=== PATIENT | male | born 1990 | race Caucasian/White ===

== ENCOUNTER → 2020-08-22 15:24 | Outpatient (BNVA) | payer BC, MEDICAID, SELFPAY | PROVIDERS: PCP Internal Medicine; Referring Provider Internal Medicine; Visit Provider Hospitalist | DX: Z13.89 Encounter for screening for other disorder (principal) ==

== ENCOUNTER 2020-08-23 12:33 | Outpatient (REF) | payer BC, MEDICAID, SELFPAY | END 2020-08-23 12:34 | disposition home or self-care (01) | LOC: HO.MDS 12:33 | PROVIDERS: PCP Internal Medicine; Visit Provider Hospitalist | DX: G90.09 Other idiopathic peripheral autonomic neuropathy (principal) | CPT/HCPCS: 96361; 96365; 96366 ==

== ENCOUNTER 2020-09-04 18:32 | Emergency (ER) | payer BC, MEDICAID, SELFPAY ==
[2020-09-04 21:34] VITALS: BP 122/76; PULSE 99; RESP 16; TEMP 36.8; O2SAT 100; BMI 20.7
[2020-09-04 22:00] VITALS: BP 155/82; PULSE 98; RESP 16; TEMP 36.9; O2SAT 100
[2020-09-04 22:11] LABS: MANUAL DIFF FLAG NO
[2020-09-04 22:24] LABS: Basophils Percent Auto 0.7 % (0-2); Hematocrit 41.5 % (42-52); Hemoglobin 14.6 g/dl (14.0-18.0); Imm Gran Abs Auto 0.01 X10*3/uL (0.00-0.03); Imm Gran Pct Auto 0.2 % (0.0-0.4); Lymphocytes Absolute Auto 1.3 X10*3/uL (1.2-4.9); Lymphocytes Percent Auto 28.3 % (20-40); Mean Corpuscular HGB Conc 35.2 g/dl (31.0-36.0); Mean Corpuscular Hemoglobin 31.5 pg (27.0-33.0); Mean Corpuscular Volume 89.4 fL (80-98); Mean Platelet Volume 9.9 fL (9.4-12.4); Monocytes Absolute Auto 0.4 X10*3/uL (0.1-1.2); Monocytes Percent Auto 8.3 % (2-11); Neutrophils Absolute Auto 2.9 X10*3/uL (2.0-8.3); Neutrophils Percent Auto 62.5 % (45-73); Platelet Count 169 X10*3/uL (160-400); Red Blood Count 4.64 X10*6/uL (4.60-5.80); Red Cell Distribution Width 12.4 % (11.0-16.0); White Blood Count 4.6 X10*3/uL (4.8-10.8)
[2020-09-04 22:39] LABS: Anion Gap 12 (12-20); Blood Urea Nitrogen 16 mg/dL (9-16); Calcium 9.2 mg/dL (8.4-10.2); Carbon Dioxide 27 mmol/L (22-29); Chloride 105 mmol/L (96-108); Creatinine Clr Calc Pharmacy 101.9; Estimated Glomerular Filt Rate > 60; Glucose Random 90 mg/dL (60-115); Sodium 140 mmol/L (135-145)
--- NOTE | 2020-09-04 22:58 | ED.NEUROSD ---
HPI - Neuro Symptoms/Deficit General Chief Complaint: Neuro Symptoms/Deficit Stated Complaint: neurological problem Time Seen by Provider: 09/04/20 22:46 Source: patient Mode of arrival: ambulatory Limitations: no limitations History of Present Illness HPI Narrative: patient with PTSD, autonomic dysfunction and neuropathy been here frequently for increased stress and dehydration with metabolic acidosis. Patient had a phone call with his washer hand today stressed out felt overwhelmed dehydrated Related Data Home Medications Medication Instructions Recorded Confirmed albuterol sulfate 90 mcg/actuation 2 puff PO Q4H PRN 08/22/20 08/22/20 aerosol inhaler budesonide-formoterol HFA 160 2 puff PO BID 08/22/20 08/22/20 mcg-4.5 mcg/actuation aerosol inhaler diazepam 10 mg tablet 10 mg PO Q8H PRN 08/22/20 08/22/20 fludrocortisone 0.1 mg tablet 0.2 mg PO DAILY 08/22/20 08/22/20 gabapentin 300 mg capsule 300 mg PO TID 08/22/20 08/22/20 levalbuterol HCl 1.25 mg/3 mL mg INHALATION 08/22/20 08/22/20 solution for nebulization omeprazole 20 mg capsule,delayed 20 mg PO QAM 08/22/20 08/22/20 release pregabalin 50 mg capsule 50 mg PO TID 08/22/20 08/22/20 tiotropium bromide 2.5 2 puff PO DAILY 08/22/20 08/22/20 mcg/actuation mist for inhalation verapamil 180 mg tablet,extended 180 mg PO DAILY 08/22/20 08/22/20 release Allergies Allergy/AdvReac Type Severity Reaction Status Date / Time pyridostigmine AdvReac Intermediate AGITATION Verified 08/23/20 11:08 [From MESTINON] sertraline [From ZOLOFT] AdvReac Intermediate NAUSEA & Verified 08/23/20 11:08 VOMITING trazodone [TRAZODONE] AdvReac Unknown VOMITING Verified 08/22/20 15:49 methylprednisolone AdvReac Agitated Verified 09/04/20 21:42 [From Solu-Medrol] prednisone AdvReac Agitated Verified 09/04/20 21:42 Review of Systems Review of Systems: REVIEW OF SYSTEMS: Pertinent positives and negatives are stated above in the history. GEN: no fevers, chills, fatigue HEENT: no nasal congestion, sore throat, ear pain NEURO: no headache, dizziness, focal weakness PULM: no cough, shortness of breath CV: no chest pain, palpitations, LE edema ABD: no abdominal pain, nausea, vomiting, diarrhea : no dysuria, urgency, frequency SKIN: no rash ROS otherwise negative x 10 PMFSH Past Medical History Medical History Asthma Autonomic dysfunction Nocturnal hypoxemia Mccallum disease PTSD (post-traumatic stress disorder) Small fiber neuropathy Tachycardia Family History Family History Mother Asthma Celiac disease/sprue Social History Social History Smoking Status: Former smoker Tobacco Type: Cigarette Years Smoked: 1 year Substance Use Type: Marijuana Advance Directives: No Advance Directives Date on File: 09/16/18 Physical Exam Vital Signs: Vital Signs: Vital Signs Temp Pulse Resp BP Pulse Ox 09/04/20 23:13 88 16 130/85 100 09/04/20 22:00 98.4 F 98 16 155/82 H 100 09/04/20 21:34 98.3 F 99 16 122/76 100 Body Mass Index 20.7 Appearance: Alert. Oriented X3. anxious, No acute distress. Eyes: Pupils equal, round and reactive to light. ENT: Pharynx normal. Neck: Normal inspection. Neck supple. CVS: Normal heart rate and rhythm. Pulses normal. Respiratory: No respiratory distress. Breath sounds normal. Abdomen: Soft and nontender. Skin: Skin warm and dry. Normal skin color. Normal skin turgor. Extremities: No lower extremity edema. Good range of movement Neuro: Oriented X 3. No motor deficit. No sensory deficit. Course Course Course Narrative: patient with stable labs PTSD with anxiety will give him IV fluids and IV Ativan Reevaluation(s) Reevaluation #1: patient feeling much better now after IV fluids and Ativan will discharge him home MDM - Neuro Symptoms/Deficit Lab Data Result diagrams: 09/04/20 22:02 09/04/20 22:02 Labs: Lab Results 09/04/20 09/04/20 09/04/20 Range/Units 22:02 22:02 22:02 WBC 4.6 L (4.8-10.8) X10*3/uL RBC 4.64 (4.60-5.80) X10*6/uL Hgb 14.6 (14.0-18.0) g/dl Hct 41.5 L (42-52) % MCV 89.4 (80-98) fL MCH 31.5 (27.0-33.0) pg MCHC 35.2 (31.0-36.0) g/dl RDW 12.4 (11.0-16.0) % Plt Count 169 (160-400) X10*3/uL MPV 9.9 (9.4-12.4) fL Immature Gran % (Auto) 0.2 (0.0-0.4) % Neut % (Auto) 62.5 (45-73) % Lymph % (Auto) 28.3 (20-40) % [place] % (Auto) 8.3 (2-11) % Eos % (Auto) 0.0 (0-4) % Baso % (Auto) 0.7 (0-2) % Lymph # (Auto) 1.3 (1.2-4.9) X10*3/uL [place] # (Auto) 0.4 (0.1-1.2) X10*3/uL Eos # (Auto) 0.0 (0.0-0.4) X10*3/uL Baso # (Auto) 0.0 (0.0-0.2) X10*3/uL Abs Immat Gran (auto) 0.01 (0.00-0.03) X10*3/uL Absolute Neuts (auto) 2.9 (2.0-8.3) X10*3/uL Absolute Nucleated RBC 0.000 (0.0-0.012) X10*3/uL Nucleated RBC % (auto) 0.0 (0.0-0.2) /100WBC Hold Blue Top SEE NOTE Sodium 140 (135-145) mmol/L Potassium 4.0 (3.3-5.1) mmol/l Chloride 105 (96-108) mmol/L Carbon Dioxide 27 (22-29) mmol/L Anion Gap 12 (12-20) BUN 16 (9-16) mg/dL Creatinine 0.96 (0.5-1.4) mg/dL Estim Creat Clear Calc 101.9 Estimated GFR > 60 Random Glucose 90 (60-115) mg/dL Calcium 9.2 (8.4-10.2) mg/dL Discharge Plan Discharge Clinical Impression: Acute post-traumatic stress disorder Patient Disposition: Home, Self-Care Instructions: Post Traumatic Stress Disorder (ED) Additional Instructions: drink plenty of fluids and follow-up with your neurologist and PCP Prescriptions: No Action budesonide-formoterol 160-4.5 mcg/actuation HFA aerosol inhaler 2 puff PO BID RF: 0 albuterol sulfate 90 mcg/actuation HFA aerosol inhaler 2 puff PO Q4H PRN (Reason: wheezing) RF: 0 verapamil 180 mg tablet extended release 180 mg PO DAILY RF: 0 levalbuterol HCl 1.25 mg/3 mL solution for nebulization inhalation RF: 0 gabapentin 300 mg capsule 300 mg PO TID RF: 0 omeprazole 20 mg capsule,delayed release(DR/EC) 20 mg PO QAM RF: 0 Spiriva Respimat 2.5 mcg/actuation mist 2 puff PO DAILY RF: 0 diazepam 10 mg tablet 10 mg PO Q8H PRN (Reason: anxiety) RF: 0 pregabalin 50 mg capsule 50 mg PO TID RF: 0 fludrocortisone 0.1 mg tablet 0.2 mg PO DAILY RF: 0
[2020-09-04 23:13] VITALS: BP 130/85; PULSE 88; RESP 16; O2SAT 100
[2020-09-04] MEDS: LORazepam 2 MG/ML VIAL 1 MG IVPUSH (23:18)
[2020-09-04] MEDS: 0.9 % Sodium Chloride 1,000 ML 999 ML IVCONT (23:18)
--- NOTE | 2020-09-04 23:21 | PC.NURSE ---
PT RESTING IN STRETCHER WITH ANXIETY. PT STATES I GOT VIOLENT AND WAS THROWING THINGS AT HOME AFTER SPEAKING WITH A NETWORK DEVELOPER. PT ALERT, RESPIRATIONS EASY, N/L. IN ROOM FOR EVAL. PT REMAINS CALM AND COOPERATIVE AT THIS TIME. HL PLACED TO [facility], NS UP AND RUNNING W/O, SITE INTACT. PT MEDICATED WITH ATIVAN PER EMAR FOR ANXIETY. PT AWAITING FOR FURTHER ORDERS.
[2020-09-04] MEDS: Pregabalin 50 MG CAPSULE PO (23:49)
[2020-09-04] MEDS: Acetaminophen 325 MG TABLET 650 MG PO (23:49)
== END 2020-09-05 00:55 | disposition home or self-care (01) ==
PROVIDERS: Emergency Provider Internal Medicine
DX: F43.10 Post-traumatic stress disorder, unspecified (principal); F43.9 Reaction to severe stress, unspecified; E86.0 Dehydration; Z79.899 Other long term (current) drug therapy; Z87.891 Personal history of nicotine dependence
CPT/HCPCS: 36415; 80048; 85025; 96361; 96374; 99284; J2060

== ENCOUNTER 2020-09-06 | Outpatient (REF) | payer BC, MEDICAID, SELFPAY | END 2020-09-06 00:01 | disposition home or self-care (01) | LOC: HO.MDS | PROVIDERS: PCP Internal Medicine; Visit Provider Hospitalist | DX: G47.34 Idiopathic sleep related nonobstructive alveolar hypoventilation (principal) | CPT/HCPCS: 96361; 96365; 96366; J1572; Q0163 ==

== ENCOUNTER 2020-09-20 11:06 | Outpatient (REF) | payer BC, MEDICAID, SELFPAY | END 2020-09-20 11:07 | disposition home or self-care (01) | LOC: HO.MDS 11:06 | PROVIDERS: PCP Internal Medicine; Visit Provider Hospitalist | DX: G90.9 Disorder of the autonomic nervous system, unspecified (principal) | CPT/HCPCS: 96365; 96366; J1572; Q0163 ==

== ENCOUNTER 2020-09-22 15:38 | Outpatient (REF) | payer BC, MEDICAID, SELFPAY ==
[2020-09-22 18:15] LABS: Glucose Urine UA NEG (NEG); Leukocyte Esterase Urine NEG (NEG); Nitrite Urine NEG (NEG); PH 6.5 (5.0-8.0); Specific Gravity - Urine <= 1.005 (1.005-1.025); Urine Blood NEG (NEG); Urine Ketones NEG (NEG); Urine Protein NEG (NEG-TRACE)
[2020-09-22 18:22] LABS: Appearance Urine CLEAR; Color Urine STRAW
[2020-09-22 18:28] LABS: RBC Urine 0 /HPF (0); WBC Urine 0 /HPF (0-4)
[2020-09-22 18:32] LABS: Alanine Aminotransferase 21 U/L (0-40); Albumin Level 4.3 g/dL (3.5-5.0); Alkaline Phosphatase 51 U/L (39-117); Anion Gap 10 (12-20); Aspartate Amino Transferase 30 U/L (5-37); Bilirubin Total 0.6 mg/dL (0.0-1.0); Blood Urea Nitrogen 18 mg/dL (9-16); C Reactive Protein 0.05 mg/dL (< or = 0.50); Calcium 9.2 mg/dL (8.4-10.2); Carbon Dioxide 29 mmol/L (22-29); Chloride 101 mmol/L (96-108); Estimated Glomerular Filt Rate > 60; Glucose Random 94 mg/dL (60-115); Rheumatoid Factor < 15.0 IU/mL (<15.0); Sodium 136 mmol/L (135-145); Total Protein 9.4 g/dL (6.5-8.0)
[2020-09-22 19:15] LABS: Erythrocyte Sedimentation Rate 38 MM/HR (0-15)
[2020-09-25 19:09] LABS: Complement C3 101 mg/dL (82-185)
[2020-09-25 19:10] LABS: Cardiolipin IgG Ab <14 GPL; Cardiolipin IgM Ab <12 MPL
[2020-09-25 19:11] LABS: Beta-2 Microglobulin, Serum 1.72 mg/L (< OR = 2.51); Cyclic Citrullinated Peptide <16 UNITS; PTT (LAC) Screen 26 sec (< OR = 40)
[2020-09-26 13:11] LABS: Anti Nuclear Antibody Screen POSITIVE (NEGATIVE)
[2020-09-27 13:12] LABS: Anti DNA DS Antibody 5 IU/mL; Antibody to SS-A Antigen 1.6 POS AI (<1.0 NEG); Antibody to SS-B Antigen <1.0 NEG AI (<1.0 NEG)
[2020-09-27 21:02] LABS: Acetylcholine Receptor Binding <0.30 nmol/L
[2020-09-30 05:42] LABS: Aldolase 3.6 U/L (<=8.1)
== END 2020-09-22 15:39 | disposition home or self-care (01) ==
LOC: HO.LAB 15:38
PROVIDERS: PCP Internal Medicine; Referring Provider Nurse Practitioner Family; Visit Provider Student in an Organized Health Care Education/Training Program
DX: M25.50 Pain in unspecified joint (principal); G90.9 Disorder of the autonomic nervous system, unspecified
CPT/HCPCS: 36415; 80053; 81001; 82085; 82232; 82550; 83519; 85597; 85613; 85652; 85730; 86038; 86039; 86140; 86147; 86160; 86200; 86225; 86235; 86431

== ENCOUNTER 2020-10-03 11:07 | Outpatient (REF) | payer BC, MEDICAID, SELFPAY | END 2020-10-03 11:08 | disposition home or self-care (01) | LOC: HO.MDS 11:07 | PROVIDERS: PCP Internal Medicine; Visit Provider Hospitalist | DX: G90.9 Disorder of the autonomic nervous system, unspecified (principal) | CPT/HCPCS: 96365; 96366; J1572; J2920; Q0163 ==

== ENCOUNTER → 2020-10-10 15:46 | Outpatient (BNVA) | payer BC, MEDICAID, SELFPAY | PROVIDERS: PCP Nurse Practitioner Family; Referring Provider Nurse Practitioner Family; Visit Provider Student in an Organized Health Care Education/Training Program | DX: Z76.89 Persons encountering health services in other specified circumstances (principal) ==

== ENCOUNTER → 2020-10-19 13:50 | Outpatient (BNVA) | payer BC, MEDICAID, SELFPAY | PROVIDERS: PCP Internal Medicine; Referring Provider Internal Medicine; Visit Provider Internal Medicine Cardiovascular Disease | DX: Z76.89 Persons encountering health services in other specified circumstances (principal) ==

== ENCOUNTER 2020-10-26 10:53 | Outpatient (REF) | payer BC, MEDICAID, SELFPAY | END 2020-10-26 10:54 | disposition home or self-care (01) | LOC: HO.MDS 10:53 | PROVIDERS: PCP Internal Medicine; Visit Provider Hospitalist | DX: G47.34 Idiopathic sleep related nonobstructive alveolar hypoventilation (principal) | CPT/HCPCS: 96361; 96365; 96366; J1572; Q0163 ==

== ENCOUNTER → 2020-10-26 | Outpatient (REF) | payer BC, MEDICAID, SELFPAY ==
--- NOTE | 2020-10-26 15:44 | CA_ITS ---
Transthoracic Echocardiogram Patient (Last, First, Middle): Ace Casas, Gender: Male Date of : 1990 Age: 30 Procedure Date: 10/26/2020 Procedure Type: Transthoracic Echocardiogram Location: OP Height: 175.26 cm Weight: 63.5 kg BSA: 1.78 m2 Heart Rate: bpm BP: 120 / 60 mmHg Hand Meat Salter: CARLA Referring MD: Saúl Avilez MD Symptoms: R06.02 - Shortness of breath Study Quality: Good Conclusions: - Normal left ventricular size, thickness, systolic function, and wall motion. - Normal right ventricular cavity size and systolic function. - No significant valvular or pericardial pathology. Findings Left Ventricle Normal left ventricular size, thickness, systolic function, and wall motion. The visually estimated ejection fraction is between 55-60%. There is no evidence of regional wall motion abnormalities. Diastolic function is normal for age. Right Ventricle Normal right ventricular cavity size and systolic function. Atria Both atria are normal in size. There is no evidence of interatrial shunt by color Doppler. Aortic Valve Normal aortic valve structure and function. There is no aortic valve stenosis. There is no aortic valve regurgitation. Mitral Valve Normal mitral valve structure and function. There is trace mitral valve regurgitation. There is no mitral valve stenosis. Pulmonic Valve Normal pulmonic valve structure and function. Tricuspid Valve Normal tricuspid valve structure and function. There is no tricuspid valve regurgitation. Normal right atrial pressure. There is no evidence of pulmonary hypertension. Great Vessels All visible segments of the aorta are normal in size. The visualized portions of the pulmonary artery and branches are normal. Venous The inferior vena cava is normal in size and collapses greater than 50% with inspiration. Pericardium/Pleural There is no evidence of pericardial effusion. Prior Study Comparison No change compared to prior study dated: 05/21/2019. Measurements 2D Linear Measurements IVSd: 0.96 0.6-0.9/0.6-1.0 cm LVIDd: 4.36 3.9-5.3/4.2-5.9 cm LVIDd Index: 2.45 2.4-3.2/2.2-3.1 cm/m2 LVIDs: 2.61 2.0-3.6 cm LVPWd: 0.96 0.7-1.1 cm Ao Root: 3.60 2.1-3.5 cm LA Diam: 3.30 2.7-3.8/3.0-4.0 cm LAIDs Index: 1.85 1.5-2.3 cm/m2 LV Mass: 171.26 67-162/88-224 g LV Mass Index: 96.21 43-95/49-115 g/m2 LVOT Diam: 2.30 3.0+(-)1.3 cm 2D Systolic Function EF 4C: 61.20 >55% EF 2C: 59.20 >55% EF BiP: 60.60 >55% Mitral Valve MV Pk E: 0.81 MV PK A: 0.59 MV Decel Time: 218.00 E/A: 1.40 E'Lateral: 12.10 E'Medial: 8.92 E/E' Med: 9.00 E/E' Lat: 6.70 PHT: 64.00 MVA PHT: 3.44 Decel Mcdonald: 3.69 Aortic Valve AoV Pk Tay: 1.05 AoV Mn Tay: 0.77 AoV VTI: 0.22 AoV Pk Grad: 4.00 Aov Mn Grad: 3.00 MIREYA Cont.VTI: 3.15 LVOT LVOT Pk Tay: 0.81 LVOT Mn Tay: 0.55 LVOT VTI: 0.16 LVOT Pk Grad: 3.00 LVOT Mn Grad: 1.00 LVOT Diam: 2.30 LVOT Area: 4.15 Diastolic Function MV Pk E: 0.81 MV Pk A: 0.59 E/A: 1.40 E'Medial: 8.92 E/E' Med: 9.00 E' Laterial: 12.10 E/E' Lat: 6.70 Tricuspid Valve TR Pk Tay: 2.06 TR Pk Grad: 17.00 RA Press: 3.00 RVSP: 20.00 Great Vessels Aorta Ao Root-2D: 3.60 2.0-3.7 cm Ao Asc: 3.10 2.1-3.4 cm Ao Arch: 2.10 Updated in Other Vendor System with Status of Final Naresh Gonzalez MD electronically signed on 10/27/2020 12:15:02 PM with status of Final
== END ==
LOC: HO.CARD
PROVIDERS: Visit Provider Internal Medicine Cardiovascular Disease
DX: R06.02 Shortness of breath (principal)
CPT/HCPCS: 93306

== ENCOUNTER 2020-11-08 10:44 | Outpatient (REF) | payer BC, MEDICAID, SELFPAY | END 2020-11-08 10:45 | disposition home or self-care (01) | LOC: HO.MDS 10:44 | PROVIDERS: PCP Internal Medicine; Visit Provider Hospitalist | DX: G47.34 Idiopathic sleep related nonobstructive alveolar hypoventilation (principal) | CPT/HCPCS: 96360; 96365; 96366; J1572; Q0163 ==

== ENCOUNTER 2020-11-22 11:35 | Outpatient (REF) | payer BC, MEDICAID, SELFPAY | END 2020-11-22 11:36 | disposition home or self-care (01) | LOC: HO.MDS 11:35 | PROVIDERS: PCP Internal Medicine; Visit Provider Hospitalist | DX: G47.34 Idiopathic sleep related nonobstructive alveolar hypoventilation (principal) | CPT/HCPCS: 96360; 96365; 96366; J1572; Q0163 ==

== ENCOUNTER → 2020-12-07 14:17 | Outpatient (BNVA) | payer BC, MEDICAID, SELFPAY | PROVIDERS: PCP Internal Medicine; Visit Provider Hospitalist ==

== ENCOUNTER 2020-12-28 12:09 | Outpatient (REF) | payer BC, MEDICAID, SELFPAY | END 2020-12-28 12:10 | disposition home or self-care (01) | LOC: HO.MDS 12:09 | PROVIDERS: PCP Internal Medicine; Visit Provider Hospitalist | DX: G60.8 Other hereditary and idiopathic neuropathies (principal) | CPT/HCPCS: 96360; 96365; 96366; J1569; J1572; Q0163 ==

== ENCOUNTER 2021-01-05 19:25 | Outpatient (REF) | payer BC, MEDICAID, SELFPAY ==
--- NOTE | ~2021-01-05 | MR_ITS ---
EXAMINATION: MR BRAIN WITHOUT CONTRAST CLINICAL INFORMATION: Autonomic failure. Cognitive impairment. COMPARISON: Brain MRI from 09/09/2018. TECHNIQUE: MRI of the brain was obtained using routine sequences without contrast. FINDINGS: No focal restricted diffusion is demonstrated to suggest acute or subacute cerebral ischemia. No evidence of acute or chronic hemorrhagic products on heme-sensitive imaging. Normal parenchymal signal characteristics. The ventricles are normal in morphology and size. No abnormal mass effect. No midline shift. Normal appearance of the pituitary gland. The suprasellar cistern is patent. No abnormalities of the posterior fossa with normal appearance of the brainstem and cerebellum. The cerebellar tonsils are positioned at the level the foramen magnum. Normal arterial and venous vascular flow voids are present. Normal, homogeneous marrow signal. Mild mucosal thickening of the paranasal sinuses. Mucous retention cyst within the bilateral maxillary sinuses. No signal abnormalities within the mastoids. MR/MR head/brain wo con IMPRESSION: 1. No acute intracranial abnormalities. 2. No MRI abnormalities to explain the patient's symptoms.
== END 2021-01-05 19:26 | disposition home or self-care (01) ==
LOC: HO.MRI 19:25
PROVIDERS: Visit Provider Psychiatry & Neurology Neurology
DX: G31.84 Mild cognitive impairment of uncertain or unknown etiology (principal)
CPT/HCPCS: 70551

== ENCOUNTER 2021-01-08 10:00 | Emergency (ER) | payer BC, MEDICAID, SELFPAY ==
--- NOTE | ~2021-01-08 | CT_ITS ---
EXAMINATION: CT ANGIOGRAM OF THE CHEST WITH AND WITHOUT CONTRAST (CT PULMONARY ANGIOGRAM FOR PE) CLINICAL INFORMATION: Reason for Exam pleurtitic cp, tachycardia , ro pe COMPARISON: Previous chest x-ray most recent from earlier the same day and chest CTA July 2020 TECHNIQUE: Prior to contrast administration, noncontrast localization images were obtained. Subsequently, multidetector volumetric imaging was performed from the thoracic inlet to below the diaphragms following the administration of 70 mL Omnipaque 350 intravenous contrast. No contrast reaction reported Sagittal, coronal, and MIP oblique sagittal reformatted images were obtained on the CT workstation, uploaded to PACS, and reviewed. This CT examination was performed using dose optimization techniques as appropriate, variously including the following: *Automated exposure control *Adjustment of mA and/or kV according to patient size (this includes techniques or standardized protocols for targeted exams where dose is matched to indication/reason for exam; i.e. extremities or head) *Use of iterative reconstruction technique Total exam dose-length product 278 mGy-cm FINDINGS: QUALITY OF STUDY/CONTRAST BOLUS: Satisfactory. PULMONARY ARTERIES: No central or segmental pulmonary emboli. THORACIC AORTA: No aneurysm or dissection. LUNG: There is a new peripheral consolidation in the posterior segment of the right upper lobe adjacent to the major fissure probably representing pneumonia. The lungs are otherwise clear. PLEURA: There are small bilateral pleural effusions, right greater than left. MEDIASTINUM: Normal heart size. No pericardial effusion. No hilar or mediastinal lymphadenopathy. No evidence of septal bowing or right heart strain. CHEST WALL/AXILLA: No axillary or internal mammary lymphadenopathy. OSSEOUS STRUCTURES: No acute or suspicious osseous abnormality. UPPER ABDOMEN: Unremarkable. No reflux of contrast into the hepatic veins to suggest elevated right heart pressures. CT/CT angio chest PE protocol IMPRESSION: No evidence of pulmonary embolism. New peripheral consolidation in the right upper lobe probably representing pneumonia. New bilateral pleural effusions, right greater than left. VTE: negative
--- NOTE | ~2021-01-08 | XR_ITS ---
EXAMINATION: XR CHEST CLINICAL INFORMATION: Chest pain COMPARISON: Chest 07/15/2020 TECHNIQUE: Frontal view of the chest was obtained. FINDINGS: No significant abnormality is noted involving the heart, lungs, mediastinum, bony thorax or soft tissues. XR/XR chest 1V IMPRESSION: Unremarkable chest examination.
--- NOTE | 2021-01-08 10:35 | ECG_ITS ---
Test Reason : CHEST PAIN Blood Pressure : / mmHG Vent. Rate : 129 BPM Atrial Rate : 129 BPM P-R Int : 154 ms QRS Dur : 092 ms QT Int : 286 ms P-R-T Axes : 044 043 043 degrees QTc Int : 418 ms Sinus tachycardia Otherwise normal ECG When compared with ECG of 29-JUN-2020 14:01, No significant change was found Referred By: Unruly Barajas Electronically Signed By:TICO CANNON
[2021-01-08 10:38] VITALS: BP 137/91; PULSE 128; RESP 22; O2SAT 98; BMI 20.7
--- NOTE | 2021-01-08 10:48 | ED_ITS ---
HPI - Chest Pain General Chief Complaint: Chest Pain Stated Complaint: back pain Time Seen by Provider: 01/08/21 10:16 History of Present Illness HPI narrative: Patient complains of 3 days of gradual onset of upper back pain radiating to chest that is worse with deep breath and especially worse with movement, it is still present at rest but not severe, he denies any shortness of breath today he denies any exertional symptoms, he denies any palpitation, no cough no wheezing no fever no chills, denies any leg or calf pain no leg swelling Related Data Home Medications Medication Instructions Recorded Confirmed albuterol sulfate 90 mcg/actuation 2 puff PO Q4H PRN 08/22/20 10/19/20 aerosol inhaler levalbuterol HCl 1.25 mg/3 mL mg INHALATION 08/22/20 10/19/20 solution for nebulization pregabalin 50 mg capsule 50 mg PO TID 08/22/20 10/19/20 fludrocortisone 0.1 mg tablet 0.05 mg PO DAILY 09/22/20 10/19/20 immune glob,gamm(IgG) 10%-sorb-IgA IV 09/22/20 10/19/20 0 to 50 mcg/mL intravenous solution metoprolol succinate 25 mg 25 mg PO DAILY 12/07/20 tablet,extended release 24 hr budesonide 0.5 mg/2 mL suspension mg INHALATION BID 01/10/21 for nebulization diazepam 10 mg tablet 10 mg PO BID PRN tab 01/10/21 nebulizer and compressor #1 ea 01/10/21 Previous Rx's Medication Instructions Recorded inhalational spacing device #1 ea 11/22/20 tiotropium bromide 2.5 2 puff INHALATION DAILY 30 Days #4 11/22/20 mcg/actuation mist for inhalation g amoxicillin 875 mg-potassium 1 tab PO BID 10 Days #20 tab 01/08/21 clavulanate 125 mg tablet codeine-guaifenesin [Virtussin AC] 5 ml PO Q6H PRN #75 ml 01/08/21 ibuprofen 600 mg PO Q6H PRN #20 tab 01/08/21 ondansetron HCl 4 mg tablet 4 mg PO Q8H PRN 14 Days #20 tab 01/10/21 Allergies Allergy/AdvReac Type Severity Reaction Status Date / Time pyridostigmine AdvReac Intermediate AGITATION Verified 12/07/20 14:27 [From MESTINON] sertraline [From ZOLOFT] AdvReac Intermediate NAUSEA & Verified 12/07/20 14:27 VOMITING methylprednisolone AdvReac Mild Agitated Verified 01/10/21 14:33 [From Solu-Medrol] trazodone [TRAZODONE] AdvReac Unknown VOMITING Verified 12/07/20 14:27 Review of Systems Review of Systems: Positive for upper back pain, pleuritic pain Negatives are no fever no chills no dizziness no weakness no fainting no feeling faint no shortness of breath no palpitations no sweating, no exertional symptoms no abdominal pain no nausea no vomiting, no rash, no leg swelling or calf pain no numbness or weakness [facility] Past Medical History Attestation statement: The following information was validated with the patient. [facility] Narrative: Patient has history of autonomic dysfunction with tachycardia, in past months he was changed from a beta-claire to a calcium channel claire and has had some improvement in the tachycardia Source: nursing notes reviewed Medical History (Updated 01/10/21 @ 16:33 by Oli Holguin MD) Asthma Autonomic dysfunction Bilateral calf pain Dizziness Gastritis GERD (gastroesophageal reflux disease) Has daytime drowsiness Viry's disease Hypoglycemia Nocturnal hypoxemia MARYANN (obstructive sleep apnea) Pleural effusion Pleuritis Pneumonia Mccallum disease PTSD (post-traumatic stress disorder) Small fiber neuropathy Tachycardia Vitamin D deficiency Surgical History History of wisdom tooth extraction No pertinent past surgical history Family History Family History Mother Asthma Celiac disease/sprue Father Psoriasis Social History Social History Alcohol intake: never Smoking Status: Former smoker Tobacco Type: Cigarette Years Smoked: 1 year Substance Use Type: Marijuana Advance Directives Date on File: 09/16/18 Physical Exam Vital Signs: Vital Signs: Last Vital Signs Pulse 101 H 01/08/21 16:30 Resp 16 01/08/21 16:30 BP 134/87 01/08/21 16:30 Pulse Ox 98 01/08/21 16:30 Body Mass Index 20.7 General appearance is no distress, cooperative, in O x3 Head is normocephalic atraumatic Neck is supple without JVD Chest is clear to auscultation with full symmetric equal breath sounds The chest wall is tender to palpation and pain is reproduced with deep breath and movement The heart no murmur auscultated The abdomen is soft nontender The extremities there is no calf swelling or tenderness there is no pedal edema there is full range of motion x4 Skin no rash Neuro no motor or sensory deficit no facial asymmetry, verbal interaction is clear and understanding is normal, gait and balance are normal Course Course Course Narrative: CT revealed of the right upper lobe infiltrate Patient's tachycardia continued with rate between 105-130 I called patient's jde developer Dr. avilez who advised no adjustment to rate control medications while patient is actively being treated for pneumonia, he advised treat the pneumonia and he will follow the patient and see if tachycardia resolves as infection resolves I also texted patient's white washer Dr. Jean who agreed to treat the pneu monia, patient will be discharged and he can follow the patient as an outpatient Patient remained stable throughout visit, speaking full sentences interacting normally with no evidence of any respiratory distress and was discharged with doxycycline for pneumonia MDM - Chest Pain Lab Data Attestation: I reviewed the patient's lab results. Result diagrams: 01/08/21 11:01/08/21 11: Labs: Lab Results 01/08/21 01/08/21 01/08/21 Range/Units 11:01 11: 11:01 WBC 7.8 (4.8-10.8) X10*3/uL RBC 4.83 (4.60-5.80) X10*6/uL Hgb 14.7 (14.0-18.0) g/dl Hct 42.5 (42-52) % MCV 88.0 (80-98) fL MCH 30.4 (27.0-33.0) pg MCHC 34.6 (31.0-36.0) g/dl RDW 11.9 (11.0-16.0) % Plt Count 156 L (160-400) X10*3/uL MPV 9.6 (9.4-12.4) fL Immature Gran % (Auto) 0.3 (0.0-0.4) % Neut % (Auto) 77.0 H (45-73) % Lymph % (Auto) 9.9 L (20-40) % [place] % (Auto) 12.1 H (2-11) % Eos % (Auto) 0.3 (0-4) % Baso % (Auto) 0.4 (0-2) % Lymph # (Auto) 0.8 L (1.2-4.9) X10*3/uL [place] # (Auto) 0.9 (0.1-1.2) X10*3/uL Eos # (Auto) 0.0 (0.0-0.4) X10*3/uL Baso # (Auto) 0.0 (0.0-0.2) X10*3/uL Abs Immat Gran (auto) 0.02 (0.00-0.03) X10*3/uL Absolute Neuts (auto) 6.0 (2.0-8.3) X10*3/uL Absolute Nucleated RBC 0.000 (0.0-0.012) X10*3/uL Nucleated RBC % (auto) 0.0 (0.0-0.2) /100WBC Sodium 142 (135-145) mmol/L Potassium 4.0 (3.3-5.1) mmol/L Chloride 105 (96-108) mmol/L Carbon Dioxide 29 (22-29) mmol/L Anion Gap 12 (12-20) BUN 13 (9-16) mg/dL Creatinine 0.98 (0.5-1.4) mg/dL Estim Creat Clear Calc 103.4 Estimated GFR > 60 Random Glucose 94 (60-115) mg/dL Calcium 9.1 (8.4-10.2) mg/dL Troponin I High Sens 3.7 (<3.5-35.0) ng/L Coronavirus (PCR) (Negative) Influenza Type A (PCR) (Negative) Influenza Type B (PCR) (Negative) RSV RNA Qual (PCR) (Negative) 01/08/21 Range/Units 12:09 WBC (4.8-10.8) X10*3/uL RBC (4.60-5.80) X10*6/uL Hgb (14.0-18.0) g/dl Hct (42-52) % MCV (80-98) fL MCH (27.0-33.0) pg MCHC (31.0-36.0) g/dl RDW (11.0-16.0) % Plt Count (160-400) X10*3/uL MPV (9.4-12.4) fL Immature Gran % (Auto) (0.0-0.4) % Neut % (Auto) (45-73) % Lymph % (Auto) (20-40) % [place] % (Auto) (2-11) % Eos % (Auto) (0-4) % Baso % (Auto) (0-2) % Lymph # (Auto) (1.2-4.9) X10*3/uL [place] # (Auto) (0.1-1.2) X10*3/uL Eos # (Auto) (0.0-0.4) X10*3/uL Baso # (Auto) (0.0-0.2) X10*3/uL Abs Immat Gran (auto) (0.00-0.03) X10*3/uL Absolute Neuts (auto) (2.0-8.3) X10*3/uL Absolute Nucleated RBC (0.0-0.012) X10*3/uL Nucleated RBC % (auto) (0.0-0.2) /100WBC Sodium (135-145) mmol/L Potassium (3.3-5.1) mmol/L Chloride (96-108) mmol/L Carbon Dioxide (22-29) mmol/L Anion Gap (12-20) BUN (9-16) mg/dL Creatinine (0.5-1.4) mg/dL Estim Creat Clear Calc Estimated GFR Random Glucose (60-115) mg/dL Calcium (8.4-10.2) mg/dL Troponin I High Sens (<3.5-35.0) ng/L Coronavirus (PCR) NEGATIVE (Negative) Influenza Type A (PCR) NEGATIVE (Negative) Influenza Type B (PCR) NEGATIVE (Negative) RSV RNA Qual (PCR) NEGATIVE (Negative) Imaging Data CT scan - chest: Radiologist's impression: s performed using dose optimization techniques as appropriate, variously including the following: *Automated exposure control *Adjustment of mA and/or kV according to patient size (this includes techniques or standardized protocols for targeted exams where dose is matched to indication/reason for exam; i.e. extremities or head) *Use of iterative reconstruction technique Total exam dose-length product 278 mGy-cm FINDINGS: QUALITY OF STUDY/CONTRAST BOLUS: Satisfactory. PULMONARY ARTERIES: No central or segmental pulmonary emboli. THORACIC AORTA: No aneurysm or dissection. LUNG: There is a new peripheral consolidation in the posterior segment of the right upper lobe adjacent to the major fissure probably representing pneumonia. The lungs are otherwise clear. PLEURA: There are small bilateral pleural effusions, right greater than left. MEDIASTINUM: Normal heart size. No pericardial effusion. No hilar or mediastinal lymphadenopathy. No evidence of septal bowing or right heart strain. CHEST WALL/AXILLA: No axillary or internal mammary lymphadenopathy. OSSEOUS STRUCTURES: No acute or suspicious osseous abnormality. UPPER ABDOMEN: Unremarkable. No reflux of contrast into the hepatic veins to suggest elevated right heart pressures. CT/CT angio chest PE protocol IMPRESSION: No evidence of pulmonary embolism. New peripheral consolidation in the right upper lobe probably representing pneumonia. New bilateral pleural effusions, right greater than left. VTE: negative Discharge Plan Discharge Clinical Impression: Pneumonia Patient Disposition: Home, Self-Care Additional Instructions: CT scan did show a right upper lobe pneumonia which might account for the pain and cough as well as an increased heart rate I discussed by text with Dr. Avilez who advised treat the pneumonia but no adjustment [address] hooker and jde developer There was no pulmonary embolus seen on the CT scan, troponin testing was normal, EKG did not show any findings of heart attack Return to ER any time any worse condition or any concerns Prescriptions: New codeine-guaifenesin [Virtussin AC] 10-100 mg/5 mL liquid 5 ml PO Q6H PRN (Reason: cough) Qty: 75 RF: 0 ibuprofen 600 mg tablet 600 mg PO Q6H PRN (Reason: pain) Qty: 20 RF: 0 No Action Spiriva Respimat 2.5 mcg/actuation mist 2 puff inhalation DAILY 30 Days Qty: 4 RF: 11 (DME) Aerochamber MV Spacer See Rx Instructions .ROUTE .MEDSUPPLY Qty: 1 RF: 0 amoxicillin-pot clavulanate [Augmentin] 875-125 mg tablet 1 tab PO BID 10 Days Qty: 20 RF: 0 albuterol sulfate 90 mcg/actuation HFA aerosol inhaler 2 puff PO Q4H PRN (Reason: wheezing) RF: 0 levalbuterol HCl 1.25 mg/3 mL solution for nebulization inhalation RF: 0 pregabalin 50 mg capsule 50 mg PO TID RF: 0 metoprolol succinate 25 mg tablet extended release 24 hr 25 mg PO DAILY RF: 0 fludrocortisone 0.1 mg tablet 0.05 mg PO DAILY RF: 0 Flebogamma DIF 10 % solution IV RF: 0 diazepam [Valium] 10 mg tablet 10 mg PO BID PRNRF: 0 (DME) nebulizer and compressor Device See Rx Instructions ea .ROUTE DIRECTED Qty: 1 RF: 0 budesonide 0.5 mg/2 mL suspension for nebulization inhalation BID RF: 0 ondansetron HCl [Zofran] 4 mg tablet 4 mg PO Q8H PRN (Reason: nausea and vomiting) 14 Days Qty: 20 RF: 1 Interventions: ED Discharge Assessment Last Done: 01/08/21 16:57 Discharge Date/Time: 01/08/21 16:58
[2021-01-08 11:05] LABS: MANUAL DIFF FLAG NO
[2021-01-08 11:07] LABS: Basophils Percent Auto 0.4 % (0-2); Eosinophils Percent Auto 0.3 % (0-4); Hematocrit 42.5 % (42-52); Hemoglobin 14.7 g/dl (14.0-18.0); Imm Gran Abs Auto 0.02 X10*3/uL (0.00-0.03); Imm Gran Pct Auto 0.3 % (0.0-0.4); Lymphocytes Absolute Auto 0.8 X10*3/uL (1.2-4.9); Lymphocytes Percent Auto 9.9 % (20-40); Mean Corpuscular HGB Conc 34.6 g/dl (31.0-36.0); Mean Corpuscular Hemoglobin 30.4 pg (27.0-33.0); Mean Platelet Volume 9.6 fL (9.4-12.4); Monocytes Absolute Auto 0.9 X10*3/uL (0.1-1.2); Monocytes Percent Auto 12.1 % (2-11); Platelet Count 156 X10*3/uL (160-400); Red Blood Count 4.83 X10*6/uL (4.60-5.80); Red Cell Distribution Width 11.9 % (11.0-16.0); White Blood Count 7.8 X10*3/uL (4.8-10.8)
[2021-01-08] MEDS: LORazepam 2 MG/ML VIAL 1 MG IVPUSH (11:10)
[2021-01-08] MEDS: Acetaminophen 325 MG TABLET 650 MG PO (11:10)
[2021-01-08 11:51] LABS: Anion Gap 12 (12-20); Blood Urea Nitrogen 13 mg/dL (9-16); Calcium 9.1 mg/dL (8.4-10.2); Carbon Dioxide 29 mmol/L (22-29); Chloride 105 mmol/L (96-108); Creatinine Clr Calc Pharmacy 103.4; Estimated Glomerular Filt Rate > 60; Glucose Random 94 mg/dL (60-115); Sodium 142 mmol/L (135-145)
[2021-01-08 11:55] LABS: Troponin-I High Sensitivity 3.7 ng/L (<3.5-35.0)
[2021-01-08] MEDS: 0.9 % Sodium Chloride 1,000 ML 999 ML IVCONT (12:05)
[2021-01-08] MEDS: iohexoL 350 MG/ML 100 ML INFUS..BTL 70 ML IV (12:32)
[2021-01-08 12:54] LABS: Influenza A PCR NEGATIVE (Negative); Influenza B PCR NEGATIVE (Negative); Resp Syncy Virus RNA Qual PCR NEGATIVE (Negative); SARS COV2 PCR INHOUSE NEGATIVE (Negative)
[2021-01-08 13:24] VITALS: BP 114/73; PULSE 116; RESP 16; O2SAT 99
[2021-01-08 15:51] VITALS: BP 121/84; PULSE 117; RESP 18
[2021-01-08] MEDS: Ketorolac Tromethamine 30 MG/ML VIAL IVPUSH (15:51)
[2021-01-08 16:30] VITALS: BP 134/87; PULSE 101; RESP 16; O2SAT 98
== END 2021-01-08 16:58 | disposition home or self-care (01) ==
PROVIDERS: Physician Assistant Medical; Emergency Provider Emergency Medicine; PCP Internal Medicine
DX: J18.9 Pneumonia, unspecified organism (principal); J90 Pleural effusion, not elsewhere classified; Z20.822 Contact with and (suspected) exposure to COVID-19; R07.89 Other chest pain; J45.909 Unspecified asthma, uncomplicated; K21.9 Gastro-esophageal reflux disease without esophagitis
CPT/HCPCS: 0241U; 36415; 71045; 71275; 80048; 84484; 85025; 93005; 96361; 96374; 96375; 99284; J1885; J2060; Q9967

== ENCOUNTER 2021-01-10 14:17 | Outpatient (REF) | payer BC, MEDICAID, SELFPAY ==
[2021-01-10 16:00] LABS: MANUAL DIFF FLAG NO
[2021-01-10 16:08] LABS: Hematocrit 37.6 % (42-52); Hemoglobin 13.2 g/dl (14.0-18.0); Mean Corpuscular HGB Conc 35.1 g/dl (31.0-36.0); Mean Corpuscular Hemoglobin 30.8 pg (27.0-33.0); Mean Corpuscular Volume 87.6 fL (80-98); Red Blood Count 4.29 X10*6/uL (4.60-5.80); White Blood Count 4.8 X10*3/uL (4.8-10.8)
[2021-01-10 16:09] LABS: Basophils Percent Auto 0.6 % (0-2); Eosinophils Absolute Auto 0.1 X10*3/uL (0.0-0.4); Imm Gran Abs Auto 0.01 X10*3/uL (0.00-0.03); Imm Gran Pct Auto 0.2 % (0.0-0.4); Lymphocytes Absolute Auto 0.9 X10*3/uL (1.2-4.9); Lymphocytes Percent Auto 19.6 % (20-40); Mean Platelet Volume 9.9 fL (9.4-12.4); Monocytes Absolute Auto 0.5 X10*3/uL (0.1-1.2); Monocytes Percent Auto 10.9 % (2-11); Neutrophils Absolute Auto 3.2 X10*3/uL (2.0-8.3); Neutrophils Percent Auto 67.7 % (45-73); Platelet Count 192 X10*3/uL (160-400); Red Cell Distribution Width 11.8 % (11.0-16.0)
[2021-01-10 16:47] LABS: Erythrocyte Sedimentation Rate 83 MM/HR (0-15)
[2021-01-11 11:17] LABS: Immunoglobulin E 4 kU/L (<OR=114)
[2021-01-11 11:42] LABS: Complement C3 160 mg/dL (82-185)
[2021-01-11 13:16] LABS: Anti DNA DS Antibody 4 IU/mL; Antibody to SS-A Antigen <1.0 NEG AI (<1.0 NEG); Antibody to SS-B Antigen <1.0 NEG AI (<1.0 NEG); Myeloperoxidase Antibody <1.0 AI; Proteinase 3 PR3 Antibodies <1.0 AI
[2021-01-11 14:01] LABS: Anti Nuclear Antibody Screen NEGATIVE (NEGATIVE)
[2021-01-11 23:12] LABS: Immunoglobulin G Subclass 1 896 mg/dL (382-929); Immunoglobulin G Subclass 2 626 mg/dL (241-700); Immunoglobulin G Subclass 3 85 mg/dL (22-178); Immunoglobulin G Subclass 4 59.3 mg/dL (4-86); Immunoglobulin G Total 1686 mg/dL (600-1640)
[2021-01-12 01:11] LABS: Cyclic Citrullinated Peptide <16 UNITS
[2021-01-12 08:21] LABS: SARS COV2 IgG Negative (Negative)
[2021-01-16 23:06] LABS: IgA 112 mg/dL (47-310); IgG 1675 mg/dL (600-1640); IgM 123 mg/dL (50-300)
== END 2021-01-10 14:18 | disposition home or self-care (01) ==
LOC: HO.LAB 14:17
PROVIDERS: Absent Provider Hospitalist; PCP Internal Medicine; Visit Provider Internal Medicine
DX: J18.9 Pneumonia, unspecified organism (principal); R09.1 Pleurisy; K29.70 Gastritis, unspecified, without bleeding; J45.40 Moderate persistent asthma, uncomplicated; Z01.84 Encounter for antibody response examination
CPT/HCPCS: 36415; 82784; 82785; 85025; 85652; 86021; 86038; 86039; 86160; 86200; 86225; 86235; 86769; 87040

== ENCOUNTER 2021-01-11 13:49 | Outpatient (REF) | payer BC, MEDICAID, SELFPAY ==
--- NOTE | ~2021-01-11 | XR_ITS ---
EXAMINATION: XR CHEST CLINICAL INFORMATION: Pleural effusion COMPARISON: Baseline 01/08/2021 TECHNIQUE: 2 views of the chest were obtained. FINDINGS: Persistent pleural-based right upper lobe lateral masslike infiltrate. No associated pleural effusion. Heart and mediastinum are normal. No other change. XR/XR chest 2V IMPRESSION: Right upper lobe masslike infiltrate. Diagnostic considerations include pneumonia versus pulmonary infarct versus a mass. Continued follow-up recommended to ensure resolution. No associated pleural effusion.
--- NOTE | ~2021-01-11 | US_ITS ---
EXAMINATION: US VENOUS ULTRASOUND WITH DOPPLER LOWER EXTREMITY, BILATERAL CLINICAL INFORMATION: Bilateral calf pain. Assess for occult DVT COMPARISON: None TECHNIQUE: Ultrasound of the deep veins is performed from the hip to the calf with compression sonography and color and pulse Doppler assessment. Spectral analysis with color-flow imaging is performed. FINDINGS: RIGHT: There is normal venous compression and respiratory variation and augmented flow. The visualized common femoral vein, superficial femoral vein, profunda femoral vein, popliteal vein, and the trifurcation region shows no evidence of deep venous thrombosis. No popliteal fossa cyst. LEFT: There is normal venous compression and respiratory variation and augmented flow. The visualized common femoral vein, superficial femoral vein, profunda femoral vein, popliteal vein, and the trifurcation region shows no evidence of deep venous thrombosis. No popliteal fossa cyst. US/US venous duplex LE BI IMPRESSION: No DVT demonstrated in the bilateral lower extremity.
== END 2021-01-11 13:50 | disposition home or self-care (01) ==
LOC: HO.US 13:49
PROVIDERS: Visit Provider Hospitalist
DX: M79.661 Pain in right lower leg (principal); M79.662 Pain in left lower leg; J90 Pleural effusion, not elsewhere classified; J18.9 Pneumonia, unspecified organism
CPT/HCPCS: 71046; 93970

== ENCOUNTER → 2021-01-16 15:33 | Outpatient (BNVA) | payer BC, MEDICAID, SELFPAY | PROVIDERS: PCP Internal Medicine; Visit Provider Hospitalist ==

== ENCOUNTER 2021-01-23 13:07 | Outpatient (REF) | payer BC, MEDICAID, SELFPAY | END 2021-01-23 13:08 | disposition home or self-care (01) | LOC: HO.MDS 13:07 | PROVIDERS: PCP Internal Medicine; Visit Provider Hospitalist | DX: G90.09 Other idiopathic peripheral autonomic neuropathy (principal) | CPT/HCPCS: 96360; 96365; 96366; J1569; Q0163 ==

== ENCOUNTER 2021-01-30 13:24 | Outpatient (REF) | payer BC, MEDICAID, SELFPAY | END 2021-01-30 13:25 | disposition home or self-care (01) | LOC: HO.MDS 13:24 | PROVIDERS: PCP Internal Medicine; Visit Provider Hospitalist | DX: G90.09 Other idiopathic peripheral autonomic neuropathy (principal) | CPT/HCPCS: 96360; 96365; 96366; J1569; Q0163 ==

== ENCOUNTER 2021-01-30 17:46 | Outpatient (REF) | payer BC, MEDICAID, SELFPAY ==
[2021-01-30 19:05] LABS: Erythrocyte Sedimentation Rate 15 MM/HR (0-15)
== END 2021-01-30 17:47 | disposition home or self-care (01) ==
LOC: HO.LAB 17:46
PROVIDERS: Visit Provider Hospitalist
DX: J18.9 Pneumonia, unspecified organism (principal); R09.1 Pleurisy
CPT/HCPCS: 36415; 85652

== ENCOUNTER 2021-02-06 13:07 | Outpatient (REF) | payer BC, MEDICAID, SELFPAY | END 2021-02-06 13:08 | disposition home or self-care (01) | LOC: HO.MDS 13:07 | PROVIDERS: PCP Internal Medicine; Visit Provider Hospitalist | DX: G90.9 Disorder of the autonomic nervous system, unspecified (principal) | CPT/HCPCS: 96360; 96365; 96366; J1569; Q0163 ==

== ENCOUNTER 2021-02-13 13:11 | Outpatient (REF) | payer BC, MEDICAID, SELFPAY | END 2021-02-13 13:12 | disposition home or self-care (01) | LOC: HO.MDS 13:11 | PROVIDERS: PCP Internal Medicine; Visit Provider Hospitalist | DX: G90.9 Disorder of the autonomic nervous system, unspecified (principal) | CPT/HCPCS: 96360; 96365; 96366; J1569; Q0163 ==

== ENCOUNTER 2021-02-20 13:20 | Outpatient (REF) | payer BC, MEDICAID, SELFPAY | END 2021-02-20 13:21 | disposition home or self-care (01) | LOC: HO.MDS 13:20 | PROVIDERS: PCP Internal Medicine; Visit Provider Hospitalist | DX: G90.09 Other idiopathic peripheral autonomic neuropathy (principal) | CPT/HCPCS: 96360; 96365; 96366; J1569; Q0163 ==

== ENCOUNTER 2021-02-27 13:17 | Outpatient (REF) | payer BC, MEDICAID, SELFPAY | END 2021-02-27 13:18 | disposition home or self-care (01) | LOC: HO.MDS 13:17 | PROVIDERS: PCP Internal Medicine; Visit Provider Hospitalist | DX: G90.09 Other idiopathic peripheral autonomic neuropathy (principal) | CPT/HCPCS: 96360; 96365; 96366; J1569; Q0163 ==

== ENCOUNTER → 2021-03-05 13:45 | Outpatient (BNVA) | payer BC, MEDICAID, SELFPAY | PROVIDERS: PCP Internal Medicine; Visit Provider Dietitian, Registered | DX: E16.2 Hypoglycemia, unspecified (principal) | CPT/HCPCS: 97803 ==

== ENCOUNTER 2021-03-06 13:13 | Outpatient (REF) | payer BC, MEDICAID, SELFPAY | END 2021-03-06 13:14 | disposition home or self-care (01) | LOC: HO.MDS 13:13 | PROVIDERS: PCP Internal Medicine; Visit Provider Hospitalist | DX: G90.09 Other idiopathic peripheral autonomic neuropathy (principal) | CPT/HCPCS: 96360; 96365; 96366; J1569; Q0163 ==

== ENCOUNTER 2021-03-06 17:37 | Outpatient (REF) | payer BC, MEDICAID, SELFPAY ==
[2021-03-06 18:51] LABS: Free T4 (Free Thyroxine) 0.88 ng/dL (0.71-1.85); Thyroid Stimulating Hormone 0.67 uIU/mL (0.32-4.0)
== END 2021-03-06 17:38 | disposition home or self-care (01) ==
LOC: HO.LAB 17:37
PROVIDERS: PCP Internal Medicine; Visit Provider Internal Medicine Endocrinology, Diabetes & Metabolism
DX: E06.3 Autoimmune thyroiditis (principal)
CPT/HCPCS: 36415; 84439; 84443

== ENCOUNTER 2021-03-13 13:16 | Outpatient (REF) | payer BC, MEDICAID, SELFPAY | END 2021-03-13 13:17 | disposition home or self-care (01) | LOC: HO.MDS 13:16 | PROVIDERS: PCP Internal Medicine; Visit Provider Hospitalist | DX: G90.09 Other idiopathic peripheral autonomic neuropathy (principal) | CPT/HCPCS: 96360; 96365; 96366; J1569; Q0163 ==

== ENCOUNTER 2021-03-27 13:18 | Outpatient (REF) | payer BC, MEDICAID, SELFPAY | END 2021-03-27 13:19 | disposition home or self-care (01) | LOC: HO.MDS 13:18 | PROVIDERS: PCP Internal Medicine; Visit Provider Hospitalist | DX: A69.20 Lyme disease, unspecified (principal); G61.81 Chronic inflammatory demyelinating polyneuritis | CPT/HCPCS: 96360; 96365; 96366; J1569; Q0163 ==

== ENCOUNTER 2021-04-03 12:28 | Outpatient (REF) | payer BC, MEDICAID, SELFPAY | END 2021-04-03 12:29 | disposition home or self-care (01) | LOC: HO.LAB 12:28 | PROVIDERS: Visit Provider Internal Medicine | DX: Z20.822 Contact with and (suspected) exposure to COVID-19 (principal) | CPT/HCPCS: 96360; 96365; 96366; C9803; U0003; U0005 ==

== ENCOUNTER 2021-04-03 12:42 | Outpatient (REF) | payer BC, MEDICAID, SELFPAY | END 2021-04-03 12:43 | disposition home or self-care (01) | LOC: HO.MDS 12:42 | PROVIDERS: PCP Internal Medicine; Visit Provider Hospitalist | DX: A69.20 Lyme disease, unspecified (principal); G61.81 Chronic inflammatory demyelinating polyneuritis | CPT/HCPCS: 96360; 96365; 96366; C9803; J1569; Q0163; U0003; U0005 ==

== ENCOUNTER 2021-04-10 13:26 | Outpatient (REF) | payer BC, MEDICAID, SELFPAY | END 2021-04-10 13:27 | disposition home or self-care (01) | LOC: HO.MDS 13:26 | PROVIDERS: PCP Internal Medicine; Visit Provider Hospitalist | DX: G90.09 Other idiopathic peripheral autonomic neuropathy (principal) | CPT/HCPCS: 96360; 96365; 96366; J1569; Q0163 ==

== ENCOUNTER 2021-04-17 13:18 | Outpatient (REF) | payer BC, MEDICAID, SELFPAY | END 2021-04-17 13:19 | disposition home or self-care (01) | LOC: HO.MDS 13:18 | PROVIDERS: PCP Internal Medicine; Visit Provider Hospitalist | DX: G90.09 Other idiopathic peripheral autonomic neuropathy (principal) | CPT/HCPCS: 96360; 96365; 96366; J1569; Q0163 ==

== ENCOUNTER 2021-04-24 14:26 | Outpatient (REF) | payer BC, MEDICAID, SELFPAY | END 2021-04-24 14:27 | disposition home or self-care (01) | LOC: HO.MDS 14:26 | PROVIDERS: PCP Internal Medicine; Visit Provider Hospitalist | DX: G90.09 Other idiopathic peripheral autonomic neuropathy (principal) | CPT/HCPCS: 96360; 96365; 96366; J1569; Q0163 ==

== ENCOUNTER 2021-05-01 13:32 | Outpatient (REF) | payer BC, MEDICAID, SELFPAY | END 2021-05-01 13:33 | disposition home or self-care (01) | LOC: HO.MDS 13:32 | PROVIDERS: PCP Internal Medicine; Visit Provider Hospitalist | DX: G90.09 Other idiopathic peripheral autonomic neuropathy (principal) | CPT/HCPCS: 96360; 96365; 96366; J1569; J2920; Q0163 ==

== ENCOUNTER 2021-05-15 13:15 | Outpatient (REF) | payer BC, MEDICAID, SELFPAY ==
[2021-05-15 18:02] LABS: Glucose Urine UA NEG (NEG); Leukocyte Esterase Urine NEG (NEG); Nitrite Urine NEG (NEG); Urine Blood NEG (NEG); Urine Ketones NEG (NEG); Urine Protein NEG (NEG-TRACE)
[2021-05-15 18:08] LABS: Hemoglobin 12.5 g/dl (14.0-18.0); MANUAL DIFF FLAG SCAN; PLT CLUMP 1; SCAN SMEAR FLAG 1
[2021-05-15 18:10] LABS: Basophils Percent Auto 1.3 % (0-2); Eosinophils Percent Auto 0.4 % (0-4); Hematocrit 35.8 % (42-52); Lymphocytes Absolute Auto 1.1 X10*3/uL (1.2-4.9); Lymphocytes Percent Auto 47.5 % (20-40); Mean Corpuscular HGB Conc 34.9 g/dl (31.0-36.0); Mean Corpuscular Volume 88.8 fL (80-98); Mean Platelet Volume 10.5 fL (9.4-12.4); Monocytes Absolute Auto 0.2 X10*3/uL (0.1-1.2); Neutrophils Percent Auto 40.8 % (45-73); Platelet Count 144 X10*3/uL (160-400); Red Blood Count 4.03 X10*6/uL (4.60-5.80); Red Cell Distribution Width 12.9 % (11.0-16.0)
[2021-05-15 18:17] LABS: Appearance Urine CLEAR; Color Urine STRAW
[2021-05-15 18:19] LABS: Alanine Aminotransferase 13 U/L (0-40); Albumin Level 3.7 g/dL (3.5-5.0); Alkaline Phosphatase 42 U/L (39-117); Anion Gap 9 (12-20); Aspartate Amino Transferase 21 U/L (5-37); Bilirubin Total 0.5 mg/dL (0.0-1.0); Blood Urea Nitrogen 16 mg/dL (9-16); C Reactive Protein 0.02 mg/dL (< or = 0.50); Calcium 9.2 mg/dL (8.4-10.2); Carbon Dioxide 27 mmol/L (22-29); Chloride 107 mmol/L (96-108); Estimated Glomerular Filt Rate > 60; Glucose Random 71 mg/dL (60-115); Potassium 4.3 mmol/L (3.3-5.1); Rheumatoid Factor < 15.0 IU/mL (<15.0); Sodium 139 mmol/L (135-145); Total Protein 8.2 g/dL (6.5-8.0)
[2021-05-15 18:49] LABS: White Blood Count 2.4 X10*3/uL (4.8-10.8)
[2021-05-15 18:59] LABS: SLIDE REVIEW VERIFIED
[2021-05-15 19:35] LABS: RBC Urine 0-2 /HPF (0); WBC Urine 0-2 /HPF (0-4)
[2021-05-15 20:00] LABS: Erythrocyte Sedimentation Rate 18 MM/HR (0-15)
[2021-05-17 10:17] LABS: Complement C3 84 mg/dL (82-185)
[2021-05-17 13:17] LABS: Anti DNA DS Antibody 5 IU/mL; Antibody to SS-A Antigen 1.6 POS AI (<1.0 NEG); Antibody to SS-B Antigen 1.0 POS AI (<1.0 NEG); SM/Ribonucleoprotein Ab <1.0 NEG AI (<1.0 NEG); Scleroderma 70 Antibody <1.0 NEG AI (<1.0 NEG); Smith Protein <1.0 NEG AI (<1.0 NEG)
[2021-05-17 22:37] LABS: Thyroglobulin Antibodies 55 IU/mL (< or = 1); Thyroid Peroxidase Antibodies 62 IU/mL (<9)
[2021-05-17 23:52] LABS: Anti Nuclear Antibody Screen POSITIVE (NEGATIVE)
[2021-05-23 14:11] LABS: Cyclic Citrullinated Peptide <16 UNITS
[2021-05-24 13:41] LABS: Vitamin D 25-OH, D2 <4 ng/mL; Vitamin D 25-OH, D3 30 ng/mL; Vitamin D 25-OH, Total 30 ng/mL (30-100)
== END 2021-05-15 13:16 | disposition home or self-care (01) ==
LOC: HO.MDS 13:15
PROVIDERS: PCP Internal Medicine; Referring Provider Student in an Organized Health Care Education/Training Program; Visit Provider Hospitalist
DX: G90.09 Other idiopathic peripheral autonomic neuropathy (principal)
CPT/HCPCS: 36415; 80053; 81001; 82306; 85025; 85652; 86038; 86039; 86140; 86160; 86200; 86225; 86235; 86376; 86431; 86800; 96360; 96365; 96366; J1569; Q0163

== ENCOUNTER 2021-05-22 13:12 | Outpatient (REF) | payer BC, MEDICAID, SELFPAY | END 2021-05-22 13:13 | disposition home or self-care (01) | LOC: HO.MDS 13:12 | PROVIDERS: PCP Internal Medicine; Visit Provider Hospitalist | DX: G90.09 Other idiopathic peripheral autonomic neuropathy (principal) | CPT/HCPCS: 96360; 96365; 96366; J1569; J2920 ==

== ENCOUNTER 2021-05-28 17:48 | Outpatient (REF) | payer BC, MEDICAID, SELFPAY ==
--- NOTE | ~2021-05-28 | XR_ITS ---
EXAMINATION: XR CHEST CLINICAL INFORMATION: Pneumonia COMPARISON: 01/11/2021 TECHNIQUE: 2 views of the chest were obtained. FINDINGS: No significant abnormality is noted involving the heart, lungs, mediastinum, bony thorax or soft tissues. The previously seen right upper lobe infiltrate has cleared in its entirety. XR/XR chest 2V IMPRESSION: Normal exam status post clearing of right upper lobe infiltrate
[2021-05-28 18:35] LABS: C Reactive Protein 0.02 mg/dL (< or = 0.50)
[2021-05-28 18:38] LABS: Appearance Urine CLEAR; Color Urine YELLOW; Glucose Urine UA NEG (NEG); Leukocyte Esterase Urine NEG (NEG); Nitrite Urine NEG (NEG); Urine Blood NEG (NEG); Urine Ketones NEG (NEG); Urine Protein NEG (NEG-TRACE)
[2021-05-28 18:44] LABS: RBC Urine 0 /HPF (0); WBC Urine 0 /HPF (0-4)
[2021-05-28 18:59] LABS: Erythrocyte Sedimentation Rate 14 MM/HR (0-15)
[2021-05-30 11:31] LABS: Complement C3 102 mg/dL (82-185)
[2021-05-30 12:42] LABS: Thyroid Peroxidase Antibodies 43 IU/mL (<9)
[2021-05-30 14:01] LABS: Anti DNA DS Antibody 4 IU/mL; Antibody to SS-A Antigen <1.0 NEG AI (<1.0 NEG); Antibody to SS-B Antigen <1.0 NEG AI (<1.0 NEG); SM/Ribonucleoprotein Ab <1.0 NEG AI (<1.0 NEG); Smith Protein <1.0 NEG AI (<1.0 NEG)
[2021-05-30 18:42] LABS: Thyroglobulin Antibodies 33 IU/mL (< or = 1)
[2021-05-31 22:42] LABS: Anti Nuclear Antibody Screen POSITIVE (NEGATIVE)
[2021-05-31 22:53] LABS: Anti Nuclear Antibody Titer 1:40 titer
== END 2021-05-28 17:49 | disposition home or self-care (01) ==
LOC: HO.LAB 17:48
PROVIDERS: PCP Internal Medicine; Referring Provider Hospitalist; Visit Provider Student in an Organized Health Care Education/Training Program
DX: G90.9 Disorder of the autonomic nervous system, unspecified (principal); J18.9 Pneumonia, unspecified organism
CPT/HCPCS: 36415; 71046; 81001; 85652; 86038; 86039; 86140; 86160; 86225; 86235; 86376; 86800

== ENCOUNTER 2021-05-29 13:23 | Outpatient (REF) | payer BC, MEDICAID, SELFPAY | END 2021-05-29 13:24 | disposition home or self-care (01) | LOC: HO.MDS 13:23 | PROVIDERS: PCP Internal Medicine; Visit Provider Hospitalist | DX: G90.09 Other idiopathic peripheral autonomic neuropathy (principal) | CPT/HCPCS: 96360; 96365; 96366; J1569 ==

== ENCOUNTER 2021-06-05 13:05 | Outpatient (REF) | payer BC, MEDICAID, SELFPAY | END 2021-06-05 13:06 | disposition home or self-care (01) | LOC: HO.MDS 13:05 | PROVIDERS: PCP Internal Medicine; Visit Provider Hospitalist | DX: G90.09 Other idiopathic peripheral autonomic neuropathy (principal) ==

== ENCOUNTER 2021-06-05 13:10 | Outpatient (REF) | payer BC, MEDICAID, SELFPAY | END 2021-06-05 13:11 | disposition home or self-care (01) | LOC: HO.MDS 13:10 | PROVIDERS: PCP Internal Medicine; Visit Provider Hospitalist | DX: G90.09 Other idiopathic peripheral autonomic neuropathy (principal) | CPT/HCPCS: 96360; 96365; 96366; 96375; J1569; J2060 ==

== ENCOUNTER → 2021-06-08 16:05 | Outpatient (BNVA) | payer BC, MEDICAID, SELFPAY | PROVIDERS: PCP Internal Medicine; Visit Provider Student in an Organized Health Care Education/Training Program ==

== ENCOUNTER 2021-06-13 13:27 | Outpatient (REF) | payer BC, MEDICAID, SELFPAY | END 2021-06-13 13:28 | disposition home or self-care (01) | LOC: HO.MDS 13:27 | PROVIDERS: Visit Provider Hospitalist | DX: G90.09 Other idiopathic peripheral autonomic neuropathy (principal) | CPT/HCPCS: 96360; 96365; 96366; J1569; Q0163 ==

== ENCOUNTER 2021-06-19 13:25 | Outpatient (REF) | payer BC, MEDICAID, SELFPAY | END 2021-06-19 13:26 | disposition home or self-care (01) | LOC: HO.MDS 13:25 | PROVIDERS: PCP Internal Medicine; Visit Provider Hospitalist | DX: G90.09 Other idiopathic peripheral autonomic neuropathy (principal) | CPT/HCPCS: 96360; 96365; 96366; J1569; Q0163 ==

== ENCOUNTER 2021-07-02 17:48 | Outpatient (REF) | payer BC, MEDICAID, SELFPAY ==
[2021-07-02 18:10] LABS: MANUAL DIFF FLAG NO
[2021-07-02 18:12] LABS: Basophils Percent Auto 0.9 % (0-2); Eosinophils Percent Auto 0.9 % (0-4); Hemoglobin 13.7 g/dl (14.0-18.0); Imm Gran Abs Auto 0.01 X10*3/uL (0.00-0.03); Imm Gran Pct Auto 0.3 % (0.0-0.4); Lymphocytes Absolute Auto 1.3 X10*3/uL (1.2-4.9); Lymphocytes Percent Auto 38.3 % (20-40); Mean Corpuscular HGB Conc 35.1 g/dl (31.0-36.0); Mean Corpuscular Hemoglobin 31.2 pg (27.0-33.0); Mean Corpuscular Volume 88.8 fL (80-98); Mean Platelet Volume 9.9 fL (9.4-12.4); Monocytes Absolute Auto 0.4 X10*3/uL (0.1-1.2); Monocytes Percent Auto 11.3 % (2-11); Neutrophils Absolute Auto 1.6 X10*3/uL (2.0-8.3); Neutrophils Percent Auto 48.3 % (45-73); Platelet Count 165 X10*3/uL (160-400); Red Blood Count 4.39 X10*6/uL (4.60-5.80); Red Cell Distribution Width 12.2 % (11.0-16.0); White Blood Count 3.3 X10*3/uL (4.8-10.8)
[2021-07-02 18:32] LABS: C Reactive Protein 0.03 mg/dL (< or = 0.50)
[2021-07-02 18:57] LABS: Erythrocyte Sedimentation Rate 10 MM/HR (0-15)
[2021-07-03 12:21] LABS: Complement C3 70 mg/dL (82-185)
[2021-07-03 13:06] LABS: Anti DNA DS Antibody 4 IU/mL; Antibody to SS-A Antigen <1.0 NEG AI (<1.0 NEG); Antibody to SS-B Antigen <1.0 NEG AI (<1.0 NEG)
[2021-07-04 01:27] LABS: Thyroid Peroxidase Antibodies 35 IU/mL (<9)
[2021-07-04 10:10] LABS: Thyroglobulin Antibodies 27 IU/mL (< or = 1)
[2021-07-04 22:31] LABS: Anti Nuclear Antibody Screen POSITIVE (NEGATIVE); Anti Nuclear Antibody Titer 1:40 titer
== END 2021-07-02 17:49 | disposition home or self-care (01) ==
LOC: HO.LAB 17:48
PROVIDERS: PCP Internal Medicine; Visit Provider Internal Medicine
DX: D89.89 Other specified disorders involving the immune mechanism, not elsewhere classified (principal)
CPT/HCPCS: 36415; 85025; 85652; 86038; 86039; 86140; 86160; 86225; 86235; 86376; 86800

== ENCOUNTER 2021-07-03 13:48 | Outpatient (REF) | payer BC, MEDICAID, SELFPAY | END 2021-07-03 13:49 | disposition home or self-care (01) | LOC: HO.MDS 13:48 | PROVIDERS: PCP Internal Medicine; Visit Provider Hospitalist | DX: G90.09 Other idiopathic peripheral autonomic neuropathy (principal) | CPT/HCPCS: 96360; 96365; 96366; J1569; J2920; Q0163 ==

== ENCOUNTER 2021-07-10 13:43 | Outpatient (REF) | payer BC, MEDICAID, SELFPAY | END 2021-07-10 13:44 | disposition home or self-care (01) | LOC: HO.MDS 13:43 | PROVIDERS: PCP Internal Medicine; Visit Provider Hospitalist | DX: G90.09 Other idiopathic peripheral autonomic neuropathy (principal) | CPT/HCPCS: 96360; 96365; 96366; J1569; Q0163 ==

== ENCOUNTER 2021-07-17 13:42 | Outpatient (REF) | payer BC, MEDICAID, SELFPAY | END 2021-07-17 13:43 | disposition home or self-care (01) | LOC: HO.MDS 13:42 | PROVIDERS: PCP Internal Medicine; Visit Provider Hospitalist | DX: G90.09 Other idiopathic peripheral autonomic neuropathy (principal) | CPT/HCPCS: 96360; 96365; 96366; J1569; Q0163 ==

== ENCOUNTER → 2021-07-30 10:29 | Outpatient (REF) | payer BC, MEDICAID, SELFPAY ==
--- NOTE | 2021-07-30 10:34 | CA_ITS ---
Acquisition Time: 2021-07-30 10:31:44 Total Exercise Time: 00:07:09 Test Indications: Chest Pain Medications: IVIG Protocol: ZAKIA Max HR: 181 BPM 94% of Pred: 191 BPM Max BP: 182/090 mmHG Max Work Load: 8.9 METS Exercise stress test with exercise 7 min 9 sec of Zakia protocol achieving 84% MPHR, with moderate shortness of breath, no chest discomfort, without arrythmia, with normotensive and normal chronotropic response to exercise, without EKG changes meeting criteria for ischemia at achieved workload. Late in recovery the EKGs showed downlsoping ST with T wave inversion inferiorly which was similar to baseline EKG showing T wave inversion inferiorly. O2 saturation monitored throughout test, 99% at baseline, 95% at peak exercise. In recovery his breathing normalized. At 5 min recovery his fingers and nail beds had coolness and mild cyanotic discoloration. O2 sat was reading 86%, which was felt to be false as his lip / facial color was normal and breathing was comfortable. Probe changed over to thumb which then gave reading of 99%. Standing BP in recovery was not orthostatic. Test reviewed with Dr Avilez. Referred By: Saúl Avilez Overread By: AARON SUTTON
== END ==
LOC: HO.CARD 10:29
PROVIDERS: Visit Provider Internal Medicine Cardiovascular Disease
DX: R07.9 Chest pain, unspecified (principal)
CPT/HCPCS: 93017

== ENCOUNTER 2021-08-07 13:38 | Outpatient (REF) | payer BC, MEDICAID, SELFPAY | END 2021-08-07 13:39 | disposition home or self-care (01) | LOC: HO.MDS 13:38 | PROVIDERS: PCP Internal Medicine; Visit Provider Hospitalist | DX: G90.09 Other idiopathic peripheral autonomic neuropathy (principal) | CPT/HCPCS: 96360; 96365; 96366; J1569; Q0163 ==

== ENCOUNTER 2021-08-14 13:44 | Outpatient (REF) | payer BC, MEDICAID, SELFPAY | END 2021-08-14 13:45 | disposition home or self-care (01) | LOC: HO.MDS 13:44 | PROVIDERS: PCP Internal Medicine; Visit Provider Hospitalist | DX: G90.09 Other idiopathic peripheral autonomic neuropathy (principal) | CPT/HCPCS: 96360; 96365; 96366; J1569; Q0163 ==

== ENCOUNTER 2021-08-21 13:34 | Outpatient (REF) | payer BC, MEDICAID, SELFPAY | END 2021-08-21 13:35 | disposition home or self-care (01) | LOC: HO.MDS 13:34 | PROVIDERS: Visit Provider Hospitalist | DX: G90.09 Other idiopathic peripheral autonomic neuropathy (principal) | CPT/HCPCS: 96365; 96366; J1569; Q0163 ==

== ENCOUNTER 2021-08-28 13:50 | Outpatient (REF) | payer BC, MEDICAID, SELFPAY | END 2021-08-28 13:51 | disposition home or self-care (01) | LOC: HO.MDS 13:50 | PROVIDERS: PCP Internal Medicine; Visit Provider Hospitalist | DX: G90.09 Other idiopathic peripheral autonomic neuropathy (principal) | CPT/HCPCS: 96360; 96365; 96366; J1569; Q0163 ==

== ENCOUNTER 2021-09-11 13:53 | Outpatient (REF) | payer BC, MEDICAID, SELFPAY ==
[2021-09-12 13:01] LABS: Glucose, Whole Blood 91 mg/dL (60-115)
== END 2021-09-11 13:54 | disposition home or self-care (01) ==
LOC: HO.MDS 13:53
PROVIDERS: PCP Internal Medicine; Visit Provider Hospitalist
DX: G90.09 Other idiopathic peripheral autonomic neuropathy (principal)
CPT/HCPCS: 82947; 96360; 96365; 96366; 96375; J1569; J2060; Q0163

== ENCOUNTER 2021-09-18 13:38 | Outpatient (REF) | payer BC, MEDICAID, SELFPAY | END 2021-09-18 13:39 | disposition home or self-care (01) | LOC: HO.MDS 13:38 | PROVIDERS: PCP Internal Medicine; Visit Provider Hospitalist | DX: G90.09 Other idiopathic peripheral autonomic neuropathy (principal) | CPT/HCPCS: 96360; 96413; 96415; J1569; J2060; Q0163 ==

== ENCOUNTER 2021-10-02 13:58 | Outpatient (REF) | payer BC, MEDICAID, SELFPAY | END 2021-10-02 13:59 | disposition home or self-care (01) | LOC: HO.MDS 13:58 | PROVIDERS: PCP Internal Medicine; Visit Provider Hospitalist | DX: G90.09 Other idiopathic peripheral autonomic neuropathy (principal) | CPT/HCPCS: 96360; 96365; 96366; J1569; Q0163 ==

== ENCOUNTER 2021-10-16 13:45 | Outpatient (REF) | payer BC, MEDICAID, SELFPAY | END 2021-10-16 13:46 | disposition home or self-care (01) | LOC: HO.MDS 13:45 | PROVIDERS: PCP Internal Medicine; Visit Provider Hospitalist | DX: G90.09 Other idiopathic peripheral autonomic neuropathy (principal) | CPT/HCPCS: 96360; 96365; 96366; J1569; Q0163 ==

== ENCOUNTER 2021-11-01 11:29 | Outpatient (REF) | payer BC, MEDICAID, SELFPAY | END 2021-11-01 11:30 | disposition home or self-care (01) | LOC: HO.MDS 11:29 | PROVIDERS: Visit Provider Hospitalist | DX: G90.09 Other idiopathic peripheral autonomic neuropathy (principal) | CPT/HCPCS: 96360; 96365; 96366; J1569; Q0163 ==

== ENCOUNTER 2021-11-08 11:39 | Outpatient (REF) | payer BC, MEDICAID, SELFPAY | END 2021-11-08 11:40 | disposition home or self-care (01) | LOC: HO.MDS 11:39 | PROVIDERS: PCP Internal Medicine; Visit Provider Hospitalist | DX: G90.09 Other idiopathic peripheral autonomic neuropathy (principal) | CPT/HCPCS: 96360; 96365; 96366; J1569; Q0163 ==

== ENCOUNTER 2021-11-15 11:36 | Outpatient (REF) | payer BC, MEDICAID, SELFPAY | END 2021-11-15 11:37 | disposition home or self-care (01) | LOC: HO.MDS 11:36 | PROVIDERS: PCP Internal Medicine; Visit Provider Hospitalist | DX: G90.09 Other idiopathic peripheral autonomic neuropathy (principal) | CPT/HCPCS: 96360; 96365; 96366; J1569; Q0163 ==

== ENCOUNTER 2021-11-22 11:50 | Outpatient (REF) | payer BC, MEDICAID, SELFPAY | END 2021-11-22 11:51 | disposition home or self-care (01) | LOC: HO.MDS 11:50 | PROVIDERS: PCP Internal Medicine; Visit Provider Hospitalist | DX: G90.09 Other idiopathic peripheral autonomic neuropathy (principal) | CPT/HCPCS: 96365; 96366; J1569; Q0163 ==

== ENCOUNTER 2021-11-29 11:28 | Outpatient (REF) | payer BC, MEDICAID, SELFPAY | END 2021-11-29 11:29 | disposition home or self-care (01) | LOC: HO.MDS 11:28 | PROVIDERS: PCP Internal Medicine; Visit Provider Hospitalist | DX: G90.09 Other idiopathic peripheral autonomic neuropathy (principal) | CPT/HCPCS: 96360; 96365; 96366; J1569; Q0163 ==

== ENCOUNTER 2021-12-06 12:53 | Outpatient (REF) | payer BC, MEDICAID, SELFPAY | END 2021-12-06 12:54 | disposition home or self-care (01) | LOC: HO.MDS 12:53 | PROVIDERS: PCP Internal Medicine; Visit Provider Hospitalist | DX: G90.09 Other idiopathic peripheral autonomic neuropathy (principal) | CPT/HCPCS: 96360; 96365; 96366; J1569; Q0163 ==

== ENCOUNTER → 2021-12-11 15:27 | Outpatient (BNVA) | payer BC, MEDICAID, SELFPAY | PROVIDERS: PCP Internal Medicine; Visit Provider Hospitalist ==

== ENCOUNTER 2022-01-17 11:40 | Outpatient (REF) | payer BC, MEDICAID, SELFPAY | END 2022-01-17 11:41 | disposition home or self-care (01) | LOC: HO.MDS 11:40 | PROVIDERS: Visit Provider Hospitalist | DX: G90.09 Other idiopathic peripheral autonomic neuropathy (principal) | CPT/HCPCS: 96360; 96365; 96366; J1569; Q0163 ==

== ENCOUNTER 2022-01-31 11:40 | Outpatient (REF) | payer BC, MEDICAID, SELFPAY | END 2022-01-31 11:41 | disposition home or self-care (01) | LOC: HO.MDS 11:40 | PROVIDERS: PCP Internal Medicine; Visit Provider Hospitalist | DX: G90.09 Other idiopathic peripheral autonomic neuropathy (principal) | CPT/HCPCS: 96360; 96365; 96366; J1569; Q0163 ==

== ENCOUNTER 2022-02-07 11:44 | Outpatient (REF) | payer BC, MEDICAID, SELFPAY | END 2022-02-07 11:45 | disposition home or self-care (01) | LOC: HO.MDS 11:44 | PROVIDERS: Visit Provider Hospitalist | DX: G90.09 Other idiopathic peripheral autonomic neuropathy (principal) | CPT/HCPCS: 96360; 96365; 96366; J1569; Q0163 ==

== ENCOUNTER 2022-02-14 11:51 | Outpatient (REF) | payer BC, MEDICAID, SELFPAY | END 2022-02-14 11:52 | disposition home or self-care (01) | LOC: HO.MDS 11:51 | PROVIDERS: PCP Internal Medicine; Visit Provider Hospitalist | DX: G90.09 Other idiopathic peripheral autonomic neuropathy (principal) | CPT/HCPCS: 96361; 96365; 96366; J1569; Q0163 ==

== ENCOUNTER 2022-02-21 11:42 | Outpatient (REF) | payer BC, MEDICAID, SELFPAY ==
[2022-02-22 11:46] LABS: Glucose, Whole Blood 81 mg/dL (60-115)
== END 2022-02-21 11:43 | disposition home or self-care (01) ==
LOC: HO.MDS 11:42
PROVIDERS: PCP Internal Medicine; Visit Provider Hospitalist
DX: G90.09 Other idiopathic peripheral autonomic neuropathy (principal)
CPT/HCPCS: 82947; 96360; 96365; 96366; J1569; Q0163

== ENCOUNTER 2022-03-07 12:59 | Outpatient (REF) | payer BC, MEDICAID, SELFPAY | END 2022-03-07 13:00 | disposition home or self-care (01) | LOC: HO.MDS 12:59 | PROVIDERS: PCP Internal Medicine; Visit Provider Hospitalist | DX: G90.09 Other idiopathic peripheral autonomic neuropathy (principal) | CPT/HCPCS: 96361; 96365; 96366; J1569; Q0163 ==

== ENCOUNTER 2022-03-14 12:39 | Outpatient (REF) | payer BC, MEDICAID, SELFPAY | END 2022-03-14 12:40 | disposition home or self-care (01) | LOC: HO.MDS 12:39 | PROVIDERS: PCP Internal Medicine; Visit Provider Hospitalist | DX: G90.09 Other idiopathic peripheral autonomic neuropathy (principal) | CPT/HCPCS: 96360; 96365; 96366; J1569; Q0163 ==

== ENCOUNTER 2022-03-28 11:50 | Outpatient (REF) | payer BC, MEDICAID, SELFPAY | END 2022-03-28 11:51 | disposition home or self-care (01) | LOC: HO.MDS 11:50 | PROVIDERS: PCP Internal Medicine; Visit Provider Hospitalist | DX: G90.09 Other idiopathic peripheral autonomic neuropathy (principal) | CPT/HCPCS: 96360; 96365; 96366; J1569; Q0163 ==

== ENCOUNTER 2022-04-04 11:48 | Outpatient (REF) | payer BC, MEDICAID, SELFPAY | END 2022-04-04 11:49 | disposition home or self-care (01) | LOC: HO.MDS 11:48 | PROVIDERS: PCP Internal Medicine; Visit Provider Hospitalist | DX: G90.09 Other idiopathic peripheral autonomic neuropathy (principal) | CPT/HCPCS: 96360; 96365; 96366; J1569; Q0163 ==

== ENCOUNTER 2022-04-11 11:51 | Outpatient (REF) | payer BC, MEDICAID, SELFPAY | END 2022-04-11 11:52 | disposition home or self-care (01) | LOC: HO.MDS 11:51 | PROVIDERS: PCP Internal Medicine; Visit Provider Hospitalist | DX: G90.09 Other idiopathic peripheral autonomic neuropathy (principal) | CPT/HCPCS: 96360; 96365; 96366; 96375; J1569; J2060; Q0163 ==

== ENCOUNTER 2022-04-25 11:41 | Outpatient (REF) | payer BC, MEDICAID, SELFPAY | END 2022-04-25 11:42 | disposition home or self-care (01) | LOC: HO.MDS 11:41 | PROVIDERS: PCP Internal Medicine; Visit Provider Hospitalist | DX: G90.09 Other idiopathic peripheral autonomic neuropathy (principal) | CPT/HCPCS: 96360; 96365; 96366; J1569; Q0163 ==

== ENCOUNTER 2022-05-02 11:43 | Outpatient (REF) | payer BC, MEDICAID, SELFPAY | END 2022-05-02 11:44 | disposition home or self-care (01) | LOC: HO.MDS 11:43 | PROVIDERS: PCP Internal Medicine; Visit Provider Hospitalist | DX: G90.09 Other idiopathic peripheral autonomic neuropathy (principal) | CPT/HCPCS: 96361; 96365; 96366; J1569; Q0163 ==

== ENCOUNTER 2022-05-09 11:44 | Outpatient (REF) | payer BC, MEDICAID, SELFPAY | END 2022-05-09 11:45 | disposition home or self-care (01) | LOC: HO.MDS 11:44 | PROVIDERS: PCP Internal Medicine; Visit Provider Hospitalist | DX: G90.09 Other idiopathic peripheral autonomic neuropathy (principal) | CPT/HCPCS: 96360; 96365; 96366; J1569; Q0163 ==

== ENCOUNTER 2022-05-16 11:46 | Outpatient (REF) | payer BC, MEDICAID, SELFPAY | END 2022-05-16 11:47 | disposition home or self-care (01) | LOC: HO.MDS 11:46 | PROVIDERS: Visit Provider Hospitalist | DX: G90.09 Other idiopathic peripheral autonomic neuropathy (principal) | CPT/HCPCS: 96360; 96365; 96366; J1569; Q0163 ==

== ENCOUNTER 2022-05-30 11:43 | Outpatient (REF) | payer BC, MEDICAID, SELFPAY | END 2022-05-30 11:44 | disposition home or self-care (01) | LOC: HO.MDS 11:43 | PROVIDERS: Visit Provider Hospitalist | DX: G90.09 Other idiopathic peripheral autonomic neuropathy (principal) | CPT/HCPCS: 96361; 96365; 96366; J1569; Q0163 ==

== ENCOUNTER 2022-06-06 12:42 | Outpatient (REF) | payer BC, MEDICAID, SELFPAY | END 2022-06-06 12:43 | disposition home or self-care (01) | LOC: HO.MDS 12:42 | PROVIDERS: Visit Provider Hospitalist | DX: G90.09 Other idiopathic peripheral autonomic neuropathy (principal) | CPT/HCPCS: 96360; 96365; 96366; J1569; Q0163 ==

== ENCOUNTER 2022-06-13 11:44 | Outpatient (REF) | payer BC, MEDICAID, SELFPAY | END 2022-06-13 11:45 | disposition home or self-care (01) | LOC: HO.MDS 11:44 | PROVIDERS: Visit Provider Hospitalist | DX: G90.09 Other idiopathic peripheral autonomic neuropathy (principal) | CPT/HCPCS: 96360; 96365; 96366; J1569; Q0163 ==

== ENCOUNTER 2022-06-27 11:43 | Outpatient (REF) | payer BC, MEDICAID, SELFPAY | END 2022-06-27 11:44 | disposition home or self-care (01) | LOC: HO.MDS 11:43 | PROVIDERS: Visit Provider Hospitalist | DX: G90.09 Other idiopathic peripheral autonomic neuropathy (principal) | CPT/HCPCS: 96360; 96365; 96366; J1569; Q0163 ==

== ENCOUNTER 2022-07-04 12:00 | Outpatient (REF) | payer BC, MEDICAID, SELFPAY | END 2022-07-04 12:01 | disposition home or self-care (01) | LOC: HO.MDS 12:00 | PROVIDERS: Visit Provider Hospitalist | DX: G90.09 Other idiopathic peripheral autonomic neuropathy (principal) | CPT/HCPCS: 96365; 96366; J1569; Q0163 ==

== ENCOUNTER 2022-07-11 11:52 | Outpatient (REF) | payer BC, MEDICAID, SELFPAY | END 2022-07-11 11:53 | disposition home or self-care (01) | LOC: HO.MDS 11:52 | PROVIDERS: Visit Provider Hospitalist | DX: G90.09 Other idiopathic peripheral autonomic neuropathy (principal) | CPT/HCPCS: 96365; 96366; J1569; Q0163 ==

== ENCOUNTER 2022-07-18 11:56 | Outpatient (REF) | payer BC, MEDICAID, SELFPAY | END 2022-07-18 11:57 | disposition home or self-care (01) | LOC: HO.MDS 11:56 | PROVIDERS: PCP Internal Medicine; Visit Provider Hospitalist | DX: G90.09 Other idiopathic peripheral autonomic neuropathy (principal) | CPT/HCPCS: 96365; 96366; J1569; Q0163 ==

== ENCOUNTER 2022-07-25 11:42 | Outpatient (REF) | payer BC, MEDICAID, SELFPAY | END 2022-07-25 11:43 | disposition home or self-care (01) | LOC: HO.MDS 11:42 | PROVIDERS: Visit Provider Hospitalist | DX: G90.09 Other idiopathic peripheral autonomic neuropathy (principal) | CPT/HCPCS: 96365; 96366; J1569; Q0163 ==

== ENCOUNTER 2022-08-01 11:40 | Outpatient (REF) | payer BC, MEDICAID, SELFPAY | END 2022-08-01 11:41 | disposition home or self-care (01) | LOC: HO.MDS 11:40 | PROVIDERS: Visit Provider Hospitalist | DX: G90.09 Other idiopathic peripheral autonomic neuropathy (principal) | CPT/HCPCS: 96365; 96366; J1569; Q0163 ==

== ENCOUNTER 2022-08-08 11:41 | Outpatient (REF) | payer BC, MEDICAID, SELFPAY | END 2022-08-08 11:42 | disposition home or self-care (01) | LOC: HO.MDS 11:41 | PROVIDERS: Visit Provider Hospitalist | DX: G90.09 Other idiopathic peripheral autonomic neuropathy (principal) | CPT/HCPCS: 96365; 96366; J1569; Q0163 ==

== ENCOUNTER 2022-08-15 11:39 | Outpatient (REF) | payer BC, MEDICAID, SELFPAY | END 2022-08-15 11:40 | disposition home or self-care (01) | LOC: HO.MDS 11:39 | PROVIDERS: Visit Provider Hospitalist | DX: G90.09 Other idiopathic peripheral autonomic neuropathy (principal) | CPT/HCPCS: 96365; 96366; J1569; Q0163 ==

== ENCOUNTER 2022-08-22 11:44 | Outpatient (REF) | payer BC, MEDICAID, SELFPAY | END 2022-08-22 11:45 | disposition home or self-care (01) | LOC: HO.MDS 11:44 | PROVIDERS: Visit Provider Hospitalist | DX: G90.09 Other idiopathic peripheral autonomic neuropathy (principal) | CPT/HCPCS: 96365; 96366; J1569; Q0163 ==

== ENCOUNTER 2022-08-29 11:51 | Outpatient (REF) | payer BC, MEDICAID, SELFPAY | END 2022-08-29 11:52 | disposition home or self-care (01) | LOC: HO.MDS 11:51 | PROVIDERS: Visit Provider Hospitalist | DX: G90.09 Other idiopathic peripheral autonomic neuropathy (principal) | CPT/HCPCS: 96365; 96366; J1569; Q0163 ==

== ENCOUNTER 2022-09-05 12:00 | Outpatient (REF) | payer BC, MEDICAID, SELFPAY | END 2022-09-05 12:01 | disposition home or self-care (01) | LOC: HO.MDS 12:00 | PROVIDERS: Visit Provider Hospitalist | DX: G90.9 Disorder of the autonomic nervous system, unspecified (principal) | CPT/HCPCS: 96361; 96365; 96366; J1569; Q0163 ==

== ENCOUNTER 2022-09-19 15:40 | Outpatient (REF) | payer BC, MEDICAID, SELFPAY | END 2022-09-19 15:41 | disposition home or self-care (01) | LOC: HO.MDS 15:40 | PROVIDERS: PCP Internal Medicine; Visit Provider Hospitalist | DX: G90.09 Other idiopathic peripheral autonomic neuropathy (principal) | CPT/HCPCS: 96360; 96365; 96366; J1569; Q0163 ==

== ENCOUNTER 2022-09-26 11:39 | Outpatient (REF) | payer BC, MEDICAID, SELFPAY | END 2022-09-26 11:40 | disposition home or self-care (01) | LOC: HO.MDS 11:39 | PROVIDERS: Visit Provider Hospitalist | DX: G90.9 Disorder of the autonomic nervous system, unspecified (principal) | CPT/HCPCS: 96361; 96365; 96366; J1569 ==

== ENCOUNTER 2022-10-10 11:37 | Outpatient (REF) | payer BC, MEDICAID, SELFPAY | END 2022-10-10 11:38 | disposition home or self-care (01) | LOC: HO.MDS 11:37 | PROVIDERS: Visit Provider Hospitalist | DX: G90.09 Other idiopathic peripheral autonomic neuropathy (principal) | CPT/HCPCS: 96360; 96365; 96366; J1569 ==

== ENCOUNTER 2022-10-17 12:07 | Outpatient (REF) | payer BC, MEDICAID, SELFPAY | END 2022-10-17 12:08 | disposition home or self-care (01) | LOC: HO.MDS 12:07 | PROVIDERS: Visit Provider Hospitalist | DX: G90.9 Disorder of the autonomic nervous system, unspecified (principal) | CPT/HCPCS: 96360; 96365; 96366; J1569 ==

== ENCOUNTER 2022-10-24 11:47 | Outpatient (REF) | payer BC, MEDICAID, SELFPAY | END 2022-10-24 11:48 | disposition home or self-care (01) | LOC: HO.MDS 11:47 | PROVIDERS: Visit Provider Hospitalist | DX: G90.9 Disorder of the autonomic nervous system, unspecified (principal) | CPT/HCPCS: 96361; 96365; 96366; J1569 ==

== ENCOUNTER 2022-10-31 11:49 | Outpatient (REF) | payer BC, MEDICAID, SELFPAY | END 2022-10-31 11:50 | disposition home or self-care (01) | LOC: HO.MDS 11:49 | PROVIDERS: Visit Provider Hospitalist | DX: G90.9 Disorder of the autonomic nervous system, unspecified (principal) | CPT/HCPCS: 96361; 96365; 96366 ==

== ENCOUNTER 2022-11-07 11:46 | Outpatient (REF) | payer BC, MEDICAID, SELFPAY | END 2022-11-07 11:47 | disposition home or self-care (01) | LOC: HO.MDS 11:46 | PROVIDERS: Visit Provider Hospitalist | DX: G90.9 Disorder of the autonomic nervous system, unspecified (principal) | CPT/HCPCS: 96365; 96366; J1569 ==

== ENCOUNTER 2022-11-14 11:59 | Outpatient (REF) | payer MEDICARE, BC, MEDICAID, SELFPAY | END 2022-11-14 12:00 | disposition home or self-care (01) | LOC: HO.MDS 11:59 | PROVIDERS: Visit Provider Hospitalist | DX: G90.9 Disorder of the autonomic nervous system, unspecified (principal); G61.89 Other inflammatory polyneuropathies | CPT/HCPCS: 96365; 96366; J1569 ==

== ENCOUNTER 2022-11-21 11:51 | Outpatient (REF) | payer MEDICARE, BC, MEDICAID, SELFPAY | END 2022-11-21 11:52 | disposition home or self-care (01) | LOC: HO.MDS 11:51 | PROVIDERS: Visit Provider Hospitalist | DX: G90.9 Disorder of the autonomic nervous system, unspecified (principal); G61.89 Other inflammatory polyneuropathies | CPT/HCPCS: 96365; 96366; J1569 ==

== ENCOUNTER 2022-11-28 11:50 | Outpatient (REF) | payer MEDICARE, BC, MEDICAID, SELFPAY | END 2022-11-28 11:51 | disposition home or self-care (01) | LOC: HO.MDS 11:50 | PROVIDERS: Visit Provider Hospitalist | DX: G90.9 Disorder of the autonomic nervous system, unspecified (principal); G61.89 Other inflammatory polyneuropathies | CPT/HCPCS: 96365; 96366; J1569 ==

== ENCOUNTER 2022-12-05 11:50 | Outpatient (REF) | payer MEDICARE, BC, MEDICAID, SELFPAY | END 2022-12-05 11:51 | disposition home or self-care (01) | LOC: HO.MDS 11:50 | PROVIDERS: Visit Provider Hospitalist | DX: G90.9 Disorder of the autonomic nervous system, unspecified (principal); G61.89 Other inflammatory polyneuropathies | CPT/HCPCS: 96365; 96366; J1569 ==

== ENCOUNTER 2022-12-12 11:48 | Outpatient (REF) | payer MEDICARE, BC, MEDICAID, SELFPAY | END 2022-12-12 11:49 | disposition home or self-care (01) | LOC: HO.MDS 11:48 | PROVIDERS: Visit Provider Hospitalist | DX: G90.9 Disorder of the autonomic nervous system, unspecified (principal); G61.89 Other inflammatory polyneuropathies | CPT/HCPCS: 96365; 96366; J1569 ==

== ENCOUNTER 2022-12-19 11:45 | Outpatient (REF) | payer MEDICARE, BC, MEDICAID, SELFPAY | END 2022-12-19 11:46 | disposition home or self-care (01) | LOC: HO.MDS 11:45 | PROVIDERS: Visit Provider Hospitalist | DX: G90.9 Disorder of the autonomic nervous system, unspecified (principal); G61.89 Other inflammatory polyneuropathies | CPT/HCPCS: 96365; 96366; J1569 ==

== ENCOUNTER 2022-12-26 12:11 | Outpatient (REF) | payer MEDICARE, BC, MEDICAID, SELFPAY | END 2022-12-26 12:12 | disposition home or self-care (01) | LOC: HO.MDS 12:11 | PROVIDERS: Visit Provider Hospitalist | DX: G90.9 Disorder of the autonomic nervous system, unspecified (principal); G61.89 Other inflammatory polyneuropathies | CPT/HCPCS: 96365; 96366; J1569 ==

== ENCOUNTER 2023-01-02 12:19 | Outpatient (REF) | payer MEDICARE, BC, MEDICAID, SELFPAY | END 2023-01-02 12:20 | disposition home or self-care (01) | LOC: HO.MDS 12:19 | PROVIDERS: Visit Provider Hospitalist | DX: G90.9 Disorder of the autonomic nervous system, unspecified (principal); G61.89 Other inflammatory polyneuropathies | CPT/HCPCS: 96365; 96366; J1569 ==

== ENCOUNTER 2023-01-09 11:45 | Outpatient (REF) | payer MEDICARE, BC, MEDICAID, SELFPAY | END 2023-01-09 11:46 | disposition home or self-care (01) | LOC: HO.MDS 11:45 | PROVIDERS: Visit Provider Hospitalist | DX: G90.9 Disorder of the autonomic nervous system, unspecified (principal); G61.89 Other inflammatory polyneuropathies | CPT/HCPCS: 96365; 96366; J1569 ==

== ENCOUNTER 2023-01-16 11:49 | Outpatient (REF) | payer MEDICARE, BC, MEDICAID, SELFPAY | END 2023-01-16 11:50 | disposition home or self-care (01) | LOC: HO.MDS 11:49 | PROVIDERS: Visit Provider Hospitalist | DX: G90.9 Disorder of the autonomic nervous system, unspecified (principal); G61.89 Other inflammatory polyneuropathies | CPT/HCPCS: 96365; 96366; J1569 ==

== ENCOUNTER 2023-01-23 13:05 | Outpatient (REF) | payer MEDICARE, BC, MEDICAID, SELFPAY | END 2023-01-23 13:06 | disposition home or self-care (01) | LOC: HO.MDS 13:05 | PROVIDERS: Visit Provider Hospitalist | DX: G90.9 Disorder of the autonomic nervous system, unspecified (principal); G61.89 Other inflammatory polyneuropathies | CPT/HCPCS: 96365; 96366; J1569 ==

== ENCOUNTER 2023-02-06 11:50 | Outpatient (REF) | payer MEDICARE, BC, MEDICAID, SELFPAY | END 2023-02-06 11:51 | disposition home or self-care (01) | LOC: HO.MDS 11:50 | PROVIDERS: Visit Provider Hospitalist | DX: G90.9 Disorder of the autonomic nervous system, unspecified (principal); G61.89 Other inflammatory polyneuropathies | CPT/HCPCS: 96360; 96361; 96365; 96366; J1569 ==

== ENCOUNTER 2023-02-13 11:48 | Outpatient (REF) | payer MEDICARE, BC, MEDICAID, SELFPAY | END 2023-02-13 11:49 | disposition home or self-care (01) | LOC: HO.MDS 11:48 | PROVIDERS: Visit Provider Hospitalist | DX: G90.9 Disorder of the autonomic nervous system, unspecified (principal); G61.89 Other inflammatory polyneuropathies | CPT/HCPCS: 96365; 96366; J1569 ==

== ENCOUNTER 2023-02-20 12:01 | Outpatient (REF) | payer MEDICARE, BC, MEDICAID, SELFPAY | END 2023-02-20 12:02 | disposition home or self-care (01) | LOC: HO.MDS 12:01 | PROVIDERS: Visit Provider Hospitalist | DX: G90.9 Disorder of the autonomic nervous system, unspecified (principal); G61.89 Other inflammatory polyneuropathies | CPT/HCPCS: 96360; 96361; 96365; 96366; J1569 ==

== ENCOUNTER 2023-02-27 12:01 | Outpatient (REF) | payer MEDICARE, BC, MEDICAID, SELFPAY | END 2023-02-27 12:02 | disposition home or self-care (01) | LOC: HO.MDS 12:01 | PROVIDERS: Visit Provider Hospitalist | DX: G90.9 Disorder of the autonomic nervous system, unspecified (principal); G61.89 Other inflammatory polyneuropathies | CPT/HCPCS: 96361; 96365; 96366; J1569 ==

== ENCOUNTER 2023-03-06 12:07 | Outpatient (REF) | payer MEDICARE, BC, MEDICAID, SELFPAY | END 2023-03-06 12:08 | disposition home or self-care (01) | LOC: HO.MDS 12:07 | PROVIDERS: Visit Provider Hospitalist | DX: G90.9 Disorder of the autonomic nervous system, unspecified (principal); G61.89 Other inflammatory polyneuropathies | CPT/HCPCS: 96361; 96365; 96366; J1569 ==

== ENCOUNTER 2023-03-20 12:03 | Outpatient (REF) | payer MEDICARE, BC, MEDICAID, SELFPAY | END 2023-03-20 12:04 | disposition home or self-care (01) | LOC: HO.MDS 12:03 | PROVIDERS: Visit Provider Hospitalist | DX: G90.9 Disorder of the autonomic nervous system, unspecified (principal); G61.89 Other inflammatory polyneuropathies | CPT/HCPCS: 96365; 96366; J1569 ==

== ENCOUNTER 2023-03-27 12:09 | Outpatient (REF) | payer MEDICARE, BC, MEDICAID, SELFPAY | END 2023-03-27 12:10 | disposition home or self-care (01) | LOC: HO.MDS 12:09 | PROVIDERS: Visit Provider Hospitalist | DX: G90.9 Disorder of the autonomic nervous system, unspecified (principal); G61.89 Other inflammatory polyneuropathies | CPT/HCPCS: 96361; 96365; 96366; J1569 ==

== ENCOUNTER 2023-04-03 12:05 | Outpatient (REF) | payer MEDICARE, BC, MEDICAID, SELFPAY | END 2023-04-03 12:06 | disposition home or self-care (01) | LOC: HO.MDS 12:05 | PROVIDERS: Visit Provider Hospitalist | DX: G90.9 Disorder of the autonomic nervous system, unspecified (principal); G61.89 Other inflammatory polyneuropathies | CPT/HCPCS: 96361; 96365; 96366; J1569 ==

== ENCOUNTER 2023-04-10 12:06 | Outpatient (REF) | payer MEDICARE, BC, MEDICAID, SELFPAY | END 2023-04-10 12:07 | disposition home or self-care (01) | LOC: HO.MDS 12:06 | PROVIDERS: Visit Provider Hospitalist | DX: G90.9 Disorder of the autonomic nervous system, unspecified (principal); G61.89 Other inflammatory polyneuropathies | CPT/HCPCS: 96361; 96365; 96366; J1569 ==

== ENCOUNTER 2023-04-24 12:13 | Outpatient (REF) | payer MEDICARE, BC, MEDICAID, SELFPAY | END 2023-04-24 12:14 | disposition home or self-care (01) | LOC: HO.MDS 12:13 | PROVIDERS: Visit Provider Hospitalist | DX: G90.9 Disorder of the autonomic nervous system, unspecified (principal); G61.89 Other inflammatory polyneuropathies | CPT/HCPCS: 96361; 96365; 96366; J1569 ==

== ENCOUNTER 2023-05-15 12:10 | Outpatient (REF) | payer MEDICARE, BC, MEDICAID, SELFPAY | END 2023-05-15 12:11 | disposition home or self-care (01) | LOC: HO.MDS 12:10 | PROVIDERS: Visit Provider Hospitalist | DX: G90.9 Disorder of the autonomic nervous system, unspecified (principal); G61.89 Other inflammatory polyneuropathies | CPT/HCPCS: 96361; 96365; 96366; J1569 ==

== ENCOUNTER 2023-05-22 12:06 | Outpatient (REF) | payer MEDICARE, BC, MEDICAID, SELFPAY | END 2023-05-22 12:07 | disposition home or self-care (01) | LOC: HO.MDS 12:06 | PROVIDERS: Visit Provider Hospitalist | DX: G90.9 Disorder of the autonomic nervous system, unspecified (principal); G61.89 Other inflammatory polyneuropathies | CPT/HCPCS: 96361; 96365; 96366; J1569 ==

== ENCOUNTER 2023-05-29 12:10 | Outpatient (REF) | payer MEDICARE, BC, MEDICAID, SELFPAY | END 2023-05-29 12:11 | disposition home or self-care (01) | LOC: HO.MDS 12:10 | PROVIDERS: Visit Provider Hospitalist | DX: G90.9 Disorder of the autonomic nervous system, unspecified (principal); G61.89 Other inflammatory polyneuropathies | CPT/HCPCS: 96361; 96365; 96366; J1569 ==

== ENCOUNTER 2023-06-05 12:20 | Outpatient (REF) | payer MEDICARE, BC, MEDICAID, SELFPAY | END 2023-06-05 12:21 | disposition home or self-care (01) | LOC: HO.MDS 12:20 | PROVIDERS: Visit Provider Hospitalist | DX: G90.9 Disorder of the autonomic nervous system, unspecified (principal); G61.89 Other inflammatory polyneuropathies | CPT/HCPCS: 96361; 96365; 96366; J1569 ==

== ENCOUNTER 2023-06-12 12:13 | Outpatient (REF) | payer MEDICARE, BC, MEDICAID, SELFPAY | END 2023-06-12 12:14 | disposition home or self-care (01) | LOC: HO.MDS 12:13 | PROVIDERS: Visit Provider Hospitalist | DX: G90.9 Disorder of the autonomic nervous system, unspecified (principal); G61.89 Other inflammatory polyneuropathies | CPT/HCPCS: 96361; 96365; 96366; J1569 ==

== ENCOUNTER 2023-06-19 12:09 | Outpatient (REF) | payer MEDICARE, BC, MEDICAID, SELFPAY | END 2023-06-19 12:10 | disposition home or self-care (01) | LOC: HO.MDS 12:09 | PROVIDERS: Visit Provider Hospitalist | DX: G90.9 Disorder of the autonomic nervous system, unspecified (principal); G61.89 Other inflammatory polyneuropathies | CPT/HCPCS: 96361; 96365; 96366; J1569 ==

== ENCOUNTER 2023-06-26 12:08 | Outpatient (REF) | payer MEDICARE, BC, MEDICAID, SELFPAY | END 2023-06-26 12:09 | disposition home or self-care (01) | LOC: HO.MDS 12:08 | PROVIDERS: Visit Provider Hospitalist | DX: G90.9 Disorder of the autonomic nervous system, unspecified (principal); G61.89 Other inflammatory polyneuropathies | CPT/HCPCS: 96361; 96365; 96366; J1569 ==

== ENCOUNTER 2023-07-03 12:08 | Outpatient (REF) | payer MEDICARE, BC, MEDICAID, SELFPAY | END 2023-07-03 12:09 | disposition home or self-care (01) | LOC: HO.MDS 12:08 | PROVIDERS: Visit Provider Hospitalist | DX: G90.9 Disorder of the autonomic nervous system, unspecified (principal); G61.89 Other inflammatory polyneuropathies | CPT/HCPCS: 96365; 96366; J1569 ==

== ENCOUNTER 2023-07-11 08:30 | Outpatient (AMB) | payer MEDICARE, MEDICAID, SELFPAY ==
--- NOTE | 2023-07-11 08:32 | MHC.OFFVIS ---
Intake Vital Signs 07/11/23 08:33 Height 5 ft 9 in Weight 146 lb 9.718 oz BMI 21.6 BP 122/78 Blood Pressure Location Rt brachial Position Sitting Pulse 72 Pulse Source Doppler Pulse Oximetry (%) 100 Oxygen Delivery Method Room Air Intake Visit Reasons: Autoimmune Allergies buspirone [From BuSpar] Allergy (Severe, Verified 07/11/23 08:36) Dizziness and Leg Weakness pyridostigmine [From MESTINON] Adverse Reaction (Intermediate, Verified 07/11/23 08:36) AGITATION sertraline [From ZOLOFT] Adverse Reaction (Intermediate, Verified 07/11/23 08:36) NAUSEA & VOMITING methylprednisolone [From Solu-Medrol] Adverse Reaction (Mild, Verified 07/11/23 08:36) Agitated trazodone [TRAZODONE] Adverse Reaction (Unknown, Verified 07/11/23 08:36) VOMITING HPI HPI Comments History of Present Illness Details The patient is a 32-year-old gentleman known history of asthma in addition to a 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 The patient was having significant symptoms with significant shortness of breath and dyspnea and failure to thrive for many months prior to the diagnosis. He had an abnormal cardiopulmonary stress test and was referred to [facility]. From there he then went to [facility] has been followed closely there. 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 He was started on high doses of IVIG abdominal was hospital he was pretreated with fluids in addition to steroids in addition to Benadryl to minimize side effects. But he was not tolerating it due to adverse side effects from the medication. Therefore he was switched over to subcutaneous infusions with Hizentra. He has been doing this himself with the help [facility] initially since September 2019. He has been tolerating it well but more recently he started developing worsening reactions after the infusions. Do is last reaction he started developing significant diaphoresis and dizziness and shortness of breath. He did have EMS called his blood sugar was 45. He did go to the ER and was able to then be transferred home safely. In the meantime he did follow-up with Endocrinology. . He was also worsening shortness of breath. evaluated in the ED for this. He did go to the ER because of his worsening constitutional symptoms and shortness of breath. In the ER he did have a brief walking oximetry in his desaturated down to 87% but then had a repeat 1 that demonstrated normal pulse ox. In the office here we did attempt a 6 minutes walk test and again he desaturated to 87% but quickly improved. He is reluctant to use any oxygen at this time. Will retest his overnight oximetry to see if he does need oxygen at nighttime. We also talked about his asthma symptoms. 01/16/2021 the patient is here for pulmonary follow-up visit. Overall he is feeling better. The pleuritic pain is improved. He still has a cough is still feels tired. Denies any fevers or chills. He is completing a course of Augmentin. His chest x-ray repeat demonstrated no worsening of the pleural effusion. He still had the nodular base opacity in the right hemithorax. Again, we looked at the CT scan of the chest that he had back in January 08 demonstrating a airspace disease within the pro based on the superior segment of the right lower lobe appears to have a area of necrosis. Also associated with a small pleural effusion. Appears to be parapneumonic. He did have blood work ruling out vasculitis and will ruling out connective tissue diseases. However, sedimentation rate was significantly had 83. Since the patient is feeling better will finished a course of Augmentin and then repeat a sedimentation rate. I am hopeful that the sedimentation rate will drop. If the sedimentation continues high additional testing and imaging studies will be warranted. The patient and the family is aware that it could take up to 6-8 weeks to clear the infectious process. As far as etiologies aspiration pneumonia is in differential since is affecting the superior segment of the right lower lobe in addition to hematogenous spread. In addition, he was evaluated by Neurology at [facility] confirming the autonomic dysatomia and inflammatory polyneuropathy and recommended changing the Gammagard to 30mg qweek. I will go ahead and make the change. I am concerned for the need for his IV access.. But will go ahead and try it rotating the sites. 12/11/2021 the patient Has a telehealth visit. Overall the patient has been doing better. He continues to try to increase his exercise capacity. He has been able to walk about 2 miles a day. His asthma appears to be stable. He continues to use the Spiriva daily. He has not required any Xopenex which is reassuring. In the meantime he still follows closely with [facility] and also [facility] regarding his acquired autonomic dysatonia. he was switched over to the IVIG 30 g every week which appears to have been helping him. Although, having to get peripheral IV lines on a weekly basis has become a challenge. He does mention that at the infusion center did been having difficulties getting iv access lately on his left arm. Therefore, I will talk to them regarding that issue. At this time will try continue with weekly infusions. However, if he has any worsening IV access issues we will discuss the possibility of changing it back to every 2 weeks. his cardiac status has been is stable. He does continue to tolerate the metoprolol which is reassuring otherwise the patient is without any other complaints will continue monitoring his iv access issues. 07/11/2023 the patient is here for a pulmonary follow-up visit. The patient continues to do well on his current therapy. He has been following closely at the [facility] neurology clinic for his known diagnosis of autonomic dysfunction and autoimmune inflammatory small fiber polyneuropathy. The patient has had a long journey, but, appears to be on at good regimen at this time demonstrating improvements of his overall health. Since he has been on the weekly IVIG infusions he has not been hospitalized and his oberall health has improved. The therapy has been effective and beneficial.. He has been very compliant with the therapy. Although recently we had to hold the therapy based on the fact that the patient had to get insurance approval. He had recently changed insurances and this required additional documentation and follow-up. Although, there is no question that the therapy has been very effective for him. His family became very upset that his therapy was going to be delayed. He was recently evaluated by his doctors in [place] and had a repeat level 1 cardiopulmonary exercise study and actually demonstrated a significant improvement when compared to his previous which is very reassuring. Weight perkins he has also gained weight. As far as the autonomic dysfunction seems to be stable where he has not required any hospitalizations.. Although, he is describing some degree of urinary retention and frequency. His neurologist felt that it may be related to the autonomics dysfunction. Will be unreasonable for him to follow-up with Urology for this. He is also going to follow-up with primary care doctor. She also continues on Mestinon for the neuropathy,in addition to Milrinone own and Florinef for the autonomic dysfunction. He continues to work with physical therapy and has been able to walk 2 miles a day. His asthma has been in good control with current therapy with Spiriva daily. He has not required his short-acting beta agonist. [facility] Medical History (Updated 07/11/23 @ 08:55 by Calvin Jean MD) Asthma Autonomic dysfunction Bilateral calf pain Dizziness Gastritis GERD (gastroesophageal reflux disease) Has daytime drowsiness Viry's disease Hypoglycemia Nocturnal hypoxemia MARYANN (obstructive sleep apnea) Other inflammatory polyneuropathies Pleural effusion Pleuritis Pneumonia Mccallum disease PTSD (post-traumatic stress disorder) Small fiber neuropathy Tachycardia Urinary retention Vitamin D deficiency Surgical History (Updated 07/11/23 @ 13:55 by Razia Landa PA-C) History of wisdom tooth extraction Family History Mother Asthma Celiac disease/sprue Father Psoriasis Social History Alcohol intake: never Years Smoked: 1 year Substance Use Type: Marijuana Advance Directives Date on File: 09/16/18 Review of Systems Const Reports daytime sleepiness, Reports headache(s), Reports lethargy, Denies night sweats and Reports weight gain ENT Denies change in voice, Reports headache(s), Denies lip swelling, Denies mouth pain, Denies nasal congestion, Denies nasal discharge and Denies tongue swelling Card Denies chest pain, Denies dyspnea and Denies dyspnea on exertion Resp Reports cough, Denies dyspnea and Denies dyspnea on exertion GI Denies abdominal pain Reports difficulty urinating and Reports dysuria Musc Reports myalgias Skin/Breast Denies rash Neuro Denies Neuro-related abnormal movements and Reports headache(s) Psych Reports anxiety [place]/Lymph Denies easy bleeding and Denies lymphadenopathy Aller/Immun Denies lip swelling and Denies tongue swelling Physical Exam Vital Signs: Last Vital Signs Pulse 72 07/11/23 08:33 BP 122/78 07/11/23 08:33 Pulse Ox 100 07/11/23 08:33 Oxygen Delivery Method Room Air 07/11/23 08:33 BMI result Body Mass Index 21.6 Const General: cooperative, comfortable, alert and awake Nutritional Appearance: thin Orientation/consciousness: patient oriented x3 Limitations: no limitations Eyes General: appearance normal, both eyes and all related structures Neck Neck: Yes trachea midline, Yes supple and Yes no JVD Chest Chest palpation & inspection: normal inspection of the chest Resp Effort & Inspection: normal respiratory effort Auscultation: clear to auscultation bilaterally Cardio Jugular venous distension: no JVD Palpation: normal PMI Rate: regular rate Rhythm: regular rhythm Heart sounds: S1 normal heart sound present and S2 normal heart sound present GI Auscultation: normal bowel sounds Skin General skin exam: no rashes or lesions noted Neuro General: patient oriented x3 and no focal motor deficits Extrem General: Yes no clubbing, cyanosis or edema Psych Appearance: grossly normal Assessment & Plan Assessment & Plan (1) Autonomic dysfunction: Code(s): G90.9 - Disorder of the autonomic nervous system, unspecified (2) Other inflammatory polyneuropathies: Code(s): G61.89 - Other inflammatory polyneuropathies (3) Asthma: Code(s): J45.909 - Unspecified asthma, uncomplicated Qualifiers: Asthma complication type: with acute exacerbation Asthma persistence: persistent Asthma severity: moderate Qualified Code(s): J45.41 - Moderate persistent asthma with (acute) exacerbation (4) Urinary retention: Code(s): R33.9 - Retention of urine, unspecified Plan continue Gammagard to 30mg every week as per the recommendations of his [facility] neurology team and specialist. His condition is advance, yet has been responding to his current therapy. continue Spiriva respimet Xopenex as needed Bloodwork urology referral F/U 6 months Orders: Orders Basic Metabolic Panel 07/11/23 G6.89 - Other inflammatory polyneuropathies, R33.9 - Retention of urine, unspecified Liver Panel 07/11/23 G6.89 - Other inflammatory polyneuropathies, R33.9 - Retention of urine, unspecified Complete Blood Count Auto Diff 07/11/23 G6.89 - Other inflammatory polyneuropathies, R33.9 - Retention of urine, unspecified Erythrocyte Sedimentation Rate 07/11/23 G6.89 - Other inflammatory polyneuropathies, R33.9 - Retention of urine, unspecified LEEANNA Reflex Titer and Pattern 07/11/23 G6.89 - Other inflammatory polyneuropathies, R33.9 - Retention of urine, unspecified Referrals Urology Referral R33.9 - Retention of urine, unspecified Coding Level of Care Code New Pt Level 5 (67261) Diagnoses Autonomic dysfunction G90.9 Other inflammatory polyneuropathies G61.89 Asthma J45.41 Asthma complication type: with acute exacerbation Asthma persistence: persistent Asthma severity: moderate Urinary retention R33.9 Time Spent (min) 45
[2023-07-11 08:33] VITALS: BP 122/78; PULSE 72; O2SAT 100; BMI 21.6
== END 2023-07-11 09:06 | disposition home or self-care (01) ==
PROVIDERS: PCP Internal Medicine; Visit Provider Hospitalist
DX: G90.9 Disorder of the autonomic nervous system, unspecified (principal); G61.89 Other inflammatory polyneuropathies; J45.41 Moderate persistent asthma with (acute) exacerbation; R33.9 Retention of urine, unspecified
CPT/HCPCS: 99214

== ENCOUNTER 2023-07-11 08:30 | Outpatient (REF) | payer MEDICARE, BC, MEDICAID, SELFPAY ==
[2023-07-11 09:38] LABS: MANUAL DIFF FLAG NO
[2023-07-11 10:27] LABS: Basophils Percent Auto 1.1 % (0-2); Eosinophils Absolute Auto 0.1 X10*3/uL (0.0-0.4); Eosinophils Percent Auto 1.9 % (0-4); Hematocrit 38.1 % (42.0-52.0); Hemoglobin 13.2 g/dl (14.0-18.0); Imm Gran Abs Auto 0.01 X10*3/uL (0.00-0.03); Imm Gran Pct Auto 0.3 % (0.0-0.4); Lymphocytes Absolute Auto 1.9 X10*3/uL (1.2-4.9); Lymphocytes Percent Auto 50.1 % (20-40); Mean Corpuscular HGB Conc 34.6 g/dl (31.0-36.0); Mean Corpuscular Hemoglobin 31.3 pg (27.0-33.0); Mean Corpuscular Volume 90.3 fL (80.0-98.0); Mean Platelet Volume 10.5 fL (9.4-12.4); Monocytes Absolute Auto 0.4 X10*3/uL (0.1-1.2); Monocytes Percent Auto 10.9 % (2-11); Neutrophils Absolute Auto 1.4 x10*3/uL (2.0-8.3); Neutrophils Percent Auto 35.7 % (45-73); Platelet Count 177 X10*3/uL (160-400); Red Blood Count 4.22 X10*6/uL (4.60-5.80); Red Cell Distribution Width 12.8 % (11.0-16.0); White Blood Count 3.8 X10*3/uL (4.8-10.8)
[2023-07-11 11:06] LABS: Erythrocyte Sedimentation Rate 7 MM/HR (0-15)
[2023-07-11 11:35] LABS: Alanine Aminotransferase 18 U/L (0-40); Alkaline Phosphatase 41 U/L (39-117); Anion Gap 12 (12-20); Aspartate Amino Transferase 29 U/L (5-37); Bilirubin Direct 0.3 mg/dL (0.0-0.5); Bilirubin Total 0.8 mg/dL (0.0-1.0); Blood Urea Nitrogen 17 mg/dL (9-16); Calcium 9.3 mg/dL (8.4-10.2); Carbon Dioxide 24 mmol/L (22-29); Chloride 106 mmol/L (96-108); Estimated Glomerular Filt Rate > 60; Glucose Random 82 mg/dL (60-115); Potassium 3.9 mmol/L (3.3-5.1); Sodium 138 mmol/L (135-145); Total Protein 7.8 g/dL (6.5-8.0)
[2023-07-16 14:48] LABS: Anti Nuclear Antibody Screen NEGATIVE (NEGATIVE)
== END 2023-07-11 08:31 | disposition home or self-care (01) ==
LOC: HO.LAB 08:30
PROVIDERS: PCP Internal Medicine; Visit Provider Hospitalist
DX: G61.89 Other inflammatory polyneuropathies (principal); R33.9 Retention of urine, unspecified; G90.9 Disorder of the autonomic nervous system, unspecified; J45.41 Moderate persistent asthma with (acute) exacerbation
CPT/HCPCS: 36415; 80048; 80076; 85025; 85652; 86038; 99212

== ENCOUNTER 2023-07-17 12:00 | Outpatient (REF) | payer MEDICARE, BC, MEDICAID, SELFPAY | END 2023-07-17 12:01 | disposition home or self-care (01) | LOC: HO.MDS 12:00 | PROVIDERS: Visit Provider Hospitalist | DX: G90.9 Disorder of the autonomic nervous system, unspecified (principal); G61.89 Other inflammatory polyneuropathies | CPT/HCPCS: 96361; 96365; 96366; J1569 ==

== ENCOUNTER 2023-07-24 11:38 | Outpatient (REF) | payer MEDICARE, BC, MEDICAID, SELFPAY | END 2023-07-24 11:39 | disposition home or self-care (01) | LOC: HO.MDS 11:38 | PROVIDERS: Visit Provider Hospitalist | DX: G90.9 Disorder of the autonomic nervous system, unspecified (principal); G61.89 Other inflammatory polyneuropathies | CPT/HCPCS: 96361; 96365; 96366; J1569 ==

== ENCOUNTER 2023-07-31 12:16 | Outpatient (REF) | payer MEDICARE, BC, MEDICAID, SELFPAY | END 2023-07-31 12:17 | disposition home or self-care (01) | LOC: HO.MDS 12:16 | PROVIDERS: Visit Provider Hospitalist | DX: G90.9 Disorder of the autonomic nervous system, unspecified (principal); G61.89 Other inflammatory polyneuropathies | CPT/HCPCS: 96361; 96365; 96366; J1569 ==

== ENCOUNTER 2023-08-07 12:14 | Outpatient (REF) | payer MEDICARE, BC, MEDICAID, SELFPAY | END 2023-08-07 12:15 | disposition home or self-care (01) | LOC: HO.MDS 12:14 | PROVIDERS: Visit Provider Hospitalist | DX: G90.9 Disorder of the autonomic nervous system, unspecified (principal); G61.89 Other inflammatory polyneuropathies | CPT/HCPCS: 96361; 96365; 96366; J1569 ==

== ENCOUNTER 2023-08-14 12:16 | Outpatient (REF) | payer MEDICARE, BC, MEDICAID, SELFPAY | END 2023-08-14 12:17 | disposition home or self-care (01) | LOC: HO.MDS 12:16 | PROVIDERS: Visit Provider Hospitalist | DX: G90.9 Disorder of the autonomic nervous system, unspecified (principal); G61.89 Other inflammatory polyneuropathies | CPT/HCPCS: 96361; 96365; 96366; J1569 ==

== ENCOUNTER 2023-08-16 04:43 | Emergency (ER) | payer MEDICARE, BC, MEDICAID, SELFPAY ==
[2023-08-16 04:46] VITALS: BP 136/86; PULSE 79; RESP 18; TEMP 36.6; O2SAT 100; BMI 21.4
--- NOTE | 2023-08-16 05:26 | PC.NURSE ---
Patient is in his room talking to staff member, calm and quiet, thought content and process appears coherent, behavior non concerning, med rec completed/pending provider's approval, compliant with changeover process, care consult ordered/pending evaluation, VSS, will continue to monitor.
--- NOTE | 2023-08-16 05:54 | ED.PSYCH ---
HPI - Psych General Chief Complaint: Psychiatric Symptoms Stated Complaint: Crisis Time Seen by Provider: 08/16/23 05:35 Source: patient Mode of arrival: EMS Limitations: no limitations History of Present Illness HPI Narrative: Patient comes to the emergency room via ambulance from home. Patient states that today he had a bad day, feeling depressed. Patient known to have anxiety and depression. On top of having a bad day, patient had a text message argument with his uncle, which triggered him to become anxious, made statements about hurting himself. However, patient states that he has no intention of hurting himself or others and he wants to live. Patient is requesting to talk to the care team. Related Data Home Medications Medication Instructions Recorded Confirmed diazepam 5 mg tablet 5 mg PO BID 08/16/23 08/16/23 fludrocortisone 0.1 mg tablet 0.05 mg PO DAILY 08/16/23 08/16/23 metoprolol succinate 25 mg 25 mg PO DAILY 08/16/23 08/16/23 tablet,extended release 24 hr midodrine 5 mg tablet 5 mg PO TID 08/16/23 08/16/23 pregabalin 50 mg capsule 50 mg PO TID 08/16/23 08/16/23 pyridostigmine bromide 60 mg tablet 60 mg PO TID 08/16/23 08/16/23 Allergies Allergy/AdvReac Type Severity Reaction Status Date / Time buspirone [From BuSpar] Allergy Severe Dizziness Verified 07/11/23 08:36 and Leg Weakness pyridostigmine AdvReac Intermediate AGITATION Verified 07/11/23 08:36 [From MESTINON] sertraline [From ZOLOFT] AdvReac Intermediate NAUSEA & Verified 07/11/23 08:36 VOMITING methylprednisolone AdvReac Mild Agitated Verified 07/11/23 08:36 [From Solu-Medrol] trazodone [TRAZODONE] AdvReac Unknown VOMITING Verified 07/11/23 08:36 Review of Systems Review of Systems: Constitutional : No Weight loss, No Fever, No Chills, No Night Sweats, No Fatigue, No Malaise ENT/Mouth : No Hearing loss, No Ear Pain, No Nasal Congestion, No Sinus Pain, No Hoarseness, No sore throat, No Rhinorrhea, No Swallowing Difficulty Eyes: No Eye Pain, No Swelling, No Redness, No Foreign Body, No Discharge, No Vision Changes Cardiovascular : No Chest Pain, No SOB, No Dyspnea on Exertion, No Orthopnea, No Edema, No Palpitations Respiratory : No Cough, No Sputum, No Wheezing, No Smoke Exposure, No Dyspnea Gastrointestinal : No Nausea, No Vomiting, No Diarrhea, No Constipation, No abdominal Pain, No Hematochezia, No Melena Genitourinary : no irregular bleeding, No Dysuria, No Urinary Frequency, No Hematuria, No Urinary Incontinence, No Urgency, No Flank Pain, No Urinary Flow Changes, No Hesitancy Musculoskeletal : No joint pain, No Myalgias, No Joint Swelling Skin : No Skin Lesions, No rash Neuro : No Weakness, No Numbness, No Paresthesias, No Loss of Consciousness, No Dizziness, No Headache Psych : Complaining of anxiety and depression. Admits that he made comments about hurting himself out of anger, but did not mean hurting himself. Heme/Lymph: No Bruising, No Bleeding,No Lymphadenopathy Endocrine : No Polyuria, No Polydipsia, No Temperature Intolerance [facility] Past Medical History Medical History Urinary retention Other inflammatory polyneuropathies Gastritis Pleuritis Pneumonia Bilateral calf pain Pleural effusion MARYANN (obstructive sleep apnea) Has daytime drowsiness Vitamin D deficiency Viry's disease Hypoglycemia Dizziness GERD (gastroesophageal reflux disease) Small fiber neuropathy Mccallum disease PTSD (post-traumatic stress disorder) Nocturnal hypoxemia Tachycardia Autonomic dysfunction Asthma Surgical History (Updated 07/11/23 @ 13:55 by Razia Landa PA-C) History of wisdom tooth extraction Family History Family History Mother Asthma Celiac disease/sprue Father Psoriasis Social History Social History Alcohol intake: never Years Smoked: 1 year Substance Use Type: Marijuana Advance Directives: Yes Advance Directives Information Provided: Yes Advance Directives on File: No Advance Directives Date on File: 09/16/18 Physical Exam Vital Signs: Vital Signs: Last Vital Signs Temp 97.9 F 08/16/23 04:46 Pulse 79 08/16/23 04:46 Resp 18 08/16/23 04:46 BP 136/86 08/16/23 04:46 Pulse Ox 100 08/16/23 04:46 O2 Del Method Room Air 08/16/23 04:46 BMI result Body Mass Index 21.4 Const: Other: Appearance: Alert. Oriented X3. No acute distress. Eyes: Pupils equal, round and reactive to light. ENT: Pharynx normal. Neck: Normal inspection. Neck supple. No lymph nodes noted. No crepitus CVS: Normal heart rate and rhythm. Pulses normal. Normal S1 and S2 Respiratory: No respiratory distress. Breath sounds normal. No Wheezing. No rales Abdomen: Soft and nontender. No rigidity. No distention. Skin: Skin warm and dry. Normal skin color. Normal skin turgor. Extremities: No lower extremity edema. No Lacerations. No Rash Neuro: Oriented X 3. No motor deficit. No sensory deficit. Moving all extremities. No slurred speech. CN 2 through 12 grossly intact Psych: calm, cooperative, normal affect Course Course Course Narrative: -patient is calm, cooperative, coherent -all of patient's labs pending. -per patient's request, he would like to talk to Behavioral Health/care team -with patient's permission, I talked to his father to give him an update. -physician observation started at 06:00 06:00: Physician observation continued I assumed care of this patient from my colleague, Dr. Adela Mars Patient presented with suicidal ideation, patient is currently on a Section 12 and is waiting to be seen by care team. Patient's medications were reconciled and I did order these medications. The patient will be kept in the emergency department Behavioral Health Unit until disposition can be determined or until his symptoms improve over time. Medical Decision Making Lab Data 08/16/23 06:12 08/16/23 06:12 Labs: Lab Results 08/16/23 08/16/23 Range/Units 05:20 06:12 WBC 3.9 L (4.8-10.8) X10*3/uL RBC 4.18 L (4.60-5.80) X10*6/uL Hgb 13.2 L (14.0-18.0) g/dl Hct 36.9 L (42.0-52.0) % MCV 88.3 (80.0-98.0) fL MCH 31.6 (27.0-33.0) pg MCHC 35.8 (31.0-36.0) g/dl RDW 12.0 (11.0-16.0) % Plt Count 161 (160-400) X10*3/uL MPV 10.0 (9.4-12.4) fL Immature Gran % (Auto) 0.3 (0.0-0.4) % Neut % (Auto) 62.2 (45-73) % Lymph % (Auto) 25.8 (20-40) % [place] % (Auto) 10.6 (2-11) % Eos % (Auto) 0.3 (0-4) % Baso % (Auto) 0.8 (0-2) % Lymph # (Auto) 1.0 L (1.2-4.9) X10*3/uL [place] # (Auto) 0.4 (0.1-1.2) X10*3/uL Eos # (Auto) 0.0 (0.0-0.4) X10*3/uL Baso # (Auto) 0.0 (0.0-0.2) X10*3/uL Abs Immat Gran (auto) 0.01 (0.00-0.03) X10*3/uL Absolute Neuts (auto) 2.4 (2.0-8.3) x10*3/uL Absolute Nucleated RBC 0.000 (0.0-0.012) X10*3/uL Nucleated RBC % (auto) 0.0 (0.0-0.2) /100WBC Sodium 140 (135-145) mmol/L Potassium 3.7 (3.3-5.1) mmol/L Chloride 107 (96-108) mmol/L Carbon Dioxide 26 (22-29) mmol/L Anion Gap 11 L (12-20) BUN 19 H (9-16) mg/dL Creatinine 1.05 (0.5-1.4) mg/dL Estim Creat Clear Calc 94.8 Estimated GFR > 60 Random Glucose 101 (60-115) mg/dL Calcium 9.2 (8.4-10.2) mg/dL Magnesium 2.2 (1.6-2.6) mg/dL Total Bilirubin 0.9 (0.0-1.0) mg/dL AST 31 (5-37) U/L ALT 19 (0-40) U/L Alkaline Phosphatase 39 (39-117) U/L B-Natriuretic Peptide 16 (<100) pg/mL Total Protein 8.5 H (6.5-8.0) g/dL Albumin 4.0 (3.5-5.0) g/dL Urine Color Yellow Urine Appearance Clear Urine pH 7.5 (5.0-9.0) Ur Specific [place] 1.015 (1.005-1.025) Urine Protein Negative (Neg-Trace) mg/dL Urine Glucose (UA) Negative (Negative) mg/dL Urine Ketones Negative (Negative) mg/dL Urine Blood Negative (Negative) Urine Nitrite Negative (Negative) Ur Leukocyte Esterase Small (1+) H (Negative) Urine RBC 0-2 (0-2) /HPF Urine WBC 0-5 (0-5) /HPF Ur Squamous Epith Cells 0-2 (0-2) /HPF Other Crystals Present Urine Bacteria None Seen (None Seen) Hyaline Casts 0-2 (0-2) /LPF Salicylates < 5.0 L (15-30) mg/dL Urine Opiates Screen Not Detected (Not Detect) Urine Fentanyl Screen Not Detected (Not Detect) Acetaminophen < 17 (<30) mcg/mL Ur Barbiturates Screen Not Detected (Not Detect) Ur Phencyclidine Scrn Not Detected (Not Detect) Ur Amphetamines Screen Not Detected (Not Detect) U Benzodiazepines Scrn POSITIVE H (Not Detect) Urine Cocaine Screen Not Detected (Not Detect) U Marijuana (THC) Screen Not Detected (Not Detect) Ethyl Alcohol < 10 mg/dL Discharge Plan Discharge Clinical Impression: Anxiety and depression Patient Disposition: Still a Patient Prescriptions: No Action midodrine 5 mg tablet 5 mg PO TID pyridostigmine bromide 60 mg tablet 60 mg PO TID metoprolol succinate 25 mg tablet extended release 24 hr 25 mg PO DAILY fludrocortisone 0.1 mg tablet 0.05 mg PO DAILY diazepam 5 mg tablet 5 mg PO BID pregabalin 50 mg capsule 50 mg PO TID Interventions: [place]-Suicide Risk Severity Scale Last Done: 08/16/23 05:14
[2023-08-16 06:31] LABS: Alanine Aminotransferase 19 U/L (0-40); Alkaline Phosphatase 39 U/L (39-117); Anion Gap 11 (12-20); Aspartate Amino Transferase 31 U/L (5-37); Bilirubin Total 0.9 mg/dL (0.0-1.0); Blood Urea Nitrogen 19 mg/dL (9-16); Calcium 9.2 mg/dL (8.4-10.2); Carbon Dioxide 26 mmol/L (22-29); Chloride 107 mmol/L (96-108); Creatinine Clr Calc Pharmacy 94.8; Estimated Glomerular Filt Rate > 60; Ethanol < 10 mg/dL; Glucose Random 101 mg/dL (60-115); Magnesium 2.2 mg/dL (1.6-2.6); Potassium 3.7 mmol/L (3.3-5.1); Sodium 140 mmol/L (135-145); Total Protein 8.5 g/dL (6.5-8.0)
--- NOTE | 2023-08-16 06:59 | PC.NURSE ---
patient seated on bed in room declined breakfast tray appears to be in no distress
== END 2023-08-16 10:04 | disposition home or self-care (01) ==
PROVIDERS: Emergency Medicine; Emergency Provider Emergency Medicine Emergency Medical Services; PCP Internal Medicine
DX: F32.A Depression, unspecified (principal); F41.9 Anxiety disorder, unspecified; Z79.899 Other long term (current) drug therapy; F43.10 Post-traumatic stress disorder, unspecified; F12.90 Cannabis use, unspecified, uncomplicated
CPT/HCPCS: 36415; 80053; 80143; 80179; 80307; 81001; 83735; 83880; 85025; 99284; 99285; S9485

== ENCOUNTER 2023-08-21 12:21 | Outpatient (REF) | payer MEDICARE, BC, MEDICAID, SELFPAY | END 2023-08-21 12:22 | disposition home or self-care (01) | LOC: HO.MDS 12:21 | PROVIDERS: Visit Provider Hospitalist | DX: G90.9 Disorder of the autonomic nervous system, unspecified (principal); G61.89 Other inflammatory polyneuropathies | CPT/HCPCS: 96361; 96365; 96366; J1569 ==

== ENCOUNTER 2023-08-28 11:59 | Outpatient (REF) | payer MEDICARE, BC, MEDICAID, SELFPAY | END 2023-08-28 12:00 | disposition home or self-care (01) | LOC: HO.MDS 11:59 | PROVIDERS: Visit Provider Hospitalist | DX: G90.9 Disorder of the autonomic nervous system, unspecified (principal); G61.89 Other inflammatory polyneuropathies | CPT/HCPCS: 96365; 96366; J1569 ==

== ENCOUNTER 2023-09-04 12:11 | Outpatient (REF) | payer MEDICARE, BC, MEDICAID, SELFPAY | END 2023-09-04 12:12 | disposition home or self-care (01) | LOC: HO.MDS 12:11 | PROVIDERS: Visit Provider Hospitalist | DX: G90.9 Disorder of the autonomic nervous system, unspecified (principal); G61.89 Other inflammatory polyneuropathies | CPT/HCPCS: 96365; 96366; J1569 ==

== ENCOUNTER 2023-09-11 12:15 | Outpatient (REF) | payer MEDICARE, BC, MEDICAID, SELFPAY | END 2023-09-11 12:16 | disposition home or self-care (01) | LOC: HO.MDS 12:15 | PROVIDERS: Visit Provider Hospitalist | DX: G90.9 Disorder of the autonomic nervous system, unspecified (principal); G61.89 Other inflammatory polyneuropathies | CPT/HCPCS: 96365; 96366; J1569 ==

== ENCOUNTER 2023-09-18 12:09 | Outpatient (REF) | payer MEDICARE, BC, MEDICAID, SELFPAY | END 2023-09-18 12:10 | disposition home or self-care (01) | LOC: HO.MDS 12:09 | PROVIDERS: Visit Provider Hospitalist | DX: G90.9 Disorder of the autonomic nervous system, unspecified (principal); G61.89 Other inflammatory polyneuropathies | CPT/HCPCS: 96361; 96365; 96366; J1569 ==

== ENCOUNTER 2023-09-25 12:25 | Outpatient (REF) | payer MEDICARE, BC, MEDICAID, SELFPAY | END 2023-09-25 12:26 | disposition home or self-care (01) | LOC: HO.MDS 12:25 | PROVIDERS: Visit Provider Hospitalist | DX: G90.9 Disorder of the autonomic nervous system, unspecified (principal); G61.89 Other inflammatory polyneuropathies | CPT/HCPCS: 96361; 96365; 96366; J1569 ==

== ENCOUNTER 2023-10-01 02:36 | Emergency (ER) | payer MEDICARE, BC, MEDICAID, SELFPAY ==
[2023-10-01 02:51] VITALS: BP 169/82; PULSE 90; O2SAT 100; BMI 22.6
[2023-10-01 02:56] VITALS: BP 137/52; PULSE 67; RESP 17; TEMP 36.2; O2SAT 97
--- NOTE | 2023-10-01 03:06 | PC.NURSE ---
Pt arrives via EMS aox4 reporting increased depression and OCD x 2 weeks. Denies SI/HI. Changed into hospital attire and belongings secured. Pending physician eval .
[2023-10-01 03:10] LABS: Appearance Urine Clear; Color Urine Yellow; Glucose Urine UA Negative (Negative); Leukocyte Esterase Urine Trace (Negative); Nitrite Urine Negative (Negative); Specific Gravity - Urine <= 1.005 (1.005-1.025); UMIC TRIGGER UACC YES; Urine Blood Negative (Negative); Urine Ketones Negative (Negative); Urine Protein Negative (Neg-Trace)
[2023-10-01 03:12] LABS: Bacteria Urine None Seen (None Seen); Hyaline Casts Urine 0-2 /LPF (0-2); RBC Urine 0-2 /HPF (0-2); Squamous Epithelial Cell Urine 0-2 /HPF (0-2); WBC Urine 0-5 /HPF (0-5)
[2023-10-01 03:17] LABS: Amphetamine Screen Urine Not Detected (Not Detect); Barbiturates, Urine Not Detected (Not Detect); Benzodiazepines Screen Urine POSITIVE (Not Detect); Cannabinoid Screen Urine Not Detected (Not Detect); Cocaine Screen Urine Not Detected (Not Detect); Fentanyl, urine Not Detected (Not Detect); Opiate Screen Urine Not Detected (Not Detect); Phencyclidine Screen Urine Not Detected (Not Detect)
[2023-10-01 03:23] LABS: MANUAL DIFF FLAG NO
[2023-10-01 03:26] LABS: Basophils Percent Auto 0.9 % (0-2); Eosinophils Percent Auto 0.5 % (0-4); Hematocrit 39.8 % (42.0-52.0); Hemoglobin 14.3 g/dl (14.0-18.0); Imm Gran Abs Auto 0.01 X10*3/uL (0.00-0.03); Imm Gran Pct Auto 0.2 % (0.0-0.4); Lymphocytes Absolute Auto 1.6 X10*3/uL (1.2-4.9); Lymphocytes Percent Auto 36.9 % (20-40); Mean Corpuscular HGB Conc 35.9 g/dl (31.0-36.0); Mean Corpuscular Hemoglobin 31.2 pg (27.0-33.0); Mean Corpuscular Volume 86.9 fL (80.0-98.0); Mean Platelet Volume 9.6 fL (9.4-12.4); Monocytes Absolute Auto 0.4 X10*3/uL (0.1-1.2); Monocytes Percent Auto 8.9 % (2-11); Neutrophils Absolute Auto 2.2 x10*3/uL (2.0-8.3); Neutrophils Percent Auto 52.6 % (45-73); Platelet Count 175 X10*3/uL (160-400); Red Blood Count 4.58 X10*6/uL (4.60-5.80); Red Cell Distribution Width 12.3 % (11.0-16.0); White Blood Count 4.3 X10*3/uL (4.8-10.8)
[2023-10-01 03:42] LABS: Alanine Aminotransferase 25 U/L (0-40); Albumin Level 4.4 g/dL (3.5-5.0); Alkaline Phosphatase 45 U/L (39-117); Anion Gap 11 (12-20); Aspartate Amino Transferase 39 U/L (5-37); Bilirubin Total 1.1 mg/dL (0.0-1.0); Blood Urea Nitrogen 14 mg/dL (9-16); Calcium 9.8 mg/dL (8.4-10.2); Carbon Dioxide 27 mmol/L (22-29); Chloride 105 mmol/L (96-108); Creatinine Clr Calc Pharmacy 103.5; Estimated Glomerular Filt Rate > 60; Ethanol < 10 mg/dL; Glucose Random 92 mg/dL (60-115); Potassium 3.2 mmol/L (3.3-5.1); Sodium 140 mmol/L (135-145)
--- NOTE | 2023-10-01 04:09 | MHC.EDTECH ---
Patient is changed over into Behavioral Health attire. All items are in locker 4
--- NOTE | 2023-10-01 06:14 | ED_ITS ---
HPI - Psych General Chief Complaint: Psychiatric Symptoms Stated Complaint: DPRESSION AND SEVERE OCD Time Seen by Provider: 10/01/23 03:14 History of Present Illness HPI Narrative: Patient is a 34-year-old male presents today with having anxiety. Feeling OCD. Denies any suicidal homicidal ideation. Feeling depressed times. Patient declined to give any specifics. It feel like he is obsessing about different things. Going back and doing the same thing over and over again. Came to the ED for further evaluation. He denies recreational drug use. Related Data Home Medications Medication Instructions Recorded Confirmed diazepam 5 mg tablet 5 mg PO BID 08/16/23 08/16/23 fludrocortisone 0.1 mg tablet 0.2 mg PO DAILY 08/16/23 08/16/23 metoprolol succinate 25 mg 25 mg PO DAILY 08/16/23 08/16/23 tablet,extended release 24 hr midodrine 5 mg tablet 5 mg PO TID 08/16/23 08/16/23 pregabalin 50 mg capsule 50 mg PO TID 08/16/23 08/16/23 pyridostigmine bromide 60 mg tablet 60 mg PO TID 08/16/23 08/16/23 Allergies Allergy/AdvReac Type Severity Reaction Status Date / Time buspirone [From BuSpar] Allergy Severe Dizziness Verified 07/11/23 08:36 and Leg Weakness pyridostigmine AdvReac Intermediate AGITATION Verified 07/11/23 08:36 [From MESTINON] sertraline [From ZOLOFT] AdvReac Intermediate NAUSEA & Verified 07/11/23 08:36 VOMITING methylprednisolone AdvReac Mild Agitated Verified 07/11/23 08:36 [From Solu-Medrol] trazodone [TRAZODONE] AdvReac Unknown VOMITING Verified 07/11/23 08:36 Review of Systems 2 Review of Systems: Positive feeling depressed positive OCD Yes all other systems are reviewed and are negative [facility] Past Medical History Attestation statement: The following information was validated with the patient. Medical History Urinary retention Other inflammatory polyneuropathies Gastritis Pleuritis Pneumonia Bilateral calf pain Pleural effusion MARYANN (obstructive sleep apnea) Has daytime drowsiness Vitamin D deficiency Viry's disease Hypoglycemia Dizziness GERD (gastroesophageal reflux disease) Small fiber neuropathy Mccallum disease PTSD (post-traumatic stress disorder) Nocturnal hypoxemia Tachycardia Autonomic dysfunction Asthma Surgical History History of wisdom tooth extraction Family History Family History Mother Asthma Celiac disease/sprue Father Psoriasis Social History Alcohol intake: never Years Smoked: 1 year Smoked in Last 30 Days: No Use of substances other than those prescribed or required for medical reasons: No Substance Use Type: Marijuana Advance Directives: Yes Advance Directives on File: Yes Advance Directives Date on File: 09/16/18 Physical Exam 2 Vital Signs: Vital Signs: Last Vital Signs Temp 97.2 F 10/01/23 02:56 Pulse 67 10/01/23 02:56 Resp 17 10/01/23 02:56 BP 137/52 L 10/01/23 02:56 Pulse Ox 97 10/01/23 02:56 O2 Del Method Room Air 10/01/23 02:56 BMI result Body Mass Index 22.6 Medical Decision Making Medical Decision Making MDM Narrative: Patient has a history depression history of OCD presents today with lots of anxiety. Depression. There is no suicidal homicidal ideation. Patient has been seen by multiple apartments in the past. Including Neurology and Pulmonary. For [facility] given to evaluate patient. Currently in stable condition Differential Diagnosis Differential Diagnoses: The differential diagnosis associated with the presentation includes Anxiety depression OCD Lab Data [facility] Lab Attestation statement: I reviewed the patient's lab results. 10/01/23 03:12 10/01/23 03:12 Labs: Lab Results 10/01/23 10/01/23 Range/Units 02:59 03:12 WBC 4.3 L (4.8-10.8) X10*3/uL RBC 4.58 L (4.60-5.80) X10*6/uL Hgb 14.3 (14.0-18.0) g/dl Hct 39.8 L (42.0-52.0) % MCV 86.9 (80.0-98.0) fL MCH 31.2 (27.0-33.0) pg MCHC 35.9 (31.0-36.0) g/dl RDW 12.3 (11.0-16.0) % Plt Count 175 (160-400) X10*3/uL MPV 9.6 (9.4-12.4) fL Immature Gran % (Auto) 0.2 (0.0-0.4) % Neut % (Auto) 52.6 (45-73) % Lymph % (Auto) 36.9 (20-40) % [place] % (Auto) 8.9 (2-11) % Eos % (Auto) 0.5 (0-4) % Baso % (Auto) 0.9 (0-2) % Lymph # (Auto) 1.6 (1.2-4.9) X10*3/uL [place] # (Auto) 0.4 (0.1-1.2) X10*3/uL Eos # (Auto) 0.0 (0.0-0.4) X10*3/uL Baso # (Auto) 0.0 (0.0-0.2) X10*3/uL Abs Immat Gran (auto) 0.01 (0.00-0.03) X10*3/uL Absolute Neuts (auto) 2.2 (2.0-8.3) x10*3/uL Absolute Nucleated RBC 0.000 (0.0-0.012) X10*3/uL Nucleated RBC % (auto) 0.0 (0.0-0.2) /100WBC Sodium 140 (135-145) mmol/L Potassium 3.2 L (3.3-5.1) mmol/L Chloride 105 (96-108) mmol/L Carbon Dioxide 27 (22-29) mmol/L Anion Gap 11 L (12-20) BUN 14 (9-16) mg/dL Creatinine 0.92 (0.5-1.4) mg/dL Estim Creat Clear Calc 103.5 Estimated GFR > 60 Random Glucose 92 (60-115) mg/dL Calcium 9.8 D (8.4-10.2) mg/dL Total Bilirubin 1.1 H (0.0-1.0) mg/dL AST 39 H (5-37) U/L ALT 25 (0-40) U/L Alkaline Phosphatase 45 (39-117) U/L Total Protein 9.0 H (6.5-8.0) g/dL Albumin 4.4 (3.5-5.0) g/dL Urine Color Yellow Urine Appearance Clear Urine pH 8.0 (5.0-9.0) Ur Specific [place] <= 1.005 (1.005-1.025) Urine Protein Negative (Neg-Trace) mg/dL Urine Glucose (UA) Negative (Negative) mg/dL Urine Ketones Negative (Negative) mg/dL Urine Blood Negative (Negative) Urine Nitrite Negative (Negative) Ur Leukocyte Esterase Trace H (Negative) Urine RBC 0-2 (0-2) /HPF Urine WBC 0-5 (0-5) /HPF Ur Squamous Epith Cells 0-2 (0-2) /HPF Urine Bacteria None Seen (None Seen) Hyaline Casts 0-2 (0-2) /LPF Urine Opiates Screen Not Detected (Not Detect) Urine Fentanyl Screen Not Detected (Not Detect) Ur Barbiturates Screen Not Detected (Not Detect) Ur Phencyclidine Scrn Not Detected (Not Detect) Ur Amphetamines Screen Not Detected (Not Detect) U Benzodiazepines Scrn POSITIVE H (Not Detect) Urine Cocaine Screen Not Detected (Not Detect) U Marijuana (THC) Screen Not Detected (Not Detect) Ethyl Alcohol < 10 mg/dL Discharge Plan Discharge Clinical Impression: Depression Patient Disposition: Still a Patient Prescriptions: No Action midodrine 5 mg tablet 5 mg PO TID pyridostigmine bromide 60 mg tablet 60 mg PO TID metoprolol succinate 25 mg tablet extended release 24 hr 25 mg PO DAILY fludrocortisone 0.1 mg tablet 0.2 mg PO DAILY diazepam 5 mg tablet 5 mg PO BID pregabalin 50 mg capsule 50 mg PO TID Interventions: [place]-Suicide Risk Severity Scale Last Done: 10/01/23 02:54
--- NOTE | 2023-10-01 06:18 | PC.NURSE ---
Pts dad, Dr. Jerome Casas, called for an update. Dr. Casas updated with pts verbal consent.
--- NOTE | 2023-10-01 08:11 | PC.NURSE ---
patient presently checking in w care team, family checking on progress. appears in no distress but seems to want to dc.
[2023-10-01 12:15] VITALS: BP 111/54; PULSE 65; RESP 16; TEMP 37.2; O2SAT 96
== END 2023-10-01 13:03 | disposition home or self-care (01) ==
PROVIDERS: Emergency Provider Emergency Medicine Emergency Medical Services
DX: F32.A Depression, unspecified (principal); F41.9 Anxiety disorder, unspecified; F42.9 Obsessive-compulsive disorder, unspecified; E06.3 Autoimmune thyroiditis; A18.01 Tuberculosis of spine; Z79.899 Other long term (current) drug therapy
CPT/HCPCS: 36415; 80053; 80307; 81001; 85025; 99284; S9485

== ENCOUNTER 2023-10-16 12:16 | Outpatient (REF) | payer MEDICARE, BC, MEDICAID, SELFPAY | END 2023-10-16 12:17 | disposition home or self-care (01) | LOC: HO.MDS 12:16 | PROVIDERS: Visit Provider Hospitalist | DX: G90.9 Disorder of the autonomic nervous system, unspecified (principal); G61.89 Other inflammatory polyneuropathies | CPT/HCPCS: 96361; 96365; J1569 ==

== ENCOUNTER 2023-10-23 12:51 | Outpatient (REF) | payer MEDICARE, BC, MEDICAID, SELFPAY | END 2023-10-23 12:52 | disposition home or self-care (01) | LOC: HO.MDS 12:51 | PROVIDERS: Visit Provider Hospitalist | DX: G90.9 Disorder of the autonomic nervous system, unspecified (principal); G61.89 Other inflammatory polyneuropathies | CPT/HCPCS: 96365; 96366; J1569 ==

== ENCOUNTER 2023-10-24 22:55 | Emergency (ER) | payer MEDICARE, BC, MEDICAID, SELFPAY ==
--- NOTE | 2023-10-24 | ECG_ITS ---
Test Reason : palpitations Blood Pressure : / mmHG Vent. Rate : 066 BPM Atrial Rate : 066 BPM P-R Int : 162 ms QRS Dur : 096 ms QT Int : 376 ms P-R-T Axes : 054 044 036 degrees QTc Int : 394 ms Normal sinus rhythm Normal ECG When compared with ECG of 08-JAN-2021 11:08, Vent. rate has decreased BY 63 BPM Referred By: Generic ED Physician Electronically Signed By:Naresh Gonzalez
[2023-10-24 22:56] VITALS: BP 141/87; PULSE 74; RESP 18; TEMP 36.8; O2SAT 99; BMI 21.7
[2023-10-24 23:27] LABS: MANUAL DIFF FLAG NO
[2023-10-24 23:29] LABS: Basophils Percent Auto 1.2 % (0-2); Eosinophils Percent Auto 0.6 % (0-4); Hematocrit 39.1 % (42.0-52.0); Hemoglobin 13.8 g/dl (14.0-18.0); Lymphocytes Absolute Auto 1.3 X10*3/uL (1.2-4.9); Lymphocytes Percent Auto 37.4 % (20-40); Mean Corpuscular HGB Conc 35.3 g/dl (31.0-36.0); Mean Corpuscular Hemoglobin 30.8 pg (27.0-33.0); Mean Corpuscular Volume 87.3 fL (80.0-98.0); Mean Platelet Volume 9.9 fL (9.4-12.4); Monocytes Absolute Auto 0.3 X10*3/uL (0.1-1.2); Neutrophils Absolute Auto 1.8 x10*3/uL (2.0-8.3); Neutrophils Percent Auto 51.8 % (45-73); Platelet Count 154 X10*3/uL (160-400); Red Blood Count 4.48 X10*6/uL (4.60-5.80); Red Cell Distribution Width 12.1 % (11.0-16.0); White Blood Count 3.5 X10*3/uL (4.8-10.8)
[2023-10-24 23:30] VITALS: BP 142/48; PULSE 68; RESP 14; TEMP 36.3; O2SAT 100
[2023-10-24 23:50] LABS: Alanine Aminotransferase 23 U/L (0-40); Alkaline Phosphatase 47 U/L (39-117); Anion Gap 14 (12-20); Aspartate Amino Transferase 31 U/L (5-37); Bilirubin Total 0.5 mg/dL (0.0-1.0); Blood Urea Nitrogen 15 mg/dL (9-16); Calcium 9.6 mg/dL (8.4-10.2); Carbon Dioxide 25 mmol/L (22-29); Chloride 108 mmol/L (96-108); Creatinine Clr Calc Pharmacy 116.5; Estimated Glomerular Filt Rate > 60; Glucose Random 84 mg/dL (60-115); Potassium 3.8 mmol/L (3.3-5.1); Sodium 143 mmol/L (135-145); Total Protein 8.3 g/dL (6.5-8.0)
--- NOTE | 2023-10-25 00:47 | ED.GENADULT ---
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 The patient was having significant symptoms with significant shortness of breath and dyspnea and failure to thrive for many months prior to the diagnosis. He had an abnormal cardiopulmonary stress test and was referred to [facility]. From there he then went [facility] has been followed closely there. 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 He was started on high doses of IVIG abdominal was hospital he was pretreated with fluids in addition to steroids in addition to Benadryl to minimize side effects. Presented today with having exercise subsequently felt his heart was palpitating. There was no additional shortness of breath other than from exercise there is no diaphoresis. There is no chest pain. Symptoms spontaneously resolved history of similar symptoms in the past patient had had IVIG therapy in the past. Had normal echo. Nonspecific stress test in the past. Patient now has no symptoms. No fever no chills. No chest pain. No diaphoresis. Patient is from home. No leg swelling. No history of blood clots in the past. Related Data Home Medications Medication Instructions Recorded Confirmed diazepam 5 mg tablet 5 mg PO BID 08/16/23 08/16/23 fludrocortisone 0.1 mg tablet 0.2 mg PO DAILY 08/16/23 08/16/23 midodrine 5 mg tablet 5 mg PO TID 08/16/23 08/16/23 pregabalin 50 mg capsule 50 mg PO TID 08/16/23 08/16/23 pyridostigmine bromide 60 mg tablet 60 mg PO TID 08/16/23 08/16/23 Previous Rx's Medication Instructions Recorded metoprolol succinate 25 mg 25 mg PO DAILY #90 tabs 10/15/23 tablet,extended release 24 hr Allergies Allergy/AdvReac Type Severity Reaction Status Date / Time buspirone [From BuSpar] Allergy Severe Dizziness Verified 10/24/23 23:16 and Leg Weakness pyridostigmine AdvReac Intermediate AGITATION Verified 10/24/23 23:16 [From MESTINON] sertraline [From ZOLOFT] AdvReac Intermediate NAUSEA & Verified 10/24/23 23:16 VOMITING methylprednisolone AdvReac Mild Agitated Verified 10/24/23 23:16 [From Solu-Medrol] trazodone [TRAZODONE] AdvReac Unknown VOMITING Verified 10/24/23 23:16 Review of Systems Review of Systems: No fever no chills no chest pain or shortness of breath no diaphoresis Yes all other systems are reviewed and are negative [facility] Past Medical History Attestation statement: The following information was validated with the patient. Medical History Urinary retention Other inflammatory polyneuropathies Gastritis Pleuritis Pneumonia Bilateral calf pain Pleural effusion MARYANN (obstructive sleep apnea) Has daytime drowsiness Vitamin D deficiency Viry's disease Hypoglycemia Dizziness GERD (gastroesophageal reflux disease) Small fiber neuropathy Mccallum disease PTSD (post-traumatic stress disorder) Nocturnal hypoxemia Tachycardia Autonomic dysfunction Asthma Surgical History History of wisdom tooth extraction Family History Family History Mother Asthma Celiac disease/sprue Father Psoriasis Social History Social History Alcohol intake: never Years Smoked: 1 year Substance Use Type: Marijuana Advance Directives: No Advance Directives Information Provided: No Advance Directives Date on File: 09/16/18 Physical Exam ED Vital Signs: Vital Signs - 24 hr 10/24/23 22:56 10/24/23 23:30 Temperature 98.2 F 97.4 F Pulse Rate 74 68 Respiratory Rate 18 14 Blood Pressure 141/87 H 142/48 H Pulse Oximetry 99 100 Oxygen Delivery Method Room Air Room Air BMI result Body Mass Index 21.7 Appearance: Alert. Oriented X3. No acute distress. Eyes: Pupils equal, round and reactive to light. ENT: Pharynx normal. Neck: Normal inspection. Neck supple. No lymph nodes noted. No crepitus CVS: Normal heart rate and rhythm. Pulses normal. Normal S1 and S2 Respiratory: No respiratory distress. Breath sounds normal. No Wheezing. No rales Abdomen: Soft and nontender. No rigidity. No distention. good BS x4 Skin: Skin warm and dry. Normal skin color. Normal skin turgor. Extremities: No lower extremity edema. Neurovascular intact to all extremities. No Lacerations. No Rash Neuro: Oriented X 3. No motor deficit. No sensory deficit. Moving all extermities. No slurred speech Medical Decision Making Medical Decision Making [facility] Narrative: Patient well appearing no acute distress. Hemoglobin is baseline at 13.8. There is no evidence for anemia. Patient's electrolytes are normal. No evidence for low potassium. His LFTs are normal. He is in no distress. Differential Diagnosis Differential Diagnoses: The differential diagnosis associated with the presentation includes Electrolyte disturbance, arrhythmia, autonomic dysfunction Admission/Observation Consideration of admission/observation: Escalation of care including admission/observation considered Patient's symptom has completely resolved Lab Data [facility] Lab Attestation statement: I reviewed the patient's lab results. 10/24/23 23:22 10/24/23 23:22 Labs: Lab Results 10/24/23 Range/Units 23:22 WBC 3.5 L (4.8-10.8) X10*3/uL RBC 4.48 L (4.60-5.80) X10*6/uL Hgb 13.8 L (14.0-18.0) g/dl Hct 39.1 L (42.0-52.0) % MCV 87.3 (80.0-98.0) fL MCH 30.8 (27.0-33.0) pg MCHC 35.3 (31.0-36.0) g/dl RDW 12.1 (11.0-16.0) % Plt Count 154 L (160-400) X10*3/uL MPV 9.9 (9.4-12.4) fL Immature Gran % (Auto) 0.0 (0.0-0.4) % Neut % (Auto) 51.8 (45-73) % Lymph % (Auto) 37.4 (20-40) % [place] % (Auto) 9.0 (2-11) % Eos % (Auto) 0.6 (0-4) % Baso % (Auto) 1.2 (0-2) % Lymph # (Auto) 1.3 (1.2-4.9) X10*3/uL [place] # (Auto) 0.3 (0.1-1.2) X10*3/uL Eos # (Auto) 0.0 (0.0-0.4) X10*3/uL Baso # (Auto) 0.0 (0.0-0.2) X10*3/uL Abs Immat Gran (auto) 0.00 (0.00-0.03) X10*3/uL Absolute Neuts (auto) 1.8 L (2.0-8.3) x10*3/uL Absolute Nucleated RBC 0.000 (0.0-0.012) X10*3/uL Nucleated RBC % (auto) 0.0 (0.0-0.2) /100WBC Sodium 143 (135-145) mmol/L Potassium 3.8 (3.3-5.1) mmol/L Chloride 108 (96-108) mmol/L Carbon Dioxide 25 (22-29) mmol/L Anion Gap 14 (12-20) BUN 15 (9-16) mg/dL Creatinine 0.86 (0.5-1.4) mg/dL Estim Creat Clear Calc 116.5 Estimated GFR > 60 Random Glucose 84 (60-115) mg/dL Calcium 9.6 (8.4-10.2) mg/dL Total Bilirubin 0.5 (0.0-1.0) mg/dL AST 31 (5-37) U/L ALT 23 (0-40) U/L Alkaline Phosphatase 47 (39-117) U/L Total Protein 8.3 H (6.5-8.0) g/dL Albumin 4.0 (3.5-5.0) g/dL Independent Interpretation I performed an independent interpretation of an: EKG (Sinus heart rate is 60 VT QRS QTC within normal limits is no acute ST segment elevation.) External Record Review External record reviewed: Inpatient record and Office record Discharge Plan Discharge Clinical Impression: Palpitations Patient Disposition: Home, Self-Care Instructions: Heart Palpitations (ED) Prescriptions: No Action metoprolol succinate 25 mg tablet extended release 24 hr 25 mg PO DAILY Qty: 90 3RF midodrine 5 mg tablet 5 mg PO TID pyridostigmine bromide 60 mg tablet 60 mg PO TID fludrocortisone 0.1 mg tablet 0.2 mg PO DAILY diazepam 5 mg tablet 5 mg PO BID pregabalin 50 mg capsule 50 mg PO TID Referrals: Saúl Avilez MD [Physician] - 10/27/23
== END 2023-10-25 01:26 | disposition home or self-care (01) ==
PROVIDERS: Emergency Provider Emergency Medicine Emergency Medical Services; PCP Internal Medicine
DX: R00.2 Palpitations (principal); Z79.899 Other long term (current) drug therapy
CPT/HCPCS: 36415; 80053; 85025; 93005; 99283; 99284

== ENCOUNTER → 2023-10-24 23:07 | Outpatient (BNV) | payer MEDICARE, BC, MEDICAID, SELFPAY | PROVIDERS: Emergency Provider Emergency Medicine Emergency Medical Services; PCP Internal Medicine; Visit Provider Internal Medicine Cardiovascular Disease | DX: R00.2 Palpitations (principal) | CPT/HCPCS: 93010 ==

== ENCOUNTER 2023-10-30 12:26 | Outpatient (REF) | payer MEDICARE, MEDICAID, SELFPAY | END 2023-10-30 12:27 | disposition home or self-care (01) | LOC: HO.MDS 12:26 | PROVIDERS: Visit Provider Hospitalist | DX: G90.9 Disorder of the autonomic nervous system, unspecified (principal); G61.89 Other inflammatory polyneuropathies | CPT/HCPCS: 96361; 96365; 96366; J1569 ==

== ENCOUNTER 2023-11-06 12:42 | Outpatient (REF) | payer MEDICARE, MEDICAID, SELFPAY | END 2023-11-06 12:43 | disposition home or self-care (01) | LOC: HO.MDS 12:42 | PROVIDERS: Visit Provider Hospitalist | DX: G90.9 Disorder of the autonomic nervous system, unspecified (principal); G61.89 Other inflammatory polyneuropathies | CPT/HCPCS: 96365; 96366; J1569 ==

== ENCOUNTER 2023-11-20 12:35 | Outpatient (REF) | payer MEDICARE, MEDICAID, SELFPAY | END 2023-11-20 12:36 | disposition home or self-care (01) | LOC: HO.MDS 12:35 | PROVIDERS: Visit Provider Hospitalist | DX: G90.9 Disorder of the autonomic nervous system, unspecified (principal); G61.89 Other inflammatory polyneuropathies | CPT/HCPCS: 96361; 96365; 96366; J1569 ==

== ENCOUNTER 2023-11-27 12:47 | Outpatient (REF) | payer MEDICARE, MEDICAID, SELFPAY | END 2023-11-27 12:48 | disposition home or self-care (01) | LOC: HO.MDS 12:47 | PROVIDERS: Visit Provider Hospitalist | DX: G61.89 Other inflammatory polyneuropathies (principal); G90.9 Disorder of the autonomic nervous system, unspecified | CPT/HCPCS: 96361; 96365; 96366; J1569 ==

== ENCOUNTER 2023-12-04 12:36 | Outpatient (REF) | payer MEDICARE, MEDICAID, SELFPAY | END 2023-12-04 12:37 | disposition home or self-care (01) | LOC: HO.MDS 12:36 | PROVIDERS: Visit Provider Hospitalist | DX: G61.89 Other inflammatory polyneuropathies (principal); G90.9 Disorder of the autonomic nervous system, unspecified | CPT/HCPCS: 96365; 96366; J1569 ==

== ENCOUNTER 2023-12-09 02:05 | Emergency (ER) | payer MEDICARE, MEDICAID, SELFPAY ==
[2023-12-09 02:12] VITALS: BP 161/97; PULSE 89; RESP 18; TEMP 37.2; O2SAT 100; BMI 21.4
[2023-12-09] MEDS: Throat Lozenge, Medicated LOZENGE 1 LOZENGE MUCOUS MEM (03:36)
--- NOTE | 2023-12-09 03:36 | PC.NURSE ---
Strep swab obtained. Pt medicated per JAN.
--- NOTE | 2023-12-09 03:50 | ED.GENADULT ---
HPI - General Adult General Chief complaint: General Medical Stated complaint: seeking treatment for COVID Time Seen by Provider: 12/09/23 03:01 Source: patient Mode of arrival: ambulatory History of Present Illness HPI narrative: 33-year-old male who presents with having been diagnosed with COVID-19 on Friday, states that his sore throat is significant and the pain has led to multiple episodes of vomiting today. Patient states he has been started on doxycycline by his ux lead in took 1 dose this evening. Patient reports he is already on Paxlovid. Related Data Home Medications Medication Instructions Recorded Confirmed diazepam 5 mg tablet 5 mg PO BID 08/16/23 08/16/23 fludrocortisone 0.1 mg tablet 0.2 mg PO DAILY 08/16/23 08/16/23 midodrine 5 mg tablet 5 mg PO TID 08/16/23 08/16/23 pregabalin 50 mg capsule 50 mg PO TID 08/16/23 08/16/23 pyridostigmine bromide 60 mg tablet 60 mg PO TID 08/16/23 08/16/23 Previous Rx's Medication Instructions Recorded metoprolol succinate 25 mg 25 mg PO DAILY #90 tabs 10/15/23 tablet,extended release 24 hr doxycycline hyclate 100 mg capsule 100 mg PO BID 10 days #20 caps 12/06/23 nirmatrelvir 300 mg (150 mg See Rx Instructions PO .COMPLEX 5 12/06/23 x2)-ritonavir 100 mg tablet,dose days #30 ea pack (Paxlovid) prednisone 20 mg tablet See Rx Instructions PO DAILY 10 12/06/23 days #15 tabs ondansetron 4 mg disintegrating 8 mg (2 x 4 mg) PO Q8H PRN nausea 12/09/23 tablet and vomiting 5 days #10 tabs Allergies Allergy/AdvReac Type Severity Reaction Status Date / Time buspirone [From BuSpar] Allergy Severe Dizziness Verified 12/09/23 02:16 and Leg Weakness pyridostigmine AdvReac Intermediate AGITATION Verified 12/09/23 02:16 [From MESTINON] sertraline [From ZOLOFT] AdvReac Intermediate NAUSEA & Verified 12/09/23 02:16 VOMITING methylprednisolone AdvReac Mild Agitated Verified 12/09/23 02:16 [From Solu-Medrol] trazodone [TRAZODONE] AdvReac Unknown VOMITING Verified 12/09/23 02:16 Review of Systems Review of Systems: Pertinent positives and negatives as stated in [facility] Past Medical History Source: nursing notes reviewed Medical History Urinary retention Other inflammatory polyneuropathies Gastritis Pleuritis Pneumonia Bilateral calf pain Pleural effusion MARYANN (obstructive sleep apnea) Has daytime drowsiness Vitamin D deficiency Viry's disease Hypoglycemia Dizziness GERD (gastroesophageal reflux disease) Small fiber neuropathy Mccallum disease PTSD (post-traumatic stress disorder) Nocturnal hypoxemia Tachycardia Autonomic dysfunction Asthma Surgical History History of wisdom tooth extraction Family History Family History Mother Asthma Celiac disease/sprue Father Psoriasis Social History Social History Alcohol intake: never Years Smoked: 1 year Substance Use Type: Marijuana Advance Directives: No Advance Directives Information Provided: No Advance Directives Date on File: 09/16/18 Physical Exam ED Vital Signs: Vital Signs - 24 hr 12/09/23 02:12 Temperature 99 F Pulse Rate 89 Respiratory Rate 18 Blood Pressure 161/97 H Pulse Oximetry 100 Oxygen Delivery Method Room Air BMI result Body Mass Index 21.4 VITAL SIGNS: Reviewed. GENERAL: Well developed, well nourished, in no acute distress. HEAD: Normocephalic/atraumatic EYES: PERRLA, EOMI EARS: Ext canals without abnormality, TMs non-bulging and non-erythematous NOSE: Nares patent bilateral OROPHARYNX: no oral lesions noted, posterior pharynx clear and non-erythematous without noted tonsillar enlargement/erythema/exudates NECK: Supple, no adenopathy LUNGS: Normal breath sounds. No adventitious sounds or accessory muscle use. SpO2<100> CARDIOVASCULAR: Regular rate and rhythm without noted murmurs ABDOMEN: Soft, non-tender, non-distended with bowel sounds. MUSCULOSKELETAL: No tenderness, deformities, or effusions noted on gross inspection. EXTREMITIES: No cyanosis, clubbing or edema. SKIN: Inspection of the skin reveals no rashes NEUROLOGIC: Alert and oriented x 4. Strength and sensation to light touch were grossly intact x 4. Medications Administered Discontinued Medications Generic Name Dose Route Start Last Admin Trade Name Freq PRN Reason Stop Dose Admin Benzocaine 1 lozenge 12/09/23 03:28 12/09/23 03:36 Throat Lozenge, Medicated Lozenge MUCOUS MEM 12/09/23 03:29 1 lozenge ONCE ONE Administration Medical Decision Making Medical Decision Making [facility] Narrative: 33-year-old male with history and clinical presentation, DDX: Viral syndrome, viral pharyngitis I reviewed all investigations an rapid strep is negative, patient received Cepacol for symptomatic relief. He is otherwise discharged home with instructions to use [id number] Cepacol and/or Sucrets for throat relief. I will also provide the patient with antinausea medication. Differential Diagnosis Differential Diagnoses: The differential diagnosis associated with the presentation includes Please see the discussion above Admission/Observation Consideration of admission/observation: Escalation of care including admission/observation considered Please see the discussion above Lab Data [facility] Lab Attestation statement: I reviewed the patient's lab results. Please see the discussion above Labs: Lab Results 12/09/23 Range/Units 03:35 S. pyogenes GrpA SATHISH Negative (Negative) Discharge Plan Discharge Clinical Impression: Viral syndrome, Lab test positive for detection of COVID-19 virus, Pharyngitis Patient Disposition: Home, Self-Care Instructions: Pharyngitis (ED), Viral Syndrome (ED), COVID-19 (Coronavirus Disease 2019) (ED) Additional Instructions: 1. Resume all home medications as prescribed. 2. Recommend [id number] Sucrets/Cepacol for throat relief, you can also try gargling with salt water (mix this with warm tap water and table salt) gargle for 5 minutes, 3 to 4 times a day. 3. I have also provided you with a prescription for antinausea medication. 4. Please follow-up with your primary care doctor. Return to the ER for any worsening symptoms. Prescriptions: New ondansetron 4 mg tablet,disintegrating 8 mg PO Q8H PRN (Reason: nausea and vomiting) 5 Days Qty: 10 0RF No Action metoprolol succinate 25 mg tablet extended release 24 hr 25 mg PO DAILY Qty: 90 3RF Paxlovid 300 mg (150 mg x 2)-100 mg tablets,dose pack See Rx Instructions PO .COMPLEX 5 Days Qty: 30 0RF Rx Instructions: take TWO 150 mg tablets of nirmatrelvir with ONE 100 mg tablet of ritonavir twice daily for 5 days PO prednisone 20 mg tablet See Rx Instructions PO DAILY 10 Days Qty: 15 0RF Rx Instructions: PO daily; Take 2 tabs daily x 5 days, then 1 tablet daily x 5 days doxycycline hyclate 100 mg capsule 100 mg PO BID 10 Days Qty: 20 0RF midodrine 5 mg tablet 5 mg PO TID pyridostigmine bromide 60 mg tablet 60 mg PO TID fludrocortisone 0.1 mg tablet 0.2 mg PO DAILY diazepam 5 mg tablet 5 mg PO BID pregabalin 50 mg capsule 50 mg PO TID Referrals: Brittney Dumas MD [Primary Care Provider] -
[2023-12-09 04:37] LABS: IDNOW Serial# 08D9AD1C; Strep A Nucleic Acid Negative (Negative)
--- NOTE | 2023-12-09 05:32 | PC.NURSE ---
This RN at bedside for discharge. Pt states he is unhappy with discharge. Pt was given a throat lozenge and states noone asked if he felt better. Pt states he has been ringing the call armas but noone has been answering. Pt states his throat is still painful but also refusing medications to help with discomfort including steroids, lidocaine, magic mouthwash. Pt also expressing many other symptoms including dark urine and vomiting. Pt requesting a reeval by MD. Ashraf at bedside reiterating discharge instructions and plan for home care. Pt provided with discharge paperwork by
== END 2023-12-09 05:55 | disposition home or self-care (01) ==
PROVIDERS: Emergency Provider Student in an Organized Health Care Education/Training Program; PCP Internal Medicine
DX: U07.1 COVID-19 (principal); J02.9 Acute pharyngitis, unspecified; R11.10 Vomiting, unspecified; Z79.899 Other long term (current) drug therapy
CPT/HCPCS: 87651; 99282; 99283

== ENCOUNTER 2023-12-18 12:49 | Outpatient (REF) | payer MEDICARE, MEDICAID, SELFPAY | END 2023-12-18 12:50 | disposition home or self-care (01) | LOC: HO.MDS 12:49 | PROVIDERS: Visit Provider Hospitalist | DX: G90.9 Disorder of the autonomic nervous system, unspecified (principal); G61.89 Other inflammatory polyneuropathies | CPT/HCPCS: 96361; 96365; 96366; J1569 ==

== ENCOUNTER 2023-12-25 12:19 | Outpatient (REF) | payer MEDICARE, MEDICAID, SELFPAY | END 2023-12-25 12:20 | disposition home or self-care (01) | LOC: HO.MDS 12:19 | PROVIDERS: Visit Provider Hospitalist | DX: G90.9 Disorder of the autonomic nervous system, unspecified (principal); G61.89 Other inflammatory polyneuropathies | CPT/HCPCS: 96365; 96366; J1569 ==

== ENCOUNTER 2024-01-01 12:41 | Outpatient (REF) | payer MEDICARE, MEDICAID, SELFPAY | END 2024-01-01 12:42 | disposition home or self-care (01) | LOC: HO.MDS 12:41 | PROVIDERS: Visit Provider Hospitalist | DX: G90.9 Disorder of the autonomic nervous system, unspecified (principal); G61.89 Other inflammatory polyneuropathies | CPT/HCPCS: 96365; 96366; J1569 ==

== ENCOUNTER 2024-01-08 12:31 | Outpatient (REF) | payer MEDICARE, MEDICAID, SELFPAY ==
[2024-01-08] VITALS (7 sets, daily range): BP systolic 117–135; BP diastolic 67–81; PULSE 60–75; RESP 18; TEMP 36.9; O2SAT 100; BMI 21.4
[2024-01-08] MEDS: Acetaminophen 325 MG TABLET 650 MG PO (12:46)
[2024-01-08] MEDS: 0.9 % Sodium Chloride 500 ML 1000 ML IV (13:11)
[2024-01-08] MEDS: Immun Glob G(IgG)/Gly/IGA Ov50 300 ML IV (13:16)
== END 2024-01-08 12:32 | disposition home or self-care (01) ==
LOC: HO.MDS 12:31
PROVIDERS: PCP Internal Medicine; Visit Provider Hospitalist
DX: G90.9 Disorder of the autonomic nervous system, unspecified (principal); G61.89 Other inflammatory polyneuropathies
CPT/HCPCS: 96365; 96366; J1569

== ENCOUNTER 2024-01-09 13:03 | Outpatient (AMB) | payer MEDICARE, MEDICAID, SELFPAY ==
[2024-01-09 13:11] VITALS: PULSE 72; O2SAT 100; BMI 21.4
--- NOTE | 2024-01-09 13:11 | A.OFFVIS_ITS ---
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: No Allergies buspirone [From BuSpar] Allergy (Severe, Verified 01/09/24 13:12) Dizziness and Leg Weakness pyridostigmine [From MESTINON] Adverse Reaction (Intermediate, Verified 01/09/24 13:12) AGITATION sertraline [From ZOLOFT] Adverse Reaction (Intermediate, Verified 01/09/24 13:12) NAUSEA & VOMITING methylprednisolone [From Solu-Medrol] Adverse Reaction (Mild, Verified 01/09/24 13:12) Agitated trazodone [TRAZODONE] Adverse Reaction (Unknown, Verified 01/09/24 13:12) VOMITING HPI HPI Comments History of Present Illness Details The patient is a 33-year-old gentleman known history of asthma in addition to a 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 The patient was having significant symptoms with significant shortness of breath and dyspnea and failure to thrive for many months prior to the diagnosis. He had an abnormal cardiopulmonary stress test and was referred to [facility]. From there he then went to [facility] has been followed closely there. 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 He was started on high doses of IVIG abdominal was hospital he was pretreated with fluids in addition to steroids in addition to Benadryl to minimize side effects. But he was not tolerating it due to adverse side effects from the medication. Therefore he was switched over to subcutaneous infusions with Hizentra. He has been doing this himself with the help [facility] initially since September 2019. He has been tolerating it well but more recently he started developing worsening reactions after the infusions. Do is last reaction he started developing significant diaphoresis and dizziness and shortness of breath. He did have EMS called his blood sugar was 45. He did go to the ER and was able to then be transferred home safely. In the meantime he did follow-up with Endocrinology. . He was also worsening shortness of breath. evaluated in the ED for this. He did go to the ER because of his worsening constitutional symptoms and shortness of breath. In the ER he did have a brief walking oximetry in his desaturated down to 87% but then had a repeat 1 that demonstrated normal pulse ox. In the office here we did attempt a 6 minutes walk test and again he desaturated to 87% but quickly improved. He is reluctant to use any oxygen at this time. Will retest his overnight oximetry to see if he does need oxygen at nighttime. We also talked about his asthma symptoms. 01/16/2021 the patient is here for pulmonary follow-up visit. Overall he is feeling better. The pleuritic pain is improved. He still has a cough is still feels tired. Denies any fevers or chills. He is completing a course of Augmentin. His chest x-ray repeat demonstrated no worsening of the pleural effusion. He still had the nodular base opacity in the right hemithorax. Again, we looked at the CT scan of the chest that he had back in January 08 demonstrating a airspace disease within the pro based on the superior segment of the right lower lobe appears to have a area of necrosis. Also associated with a small pleural effusion. Appears to be parapneumonic. He did have blood work ruling out vasculitis and will ruling out connective tissue diseases. However, sedimentation rate was significantly had 83. Since the patient is feeling better will finished a course of Augmentin and then repeat a sedimentation rate. I am hopeful that the sedimentation rate will drop. If the sedimentation continues high additional testing and imaging studies will be warranted. The patient and the family is aware that it could take up to 6-8 weeks to clear the infectious process. As far as etiologies aspiration pneumonia is in differential since is affecting the superior segment of the right lower lobe in addition to hematogenous spread. In addition, he was evaluated by Neurology at [facility] confirming the autonomic dysatomia and inflammatory polyneuropathy and recommended changing the Gammagard to 30mg qweek. I will go ahead and make the change. I am concerned for the need for his IV access.. But will go ahead and try it rotating the sites. 12/11/2021 the patient Has a telehealth visit. Overall the patient has been doing better. He continues to try to increase his exercise capacity. He has been able to walk about 2 miles a day. His asthma appears to be stable. He continues to use the Spiriva daily. He has not required any Xopenex which is reassuring. In the meantime he still follows closely with [facility] and also [facility] regarding his acquired autonomic dysatonia. he was switched over to the IVIG 30 g every week which appears to have been helping him. Although, having to get peripheral IV lines on a weekly basis has become a challenge. He does mention that at the infusion center did been having difficulties getting iv access lately on his left arm. Therefore, I will talk to them regarding that issue. At this time will try continue with weekly infusions. However, if he has any worsening IV access issues we will discuss the possibility of changing it back to every 2 weeks. his cardiac status has been is stable. He does continue to tolerate the metoprolol which is reassuring otherwise the patient is without any other complaints will continue monitoring his iv access issues. 07/11/2023 the patient is here for a pulmonary follow-up visit. The patient continues to do well on his current therapy. He has been following closely at the [facility] neurology clinic for his known diagnosis of autonomic dysfunction and autoimmune inflammatory small fiber polyneuropathy. The patient has had a long journey, but, appears to be on at good regimen at this time demonstrating improvements of his overall health. Since he has been on the weekly IVIG infusions he has not been hospitalized and his oberall health has improved. The therapy has been effective and beneficial.. He has been very compliant with the therapy. Although recently we had to hold the therapy based on the fact that the patient had to get insurance approval. He had recently changed insurances and this required additional documentation and follow-up. Although, there is no question that the therapy has been very effective for him. His family became very upset that his therapy was going to be delayed. He was recently evaluated by his doctors in [place] and had a repeat level 1 cardiopulmonary exercise study and actually demonstrated a significant improvement when compared to his previous which is very reassuring. Weight perkins he has also gained weight. As far as the autonomic dysfunction seems to be stable where he has not required any hospitalizations.. Although, he is describing some degree of urinary retention and frequency. His neurologist felt that it may be related to the autonomics dysfunction. Will be unreasonable for him to follow-up with Urology for this. He is also going to follow-up with primary care doctor. She also continues on Mestinon for the neuropathy,in addition to Milrinone own and Florinef for the autonomic dysfunction. He continues to work with physical therapy and has been able to walk 2 miles a day. His asthma has been in good control with current therapy with Spiriva daily. He has not required his short- acting beta agonist. 01/09/2024 the patient is here for a pulmonary follow-up visit. The patient has been doing better. He did have COVID-19 about a month ago. Initially he did well. He did take Paxlovid. Ultimately then started having asthma symptoms. The patient also was complaining significant pharyngitis. He was treated with doxycycline. He was evaluated at the ER in his strep cultures were negative. Ultimately he is feeling better. He still feeling tired. He is back at the gym though. He does continue to use his respiratory therapy. When he was sick he was using his Xopenex more often. But right now he is back to his baseline. The only issue that has been persistent he has been noticing some increased ectopy and palpitations. In regards of his autonomic dysfunction inflammatory small fiber polyneuropathy continues to receive the IVIG therapy as per the recommendations of his specialists in [place]. The patient does have a very rare condition. He does respond very well to the IVIG to the point that his quality of life is significantly better. The therapy has been very affecting beneficial. IV access still not an issue. Will still monitor closely. He will follow-up with [place] soon and we should receive their recommendations in order to continue to being want cord. The patient was offered a flu shot today. He did rejected. I did explain to him the risk. Specially since he still recovering from COVID. Since we decided not to get the flu shot I did give him a mask and did recommend that he mask up specially in crowded places and hospitals and the like. [facility] Medical History Urinary retention Other inflammatory polyneuropathies Gastritis Pleuritis Pneumonia Bilateral calf pain Pleural effusion MARYANN (obstructive sleep apnea) Has daytime drowsiness Vitamin D deficiency Viry's disease Hypoglycemia Dizziness GERD (gastroesophageal reflux disease) Small fiber neuropathy Mccallum disease PTSD (post-traumatic stress disorder) Nocturnal hypoxemia Tachycardia Autonomic dysfunction Asthma Surgical History History of wisdom tooth extraction Family History Mother Asthma Celiac disease/sprue Father Psoriasis Social History Alcohol intake: never Years Smoked: 1 year Substance Use Type: Marijuana Advance Directives Date on File: 09/16/18 Review of Systems Const Denies daytime sleepiness, Denies headache(s), Denies lethargy, Denies night sweats and Reports weight gain ENT Denies change in voice, Denies headache(s), Denies lip swelling, Denies mouth pain, Denies nasal congestion, Denies nasal discharge and Denies tongue swelling Card Denies chest pain, Reports palpitations, Denies dyspnea and Denies dyspnea on exertion Resp Reports cough, Denies dyspnea and Denies dyspnea on exertion GI Denies abdominal pain Reports difficulty urinating and Reports dysuria Musc Reports myalgias Skin/Breast Denies rash Neuro Denies Neuro-related abnormal movements and Denies headache(s) Psych Reports anxiety Endo Reports palpitations [place]/Lymph Denies easy bleeding and Denies lymphadenopathy Aller/Immun Denies lip swelling and Denies tongue swelling Physical Exam Vital Signs: Last Vital Signs Pulse 72 01/09/24 13:11 Pulse Ox 100 01/09/24 13:11 Oxygen Delivery Method Room Air 01/09/24 13:11 BMI result Body Mass Index 21.4 Const General: cooperative, comfortable, alert and awake Nutritional Appearance: thin Orientation/consciousness: patient oriented x3 Limitations: no limitations Eyes General: appearance normal, both eyes and all related structures Neck Neck: Yes trachea midline, Yes supple and Yes no JVD Chest Chest palpation & inspection: normal inspection of the chest Resp Effort & Inspection: normal respiratory effort Auscultation: clear to auscultation bilaterally Cardio Jugular venous distension: no JVD Palpation: normal PMI Rate: regular rate Rhythm: regular rhythm Heart sounds: S1 normal heart sound present and S2 normal heart sound present GI Auscultation: normal bowel sounds Skin General skin exam: no rashes or lesions noted Neuro General: patient oriented x3 and no focal motor deficits Extrem General: Yes no clubbing, cyanosis or edema Psych Appearance: grossly normal Assessment & Plan Assessment & Plan (1) Autonomic dysfunction: Code(s): G90.9 - Disorder of the autonomic nervous system, unspecified (2) Other inflammatory polyneuropathies: Code(s): G61.89 - Other inflammatory polyneuropathies (3) Asthma: Code(s): J45.909 - Unspecified asthma, uncomplicated Qualifiers: Asthma complication type: with acute exacerbation Asthma persistence: persistent Asthma severity: moderate Qualified Code(s): J45.41 - Moderate persistent asthma with (acute) exacerbation (4) Palpitations: Code(s): R00.2 - Palpitations Plan continue Gammagard to 30mg every week as per the recommendations of his [facility] neurology team and specialist. His condition is advance, yet has been responding to his current therapy. start Benzonates as needed for cough continue Spiriva respimet Xopenex as needed Bloodwork EKG F/U 6 months Orders: Orders Troponin-I High Sensitivity 01/09/24 R00.2 - Palpitations Complete Blood Count Auto Diff 01/09/24 R00.2 - Palpitations Basic Metabolic Panel 01/09/24 R00.2 - Palpitations Erythrocyte Sedimentation Rate 01/09/24 R00.2 - Palpitations Medications: New benzonatate 200 mg PO BID 30 days PRN 60 caps 0RF cough Coding Level of Care Code Est Pt Level 4 (11611) Diagnoses Autonomic dysfunction G90.9 Other inflammatory polyneuropathies G61.89 Moderate persistent asthma with acute exacerbation J45.41 Asthma complication type: with acute exacerbation Asthma persistence: persistent Asthma severity: moderate Palpitations R00.2 Time Spent (min) 18
== END 2024-01-09 13:33 | disposition home or self-care (01) ==
PROVIDERS: PCP Internal Medicine; Visit Provider Hospitalist
DX: G90.9 Disorder of the autonomic nervous system, unspecified (principal); G61.89 Other inflammatory polyneuropathies; J45.41 Moderate persistent asthma with (acute) exacerbation; R00.2 Palpitations
CPT/HCPCS: 99214

== ENCOUNTER → 2024-01-09 13:03 | Outpatient (BNVA) | payer MEDICARE, MEDICAID, SELFPAY | PROVIDERS: PCP Internal Medicine; Visit Provider Hospitalist | DX: G90.9 Disorder of the autonomic nervous system, unspecified (principal); G61.89 Other inflammatory polyneuropathies; J45.41 Moderate persistent asthma with (acute) exacerbation; R00.2 Palpitations | CPT/HCPCS: 99212 ==

== ENCOUNTER 2024-01-22 12:26 | Outpatient (REF) | payer MEDICARE, MEDICAID, SELFPAY ==
[2024-01-21 13:00] VITALS: BP 112/70; PULSE 72
[2024-01-21 13:30] VITALS: BP 128/73; PULSE 69
[2024-01-22 12:29] VITALS: BP 113/63; PULSE 74; RESP 18; TEMP 36.4; O2SAT 97
[2024-01-22] MEDS: 0.9 % Sodium Chloride 500 ML 999 ML IV (12:41)
[2024-01-22] MEDS: Acetaminophen 325 MG TABLET 650 MG PO (12:43)
[2024-01-22] MEDS: Immun Glob G(IgG)/Gly/IGA Ov50 300 ML IV (12:43)
[2024-01-22 13:16] VITALS: BP 118/66; PULSE 61
[2024-01-22 13:47] VITALS: BP 118/73; PULSE 65
[2024-01-22 14:02] VITALS: BP 121/63; PULSE 64
[2024-01-22 14:30] VITALS: BP 121/56; PULSE 71
[2024-01-22 15:01] VITALS: BP 120/67; PULSE 77
== END 2024-01-22 12:27 | disposition home or self-care (01) ==
LOC: HO.MDS 12:26
PROVIDERS: Visit Provider Hospitalist
DX: G90.9 Disorder of the autonomic nervous system, unspecified (principal); G61.89 Other inflammatory polyneuropathies
CPT/HCPCS: 96365; 96366; J1569

== ENCOUNTER 2024-01-29 12:30 | Outpatient (REF) | payer MEDICARE, MEDICAID, SELFPAY ==
[2024-01-29] VITALS (7 sets, daily range): BP systolic 127–133; BP diastolic 63–73; PULSE 62–75; RESP 20; TEMP 36.6; O2SAT 98
[2024-01-29] MEDS: Acetaminophen 325 MG TABLET 650 MG PO (12:40)
[2024-01-29] MEDS: 0.9 % Sodium Chloride 500 ML 999 ML IV (12:47)
[2024-01-29] MEDS: Immun Glob G(IgG)/Gly/IGA Ov50 300 ML IV (12:47)
== END 2024-01-29 12:31 | disposition home or self-care (01) ==
LOC: HO.MDS 12:30
PROVIDERS: Visit Provider Hospitalist
DX: G90.9 Disorder of the autonomic nervous system, unspecified (principal); G61.89 Other inflammatory polyneuropathies
CPT/HCPCS: 96365; 96366; J1569

== ENCOUNTER 2024-02-06 20:29 | Emergency (ER) | payer MEDICARE, MEDICAID, SELFPAY ==
[2024-02-06 20:41] VITALS: BP 126/70; PULSE 75; RESP 16; TEMP 37.1; O2SAT 98; BMI 21.9
--- NOTE | 2024-02-06 20:41 | ED.GENADULT ---
HPI - General Adult General Chief complaint: Arrhythmia/Palpitations Stated complaint: Irregular heart beat Time Seen by Provider: 02/06/24 21:18 Source: patient Mode of arrival: ambulatory Limitations: no limitations History of Present Illness HPI narrative: Patient with complex past medical history with mitochondrial disease/out disorder no min/anxiety on IVIG treatments been followed by specialist at [place] today while doing bicycle exercise patient noticed premature beats which has happened before patient feel depressed is not following any psychiatrist at this time for last few months wake SI feeling in the past but nothing at this time feels safe at home Related Data Home Medications Medication Instructions Recorded Confirmed diazepam 5 mg tablet 5 mg PO BID 08/16/23 08/16/23 fludrocortisone 0.1 mg tablet 0.2 mg PO DAILY 08/16/23 08/16/23 midodrine 5 mg tablet 5 mg PO TID 08/16/23 08/16/23 pregabalin 50 mg capsule 50 mg PO TID 08/16/23 08/16/23 pyridostigmine bromide 60 mg tablet 60 mg PO TID 08/16/23 08/16/23 albuterol sulfate 90 mcg/actuation inhalation 01/09/24 aerosol inhaler Previous Rx's Medication Instructions Recorded metoprolol succinate 25 mg 25 mg PO DAILY #90 tabs 10/15/23 tablet,extended release 24 hr doxycycline hyclate 100 mg capsule 100 mg PO BID 10 days #20 caps 12/06/23 Magic Mouthwash 10 ml PO TID PRN sore throat 14 12/09/23 Diphen/Lido/Antacid 1:1:1 240 mL days #240 mL suspension ondansetron 4 mg disintegrating 8 mg (2 x 4 mg) PO Q8H PRN nausea 12/09/23 tablet and vomiting 5 days #10 tabs benzonatate 200 mg capsule 200 mg PO BID PRN cough 30 days 01/09/24 #60 caps Allergies Allergy/AdvReac Type Severity Reaction Status Date / Time buspirone [From BuSpar] Allergy Severe Dizziness Verified 02/06/24 20:41 and Leg Weakness pyridostigmine AdvReac Intermediate AGITATION Verified 02/06/24 20:41 [From MESTINON] sertraline [From ZOLOFT] AdvReac Intermediate NAUSEA & Verified 02/06/24 20:41 VOMITING methylprednisolone AdvReac Mild Agitated Verified 02/06/24 20:41 [From Solu-Medrol] trazodone [TRAZODONE] AdvReac Unknown VOMITING Verified 02/06/24 20:41 Review of Systems Review of Systems: Yes all other systems are reviewed and are negative [facility] Past Medical History Medical History Urinary retention Other inflammatory polyneuropathies Gastritis Pleuritis Pneumonia Bilateral calf pain Pleural effusion MARYANN (obstructive sleep apnea) Has daytime drowsiness Vitamin D deficiency Viry's disease Hypoglycemia Dizziness GERD (gastroesophageal reflux disease) Small fiber neuropathy Mccallum disease PTSD (post-traumatic stress disorder) Nocturnal hypoxemia Tachycardia Autonomic dysfunction Asthma Surgical History History of wisdom tooth extraction Family History Family History Mother Asthma Celiac disease/sprue Father Psoriasis Social History Social History Alcohol intake: never Years Smoked: 1 year Smoked in Last 30 Days: No Use of substances other than those prescribed or required for medical reasons: Yes Substance Use Type: Marijuana Advance Directives: No Advance Directives Information Provided: Yes Advance Directives Date on File: 09/16/18 Physical Exam ED Vital Signs: Vital Signs - 24 hr 02/06/24 20:41 02/06/24 22:23 02/06/24 22:24 Temperature 98.7 F Pulse Rate 75 67 62 Respiratory Rate 16 Blood Pressure 126/70 123/68 133/90 H Pulse Oximetry 98 Oxygen Delivery Method Room Air 02/06/24 22:26 02/06/24 23:31 Temperature 98.0 F Pulse Rate 64 66 Respiratory Rate 18 Blood Pressure 139/84 133/77 Pulse Oximetry 98 Oxygen Delivery Method Room Air BMI result Body Mass Index 21.9 Appearance: Alert. Oriented X3. No acute distress. Eyes: PERRLA, No Nystagmus ENT: Pharynx normal. Oral Mucosa moist Neck: Normal inspection. Neck supple. CVS: Normal heart rate and rhythm. Pulses normal. Respiratory: No respiratory distress. Equal air entry bilateral, no wheezing/rales/rhonchi Abdomen: Soft and nontender. Bowel sounds are present, no mass palpable, no CVA tenderness Skin: Skin warm and dry. Normal skin color. Normal skin turgor. Extremities: No lower extremity edema. No calf tenderness Neuro: Oriented X 3. No motor deficit. No sensory deficit.No cerebellar signs , cranial nerves II-XII intact Course Course Course Narrative: This is an RME: Additional HPI, ROS, PE not included below will be deferred to primary provider. 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 Denies associated dizziness, pain, nausea. Reports hx of similar episodes in the past, holter monitors have not detected arrhythmia. reports depression, anxiety, endorses recent suicidal ideations without a specific plan - DENIES HAVING SI AT THIS MOMENT. Reports that his mental health issues and frustration are soley over his diagnosis and not having an end treatment plan. Medical Decision Making Medical Decision Making [facility] Narrative: Patient with complex history no orthostatic hypotension had a premature beats likely anxiety/PACs during stay in the ER classroom monitor showed no PACs. Patient initially said depressed and okay to talk to care team but later on he says that he does not need care team at this time is feels safe to go home patient's father will be coming to pick him up patient's father agreed that he is safe at home and does not need care team evaluation tonight Differential Diagnosis Differential Diagnoses: The differential diagnosis associated with the presentation includes Anxiety/PACs Lab Data [facility] Lab Attestation statement: I reviewed the patient's lab results. 02/06/24 20:55 02/06/24 20:55 Labs: Lab Results 02/06/24 Range/Units 20:55 WBC 3.3 L (4.8-10.8) X10*3/uL RBC 4.46 L (4.60-5.80) X10*6/uL Hgb 13.9 L (14.0-18.0) g/dl Hct 39.6 L (42.0-52.0) % MCV 88.8 (80.0-98.0) fL MCH 31.2 (27.0-33.0) pg MCHC 35.1 (31.0-36.0) g/dl RDW 12.4 (11.0-16.0) % Plt Count 178 (160-400) X10*3/uL MPV 10.1 (9.4-12.4) fL Immature Gran % (Auto) 0.0 (0.0-0.4) % Neut % (Auto) 57.2 (45-73) % Lymph % (Auto) 31.6 (20-40) % [place] % (Auto) 9.7 (2-11) % Eos % (Auto) 0.6 (0-4) % Baso % (Auto) 0.9 (0-2) % Lymph # (Auto) 1.0 L (1.2-4.9) X10*3/uL [place] # (Auto) 0.3 (0.1-1.2) X10*3/uL Eos # (Auto) 0.0 (0.0-0.4) X10*3/uL Baso # (Auto) 0.0 (0.0-0.2) X10*3/uL Abs Immat Gran (auto) 0.00 (0.00-0.03) X10*3/uL Absolute Neuts (auto) 1.9 L (2.0-8.3) x10*3/uL Absolute Nucleated RBC 0.000 (0.0-0.012) X10*3/uL Nucleated RBC % (auto) 0.0 (0.0-0.2) /100WBC Sodium 138 (135-145) mmol/L Potassium 4.1 (3.3-5.1) mmol/L Chloride 107 (96-108) mmol/L Carbon Dioxide 23 (22-29) mmol/L Anion Gap 12 (12-20) BUN 15 (9-16) mg/dL Creatinine 0.93 (0.5-1.4) mg/dL Estim Creat Clear Calc 108.3 Estimated GFR > 60 Random Glucose 97 (60-115) mg/dL Calcium 9.2 (8.4-10.2) mg/dL Magnesium 2.0 (1.6-2.6) mg/dL Total Bilirubin 0.5 (0.0-1.0) mg/dL AST 31 (5-37) U/L ALT 16 (0-40) U/L Alkaline Phosphatase 43 (39-117) U/L Troponin I High Sens < 2.7 (<3.5-35.0) ng/L Total Protein 8.0 (6.5-8.0) g/dL Albumin 4.0 (3.5-5.0) g/dL TSH 0.90 (0.32-4.0) uIU/mL Ethyl Alcohol < 10 mg/dL Influenza Type A (PCR) NEGATIVE (Negative) Influenza Type B (PCR) NEGATIVE (Negative) RSV RNA Qual (PCR) NEGATIVE (Negative) SARS-CoV-2 RNA (RT-PCR) NEGATIVE (Negative) Independent Interpretation I performed an independent interpretation of an: EKG Interpretation: Normal sinus rhythm heart rate 68 beats per minute normal interval normal axis no acute ST T wave changes no acute ischemia Discharge Plan Discharge Clinical Impression: Premature beats, Depression Patient Disposition: Home, Self-Care Instructions: Depression (ED), Premature Atrial Contractions (ED) Additional Instructions: Continue your medications and follow with your specialist as planned Prescriptions: No Action metoprolol succinate 25 mg tablet extended release 24 hr 25 mg PO DAILY Qty: 90 3RF doxycycline hyclate 100 mg capsule 100 mg PO BID 10 Days Qty: 20 0RF Magic Mouthwash Diphen/Lido/Antacid 1:1:1 240 mL suspension 10 ml PO TID PRN (Reason: sore throat) 14 Days Qty: 240 1RF Rx Instructions: Lidocaine Viscous 2 % 80mL; diphenhydramine 12.5 mg/5 mL 80mL; aluminum-mag hydrox-simeth [id number]/5mL 80mL midodrine 5 mg tablet 5 mg PO TID pyridostigmine bromide 60 mg tablet 60 mg PO TID fludrocortisone 0.1 mg tablet 0.2 mg PO DAILY diazepam 5 mg tablet 5 mg PO BID pregabalin 50 mg capsule 50 mg PO TID ondansetron 4 mg tablet,disintegrating 8 mg PO Q8H PRN (Reason: nausea and vomiting) 5 Days Qty: 10 0RF albuterol sulfate 90 mcg/actuation HFA aerosol inhaler inhalation benzonatate 200 mg capsule 200 mg PO BID PRN (Reason: cough) 30 Days Qty: 60 0RF Interventions: ED Discharge Assessment Last Done: 02/06/24 23:31 Discharge Date/Time: 02/06/24 23:37
--- NOTE | 2024-02-06 20:52 | ECG_ITS ---
Test Reason : PALPITATIONS Blood Pressure : / mmHG Vent. Rate : 068 BPM Atrial Rate : 068 BPM P-R Int : 156 ms QRS Dur : 098 ms QT Int : 366 ms P-R-T Axes : 059 053 034 degrees QTc Int : 389 ms Normal sinus rhythm Normal ECG When compared with ECG of 24-OCT-2023 23:07, No significant change was found Referred By: Isabelle Henderson Electronically Signed By:Naresh Gonzalez
[2024-02-06 21:03] LABS: MANUAL DIFF FLAG NO
[2024-02-06 21:04] LABS: Basophils Percent Auto 0.9 % (0-2); Eosinophils Percent Auto 0.6 % (0-4); Hematocrit 39.6 % (42.0-52.0); Hemoglobin 13.9 g/dl (14.0-18.0); Lymphocytes Percent Auto 31.6 % (20-40); Mean Corpuscular HGB Conc 35.1 g/dl (31.0-36.0); Mean Corpuscular Hemoglobin 31.2 pg (27.0-33.0); Mean Corpuscular Volume 88.8 fL (80.0-98.0); Mean Platelet Volume 10.1 fL (9.4-12.4); Monocytes Absolute Auto 0.3 X10*3/uL (0.1-1.2); Monocytes Percent Auto 9.7 % (2-11); Neutrophils Absolute Auto 1.9 x10*3/uL (2.0-8.3); Neutrophils Percent Auto 57.2 % (45-73); Platelet Count 178 X10*3/uL (160-400); Red Blood Count 4.46 X10*6/uL (4.60-5.80); Red Cell Distribution Width 12.4 % (11.0-16.0); White Blood Count 3.3 X10*3/uL (4.8-10.8)
--- NOTE | 2024-02-06 21:20 | PC.NURSE ---
Pt ca&ox4, denies pain, chest pain, n/v and dizziness. Pt reports working out on stationary workout bike and having arrhythmias, so wanted to come in and get checked out. Pt reports he has been on the phone with crisis d/t his mental status all week. Pt denies HI but states I just harmed myself before I came to the hospital. I hit my head a couple of times physical therapy instructor advised of pt comments of self harm. Plan of care ongoing.
[2024-02-06 21:27] LABS: Alanine Aminotransferase 16 U/L (0-40); Alkaline Phosphatase 43 U/L (39-117); Anion Gap 12 (12-20); Aspartate Amino Transferase 31 U/L (5-37); Bilirubin Total 0.5 mg/dL (0.0-1.0); Calcium 9.2 mg/dL (8.4-10.2); Carbon Dioxide 23 mmol/L (22-29); Chloride 107 mmol/L (96-108); Creatinine Clr Calc Pharmacy 108.3; Estimated Glomerular Filt Rate > 60; Ethanol < 10 mg/dL; Glucose Random 97 mg/dL (60-115); Potassium 4.1 mmol/L (3.3-5.1); Sodium 138 mmol/L (135-145); Troponin-I High Sensitivity < 2.7 ng/L (<3.5-35.0)
[2024-02-06 21:40] LABS: Influenza A PCR NEGATIVE (Negative); Influenza B PCR NEGATIVE (Negative); Resp Syncy Virus RNA Qual PCR NEGATIVE (Negative); SARS COV2 PCR INHOUSE NEGATIVE (Negative)
[2024-02-06 22:23] VITALS: BP 123/68; PULSE 67
[2024-02-06 22:24] VITALS: BP 133/90; PULSE 62
[2024-02-06 22:26] VITALS: BP 139/84; PULSE 64
--- NOTE | 2024-02-06 22:30 | PC.NURSE ---
Pt changed over with security. Plan of care ongoing.
[2024-02-06 22:39] LABS: Blood Urea Nitrogen 15 mg/dL (9-16)
[2024-02-06 23:31] VITALS: BP 133/77; PULSE 66; RESP 18; TEMP 36.7; O2SAT 98
== END 2024-02-06 23:37 | disposition home or self-care (01) ==
PROVIDERS: Nurse Practitioner Family; Emergency Provider Internal Medicine; PCP Internal Medicine
DX: I49.40 Unspecified premature depolarization (principal); I49.9 Cardiac arrhythmia, unspecified; R00.2 Palpitations; F33.1 Major depressive disorder, recurrent, moderate; Z11.52 Encounter for screening for COVID-19; Z20.822 Contact with and (suspected) exposure to COVID-19; Z79.899 Other long term (current) drug therapy
CPT/HCPCS: 0241U; 36415; 80053; 80307; 83735; 84443; 84484; 85025; 93005; 99284

== ENCOUNTER → 2024-02-06 20:52 | Outpatient (BNV) | payer MEDICARE, MEDICAID, SELFPAY | PROVIDERS: Emergency Provider Internal Medicine; PCP Internal Medicine; Visit Provider Internal Medicine Cardiovascular Disease | DX: R00.2 Palpitations (principal) | CPT/HCPCS: 93010 ==

== ENCOUNTER 2024-03-17 20:44 | Emergency (ER) | payer MEDICARE, MEDICAID, SELFPAY ==
[2024-03-17 20:58] VITALS: BP 135/83; PULSE 68; RESP 18; TEMP 36.4; O2SAT 98; BMI 22.7
[2024-03-17 21:40] LABS: MANUAL DIFF FLAG NO
[2024-03-17 21:43] LABS: Basophils Absolute Auto 0.1 X10*3/uL (0.0-0.2); Basophils Percent Auto 1.4 % (0-2); Eosinophils Percent Auto 0.6 % (0-4); Hematocrit 38.7 % (42.0-52.0); Lymphocytes Absolute Auto 1.2 X10*3/uL (1.2-4.9); Lymphocytes Percent Auto 34.4 % (20-40); Mean Corpuscular HGB Conc 36.2 g/dl (31.0-36.0); Mean Corpuscular Hemoglobin 31.2 pg (27.0-33.0); Mean Corpuscular Volume 86.2 fL (80.0-98.0); Mean Platelet Volume 9.9 fL (9.4-12.4); Monocytes Absolute Auto 0.3 X10*3/uL (0.1-1.2); Monocytes Percent Auto 8.3 % (2-11); Neutrophils Absolute Auto 1.9 x10*3/uL (2.0-8.3); Neutrophils Percent Auto 55.3 % (45-73); Platelet Count 150 X10*3/uL (160-400); Red Blood Count 4.49 X10*6/uL (4.60-5.80); Red Cell Distribution Width 11.6 % (11.0-16.0); White Blood Count 3.5 X10*3/uL (4.8-10.8)
[2024-03-17 21:54] LABS: Alanine Aminotransferase 16 U/L (0-40); Alkaline Phosphatase 44 U/L (39-117); Anion Gap 11 (12-20); Aspartate Amino Transferase 29 U/L (5-37); Bilirubin Total 0.6 mg/dL (0.0-1.0); Blood Urea Nitrogen 11 mg/dL (9-16); Calcium 9.2 mg/dL (8.4-10.2); Carbon Dioxide 25 mmol/L (22-29); Chloride 109 mmol/L (96-108); Creatinine Clr Calc Pharmacy 118.8; Estimated Glomerular Filt Rate > 60; Glucose Random 102 mg/dL (60-115); Potassium 4.1 mmol/L (3.3-5.1); Sodium 141 mmol/L (135-145); Total Protein 7.8 g/dL (6.5-8.0)
== END 2024-03-17 22:24 | disposition left against medical advice (07) ==
PROVIDERS: Emergency Provider Emergency Medicine; PCP Internal Medicine
DX: G90.1 Familial dysautonomia [Riley-Day] (principal); Z79.899 Other long term (current) drug therapy
CPT/HCPCS: 36415; 80053; 82550; 85025; 99281; 99283

== ENCOUNTER 2024-03-18 00:23 | Emergency (ER) | payer MEDICARE, MEDICAID, SELFPAY ==
[2024-03-18 00:43] VITALS: BP 131/80; PULSE 71; RESP 18; TEMP 36.9; O2SAT 99; BMI 21.5
== END 2024-03-18 03:49 | disposition left against medical advice (07) ==
PROVIDERS: Emergency Provider Emergency Medicine
DX: M79.604 Pain in right leg (principal); M79.605 Pain in left leg
CPT/HCPCS: 99281

== ENCOUNTER 2024-07-16 13:17 | Outpatient (AMB) | payer MEDICARE, MEDICAID, SELFPAY ==
[2024-07-16 13:26] VITALS: BP 136/78; PULSE 90; O2SAT 99; BMI 20.8
--- NOTE | 2024-07-16 13:26 | MHC.OFFVIS ---
Vital Signs 07/16/24 13:26 Height 5 ft 9 in Weight 141 lb 1.533 oz BMI 20.8 BP 136/78 Blood Pressure Location Lt brachial Position Sitting Pulse 90 Pulse Source Pulse Oximeter Pulse Oximetry (%) 99 Oxygen Delivery Method Room Air Intake Visit Reasons: Autoimmune Java J2Ee Technical Lead Required: No Allergies buspirone [From BuSpar] Allergy (Severe, Verified 07/16/24 13:28) Dizziness and Leg Weakness sertraline [From ZOLOFT] Adverse Reaction (Intermediate, Verified 07/16/24 13:28) NAUSEA & VOMITING methylprednisolone [From Solu-Medrol] Adverse Reaction (Mild, Verified 07/16/24 13:28) Agitated trazodone [TRAZODONE] Adverse Reaction (Unknown, Verified 07/16/24 13:28) VOMITING HPI Comments Details: The patient is a 33-year-old gentleman known history of asthma in addition to a 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 The patient was having significant symptoms with significant shortness of breath and dyspnea and failure to thrive for many months prior to the diagnosis. He had an abnormal cardiopulmonary stress test and was referred to [facility]. From there he then went to [facility] has been followed closely there. 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 He was started on high doses of IVIG abdominal was hospital he was pretreated with fluids in addition to steroids in addition to Benadryl to minimize side effects. But he was not tolerating it due to adverse side effects from the medication. Therefore he was switched over to subcutaneous infusions with Hizentra. He has been doing this himself with the help [facility] initially since September 2019. He has been tolerating it well but more recently he started developing worsening reactions after the infusions. Do is last reaction he started developing significant diaphoresis and dizziness and shortness of breath. He did have EMS called his blood sugar was 45. He did go to the ER and was able to then be transferred home safely. In the meantime he did follow-up with Endocrinology. . He was also worsening shortness of breath. evaluated in the ED for this. He did go to the ER because of his worsening constitutional symptoms and shortness of breath. In the ER he did have a brief walking oximetry in his desaturated down to 87% but then had a repeat 1 that demonstrated normal pulse ox. In the office here we did attempt a 6 minutes walk test and again he desaturated to 87% but quickly improved. He is reluctant to use any oxygen at this time. Will retest his overnight oximetry to see if he does need oxygen at nighttime. We also talked about his asthma symptoms. 01/16/2021 the patient is here for pulmonary follow-up visit. Overall he is feeling better. The pleuritic pain is improved. He still has a cough is still feels tired. Denies any fevers or chills. He is completing a course of Augmentin. His chest x-ray repeat demonstrated no worsening of the pleural effusion. He still had the nodular base opacity in the right hemithorax. Again, we looked at the CT scan of the chest that he had back in January 08 demonstrating a airspace disease within the pro based on the superior segment of the right lower lobe appears to have a area of necrosis. Also associated with a small pleural effusion. Appears to be parapneumonic. He did have blood work ruling out vasculitis and will ruling out connective tissue diseases. However, sedimentation rate was significantly had 83. Since the patient is feeling better will finished a course of Augmentin and then repeat a sedimentation rate. I am hopeful that the sedimentation rate will drop. If the sedimentation continues high additional testing and imaging studies will be warranted. The patient and the family is aware that it could take up to 6-8 weeks to clear the infectious process. As far as etiologies aspiration pneumonia is in differential since is affecting the superior segment of the right lower lobe in addition to hematogenous spread. In addition, he was evaluated by Neurology at [facility] confirming the autonomic dysatomia and inflammatory polyneuropathy and recommended changing the Gammagard to 30mg qweek. I will go ahead and make the change. I am concerned for the need for his IV access.. But will go ahead and try it rotating the sites. 12/11/2021 the patient Has a telehealth visit. Overall the patient has been doing better. He continues to try to increase his exercise capacity. He has been able to walk about 2 miles a day. His asthma appears to be stable. He continues to use the Spiriva daily. He has not required any Xopenex which is reassuring. In the meantime he still follows closely with [facility] and also [facility] regarding his acquired autonomic dysatonia. he was switched over to the IVIG 30 g every week which appears to have been helping him. Although, having to get peripheral IV lines on a weekly basis has become a challenge. He does mention that at the infusion center did been having difficulties getting iv access lately on his left arm. Therefore, I will talk to them regarding that issue. At this time will try continue with weekly infusions. However, if he has any worsening IV access issues we will discuss the possibility of changing it back to every 2 weeks. his cardiac status has been is stable. He does continue to tolerate the metoprolol which is reassuring otherwise the patient is without any other complaints will continue monitoring his iv access issues. 07/11/2023 the patient is here for a pulmonary follow-up visit. The patient continues to do well on his current therapy. He has been following closely at the [facility] neurology clinic for his known diagnosis of autonomic dysfunction and autoimmune inflammatory small fiber polyneuropathy. The patient has had a long journey, but, appears to be on at good regimen at this time demonstrating improvements of his overall health. Since he has been on the weekly IVIG infusions he has not been hospitalized and his oberall health has improved. The therapy has been effective and beneficial.. He has been very compliant with the therapy. Although recently we had to hold the therapy based on the fact that the patient had to get insurance approval. He had recently changed insurances and this required additional documentation and follow-up. Although, there is no question that the therapy has been very effective for him. His family became very upset that his therapy was going to be delayed. He was recently evaluated by his doctors in [place] and had a repeat level 1 cardiopulmonary exercise study and actually demonstrated a significant improvement when compared to his previous which is very reassuring. Weight perkins he has also gained weight. As far as the autonomic dysfunction seems to be stable where he has not required any hospitalizations.. Although, he is describing some degree of urinary retention and frequency. His neurologist felt that it may be related to the autonomics dysfunction. Will be unreasonable for him to follow-up with Urology for this. He is also going to follow-up with primary care doctor. She also continues on Mestinon for the neuropathy,in addition to Milrinone own and Florinef for the autonomic dysfunction. He continues to work with physical therapy and has been able to walk 2 miles a day. His asthma has been in good control with current therapy with Spiriva daily. He has not required his short-acting beta agonist. 01/09/2024 the patient is here for a pulmonary follow-up visit. The patient has been doing better. He did have COVID-19 about a month ago. Initially he did well. He did take Paxlovid. Ultimately then started having asthma symptoms. The patient also was complaining significant pharyngitis. He was treated with doxycycline. He was evaluated at the ER in his strep cultures were negative. Ultimately he is feeling better. He still feeling tired. He is back at the gym though. He does continue to use his respiratory therapy. When he was sick he was using his Xopenex more often. But right now he is back to his baseline. The only issue that has been persistent he has been noticing some increased ectopy and palpitations. In regards of his autonomic dysfunction inflammatory small fiber polyneuropathy continues to receive the IVIG therapy as per the recommendations of his specialists in [place]. The patient does have a very rare condition. He does respond very well to the IVIG to the point that his quality of life is significantly better. The therapy has been very affecting beneficial. IV access still not an issue. Will still monitor closely. He will follow-up with [place] soon and we should receive their recommendations in order to continue to being want cord. The patient was offered a flu shot today. He did rejected. I did explain to him the risk. Specially since he still recovering from COVID. Since we decided not to get the flu shot I did give him a mask and did recommend that he mask up specially in crowded places and hospitals and the like. 07/16/2024 the patient is here for a pulmonary follow-up visit. Since we last spoke the patient is started developing URI like symptoms with the for throat headache fatigue and nasal congestion. He has also had a cough. Intermittent. He feels like he has been getting sick. Positive sick contacts in the home. His dad was sick but he tested for COVID he has been negative. I did swab him in the office in [place] was positive. I did call him with the results. In the meantime the patient continues on the IVIG therapy. Although he sometimes misses a dose. He has not gone the last couple weeks. He is supposed to get infusions on a weekly basis. The patient will be seen a specialist in [place] regarding the possibility of mitochondrial disease. Still being treated for the autonomic dysfunction inflammatory small fiber polyneuropathy. He understands he needs to continue the infusions for now. Will request blood work in addition to checking his IgG levels at this time. The patient was start Paxlovid and take it for 5 days. The patient has any worsening symptoms he needs to call the office or go to the ER. [facility] Medical History (Updated 07/18/24 @ 21:59 by Calvin Jean MD) URI (upper respiratory infection) Urinary retention Other inflammatory polyneuropathies Gastritis Pleuritis Pneumonia Bilateral calf pain Pleural effusion MARYANN (obstructive sleep apnea) Has daytime drowsiness Vitamin D deficiency Viry's disease Hypoglycemia Dizziness GERD (gastroesophageal reflux disease) Small fiber neuropathy Mccallum disease PTSD (post-traumatic stress disorder) Nocturnal hypoxemia Tachycardia Autonomic dysfunction Asthma Surgical History History of wisdom tooth extraction Family History Mother Asthma Celiac disease/sprue Father Psoriasis Social History Alcohol intake: never Years Smoked: 1 year Substance Use Type: Marijuana Advance Directives Date on File: 09/16/18 Review of Systems Const Reports body aches, Reports chills, Denies daytime sleepiness, Reports fatigue, Denies headache(s), Denies lethargy, Denies night sweats and Reports weight gain ENT Denies change in voice, Denies headache(s), Denies lip swelling, Denies mouth pain, Reports nasal congestion, Reports nasal discharge, Reports sore throat and Denies tongue swelling Card Denies chest pain, Denies dyspnea and Denies dyspnea on exertion Resp Reports cough, Denies dyspnea and Denies dyspnea on exertion GI Denies abdominal pain Reports difficulty urinating and Reports dysuria Musc Reports myalgias Skin/Breast Denies rash Neuro Denies Neuro-related abnormal movements and Denies headache(s) Psych Reports anxiety Endo Reports fatigue Clinton/Lymph Denies easy bleeding and Denies lymphadenopathy Aller/Immun Denies lip swelling and Denies tongue swelling Physical Exam Vital Signs: Last Vital Signs Pulse 90 07/16/24 13:26 BP 136/78 07/16/24 13:26 Pulse Ox 99 07/16/24 13:26 Oxygen Delivery Method Room Air 07/16/24 13:26 BMI result Body Mass Index 20.8 Const General: cooperative, comfortable, alert and awake Nutritional Appearance: thin Orientation/consciousness: patient oriented x3 Limitations: no limitations Eyes General: appearance normal, both eyes and all related structures Neck Neck: Yes trachea midline, Yes supple and Yes no JVD Chest Chest palpation & inspection: normal inspection of the chest Resp Effort & Inspection: normal respiratory effort and Actively coughing Auscultation: clear to auscultation bilaterally Cardio Jugular venous distension: no JVD Palpation: normal PMI Rate: regular rate Rhythm: regular rhythm Heart sounds: S1 normal heart sound present and S2 normal heart sound present GI Auscultation: normal bowel sounds Skin General skin exam: no rashes or lesions noted Neuro General: patient oriented x3 and no focal motor deficits Extrem General: Yes no clubbing, cyanosis or edema Psych Appearance: grossly normal Assessment & Plan Assessment & Plan (1) Autonomic dysfunction: Code(s): G90.9 - Disorder of the autonomic nervous system, unspecified Category: Medical (2) Other inflammatory polyneuropathies: Code(s): G61.89 - Other inflammatory polyneuropathies Category: Medical (3) Asthma: Code(s): J45.909 - Unspecified asthma, uncomplicated Category: Medical Qualifiers: Asthma complication type: with acute exacerbation Asthma persistence: persistent Asthma severity: moderate Qualified Code(s): J45.41 - Moderate persistent asthma with (acute) exacerbation (4) Palpitations: Code(s): R00.2 - Palpitations Category: Medical (5) URI (upper respiratory infection): Code(s): J06.9 - Acute upper respiratory infection, unspecified Category: Medical (6) COVID-19: Code(s): U07.1 - COVID-19 Category: Medical Plan start paxlovid start mucinex OTC bloodwork continue Gammagard to 30mg every week as per the recommendations of his [facility] neurology team and specialist. His condition is advance, yet has been responding to his current therapy. Benzonates as needed for cough continue Spiriva respimet Xopenex as needed F/U 6 months Orders: Orders Creatine Kinase Total 07/16/24 G61.89 - Other inflammatory polyneuropathies, G90.9 - Disorder of the autonomic nervous system, unspecified Complete Blood Count Auto Diff 07/16/24 G61.89 - Other inflammatory polyneuropathies, G90.9 - Disorder of the autonomic nervous system, unspecified Erythrocyte Sedimentation Rate 07/16/24 G6.89 - Other inflammatory polyneuropathies, G90.9 - Disorder of the autonomic nervous system, unspecified Venous Blood Gas 07/16/24 G6.89 - Other inflammatory polyneuropathies, G90.9 - Disorder of the autonomic nervous system, unspecified Immunoglobulin G Subclasses 07/16/24 G6. - Other inflammatory polyneuropathies, G90.9 - Disorder of the autonomic nervous system, unspecified SARS-CoV2/FLU/RSV 07/16/24 J06.9 - Acute upper respiratory infection, unspecified Medications: New nirmatrelvir-ritonavir 300 mg (150 mg x 2)-100 mg (Paxlovid) take TWO 150 mg tablets of nirmatrelvir with ONE 100 mg tablet of ritonavir twice daily for 5 days PO 30 ea 0RF 5 days Coding Level of Care Code Est Pt Level 5 (26622) Complex EM visit Add On G2211 Diagnoses Autonomic dysfunction G90.9 Other inflammatory polyneuropathies Moderate persistent asthma with acute exacerbation J45.41 Asthma complication type: with acute exacerbation Asthma persistence: persistent Asthma severity: moderate Palpitations R00.2 URI (upper respiratory infection) J06.9 COVID-19 U07.1 Time Spent (min) 45
== END 2024-07-16 14:36 | disposition home or self-care (01) ==
PROVIDERS: PCP Internal Medicine; Visit Provider Hospitalist
DX: G90.9 Disorder of the autonomic nervous system, unspecified (principal); G61.89 Other inflammatory polyneuropathies; J45.41 Moderate persistent asthma with (acute) exacerbation; R00.2 Palpitations; J06.9 Acute upper respiratory infection, unspecified; U07.1 COVID-19
CPT/HCPCS: 99215; G2211

== ENCOUNTER 2024-07-16 13:17 | Outpatient (REF) | payer MEDICARE, MEDICAID, SELFPAY ==
[2024-07-16 14:51] LABS: Influenza A PCR NEGATIVE (Negative); Influenza B PCR NEGATIVE (Negative); Resp Syncy Virus RNA Qual PCR NEGATIVE (Negative); SARS COV2 PCR INHOUSE POSITIVE (Negative)
== END 2024-07-16 13:18 | disposition home or self-care (01) ==
LOC: HO.LNP 13:17
PROVIDERS: PCP Internal Medicine; Visit Provider Hospitalist
DX: J06.9 Acute upper respiratory infection, unspecified (principal); G61.89 Other inflammatory polyneuropathies; R33.9 Retention of urine, unspecified; R00.2 Palpitations
CPT/HCPCS: 0241U; 99212

== ENCOUNTER 2025-01-25 12:49 | Outpatient (AMB) | payer MEDICARE, MEDICAID, SELFPAY ==
--- NOTE | 2025-01-25 12:55 | MHC.OFFVIS ---
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 Allergies buspirone [From BuSpar] Allergy (Severe, Verified 07/16/24 13:28) Dizziness and Leg Weakness sertraline [From ZOLOFT] Adverse Reaction (Intermediate, Verified 07/16/24 13:28) NAUSEA & VOMITING methylprednisolone [From Solu-Medrol] Adverse Reaction (Mild, Verified 07/16/24 13:28) Agitated trazodone [TRAZODONE] Adverse Reaction (Unknown, Verified 07/16/24 13:28) VOMITING Medication List - Last Reconciled 01/25/25 by Saúl Avilez MD albuterol sulfate 90 mcg/actuation inhalation benzonatate 200 mg PO BID PRN 30 days budesonide-formoterol 160-4.5 mcg/actuation 2 puffs inhalation BID 30 days diazepam 5 mg PO BID fludrocortisone 0.2 mg PO DAILY metoprolol succinate ER 25 mg PO DAILY midodrine 5 mg PO TID ondansetron 8 mg (2 x 4 mg) PO Q8H PRN 5 days pregabalin 50 mg PO TID pyridostigmine bromide 60 mg PO TID tiotropium bromide 2.5 mcg/actuation (Spiriva Respimat) 2 puffs inhalation DAILY 30 days HPI Comments Details: Ace comes for follow-up visit after a long gap. He currently is getting treatment with weekly IVIG infusion for his what suspected as autoimmune neurologic disorder which was causing him to have autonomic dysfunction. He is also currently on Florinef, pyridostigmine as well as midodrine therapy in addition to metoprolol therapy. With this he has had significant improvement in his overall functionality. He was not walking 3-6 miles a day and he is feeling great. His exercise capacity is improved. He has not had any significant episodes of tachycardia. He denies any episodes of lightheadedness, syncope. There has been a remarkable turnaround in his overall clinical status in the last few years. He was notice occasionally elevated blood pressure but not persistently elevated blood pressure. Denies any active cardiac symptoms. 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 He is currently tolerating all his medications. [facility] Medical History URI (upper respiratory infection) Urinary retention Other inflammatory polyneuropathies Gastritis Pleuritis Pneumonia Bilateral calf pain Pleural effusion MARYANN (obstructive sleep apnea) Has daytime drowsiness Vitamin D deficiency Viry's disease Hypoglycemia Dizziness GERD (gastroesophageal reflux disease) Small fiber neuropathy Mccallum disease PTSD (post-traumatic stress disorder) Nocturnal hypoxemia Tachycardia Autonomic dysfunction Asthma Surgical History History of wisdom tooth extraction Family History Mother Asthma Celiac disease/sprue Father Psoriasis Social History Alcohol intake: never Years Smoked: 1 year Substance Use Type: Marijuana Advance Directives Date on File: 09/16/18 Review of Systems Const Denies chills, Denies daytime sleepiness, Denies fatigue, Denies fever(s), Denies frequent falls, Denies poor appetite, Denies snoring, Denies stops breathing during sleep, Denies weakness, Denies weight gain and Denies weight loss Eyes Denies loss of vision ENT Denies dizziness and Denies hearing loss Card Denies chest pain, Denies claudication, Denies leg edema, Denies lightheadedness, Denies palpitations, Denies dyspnea, Denies dyspnea on exertion and Denies orthopnea Resp Denies cough, Denies excessive phlegm production, Denies dyspnea, Denies dyspnea on exertion, Denies snoring and Denies wheezing GI Denies abdominal pain, Denies hematochezia, Denies change in bowel habits, Denies nausea and Denies vomiting Denies dysuria and Denies urinary frequency Musc Denies arthralgias, Denies muscle weakness, Denies numbness and Denies other (frequent falls) Skin/Breast Denies nail changes and Denies rash Neuro Denies Abnormal speech present, Denies dizziness, Denies frequent falls, Denies loss of vision, Denies memory loss, Denies numbness and Denies weakness Psych Denies depression and Denies memory loss Endo Denies fatigue and Denies palpitations Clinton/Lymph Reports easy bruising and Reports other (anemia) Aller/Immun Denies wheezing Physical Exam Vital Signs: Last Vital Signs Pulse 65 01/25/25 12:56 BP 120/80 01/25/25 12:56 BMI result Body Mass Index 21.8 Const General: cooperative, comfortable, no acute distress, alert, awake and Physically active Nutritional Appearance: thin Orientation/consciousness: patient oriented x3 Limitations: no limitations HEENT Head: Yes normocephalic and Yes atraumatic Neck Neck: Yes trachea midline, Yes supple and Yes no JVD Resp Effort & Inspection: normal respiratory effort Auscultation: clear to auscultation bilaterally Cardio Jugular venous distension: no JVD Palpation: normal PMI Rate: regular rate Rhythm: regular rhythm Heart sounds: S1 normal heart sound present, S2 normal heart sound present, no click, no gallops, no murmurs and no rubs GI Auscultation: normal bowel sounds Skin General skin exam: no rashes or lesions noted Neuro General: patient oriented x3 and no focal motor deficits Speech: No Abnormal speech present Extrem General: Yes no clubbing, cyanosis or edema Psych Appearance: grossly normal Affect: Anxious affect present Office Procedures EKG Details: EKG shows normal sinus rhythm with normal EKG [id number], Complete Assessment & Plan Assessment & Plan (1) Autonomic dysfunction: Code(s): G90.9 - Disorder of the autonomic nervous system, unspecified Category: Medical Plan: Patient was autonomic dysfunction probably related to autoimmune neurologic disorder of unclear etiology. 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 I think he has derived most benefit most likely from IVIG infusion suppress his autoimmune disorder. His blood pressure is currently extremely well optimized without any evidence of tachycardia on current therapy with midodrine, fludrocortisone as well as pyridostigmine. He is also on metoprolol therapy. His EKGs normal. I have encouraged him to continue maintain activity level as tolerated. Advised to continue maintain adequate fluid intake. Advised to intermittently measure blood pressure at home. We discussed about continue to participate in stress mitigation strategies. Overall I am very happy with his progress Will follow up in the clinic in 1 year's time, sooner p.r.n.. Coding Level of Care Code New Pt Level 4 (60572) Complex EM visit Add On G2211 Diagnoses Autonomic dysfunction G90.9 CPT Codes EKG - CPT: 45126-[id number], Complete ([id number])
[2025-01-25 12:56] VITALS: BP 120/80; PULSE 65; BMI 21.8
--- OUTSIDE RECORDS SUMMARY | 2025-01-25 14:59 | XMS_ITS | Patient Health Record ---
[facility] Organization [facility] Address [address] [place] [address] Care Team Providers Care House Mother Name Role Phone Waleska COOPER, [facility] Primary Care Provi garret Vinayak Vital Unavailable [phone] Allergies Allergen (clinical drug ingredient) Drug/Non Drug Allergy documented on EMR Reaction Allergy Type Onset Date Status trazodone Trazodone vomiting Drug Allergy Active Reason For Referral No Information Medications Medication SIG (Take, Route, Frequency, Duration) Notes Start Date End Date Status Fludrocortisone Acetate 0.1 MG Oral for 60 Active diazePAM 10 MG Oral for 30 Act litzy Spiriva Respimat 2.5 MCG/ACT Inhalation for 30 Active Metoprolol Succinate ER 25 MG Oral for 60 Active Midodrine HCl 2.5 MG Oral for 30 Active Pregabalin 50 MG Oral for 30 A ctive Nortriptyline HCl 10 MG Oral for 30 Active Immunizations Vaccine Route Administration Date Status Comme nts COVID-19 Jass & Jass/Makenzie Unknown 09/06/2021 Administered 1st 09/06/2021 Social History Tobacco Use: Social History Observation Description Date Details (start date - stop date) Former Smoker NA - NA Tobacco Use/Smoking Question Answer Notes Are you a: former smoker Additional Findings: Tobacco Non-User Current no n-smoker Alcohol Screen Question Answer Notes Did you have a drink containing alcohol in the p ast year? No Points 0 Interpretation Negative Tobacco use other than smoking: Question Answer Notes Are you an other tobacco user? 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 Plan Of Treatment Pending Test Test Name Order Date X ray : Foot, left 2V 02/26/2022 X ray : Foot, right 2V 02/26/2022 [id number] OF HEMATOMA/FLUID 022 Insurance Providers Payer Name Payer Address Payer Phone Subscriber Number Group Number Insured Name Patient Relationship to Insured Coverage Start Date Coverage End Date [facility] [address] [place] [address] [phone] [id number] Ace Casas Self - patient is the insured Medical (General) History Medical History History ICD Code asthma Numbness Poor circulation Psychiatric disorder Reflux Autoimmune disorder-Small Fo guillermina Neuropathy/Dysantonomia Involving Sensory System and Autonomic Dysfunction Surgical History Surgery Date(Month/Year)
== END 2025-01-25 13:46 | disposition home or self-care (01) ==
LOC: HO.HCS 12:49
PROVIDERS: PCP Internal Medicine; Visit Provider Internal Medicine Cardiovascular Disease
DX: G90.9 Disorder of the autonomic nervous system, unspecified (principal)
CPT/HCPCS: 93010; 99204; G2211

== ENCOUNTER → 2025-01-25 12:49 | Outpatient (BNVA) | payer MEDICARE, MEDICAID, SELFPAY | PROVIDERS: PCP Internal Medicine; Visit Provider Internal Medicine Cardiovascular Disease | DX: G90.9 Disorder of the autonomic nervous system, unspecified (principal) | CPT/HCPCS: 93005; 99202 ==

== ENCOUNTER 2025-03-08 10:33 | Outpatient (AMB) | payer MEDICARE, MEDICAID, SELFPAY ==
[2025-03-08 10:40] VITALS: BP 108/64; PULSE 79; O2SAT 98; BMI 22.0
--- NOTE | 2025-03-08 10:40 | MHC.OFFVIS ---
Vital Signs 03/08/25 10:40 Height 5 ft 9 in Weight 148 lb 12.992 oz BMI 22.0 BP 108/64 Blood Pressure Location Rt brachial Position Sitting Pulse 79 Pulse Source Pulse Oximeter Pulse Oximetry (%) 98 Oxygen Delivery Method Room Air Intake Visit Reasons: Asthma Allergies buspirone [From BuSpar] Allergy (Severe, Verified 03/08/25 10:43) Dizziness and Leg Weakness sertraline [From ZOLOFT] Adverse Reaction (Intermediate, Verified 03/08/25 10:43) NAUSEA & VOMITING methylprednisolone [From Solu-Medrol] Adverse Reaction (Mild, Verified 03/08/25 10:43) Agitated trazodone [TRAZODONE] Adverse Reaction (Unknown, Verified 03/08/25 10:43) VOMITING HPI Comments Details: The patient is a 34-year-old gentleman known history of asthma in addition to a 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 The patient was having significant symptoms with significant shortness of breath and dyspnea and failure to thrive for many months prior to the diagnosis. He had an abnormal cardiopulmonary stress test and was referred to [facility]. From there he then went to [facility] has been followed closely there. 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 He was started on high doses of IVIG abdominal was hospital he was pretreated with fluids in addition to steroids in addition to Benadryl to minimize side effects. But he was not tolerating it due to adverse side effects from the medication. Therefore he was switched over to subcutaneous infusions with Hizentra. He has been doing this himself with the help [facility] initially since September 2019. He has been tolerating it well but more recently he started developing worsening reactions after the infusions. Do is last reaction he started developing significant diaphoresis and dizziness and shortness of breath. He did have EMS called his blood sugar was 45. He did go to the ER and was able to then be transferred home safely. In the meantime he did follow-up with Endocrinology. . He was also worsening shortness of breath. evaluated in the ED for this. He did go to the ER because of his worsening constitutional symptoms and shortness of breath. In the ER he did have a brief walking oximetry in his desaturated down to 87% but then had a repeat 1 that demonstrated normal pulse ox. In the office here we did attempt a 6 minutes walk test and again he desaturated to 87% but quickly improved. He is reluctant to use any oxygen at this time. Will retest his overnight oximetry to see if he does need oxygen at nighttime. We also talked about his asthma symptoms. 01/16/2021 the patient is here for pulmonary follow-up visit. Overall he is feeling better. The pleuritic pain is improved. He still has a cough is still feels tired. Denies any fevers or chills. He is completing a course of Augmentin. His chest x-ray repeat demonstrated no worsening of the pleural effusion. He still had the nodular base opacity in the right hemithorax. Again, we looked at the CT scan of the chest that he had back in January 08 demonstrating a airspace disease within the pro based on the superior segment of the right lower lobe appears to have a area of necrosis. Also associated with a small pleural effusion. Appears to be parapneumonic. He did have blood work ruling out vasculitis and will ruling out connective tissue diseases. However, sedimentation rate was significantly had 83. Since the patient is feeling better will finished a course of Augmentin and then repeat a sedimentation rate. I am hopeful that the sedimentation rate will drop. If the sedimentation continues high additional testing and imaging studies will be warranted. The patient and the family is aware that it could take up to 6-8 weeks to clear the infectious process. As far as etiologies aspiration pneumonia is in differential since is affecting the superior segment of the right lower lobe in addition to hematogenous spread. In addition, he was evaluated by Neurology at [facility] confirming the autonomic dysatomia and inflammatory polyneuropathy and recommended changing the Gammagard to 30mg qweek. I will go ahead and make the change. I am concerned for the need for his IV access.. But will go ahead and try it rotating the sites. 12/11/2021 the patient Has a telehealth visit. Overall the patient has been doing better. He continues to try to increase his exercise capacity. He has been able to walk about 2 miles a day. His asthma appears to be stable. He continues to use the Spiriva daily. He has not required any Xopenex which is reassuring. In the meantime he still follows closely with [facility] and also [facility] regarding his acquired autonomic dysatonia. he was switched over to the IVIG 30 g every week which appears to have been helping him. Although, having to get peripheral IV lines on a weekly basis has become a challenge. He does mention that at the infusion center did been having difficulties getting iv access lately on his left arm. Therefore, I will talk to them regarding that issue. At this time will try continue with weekly infusions. However, if he has any worsening IV access issues we will discuss the possibility of changing it back to every 2 weeks. his cardiac status has been is stable. He does continue to tolerate the metoprolol which is reassuring otherwise the patient is without any other complaints will continue monitoring his iv access issues. 07/11/2023 the patient is here for a pulmonary follow-up visit. The patient continues to do well on his current therapy. He has been following closely at the [facility] neurology clinic for his known diagnosis of autonomic dysfunction and autoimmune inflammatory small fiber polyneuropathy. The patient has had a long journey, but, appears to be on at good regimen at this time demonstrating improvements of his overall health. Since he has been on the weekly IVIG infusions he has not been hospitalized and his oberall health has improved. The therapy has been effective and beneficial.. He has been very compliant with the therapy. Although recently we had to hold the therapy based on the fact that the patient had to get insurance approval. He had recently changed insurances and this required additional documentation and follow-up. Although, there is no question that the therapy has been very effective for him. His family became very upset that his therapy was going to be delayed. He was recently evaluated by his doctors in [place] and had a repeat level 1 cardiopulmonary exercise study and actually demonstrated a significant improvement when compared to his previous which is very reassuring. Weight perkins he has also gained weight. As far as the autonomic dysfunction seems to be stable where he has not required any hospitalizations.. Although, he is describing some degree of urinary retention and frequency. His neurologist felt that it may be related to the autonomics dysfunction. Will be unreasonable for him to follow-up with Urology for this. He is also going to follow-up with primary care doctor. She also continues on Mestinon for the neuropathy,in addition to Milrinone own and Florinef for the autonomic dysfunction. He continues to work with physical therapy and has been able to walk 2 miles a day. His asthma has been in good control with current therapy with Spiriva daily. He has not required his short-acting beta agonist. 01/09/2024 the patient is here for a pulmonary follow-up visit. The patient has been doing better. He did have COVID-19 about a month ago. Initially he did well. He did take Paxlovid. Ultimately then started having asthma symptoms. The patient also was complaining significant pharyngitis. He was treated with doxycycline. He was evaluated at the ER in his strep cultures were negative. Ultimately he is feeling better. He still feeling tired. He is back at the gym though. He does continue to use his respiratory therapy. When he was sick he was using his Xopenex more often. But right now he is back to his baseline. The only issue that has been persistent he has been noticing some increased ectopy and palpitations. In regards of his autonomic dysfunction inflammatory small fiber polyneuropathy continues to receive the IVIG therapy as per the recommendations of his specialists in [place]. The patient does have a very rare condition. He does respond very well to the IVIG to the point that his quality of life is significantly better. The therapy has been very affecting beneficial. IV access still not an issue. Will still monitor closely. He will follow-up with [place] soon and we should receive their recommendations in order to continue to being want cord. The patient was offered a flu shot today. He did rejected. I did explain to him the risk. Specially since he still recovering from COVID. Since we decided not to get the flu shot I did give him a mask and did recommend that he mask up specially in crowded places and hospitals and the like. 07/16/2024 the patient is here for a pulmonary follow-up visit. Since we last spoke the patient is started developing URI like symptoms with the for throat headache fatigue and nasal congestion. He has also had a cough. Intermittent. He feels like he has been getting sick. Positive sick contacts in the home. His dad was sick but he tested for COVID he has been negative. I did swab him in the office in indeed was positive. I did call him with the results. In the meantime the patient continues on the IVIG therapy. Although he sometimes misses a dose. He has not gone the last couple weeks. He is supposed to get infusions on a weekly basis. The patient will be seen a specialist in [place] regarding the possibility of mitochondrial disease. Still being treated for the autonomic dysfunction inflammatory small fiber polyneuropathy. He understands he needs to continue the infusions for now. Will request blood work in addition to checking his IgG levels at this time. The patient was start Paxlovid and take it for 5 days. The patient has any worsening symptoms he needs to call the office or go to the ER. 03/08/2025 the patient is here for a pulmonary follow-up visit. Overall he is doing well. He continues to receive the IVIG once a week. He did follow-up in [place] with his specialists regarding the acquired autonomic dysfunction and is felt that the treatment is reasonable at this time. At some point may be during the next visit they can talk about potentially decreasing the frequency of the treatment whenever safe to do so to see if we can deescalate some of the care. He continues uses respiratory therapy with good effect. The patient has been exercising on a regular basis. He is going to start building up some strength training as well. He has not had blood work in some time therefore will request blood work to assess his kidney function CBC and also to assess his IgG levels. The patient has been noticing some increased blood pressure which may be a good sign if indeed the autonomic dysfunction is settling. He has not required the midodrine and he has not required any benzodiazepines which I part of the treatment which is reassuring. The patient will undergo blood work he will continue with treatment as is. After he follows up in [place] will figure out if we are going to be changing any of the frequencies of treatment. In the meantime he has the top the Spiriva because it was not covered anymore. He has been tolerating the Symbicort but his case him to be a little shaky. Therefore will decrease the dose to 1 puff b.i.d.. [facility] Medical History URI (upper respiratory infection) Urinary retention Other inflammatory polyneuropathies Gastritis Pleuritis Pneumonia Bilateral calf pain Pleural effusion MARYANN (obstructive sleep apnea) Has daytime drowsiness Vitamin D deficiency Viry's disease Hypoglycemia Dizziness GERD (gastroesophageal reflux disease) Small fiber neuropathy Mccallum disease PTSD (post-traumatic stress disorder) Nocturnal hypoxemia Tachycardia Autonomic dysfunction Asthma Surgical History History of wisdom tooth extraction Family History Mother Asthma Celiac disease/sprue Father Psoriasis Social History Alcohol intake: never Years Smoked: 1 year Substance Use Type: Marijuana Advance Directives Date on File: 09/16/18 Review of Systems Const Denies daytime sleepiness, Denies headache(s), Denies lethargy, Denies night sweats and Reports weight gain ENT Denies change in voice, Denies headache(s), Denies lip swelling, Denies mouth pain and Denies tongue swelling Card Denies chest pain, Denies dyspnea and Denies dyspnea on exertion Resp Reports cough, Denies dyspnea and Denies dyspnea on exertion GI Denies abdominal pain Reports difficulty urinating and Reports dysuria Musc Reports no additional complaints Skin/Breast Denies rash Neuro Denies Neuro-related abnormal movements and Denies headache(s) Psych Reports anxiety Clinton/Lymph Denies easy bleeding and Denies lymphadenopathy Aller/Immun Denies lip swelling and Denies tongue swelling Physical Exam Vital Signs: Last Vital Signs Pulse 79 03/08/25 10:40 BP 108/64 03/08/25 10:40 Pulse Ox 98 03/08/25 10:40 Oxygen Delivery Method Room Air 03/08/25 10:40 BMI result Body Mass Index 22.0 Const General: cooperative, comfortable, alert and awake Nutritional Appearance: thin Orientation/consciousness: patient oriented x3 Limitations: no limitations Eyes General: appearance normal, both eyes and all related structures Neck Neck: Yes trachea midline and Yes supple Chest Chest palpation & inspection: normal inspection of the chest Resp Effort & Inspection: normal respiratory effort and Actively coughing Auscultation: clear to auscultation bilaterally Cardio Jugular venous distension: no JVD Palpation: normal PMI Rate: regular rate Rhythm: regular rhythm Heart sounds: S1 normal heart sound present and S2 normal heart sound present GI Auscultation: normal bowel sounds Skin General skin exam: no rashes or lesions noted Neuro General: patient oriented x3 and no focal motor deficits Extrem General: Yes no clubbing, cyanosis or edema Psych Appearance: grossly normal Assessment & Plan Assessment & Plan (1) Autonomic dysfunction: Code(s): G90.9 - Disorder of the autonomic nervous system, unspecified Category: Medical (2) Other inflammatory polyneuropathies: Code(s): G61.89 - Other inflammatory polyneuropathies Category: Medical (3) Asthma: Code(s): J45.909 - Unspecified asthma, uncomplicated Category: Medical Qualifiers: Asthma complication type: with acute exacerbation Asthma persistence: persistent Asthma severity: moderate Qualified Code(s): J45.41 - Moderate persistent asthma with (acute) exacerbation (4) Palpitations: Code(s): R00.2 - Palpitations Category: Medical Plan bloodwork continue Gammagard to 30mg every week as per the recommendations of his [facility] neurology team and specialist. His condition is advance, yet has been responding to his current therapy. Benzonates as needed for cough continue Symbicort, ok to decrease 1 puff BID Xopenex as needed F/U 6 months Orders: Orders Complete Blood Count Auto Diff Today G6. - Other inflammatory polyneuropathies, G90.9 - Disorder of the autonomic nervous system, unspecified, J45.41 - Moderate persistent asthma with (acute) exacerbation Basic Metabolic Panel Today G6. - Other inflammatory polyneuropathies, G90.9 - Disorder of the autonomic nervous system, unspecified, J45.41 - Moderate persistent asthma with (acute) exacerbation Liver Panel Today G6. - Other inflammatory polyneuropathies, G90.9 - Disorder of the autonomic nervous system, unspecified, J45.41 - Moderate persistent asthma with (acute) exacerbation Immunoglobulins,IgG IgA IgM Today G6.89 - Other inflammatory polyneuropathies, G90.9 - Disorder of the autonomic nervous system, unspecified, J45.41 - Moderate persistent asthma with (acute) exacerbation Immunoglobulin E Today G6. - Other inflammatory polyneuropathies, G90.9 - Disorder of the autonomic nervous system, unspecified, J45.41 - Moderate persistent asthma with (acute) exacerbation LEEANNA Reflex Titer and Pattern Today G6. - Other inflammatory polyneuropathies, G90.9 - Disorder of the autonomic nervous system, unspecified, J45.41 - Moderate persistent asthma with (acute) exacerbation Coding Level of Care Code Est Pt Level 4 (33432) Complex EM visit Add On G2211 Diagnoses Autonomic dysfunction G90.9 Other inflammatory polyneuropathies G6. Moderate persistent asthma with acute exacerbation J45.41 Asthma complication type: with acute exacerbation Asthma persistence: persistent Asthma severity: moderate Palpitations R00.2 Time Spent (min) 16
--- OUTSIDE RECORDS SUMMARY | 2025-03-08 12:09 | XMS_ITS | Patient Health Record ---
[facility] Organization [facility] Address [address] [place] [address] Care Team Providers Care Environmental Studies Program Director Name Role Phone Waleska COOPER, [facility] Primary Care Provi garret Vinayak Vital Unavailable [phone] Allergies Allergen (clinical drug ingredient) Drug/Non Drug [...] Problem Status W/U Status Risk Notes Problem 140368654 Hammertoe of lef t foot (M20.42) Active confirmed Problem 820217993 Hammertoe of rig ht foot (M20.41) Active confirmed Problem 892915658 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 Problem 609647677 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 Plan Of Treatment Pending Test Test Name Order Date X ray : Foot, left 2V 02/26/2022 X ray : Foot, right 2V 02/26/2022 [id number] OF HEMATOMA/FLUID 022 Insurance Providers Payer Name Payer Address Payer Phone Subscriber Number Group Number Insured Name Patient Relationship to Insured Coverage Start Date Coverage End Date [facility] [address] [place] [address] [id number] Ace Casas Self - patient is the insured Medical (General) History Medical History History ICD Code asthma Numbness Poor circulation Psychiatric disorder Reflux Autoimmune disorder-Small Fo guillermina Neuropathy/Dysantonomia Involving Sensory System and Autonomic Dysfunction Surgical History Surgery Date(Month/Year)
== END 2025-03-08 11:14 | disposition home or self-care (01) ==
PROVIDERS: PCP Internal Medicine; Visit Provider Hospitalist
DX: G90.9 Disorder of the autonomic nervous system, unspecified (principal); G61.89 Other inflammatory polyneuropathies; J45.41 Moderate persistent asthma with (acute) exacerbation; R00.2 Palpitations
CPT/HCPCS: 99214; G2211

== ENCOUNTER → 2025-03-08 10:33 | Outpatient (BNVA) | payer MEDICARE, MEDICAID, SELFPAY | PROVIDERS: PCP Internal Medicine; Visit Provider Hospitalist | DX: J45.41 Moderate persistent asthma with (acute) exacerbation (principal); G90.9 Disorder of the autonomic nervous system, unspecified; G61.89 Other inflammatory polyneuropathies; R00.2 Palpitations | CPT/HCPCS: 99212 ==

== ENCOUNTER 2025-06-15 22:08 | Emergency (ER) | payer MEDICARE, MEDICAID, SELFPAY ==
--- NOTE | ~2025-06-15 | CT_ITS ---
CLINICAL HISTORY: RUQ, RLQ pain CT Abdomen and Pelvis W Contrast COMPARISON: None provided FINDINGS: Normal liver. Normal spleen. Calculus measuring 8 mm at the right ureteropelvic junction. Mild right hydronephrosis. Nonobstructing bilateral renal calculi. Subcentimeter hypodensity in the left kidney, too small to accurately characterize. Normal adrenal glands. Normal pancreas. No visible cholelithiasis. No biliary dilation. Large stool in the rectum, which measures up to 8.3 cm in diameter. No mucosal thickening or pneumatosis. No evidence of small bowel obstruction. Normal appendix. Unremarkable bladder. No ascites. No pneumoperitoneum. No lymphadenopathy. No acute fracture. No abdominal aortic aneurysm. IMPRESSION: Calculus at the right ureteropelvic junction. Mild right hydronephrosis. Suspected fecal impaction. Nonemergent/incidental findings above. This document has been electronically signed by: Dwight Oscar MD on 06/16/2025 02:17:10
[2025-06-15 22:18] VITALS: BP 164/98; PULSE 71; RESP 17; TEMP 36.6; O2SAT 100; BMI 23.9
--- OUTSIDE RECORDS SUMMARY | 2025-06-15 22:39 | XMS_ITS ---
Author Name RUSTP Organization Unknown Care Team Organization Name Specialty Phone Email Start Date End Da te [facility] YESSENIA LUCAS Primary Care 09/17/2022 06/28/2024
--- NOTE | 2025-06-15 22:50 | ED.ABDPAIN ---
HPI - Abdominal Pain General Chief Complaint: Abdominal Pain Stated Complaint: abd pain Time Seen by Provider: 06/15/25 22:39 Source: patient Mode of arrival: ambulatory Limitations: no limitations History of Present Illness ED Provider: Dr. Adela Mars HPI narrative: Patient comes to the emergency room complaining of right-sided abdominal pain that started today. Patient states that this evening he went to a dog park. When he got home, he started having nausea, abdominal pain in the right upper quadrant radiating towards the back, also complaining of right lower quadrant pain, radiating towards the right testicle. Patient denies any hematuria or dysuria. Patient states that he was nauseous and vomited once prior to arrival. Denies any diarrhea. Complaining of chills secondary to the pain, no fever to his knowledge. Patient denies any prior abdominal surgical history Related Data Home Medications ?Medication ?Instructions ?Recorded ?Confirmed fludrocortisone 0.1 mg tablet 0.2 mg PO DAILY 08/16/23 01/25/25 midodrine 5 mg tablet 5 mg PO TID 08/16/23 01/25/25 pregabalin 50 mg capsule 50 mg PO TID 08/16/23 01/25/25 pyridostigmine bromide 60 mg tablet 60 mg PO TID 08/16/23 01/25/25 albuterol sulfate 90 mcg/actuation inhalation 01/09/24 01/25/25 aerosol inhaler Previous Rx's ?Medication ?Instructions ?Recorded metoprolol succinate 25 mg 25 mg PO DAILY #90 tabs 10/20/24 tablet,extended release 24 hr budesonide-formoterol HFA 160 2 puff inhalation BID 30 days 12/28/24 mcg-4.5 mcg/actuation aerosol #10.2 grams inhaler fluticasone propionate 115 2 puff inhalation Q12H 30 days #12 04/08/25 mcg-salmeterol 21 mcg/actuation grams HFA inhaler (Advair HFA) cefuroxime axetil 250 mg tablet 250 mg PO BID #14 tabs 06/16/25 ketorolac 10 mg tablet 10 mg PO TID PRN pain 5 days #15 06/16/25 tabs prednisone 10 mg tablet 10 mg PO DAILY #2 tabs 06/16/25 tamsulosin 0.4 mg capsule 0.4 mg PO BEDTIME #14 caps 06/16/25 tramadol 50 mg tablet 50 mg PO BID PRN pain #6 tabs 06/16/25 Allergies Allergy/AdvReac Type Severity Reaction Status Date / Time buspirone (From BuSpar) Allergy Severe Dizziness Verified 06/15/25 22:19 and Leg Weakness sertraline (From ZOLOFT) AdvReac Intermediate NAUSEA & Verified 06/15/25 22:19 VOMITING methylprednisolone (From AdvReac Mild Agitated Verified 06/15/25 22:19 Solu-Medrol) trazodone (TRAZODONE) AdvReac Unknown VOMITING Verified 06/15/25 22:19 Review of Systems Review of Systems Constitutional : No Weight loss, No Fever, No Chills, No Night Sweats, No Fatigue, No Malaise ENT/Mouth : No Hearing loss, No Ear Pain, No Nasal Congestion, No Sinus Pain, No Hoarseness, No sore throat, No Rhinorrhea, No Swallowing Difficulty Eyes: No Eye Pain, No Swelling, No Redness, No Foreign Body, No Discharge, No Vision Changes Cardiovascular : No Chest Pain, No SOB, No Dyspnea on Exertion, No Orthopnea, No Edema, No Palpitations Respiratory : No Cough, No Sputum, No Wheezing, No Smoke Exposure, No Dyspnea Gastrointestinal : Complaining of nausea, 1 episode of vomiting, no diarrhea, complaining of right upper and lower quadrant pain Genitourinary : no irregular bleeding, No Dysuria, No Urinary Frequency, No Hematuria, No Urinary Incontinence, No Urgency, No Flank Pain, No Urinary Flow Changes, No Hesitancy Musculoskeletal : No joint pain, No Myalgias, No Joint Swelling Skin : No Skin Lesions, No rash Neuro : No Weakness, No Numbness, No Paresthesias, No Loss of Consciousness, No Dizziness, No Headache Psych : No Anxiety/Panic, No Depression, No SI/HI/AH/VH, No Social Issues, Heme/Lymph: No Bruising, No Bleeding,No Lymphadenopathy Endocrine : No Polyuria, No Polydipsia, No Temperature Intolerance PMFSH Past Medical History Medical History URI (upper respiratory infection) Urinary retention Other inflammatory polyneuropathies Gastritis Pleuritis Pneumonia Bilateral calf pain Pleural effusion MARYANN (obstructive sleep apnea) Has daytime drowsiness Vitamin D deficiency Viry's disease Hypoglycemia Dizziness GERD (gastroesophageal reflux disease) Small fiber neuropathy Mccallum disease PTSD (post-traumatic stress disorder) Nocturnal hypoxemia Tachycardia Autonomic dysfunction Asthma Surgical History History of wisdom tooth extraction Family History Family History Mother Asthma Celiac disease/sprue Father Psoriasis Social History Social History Alcohol intake: never Years Smoked: 1 year Smoked in Last 30 Days: No Use of substances other than those prescribed or required for medical reasons: No Substance Use Type: Marijuana Advance Directives: No Advance Directives Information Provided: No Advance Directives Date on File: 09/16/18 Do you have a plan to hurt others: No Plan Physical Exam ED Exam Exam: Appearance: Alert. Oriented X3. No acute distress. Eyes: Pupils equal, round and reactive to light. ENT: Pharynx normal. Neck: Normal inspection. Neck supple. No lymph nodes noted. No crepitus CVS: Normal heart rate and rhythm. Pulses normal. Normal S1 and S2 Respiratory: No respiratory distress. Breath sounds normal. No Wheezing. No rales Abdomen: Soft, reports tenderness to palpation in the right lower quadrant, no rebound or guarding, negative point of the McBurney's point, negative Aj's sign, no CVA tenderness bilaterally Skin: Skin warm and dry. Normal skin color. Normal skin turgor. Extremities: No lower extremity edema. No Lacerations. No Rash Neuro: Oriented X 3. No motor deficit. No sensory deficit. Moving all extremities. No slurred speech. CN 2 through 12 grossly intact Psych: calm, cooperative, normal affect Vital Signs: Vital Signs - 24 hr 06/15/25 22:18 06/15/25 23:50 06/16/25 02:06 Temperature 97.9 F 97.7 F 98.1 F Pulse Rate 71 64 67 Respiratory Rate 17 17 Blood Pressure 164/98 H 136/75 130/79 Pulse Oximetry 100 99 98 Oxygen Delivery Method Room Air Room Air Room Air BMI result Body Mass Index 23.9 Course Course Course Narrative: Patient reports of right lower quadrant pain radiating towards the back, and right lower quadrant pain drinking dating towards the right testicle. Denies testicular or scrotal pain or swelling. Reporting 1 episode of nausea/vomiting, no diarrhea, no fever chills. All of patient's labs and imaging pending. Patient receiving Zofran and ketorolac Medical Decision Making Medical Decision Making [facility] Narrative: My interpretation of labs: Patient's white blood cell count 8.0. However, the WBC count is higher than patient's usual baseline of less than 4. No abnormality in patient's chemistry, normal magnesium, normal LFT other than slightly bumped AST at 63, normal lipase. Urinalysis positive for blood in the urine and leukocyte esterase and WBCs, no bacteria. CT scan: Calculus at the right ureteropelvic junction. The approximate size of the calculus is 8 mm I discussed the above-mentioned with the patient. With the 8 mm stone, it is possible that the kidney stone may not pass by itself and may need urologic intervention. Patient will follow-up with urology. Here in the ED, patient received IV ketorolac, patient has seemed to have good pain relief. No longer nauseous or vomiting. Patient was given a prescription for p.o. prednisone, tamsulosin, ketorolac. I discussed with the patient that tramadol should would only be used in case that he does not have pain relief we had ketorolac. Differential Diagnosis Differential Diagnoses: The differential diagnosis associated with the presentation includes (Ureterolithiasis, pyelonephritis, renal colic, musculoskeletal pain) Admission/Observation Consideration of admission/observation: Escalation of care including admission/observation considered (Given patient's history and pain discomfort, observation was considered) Lab Data [facility] Lab Attestation statement: I reviewed the patient's lab results. 06/15/25 22:59 06/15/25 22:59 Labs: Lab Results 06/15/25 06/16/25 Range/Units 22:59 02:20 WBC 8.0 (4.8-10.8) X10*3/uL RBC 4.36 L (4.60-5.80) X10*6/uL Hgb 13.5 L (14.0-18.0) g/dl Hct 37.2 L (42.0-52.0) % MCV 85.3 (80.0-98.0) fL MCH 31.0 (27.0-33.0) pg MCHC 36.3 H (31.0-36.0) g/dl RDW 12.5 (11.0-16.0) % Plt Count 169 (160-400) X10*3/uL MPV 10.3 (9.4-12.4) fL Immature Gran % (Auto) 0.2 (0.0-0.4) % Neut % (Auto) 86.6 H (45-73) % Lymph % (Auto) 9.0 L (20-40) % Beauregard % (Auto) 3.6 (2-11) % Eos % (Auto) 0.1 (0-4) % Baso % (Auto) 0.5 (0-2) % Lymph # (Auto) 0.7 L (1.2-4.9) X10*3/uL Beauregard # (Auto) 0.3 (0.1-1.2) X10*3/uL Eos # (Auto) 0.0 (0.0-0.4) X10*3/uL Baso # (Auto) 0.0 (0.0-0.2) X10*3/uL Abs Immat Gran (auto) 0.02 (0.00-0.03) X10*3/uL Absolute Neuts (auto) 6.9 (2.0-8.3) x10*3/uL Absolute Nucleated RBC 0.000 (0.0-0.012) X10*3/uL Nucleated RBC % (auto) 0.0 (0.0-0.2) /100WBC Sodium 142 (135-145) mmol/L Potassium 4.0 (3.3-5.1) mmol/L Chloride 107 (96-108) mmol/L Carbon Dioxide 28 (22-29) mmol/L Anion Gap 11 L (12-20) BUN 12 (9-16) mg/dL Creatinine 0.84 (0.5-1.4) mg/dL Estim Creat Clear Calc 116.9 Estimated GFR > 60 Random Glucose 103 (60-115) mg/dL Calcium 8.9 (8.4-10.2) mg/dL Magnesium 2.1 (1.6-2.6) mg/dL Total Bilirubin 0.6 (0.0-1.0) mg/dL Direct Bilirubin 0.2 (0.0-0.5) mg/dL AST 63 H (5-37) U/L ALT 25 (0-40) U/L Alkaline Phosphatase 52 (39-117) U/L Total Protein 7.8 (6.5-8.0) g/dL Albumin 4.2 (3.5-5.0) g/dL Lipase 22 (8-78) U/L Urine Color Leslie A Urine Appearance Clear Urine pH >= 9.0 (5.0-9.0) Ur Specific Rome >= 1.030 H (1.005-1.025) Urine Protein 30 (1+) H (Neg-Trace) mg/dL Urine Glucose (UA) Negative (Negative) mg/dL Urine Ketones Negative (Negative) mg/dL Urine Blood Large (3+) H (Negative) Urine Nitrite Negative (Negative) Ur Leukocyte Esterase Trace H (Negative) Urine RBC >20 H (0-2) /HPF Urine WBC 6-10 H (0-5) /HPF Ur Squamous Epith Cells 0-2 (0-2) /HPF Urine Bacteria None Seen (None Seen) Hyaline Casts 0-2 (0-2) /LPF Independent Interpretation I performed an independent interpretation of an: CT Scan Radiology Impression Discussion of test interpretation with radiology: I have reviewed the radiologist's reading. Radiologist Impression: Normal liver. Normal spleen. Calculus measuring 8 mm at the right ureteropelvic junction. Mild right hydronephrosis. Nonobstructing bilateral renal calculi. Subcentimeter hypodensity in the left kidney, too small to accurately characterize. Normal adrenal glands. Normal pancreas. No visible cholelithiasis. No biliary dilation. Large stool in the rectum, which measures up to 8.3 cm in diameter. No mucosal thickening or pneumatosis. No evidence of small bowel obstruction. Normal appendix. Unremarkable bladder. No ascites. No pneumoperitoneum. No lymphadenopathy. No acute fracture. No abdominal aortic aneurysm. IMPRESSION: Calculus at the right ureteropelvic junction. Mild right hydronephrosis. Suspected fecal impaction. Medications Administered Discontinued Medications Generic Name Dose Route Start Last Admin Trade Name Freq PRN Reason Stop Dose Admin Iohexol 85 ml 06/16/25 00:29 06/16/25 00:30 Iohexol 350 Mg/Ml 100 Ml Infus..Btl IV 06/16/25 00:30 85 ml ONCE ONE Administration Ketorolac Tromethamine 30 mg 06/15/25 22:49 06/15/25 23:12 Ketorolac Tromethamine 30 Mg/Ml Vial IVPUSH 06/15/25 22:50 30 mg ONCE ONE Administration Ondansetron HCl 4 mg 06/15/25 22:49 06/15/25 23:12 Ondansetron Hcl 4 Mg/2 Ml Vial IVPUSH 06/15/25 22:50 4 mg ONCE ONE Administration Critical Care Time Critical Care Time Critical Care Time: Yes Total Critical Care Time: 35 Attestation: I have personally provided critical care time. Time includes review of lab data, radiology results, discussion with consultants, and monitoring for potential decompensation. Intervention performed as documented. Discharge Plan Discharge Clinical Impression: Ureterolithiasis Patient Disposition: Home, Self-Care Instructions: How to Strain Your Urine (ED), Ureteral Stones (ED) Additional Instructions: If you have any worsening or new symptoms, please return to the emergency room or call 911 [facility] will be contacting you within 2 business?days after being discharged from the Emergency?Department.? During this?phone call, they will inform you when your follow up appointment will be scheduled. If you have not received a call from [facility] after 2 business?days, please call the?office at [phone]. Prescriptions: New cefuroxime axetil 250 mg tablet 250 mg PO BID Qty: 14 0RF prednisone 10 mg tablet 10 mg PO DAILY Qty: 2 0RF ketorolac 10 mg tablet 10 mg PO TID PRN (Reason: pain) 5 Days Qty: 15 0RF Rx Instructions: Do not use this medication with NSAIDs, only Tylenol if needed tamsulosin 0.4 mg capsule 0.4 mg PO BEDTIME Qty: 14 0RF tramadol 50 mg tablet 50 mg PO BID PRN (Reason: pain) Qty: 6 0RF Rx Instructions: Avoid using this medication. Only use if you do not have pain relief with ketorolac No Action metoprolol succinate 25 mg tablet extended release 24 hr 25 mg PO DAILY Qty: 90 3RF budesonide-formoterol 160-4.5 mcg/actuation HFA aerosol inhaler 2 puff inhalation BID 30 Days Qty: 10.2 11RF fluticasone propion-salmeterol [Advair HFA] 115-21 mcg/actuation HFA aerosol inhaler 2 puff inhalation Q12H 30 Days Qty: 12 11RF midodrine 5 mg tablet 5 mg PO TID pyridostigmine bromide 60 mg tablet 60 mg PO TID fludrocortisone 0.1 mg tablet 0.2 mg PO DAILY pregabalin 50 mg capsule 50 mg PO TID albuterol sulfate 90 mcg/actuation HFA aerosol inhaler inhalation Referrals: Aaron Sweeney MD [Physician, Urology] Print Language: Uruguayan
[2025-06-15 23:04] LABS: MANUAL DIFF FLAG NO
[2025-06-15 23:09] LABS: Hematocrit 37.2 % (42.0-52.0); Hemoglobin 13.5 g/dl (14.0-18.0); Imm Gran Abs Auto 0.02 X10*3/uL (0.00-0.03); Imm Gran Pct Auto 0.2 % (0.0-0.4); Lymphocytes Absolute Auto 0.7 X10*3/uL (1.2-4.9); Mean Corpuscular HGB Conc 36.3 g/dl (31.0-36.0); Mean Corpuscular Hemoglobin 31.0 pg (27.0-33.0); Mean Corpuscular Volume 85.3 fL (80.0-98.0); NRBC Abs Auto 0.000 X10*3/uL (0.0-0.012); NRBC Pct Auto 0.0 /100WBC (0.0-0.2); Platelet Count 169 X10*3/uL (160-400); Red Blood Count 4.36 X10*6/uL (4.60-5.80); White Blood Count 8.0 X10*3/uL (4.8-10.8)
--- NOTE | 2025-06-15 23:20 | PC.NURSE ---
20gIV placed in the left AC - medications administered per provider order. effectiveness pending. pt waiting for CT scan to be completed at this time. plan of care ongoing. call armas placed within reach.
[2025-06-15 23:22] LABS: Alanine Aminotransferase 25 U/L (0-40); Albumin Level 4.2 g/dL (3.5-5.0); Alkaline Phosphatase 52 U/L (39-117); Anion Gap 11 (12-20); Aspartate Amino Transferase 63 U/L (5-37); Blood Urea Nitrogen 12 mg/dL (9-16); Calcium 8.9 mg/dL (8.4-10.2); Carbon Dioxide 28 mmol/L (22-29); Chloride 107 mmol/L (96-108); Creatinine Clr Calc Pharmacy 116.9; Estimated Glomerular Filt Rate > 60; Lipase 22 U/L (8-78); Magnesium 2.1 mg/dL (1.6-2.6); Potassium 4.0 mmol/L (3.3-5.1); Sodium 142 mmol/L (135-145); Total Protein 7.8 g/dL (6.5-8.0)
[2025-06-15 23:50] VITALS: BP 136/75; PULSE 64; TEMP 36.5; O2SAT 99
[2025-06-16] MEDS: iohexoL 350 MG/ML 100 ML INFUS..BTL 85 ML IV (00:30)
--- NOTE | 2025-06-16 00:41 | PC.NURSE ---
pt returned from CT at this time. pt verbalizes pain level decreased s/p previous medication administration. pt otherwise has no complaints at this time. pending CT scan results. plan of care ongoing. call armas placed within reach.
[2025-06-16 02:06] VITALS: BP 130/79; PULSE 67; RESP 17; TEMP 36.7; O2SAT 98
--- NOTE | 2025-06-16 02:20 | PC.NURSE ---
urine specimen obtained/sent to lab.
[2025-06-16 02:56] LABS: Appearance Urine Clear; Glucose Urine UA Negative (Negative); PH >= 9.0 (5.0-9.0); Specific Gravity - Urine >= 1.030 (1.005-1.025); UACC Culture Trigger YES; UMIC TRIGGER UACC YES
[2025-06-16 03:21] VITALS: BP 130/79; PULSE 67; RESP 17; TEMP 36.7; O2SAT 98
== END 2025-06-16 03:21 | disposition home or self-care (01) ==
PROVIDERS: Emergency Provider Emergency Medicine; PCP Internal Medicine
DX: R10.31 Right lower quadrant pain (principal); N20.1 Calculus of ureter; R11.2 Nausea with vomiting, unspecified
CPT/HCPCS: 36415; 74177; 80048; 81001; 82248; 83690; 83735; 85025; 87086; 96374; 99284; 99285; J1885; J2405; Q9967

== ENCOUNTER → 2025-06-16 | Outpatient (BNV) | payer MEDICARE, MEDICAID, SELFPAY | PROVIDERS: Emergency Provider Emergency Medicine; PCP Internal Medicine; Visit Provider Radiology Diagnostic Radiology | DX: N20.1 Calculus of ureter (principal) | CPT/HCPCS: 74177 ==

== ENCOUNTER 2025-06-17 13:26 | Outpatient (AMB) | payer MEDICARE, MEDICAID, SELFPAY ==
--- NOTE | 2025-06-17 13:28 | MHC.OFFVIS ---
Intake Visit Reasons: H&P Right ESWL Intake Note: New Patient is present for H&P ESWL Urology Rx:tamsulosin Blood Thinners:none Imaging completed: 06/16/25 Aerospace Stress Engineer Required: No Accompanied by: Self / Same As Patient Allergies buspirone (From BuSpar) Allergy (Severe, Verified 06/17/25 13:29) Dizziness and Leg Weakness sertraline (From ZOLOFT) Adverse Reaction (Intermediate, Verified 06/17/25 13:29) NAUSEA & VOMITING methylprednisolone (From Solu-Medrol) Adverse Reaction (Mild, Verified 06/17/25 13:29) Agitated trazodone (TRAZODONE) Adverse Reaction (Unknown, Verified 06/17/25 13:29) VOMITING HPI Comments Details: Ace is pleasant male. He is a patient of Dr. Yousif. He is seen for the following urologic conditions - nephrolithiasis Telemedicine Evaluation 15 min Consultation Thinkful Zhou Video Plan for right side ESWL Does have autonomic dysfunction proven with Vaughan-Kalpesh assessment On fludrocortisone, midodrine, pyridostigmine Nephrolithiasis Ace presents for - initial evaluation for nephrolithiasis, Initial presentation through emergency room Presenting symptoms included flank pain progressive right side Imaging - 07/04 CT Calculus measuring 8 mm at the right ureteropelvic junction. Mild right hydronephrosis. Nonobstructing bilateral renal calculi. Laboratory investigations - creatinine 0.84, calcium 8.9 Stone composition - unknown 24 hour urine evaluation - none on file Interventions - none Current therapeutic plan - right ESWL REPLACED BY [facility] Medical History URI (upper respiratory infection) Urinary retention Other inflammatory polyneuropathies Gastritis Pleuritis Pneumonia Bilateral calf pain Pleural effusion MARYANN (obstructive sleep apnea) Has daytime drowsiness Vitamin D deficiency Viry's disease Hypoglycemia Dizziness GERD (gastroesophageal reflux disease) Small fiber neuropathy Mccallum disease PTSD (post-traumatic stress disorder) Nocturnal hypoxemia Tachycardia Autonomic dysfunction Asthma Surgical History History of wisdom tooth extraction Family History Mother Asthma Celiac disease/sprue Father Psoriasis Social History (Reviewed 03/08/25 @ 10:42 by LILY Chaves Alcohol intake: never Years Smoked: 1 year Substance Use Type: Marijuana Advance Directives Date on File: 09/16/18 Review of Systems Const All systems reviewed & are unremarkable except as noted in HPI and below Reports no additional complaints Resp Reports no additional complaints GI Reports no additional complaints Reports as per HPI Musc Reports no additional complaints Physical Exam Telemedicine evaluation Appropriate responses Regular breathing rate and rhythm HEENT Head: Yes normal to inspection Ears: hearing grossly normal bilaterally Eyes General: appearance normal, both eyes and all related structures Neck Neck: Yes normal visual inspection Chest Chest palpation & inspection: normal inspection of the chest Resp Effort & Inspection: normal respiratory effort and able to speak in complete sentences Telehealth Telehealth Telehealth Platform: Thinkful Location of provider rendering services: practice address Location of patient: address on file Patient Identification confirmed using: Name, : Yes Telehealth method: video Patient verbally consented to treatment: Yes Patient verbally consented to billing insurance company: Yes Patient informed of any privacy concerns related to visit: Yes Minutes spent on Phone/Video with Pt.: 15 Assessment & Plan Assessment & Plan (1) Bilateral nephrolithiasis: Code(s): N20.0 - Calculus of kidney Category: Medical Plan Extracorporeal Shock Wave Lithotripsy We discussed the nature of the decision and reasonable alternatives for performing the above surgery. Interventions include chemical dissolution, ESWL, ureteroscopy with laser lithotripsy and stent placement, PCNL. Options such as medical therapy were discussed. The relative uncertainties and benefits related to each alternate procedure were adequately discussed. General surgical risks including, but not limited to, pain, bleeding, infection, myocardial infarction, pulmonary embolus, deep vein thrombosis and cerebrovascular accident which may result in further hospitalization were discussed. Full disclosure of the procedure as well as all major risks, benefits and complications were discussed including but not limited to risks of bleeding, injury to the kidney with hematoma or melina-hematoma, failure to fragments stone, potential for ureteric obstruction from stone passage and need for secondary procedures. There is a small long-term risk of hypertension and a question leo of diabetes. Success rate of fragmentation and passage is approximately 70- 75%. This is compared to the risks and benefits for ureteroscopy which has a higher success rate but is a more invasive procedure. The success rate of the procedure was discussed. Success of the procedure in the short-term does not necessarily guarantee that long-term success will be maintained. Suitable follow up will need to be maintained. The patient showed understanding of the discussion as well as the typical recovery time, and the outpatient nature of this procedure. Opportunity was given for questions. Repeat-back protocol used to confirm understanding. They wish to proceed with right ESWL Patient Instructions: This note is constructed using voice recognition software. While every effort has been made to ensure accuracy drop machine operator errors may have been included. Imaging studies, laboratory and physical exam results were discussed and reviewed in detail. No major barriers to patient understanding were identified. An opportunity to ask questions regarding the treatment plan was provided. All questions were answered. The patient expressed understanding and agreement with the above treatment plan. The patient is aware they should contact our office by phone for worsening of their current condition or the appearance of new urologic symptoms. Compliance is encouraged with any medications and followup testing that is ordered. It is a privilege to participate in the urologic care of your patient. If you have any questions or concerns regarding treatment for the above conditions, or other urologic issues, please do not hesitate to contact me. The office telephone contact is [phone]. Sincerely, Dr Aaron Sweeney MD, [facility] - Urology Compassionate Specialist Care for the Genitourinary System Coding Level of Care Code Tele New Pt Level 4 (27956) Diagnoses Bilateral nephrolithiasis N20.0
--- OUTSIDE RECORDS SUMMARY | 2025-06-17 13:28 | XMS_ITS | Patient Health Record ---
[facility] Address [address] [place] [address] Care Team Providers Care Sports Nutritionist Name Role Phone Waleska COOPER, [facility] Primary Care Provi garret Vinayak Vital Unavailable [phone] Allergies Allergen (clinical drug ingredient) Drug/Non Drug Allergy documented on EMR Reaction Allergy Type Onset Date Status trazodone Trazodone vomiting Drug Allergy Active Reason For Referral No Information Medications Medication SIG (Take, Route, Frequency, Duration) Notes Start Date End Date Status Fludrocortisone Acetate 0.1 MG Oral; Duration: 60 Active diazePAM 10 MG Oral; Duration: 30 Active Spiriva Respimat 2.5 MCG/ACT Inhalation; Duration: 30 Active Metoprolol Succinate ER 25 MG Oral; Duration: 60 Active Midodrine HCl 2.5 MG Oral; Duration: 30 Active Pregabalin 50 MG Oral; Duration: 30 Active Nortriptyline HCl 10 MG Oral; Duration: 30 Active Immunizations Vaccine Route Administration Date [...] Problem Status W/U Status Risk Notes Problem Acquired hammer toe of left foot ([id number] ) Hammertoe of left foot (M20.42) Active confirmed Problem Acquired hammer toe of right foot ([id number] ) Hammertoe of right foot (M20.41) Active confirmed Problem Mitochondrial disease (641815899) 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 Problem 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 Plan Of Treatment Pending Test Test Name Order Date X ray : Foot, left 2V 02/26/2022 X ray : Foot, right 2V 02/26/2022 [id number] OF HEMATOMA/FLUID 022 Insurance Providers Payer Name Payer Address Payer Phone Subscriber Number Group Number Insured Name Patient Relationship to Insured Coverage Start Date Coverage End Date [facility] [address] [place] [address] [id number] Ace Casas Self - patient is the insured Medical (General) History Medical History History ICD Code asthma Numbness Poor circulation Psychiatric disorder Reflux Autoimmune disorder-Small Fo guillermina Neuropathy/Dysantonomia Involving Sensory System and Autonomic Dysfunction Surgical History Surgery Date(Month/Year)
== END 2025-06-17 13:59 | disposition home or self-care (01) ==
LOC: HO.HUSH 13:27
PROVIDERS: PCP Internal Medicine; Visit Provider Urology
DX: N20.0 Calculus of kidney (principal)
CPT/HCPCS: 99204

== ENCOUNTER 2025-06-29 09:09 | Day surgery (SDC) | payer MEDICARE, MEDICAID, SELFPAY ==
--- OUTSIDE RECORDS SUMMARY | 2025-06-21 12:15 | XMS_ITS | Patient Health Record ---
[facility] Address [address] [place] [address] Care Team Providers Care Coater Helper Name Role Phone Waleska COOPER, [facility] Primary [facility] Provi garret Vinayak Vital Unavailable [phone] Allergies Allergen (clinical drug ingredient) Drug/Non Drug [...] Problem Acquired hammer toe of left foot (6773995041780470 ) Hammertoe of left foot (M20.42) Active confirmed Problem Acquired hammer toe of right foot (7988009442603065 ) Hammertoe of right foot (M20.41) Active confirmed Problem Mitochondrial disease (502825435) 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 Problem 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 Plan Of Treatment Pending Test Test Name Order Date X ray : Foot, left 2V 02/26/2022 X ray : Foot, right 2V 02/26/2022 [id number] OF HEMATOMA/FLUID 022 Insurance Providers Payer Name Payer Address Payer Phone Subscriber Number Group Number Insured Name Patient Relationship to Insured Coverage Start Date Coverage End Date [facility] [address] [place] [address] [phone] [id number] Ace Casas Self - patient is the insured Medical (General) History Medical History History ICD Code asthma Numbness Poor circulation Psychiatric disorder Reflux Autoimmune disorder-Small Fo guillermina Neuropathy/Dysantonomia Involving Sensory System and Autonomic Dysfunction Surgical History Surgery Date(Month/Year)
[2025-06-23 13:36] VITALS: BMI 22.9
[2025-06-23 13:44] VITALS: BP 148/90; PULSE 68; RESP 16; O2SAT 98
--- NOTE | 2025-06-23 13:57 | HO.ANESPROP2 ---
Documented by User: Jillian Terrell NP 06/28/25 10:28 HPI - Anesthesia Eval Consult details Narrative: 34yo M for Right Lithotripsy ESW, 06/29/25 Steroid exposure: Florinef 0.2mg daily Pulmo optimized. Follows [facility] pulmo for asthma Follows [facility] cardiology for POTS. 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 Reassured as patient has been stable on current regimen, fully monitored by anesthesia with maintaining stable VS throughout procedure, supplemental oxygen throughout sedation, consideration to stress response of procedure/anesthesia. Pt verbalized understanding and satisfaction with plan. [facility] Active Problems Active Problems: All Active Problems Bilateral nephrolithiasis (Acute) COVID-19 (Acute) Dyspnea (Acute) Chest pain (Acute) LEEANNA positive (Acute) SOB (shortness of breath) (Acute) Polyarthralgia (Acute) URI (upper respiratory infection) (Acute) Urinary retention (Acute) Other inflammatory polyneuropathies (Acute) Hypoglycemia (Acute) Gastritis (Acute) Pleuritis (Acute) Pneumonia (Acute) Bilateral calf pain (Acute) Pleural effusion (Acute) MARYANN (obstructive sleep apnea) (Acute) Has daytime drowsiness (Acute) Nocturnal hypoxemia (Acute) Tachycardia (Acute) Autonomic dysfunction (Acute) Asthma (Acute) Past Medical History Medical History URI (upper respiratory infection) Urinary retention Other inflammatory polyneuropathies Gastritis Pleuritis Pneumonia Bilateral calf pain Pleural effusion MARYANN (obstructive sleep apnea) Has daytime drowsiness Vitamin D deficiency Viry's disease Hypoglycemia Dizziness GERD (gastroesophageal reflux disease) Small fiber neuropathy Mccallum disease PTSD (post-traumatic stress disorder) Nocturnal hypoxemia Tachycardia Autonomic dysfunction Asthma Family History Family History Mother Asthma Celiac disease/sprue Father Psoriasis Family history of problems with anesthesia: No (Unsure if mom had adverse reaction. Will obtain info before DOS) Surgical History Surgical History Hx of colonoscopy (~2017) History of wisdom tooth extraction (~2007) History of Problems with Anesthesia: No Social History Social History Are you a primary foster care social worker to a significant other at home: No Do you presently have visiting nurse or other home services: No Alcohol intake: never Patient Tobacco Use Status: Former Tobacco user Tobacco use type: Cigarette Years Smoked: 1 year Use of substances other than those prescribed or required for medical reasons: No Substance Use Type: Marijuana Have you been hit, kicked, punched, or otherwise hurt by someone within the past year? If so, by whom?: No Are you DNR?: No Advance Directives: No Advance Directives Information Provided: Yes Advance Directives on File: No Advance Directives Date on File: 09/16/18 Poor oral hygiene: No Meds Allergies Allergy/AdvReac Type Severity Reaction Status Date / Time buspirone (From BuSpar) Allergy Severe Dizziness Verified 06/29/25 09:31 and Leg Weakness sertraline (From ZOLOFT) AdvReac Intermediate NAUSEA & Verified 06/29/25 09:31 VOMITING methylprednisolone (From AdvReac Mild Agitated Verified 06/29/25 09:31 Solu-Medrol) trazodone (TRAZODONE) AdvReac Unknown VOMITING Verified 06/29/25 09:31 Home Medications ?Medication ?Instructions ?Recorded ?Confirmed ?Last Taken ?Type fludrocortisone 0.1 mg tablet 0.2 mg PO DAILY 08/16/23 06/23/25 06/29/25 08:50 History midodrine 5 mg tablet 5 mg PO TID 08/16/23 06/23/25 06/29/25 08:50 History pregabalin 50 mg capsule 50 mg PO TID 08/16/23 06/23/25 06/29/25 08:50 History pyridostigmine bromide 60 mg tablet 60 mg PO TID 08/16/23 06/23/25 06/29/25 08:50 History albuterol sulfate 90 mcg/actuation inhalation Q4-6H PRN Shortness Of 01/09/24 01/25/25 Unknown History aerosol inhaler Breath Or Wheezing naltrexone 6 mg PO DAILY 06/23/25 06/23/25 Unknown History Exam Height,Weight and Vital Signs: Height 5 ft 9 in Weight 70.4 kg Last Vital Signs Pulse 68 06/23/25 13:44 Resp 16 06/23/25 13:44 BP 148/90 H 06/23/25 13:44 Pulse Ox 98 06/23/25 13:44 O2 Del Method Room Air 06/23/25 13:44 Pertinent Lab Results Pertinent Lab Results: Laboratory Tests 06/15/25 22:59 WBC 8.0 Hgb 13.5 L Hct 37.2 L Plt Count 169 Sodium 142 Potassium 4.0 Chloride 107 Carbon Dioxide 28 BUN 12 Creatinine 0.84 Narrative Narrative: EKG 01/2025 EKG Details: EKG shows normal sinus rhythm with normal EKG Airway Mallampati Class: II TM Dist: >3cm Neck ROM: Full Loose/Missing/Broken Teeth: No Heart: RRR Lungs: CTAB Assessment and Plan Assessment Anesthesia Assessment: Anesthesia Plan Discussed and PAT Visit Final Anesthetic Review Family History of Problems with Anesthesia: No (Unsure if mom had adverse reaction. Will obtain info before DOS) History of Problems with Anesthesia: No Documented by User: Brenna Zapata MD 06/29/25 10:36 [facility] Past Medical History Medical History URI (upper respiratory infection) Urinary retention Other inflammatory polyneuropathies Gastritis Pleuritis Pneumonia Bilateral calf pain Pleural effusion MARYANN (obstructive sleep apnea) Has daytime drowsiness Vitamin D deficiency Viry's disease Hypoglycemia Dizziness GERD (gastroesophageal reflux disease) Small fiber neuropathy Mccallum disease PTSD (post-traumatic stress disorder) Nocturnal hypoxemia Tachycardia Autonomic dysfunction Asthma Family History Family History Mother Asthma Celiac disease/sprue Father Psoriasis Surgical History Surgical History Hx of colonoscopy (~2016) History of wisdom tooth extraction (~2007) Social History Social History Are you a primary foster care social worker to a significant other at home: No Do you presently have visiting nurse or other home services: No Alcohol intake: never Patient Tobacco Use Status: Former Tobacco user Tobacco use type: Cigarette Years Smoked: 1 year Use of substances other than those prescribed or required for medical reasons: No Substance Use Type: Marijuana Have you been hit, kicked, punched, or otherwise hurt by someone within the past year? If so, by whom?: No Are you DNR?: No Advance Directives: No Advance Directives Information Provided: Yes Advance Directives on File: No Advance Directives Date on File: 09/16/18 Poor oral hygiene: No Meds Allergies Allergy/AdvReac Type Severity Reaction Status Date / Time buspirone (From BuSpar) Allergy Severe Dizziness Verified 06/29/25 09:31 and Leg Weakness sertraline (From ZOLOFT) AdvReac Intermediate NAUSEA & Verified 06/29/25 09:31 VOMITING methylprednisolone (From AdvReac Mild Agitated Verified 06/29/25 09:31 Solu-Medrol) trazodone (TRAZODONE) AdvReac Unknown VOMITING Verified 06/29/25 09:31 Home Medications ?Medication ?Instructions ?Recorded ?Confirmed ?Last Taken ?Type fludrocortisone 0.1 mg tablet 0.2 mg PO DAILY 08/16/23 06/23/25 06/29/25 08:50 History midodrine 5 mg tablet 5 mg PO TID 08/16/23 06/23/25 06/29/25 08:50 History pregabalin 50 mg capsule 50 mg PO TID 08/16/23 06/23/25 06/29/25 08:50 History pyridostigmine bromide 60 mg tablet 60 mg PO TID 08/16/23 06/23/25 06/29/25 08:50 History albuterol sulfate 90 mcg/actuation inhalation Q4-6H PRN Shortness Of 01/09/24 01/25/25 Unknown History aerosol inhaler Breath Or Wheezing naltrexone 6 mg PO DAILY 06/23/25 06/23/25 Unknown History Assessment and Plan Assessment Anesthesia Assessment: Chart Reviewed Final Anesthetic Review NPO: Yes ASA Class: III Final Preanesthetic Review: No Changes in Pt Med Stat, Meds/Allgs Chart Reviewed, Consent Obtained/Reviewed and Anes Risks/Benef Reviewed Patient Risk: Intermediate Procedure Risk: Low Anesthetic Plan Anesthetic Plan: MAC: Disposition: Standard PACU
--- NOTE | ~2025-06-29 | XR_ITS ---
EXAMINATION: XR ABDOMEN KUB CLINICAL INDICATION: stones COMPARISON: Correlated to CT abdomen pelvis dated June 16, 2025 TECHNIQUE: AP view of the abdomen. FINDINGS: Punctate calcifications overlapping the right kidney shadow the largest measures 4.6 mm. There is a 3 mm calcification overlapping the left kidney shadow. Abundant stool large intestine. No air-fluid levels. No intestinal dilatation. No intestinal obstruction pattern. Prominent right transverse process of L5 articulating with the sacrum. Rudimentary ribs at T12. S-shaped curvature of the thoracolumbar spine. XR/XR KUB IMPRESSION: Bilateral nephrolithiasis. Please refer to the CT abdomen and pelvis on June 16, 2025. 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 Electronically signed by: Lb Mak MD 06/29/2025 09:35 AM EDT
--- NOTE | 2025-06-29 09:36 | MHC.SHP ---
Pre-Procedural Eval Section A - 24 Hr Update-Section A only Date of Service: 06/29/25 The patient is an INPATIENT: No Changes since office visit: No Cold of Flu in the past 2 weeks, No New Medical Problems, No Changes in Medication and No Patient answered all questions The patient has been examined within 24 hours of the surgical procedure. The History & Physical has been completed within 30 days and I have reviewed it.: Yes Section B - Complete if H&P > 30 days Chief Complaint: Calculus of kidney Details of Present Illness: right renal stone Allergies: Allergies Allergy/AdvReac Type Severity Reaction Status Date / Time buspirone (From BuSpar) Allergy Severe Dizziness Verified 06/29/25 09:31 and Leg Weakness sertraline (From ZOLOFT) AdvReac Intermediate NAUSEA & Verified 06/29/25 09:31 VOMITING methylprednisolone (From AdvReac Mild Agitated Verified 06/29/25 09:31 Solu-Medrol) trazodone (TRAZODONE) AdvReac Unknown VOMITING Verified 06/29/25 09:31 Plan I have reviewed the history and physical and performed a pertinent physical examination on my patient. No changes have occurred unless specified. Time Spent With Patient Time: Total time managing care of this patient today ____ minutes.
[2025-06-29 09:46] VITALS: BP 150/94; PULSE 69; RESP 15; TEMP 36.3; O2SAT 100
[2025-06-29] MEDS: Lactated Ringers 1,000 ML 999 ML IV (09:50)
--- NOTE | 2025-06-29 10:32 | W.PM.OPN ---
Operative Note Operative Note Date of Service: 06/29/25 Narrative: PreOperative Diagnosis: right Renal stones Post Operative Diagnosis: right Renal stones Procedure: right ESWL Surgeon: Dr Aaron Sweeney Anesthesia: mac/sedation Indications for procedure: The patient understands ESWL may be a staged procedure and subsequent intervention may be required based on imaging after ESWL. Quoted stone clearance rates for a solitary procedure are in the 70-80% range based primarily on stone location. They also understand there is a risk of bleeding to the kidney, infection, damage to adjacent organs, and stone migration following the procedure. - Imaging 8mm right lower pole Procedure optimization has been performed with IV acetaminophen given in the holding area and 1 L of lactated Ringer's to be given in order to optimize the fluid-stone interface. 20 mg of IV Lasix will be given in the last 5 minutes of the procedure to optimize stone clearance. Procedure: After informed consent was verified the patient was brought to the operating room and placed in a supine position. Anesthesia was performed per protocol. Safety pause time-out was performed. Imaging was displayed in the room and laterality confirmed. ESWL was performed. The 1st 500 shocks were performed at 60 hertz. These were performed with increasing power. Once maximum power was reached the rate was increased to 180 hertz. A total of 2500 shocks were given. Targeted imaging with ultrasound/fluoroscopy showed stone smudging suggestive of disintegration. The patient tolerated the procedure well and was transferred to the recovery area upon completion. Post procedure imaging will be organized. There was no evidence for flank discoloration.
[2025-06-29 10:38] VITALS: BP 129/89; PULSE 78; RESP 16; TEMP 36.4; O2SAT 96
[2025-06-29 10:53] VITALS: BP 131/84; PULSE 61; RESP 16; O2SAT 98
[2025-06-29 11:08] VITALS: BP 137/90; PULSE 69; RESP 16; TEMP 36.1; O2SAT 98
== END 2025-06-29 13:13 | disposition home or self-care (01) ==
PROVIDERS: PCP Internal Medicine; Visit Provider Urology
PROC: (CPT 50590; principal; 2025-06-29 11:00)
DX: N20.0 Calculus of kidney (principal); N13.30 Unspecified hydronephrosis; R33.9 Retention of urine, unspecified; N31.2 Flaccid neuropathic bladder, not elsewhere classified; E55.9 Vitamin D deficiency, unspecified; E06.3 Autoimmune thyroiditis; J90 Pleural effusion, not elsewhere classified; K21.9 Gastro-esophageal reflux disease without esophagitis; A18.01 Tuberculosis of spine; R00.0 Tachycardia, unspecified; E16.2 Hypoglycemia, unspecified; G47.36 Sleep related hypoventilation in conditions classified elsewhere; J45.909 Unspecified asthma, uncomplicated; G47.33 Obstructive sleep apnea (adult) (pediatric); Z79.899 Other long term (current) drug therapy; Z88.8 Allergy status to other drugs, medicaments and biological substances; Z87.891 Personal history of nicotine dependence
CPT/HCPCS: 50590; 74018; J0131; J1885; J1938; J2003; J2405; J2704; J3010

== ENCOUNTER → 2025-06-29 09:09 | Outpatient (BNV) | payer MEDICARE, MEDICAID, SELFPAY | PROVIDERS: PCP Internal Medicine; Visit Provider Urology | DX: N20.0 Calculus of kidney (principal) | CPT/HCPCS: 50590 ==

== ENCOUNTER → 2025-06-29 09:12 | Outpatient (BNV) | payer MEDICARE, MEDICAID, SELFPAY | PROVIDERS: PCP Internal Medicine; Visit Provider Radiology Diagnostic Radiology | DX: N20.0 Calculus of kidney (principal) | CPT/HCPCS: 74018 ==

== ENCOUNTER 2025-06-30 09:05 | Inpatient (IN) | payer MEDICARE, MEDICAID, SELFPAY ==
[2025-06-30] VITALS (16 sets, daily range): BP systolic 125–153; BP diastolic 74–108; PULSE 78–106; RESP 14–20; TEMP 36.1–36.7; O2SAT 95–99; BMI 23.0; BMI 23.2; BMI 23.3
--- NOTE | ~2025-06-30 | CT_ITS ---
EXAMINATION: CT ANGIOGRAM CHEST CLINICAL INFORMATION: Right-sided pain following a procedure COMPARISON: January 08, 2021 TECHNIQUE: Multiple axial images were obtained through the chest after the administration of 85 mL of Omnipaque 350 intravenous contrast. Extensive vascular post-processing including two-dimensional and three-dimensional reformatted images were created and reviewed on an independent workstation. This CT examination was performed using dose optimization techniques as appropriate, variously including the following: *Automated exposure control *Adjustment of mA and/or kV according to patient size (this includes techniques or standardized protocols for targeted exams where dose is matched to indication/reason for exam; i.e. extremities or head) *Use of iterative reconstruction technique DLP: 614 mGY*cm FINDINGS: QUALITY OF STUDY/CONTRAST BOLUS: Adequate PULMONARY ARTERIES: No central or segmental filling defects are identified. THORACIC AORTA: No aneurysm or calcifications are present. LUNGS AND PLEURA: Patchy groundglass and airspace opacities are present in the right lower lobe greater than right upper lobe Trace layering pleural effusions are present bilaterally. MEDIASTINUM: No mass, adenopathy, or other abnormality. CORONARY ARTERY CALCIFICATION: None visualized CHEST WALL/AXILLA: No axillary or internal mammary lymphadenopathy. UPPER ABDOMEN: The spleen is enlarged measuring 14.5 cm long axis. BONES: Degenerative irregularity is noted inferior T10 and mild wedging of T11, both chronic. CT/CT angio chest PE protocol IMPRESSION: Multifocal pneumonia involving right lower lobe greater than right upper lobe. Bilateral parapneumonic effusions. No evidence of pulmonary embolus. Splenomegaly. Fleischner guidelines were followed. Electronically signed by: Yusef Veloz MD 06/30/2025 11:46 AM EDT
--- NOTE | ~2025-06-30 | FL_ITS ---
EXAMINATION: XR FLUOROSCOPY WITH IMAGES CLINICAL INFORMATION: Right retrograde ureteroscopy and stent placement COMPARISON: Correlation made with CT abdomen and pelvis 06/30/2025. TECHNIQUE: Fluoroscopy provided to: Dr. Sweeney Fluoroscopy time: 13.3 seconds. Dose: 2.45 mGy Images: 3 FINDINGS: 3 fluoroscopic spot images obtained during right retrograde ureteroscopy and stent placement. Please refer to the full operative report for details. FL/FL guidance in OR IMPRESSION: Fluoroscopic guidance. Electronically signed by: Alberto Ruiz MD 07/01/2025 11:40 AM EDT
--- NOTE | ~2025-06-30 | CT_ITS ---
EXAMINATION: CT ABDOMEN AND PELVIS WITH CONTRAST CLINICAL INFORMATION: Flank pain. Concerning kidney stones and pyelonephritis. COMPARISON: June 16, 2025. TECHNIQUE: Multidetector volumetric images were obtained from the superior aspect of the liver through the pubic symphysis following administration 85 mL of Omnipaque 350 intravenous contrast. Sagittal and coronal reformatted images were obtained on the technologist's workstation. Oral contrast: No This CT examination was performed using dose optimization techniques as appropriate, variously including the following: *Automated exposure control *Adjustment of mA and/or kV according to patient size (this includes techniques or standardized protocols for targeted exams where dose is matched to indication/reason for exam; i.e. extremities or head) *Use of iterative reconstruction technique DLP: 413.84 mGy centimeter. FINDINGS: LUNG BASES: Patchy pulmonary groundglass, right lower lung lobe. LIVER, GALLBLADDER, AND BILIARY TREE: Liver measures 15 cm. No focal mass. Portal veins, hepatic veins are patent. There is a 2 mm hypodensities in the abdominal. Hepatic lobe too small to be fully correct wrist by CT. No pericholecystic fluid collection or gallbladder wall thickening. Gallbladder is nondistended. No intrahepatic or extrahepatic biliary ductal dilatation. PANCREAS: No focal mass. No peripancreatic fluid collection. No main pancreatic ductal dilatation. SPLEEN: 11 cm. No focal mass. Small accessory spleen. ADRENAL GLANDS: No nodular lesions. KIDNEYS AND URETERS: Right kidney: There is a cluster of 2.5 mm calculi in the proximal right ureter resulting in mild hydronephrosis. There are multiple less than 2 mm calculi in the pelvicalyceal system. There is asymmetric enhancement with slight enhancement in the right kidney parenchyma. There is a right-sided perinephric edema without fluid collection. No peripheral enhancing fluid collection in the renal parenchyma. Left kidney: There is a cluster of 2 mm calculi in the lower pole. No hydronephrosis. No renal mass. Normal enhancement pattern of the renal parenchyma. Subcentimeter cyst in the upper pole. No dilatation of the left ureter. BLADDER: Fluid-filled with mild wall thickening. GASTROINTESTINAL TRACT: Abundant stool within the large intestine. Thickened rectum and to a lesser extent rectosigmoid colon junction. No pneumatosis intestinalis. No intestinal obstruction pattern. Appendix is normal. Terminal ileum is normal. Gas filled mildly prominent small bowel loops, nonspecific. No ascites. No pneumoperitoneum. ABDOMINAL WALL: Small fat-containing umbilical hernia. LYMPH NODES: Mild prominent mesenteric and retroperitoneum likely reactive. VASCULAR: No aneurysm or dissection, abdominal aorta. No gross calcified plaques. PELVIC VISCERA: Not enlarged. OSSEOUS STRUCTURES: Prominent right transverse process of L5 articulating with the sacrum and resulting in sclerosis along the articular surfaces. Rudimentary ribs, T12. Mild multilevel thoracic and lumbar spondylosis. Nonspecific probably bony islands in both femurs and bony pelvis. CT/CT abdomen pelvis w IV con IMPRESSION: Acute airspace disease, pneumonia right lower lung lobe. Persistent obstructing cluster of calculi in the proximal right ureter slightly progressed since June 16, 2025 with the progression/worsening mild hydronephrosis and likely superimposed inflammatory versus infectious process in the right kidney. Bilateral nephrolithiasis. Probable regional ileus. 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 Fleischner guidelines were followed. Electronically signed by: Lb Mak MD 06/30/2025 11:54 AM EDT
--- NOTE | 2025-06-30 09:35 | ED.GENADULT ---
HPI - General Adult General Chief complaint: General Medical Stated complaint: kidney stone pain Time Seen by Provider: 06/30/25 09:16 Source: patient Mode of arrival: ambulatory Limitations: no limitations History of Present Illness ED Provider: Jeffrey Rivers HPI narrative: 34 yold male with pmh of kidney stones presents to the ED for right flank pain after lithotripsy for right UVJ 8mstone. Patient states nuasea vomitting and flank pain. Patient states no fever, chills, chest pain, or shortness of breath. Related Data Home Medications ?Medication ?Instructions ?Recorded ?Confirmed fludrocortisone 0.1 mg tablet 0.2 mg PO DAILY 08/16/23 06/30/25 midodrine 5 mg tablet 5 mg PO TID 08/16/23 06/30/25 pregabalin 50 mg capsule 50 mg PO TID 08/16/23 06/30/25 pyridostigmine bromide 60 mg tablet 60 mg PO TID 08/16/23 06/30/25 albuterol sulfate 90 mcg/actuation 2 inh inhalation Q4-6H PRN 01/09/24 06/30/25 aerosol inhaler Shortness Of Breath Or Wheezing naltrexone 6 mg PO DAILY 06/23/25 06/30/25 acetaminophen 500 mg tablet 1,000 mg PO Q6H PRN Pain 06/30/25 06/30/25 Previous Rx's ?Medication ?Instructions ?Recorded metoprolol succinate 25 mg 25 mg PO DAILY #90 tabs 10/20/24 tablet,extended release 24 hr fluticasone propionate 115 2 puff inhalation Q12H 30 days #12 04/08/25 mcg-salmeterol 21 mcg/actuation grams HFA inhaler (Advair HFA) naproxen 500 mg tablet 500 mg PO BID PRN pain 7 days #14 06/29/25 tabs tamsulosin 0.4 mg capsule 0.4 mg PO BEDTIME 14 days #14 caps 06/29/25 Allergies Allergy/AdvReac Type Severity Reaction Status Date / Time buspirone (From BuSpar) Allergy Severe Dizziness Verified 06/30/25 09:13 and Leg Weakness sertraline (From ZOLOFT) AdvReac Intermediate NAUSEA & Verified 06/30/25 09:13 VOMITING methylprednisolone (From AdvReac Mild Agitated Verified 06/30/25 09:13 Solu-Medrol) trazodone (TRAZODONE) AdvReac Unknown VOMITING Verified 06/30/25 09:13 Review of Systems Review of Systems: Flank pain, nuasea, and vomiting Yes all other systems are reviewed and are negative [facility] Past Medical History Medical History (Updated 06/30/25 @ 16:58 by TIFFANIE Sweet) Kidney stone URI (upper respiratory infection) Urinary retention Other inflammatory polyneuropathies Gastritis Pleuritis Pneumonia Bilateral calf pain Pleural effusion MARYANN (obstructive sleep apnea) Has daytime drowsiness Vitamin D deficiency Viry's disease Hypoglycemia Dizziness GERD (gastroesophageal reflux disease) Small fiber neuropathy Mccallum disease PTSD (post-traumatic stress disorder) Nocturnal hypoxemia Tachycardia Autonomic dysfunction Asthma Surgical History Hx of colonoscopy (~2016) History of wisdom tooth extraction (~2007) Family History Family History Mother Asthma Celiac disease/sprue Father Psoriasis Social History Social History Are you a primary health care aide to a significant other at home: No Do you presently have visiting nurse or other home services: No Alcohol intake: never Patient Tobacco Use Status: Former Tobacco user Tobacco use type: Cigarette Years Smoked: 1 year Smoked in Last 30 Days: No Use of substances other than those prescribed or required for medical reasons: No Substance Use Type: Marijuana Advance Directives: Yes Advance Directives on File: Yes Advance Directives Date on File: 09/16/18 Do you have a plan to hurt others: No Plan Physical Exam ED Vital Signs: Vital Signs - 24 hr 06/30/25 09:11 06/30/25 10:24 06/30/25 12:23 Temperature 97.8 F Pulse Rate 78 79 95 Respiratory Rate 16 18 18 Blood Pressure 144/76 H 134/81 147/99 H Pulse Oximetry 99 98 99 Oxygen Delivery Method Room Air Room Air Room Air 06/30/25 15:02 Temperature 97.8 F Pulse Rate 81 Respiratory Rate 15 Blood Pressure 134/86 Pulse Oximetry 99 Oxygen Delivery Method Room Air BMI result Body Mass Index 23.0 Const General: cooperative, healthy appearing, comfortable, no acute distress, well developed, alert, awake and Physically active Orientation/consciousness: patient oriented x3 [facility] Head: Yes normal to inspection, Yes No palpable skull fracture present, Yes normocephalic and Yes atraumatic Eyes General: appearance normal, both eyes and all related structures Neck Neck: Yes normal visual inspection, Yes full ROM, Yes no lymphadenopathy, Yes no meningeal signs, Yes trachea midline, Yes supple, No anterior neck swelling and No tender Chest Chest palpation & inspection: normal inspection of the chest and normal palpation of entire chest wall Resp Effort & Inspection: normal respiratory effort and able to speak in complete sentences Auscultation: clear to auscultation bilaterally Cardio Jugular venous distension: no JVD Heart sounds: S1 normal heart sound present and S2 normal heart sound present GI Inspection: Yes normal to inspection Palpation (GI): Soft to palpation, not firm, nontender, no guarding and not rigid General: Yes CVA tenderness (right) Back/Spine/Pelvis Back: CVA tenderness (right) Skin General skin exam: no rashes or lesions noted, elasticity normal and turgor normal Neuro General: patient oriented x3, gait normal, tone normal, moves all extremities, Normal light touch and pain sensation, no meningeal signs, no focal motor deficits, CN's II-XI intact bilaterally and normal sensation to monofilament Extrem General: Yes normal to inspection, Yes full ROM and Yes capillary refill normal Psych Appearance: grossly normal, well kempt and not disheveled Medications Administered Discontinued Medications Generic Name Dose Route Start Last Admin Trade Name Freq PRN Reason Stop Dose Admin Ceftriaxone Sodium 1 gm 06/30/25 11:39 06/30/25 11:57 Ceftriaxone Sodium 1 Gm Vial IVPUSH 06/30/25 11:40 1 gm ONCE STA Administration Chlorhexidine Gluconate 15 ml 06/30/25 14:45 06/30/25 15:57 Chlorhexidine Gluc Oral Rinse 15 Ml Mouthwash BUCCAL 06/30/25 14:46 15 ml ONCE ONE Administration Hydromorphone HCl 0.5 mg 06/30/25 11:37 06/30/25 11:58 Hydromorphone Hcl 0.5 Mg/0.5 Ml Syringe IVPUSH 06/30/25 11:38 0.5 mg ONCE ONE Administration Protocol Sodium Chloride 1,000 mls @ 999 mls/hr 06/30/25 09:16 06/30/25 10:41 Ns IV 06/30/25 10:16 Infused .Q1H1M STA Infusion Azithromycin 500 mg/ Sodium 250 mls @ 125 mls/hr 06/30/25 12:21 06/30/25 14:42 Chloride IV 06/30/25 14:20 Infused ONCE ONE Infusion Iohexol 100 ml 06/30/25 11:10 06/30/25 11:10 Iohexol 350 Mg/Ml 100 Ml Infus..Btl IV 06/30/25 11:11 85 ml ONCE ONE Administration Ketorolac Tromethamine 30 mg 06/30/25 09:25 06/30/25 09:38 Ketorolac Tromethamine 30 Mg/Ml Vial IVPUSH 06/30/25 09:26 30 mg ONCE ONE Administration Morphine Sulfate 4 mg 06/30/25 10:36 06/30/25 10:46 Morphine Sulfate 4 Mg/Ml Cartridge IVPUSH 06/30/25 10:37 4 mg ONCE ONE Administration Protocol Ondansetron HCl 4 mg 06/30/25 09:28 06/30/25 09:38 Ondansetron Hcl 4 Mg/2 Ml Vial IVPUSH 06/30/25 09:29 4 mg ONCE ONE Administration Ondansetron HCl 4 mg 06/30/25 11:37 06/30/25 11:58 Ondansetron Hcl 4 Mg/2 Ml Vial IVPUSH 06/30/25 11:38 4 mg ONCE ONE Administration Medical Decision Making Medical Decision Making MDM Narrative: [age] year male with recent right kidney stone 8 mm UVJ presents to ED for right flank pain nausea vomiting starting last night into this morning. Patient had lithotripsy procedure yesterday to break up kidney stones. Patient denies any chest pain shortness of breath or pleurisy. Labs Toradol repeat CAT scan ordered. 11:40am: Patient is still in pain he was given morphine and Dilaudid with more Zofran. UA shows worsening UTI with positive nitrite ceftriaxone IV ordered. Chest CT shows multifocal pneumonia. Azithromycin added 3:02pm: Patient's business affairs manager Dr. Jean was made aware of patient being possibly admitted due to right ureter UVJ. He was informed of patient's multifocal pneumonia and patient receiving antibiotics. Dr. Sweeney accepted patient for admission and to bring patient explained to the OR. Patient was stayed overnight for observation. Case was discussed with hospitalist TIFFANIE Shaw [facility] patient can be admitted to Urology. Differential Diagnosis Differential Diagnoses: The differential diagnosis associated with the presentation includes (PE, pneumonia, kidney stone, pyelonephritis) Admission/Observation Consideration of admission/observation: Escalation of care including admission/observation considered Consult Healthcare Provider Management of the patient was discussed with: Winding Machine Operator (Dr. Sweeney urology, Dr. Jean pulmonology) Lab Data MDM Lab Attestation statement: I reviewed the patient's lab results. 06/30/25 10:02 06/30/25 10:02 Labs: Lab Results 06/30/25 06/30/25 06/30/25 Range/Units 10:02 10:27 12:01 WBC 7.9 (4.8-10.8) X10*3/uL RBC 4.39 L (4.60-5.80) X10*6/uL Hgb 13.7 L (14.0-18.0) g/dl Hct 38.0 L (42.0-52.0) % MCV 86.6 (80.0-98.0) fL MCH 31.2 (27.0-33.0) pg MCHC 36.1 H (31.0-36.0) g/dl RDW 12.3 (11.0-16.0) % Plt Count 141 L (160-400) X10*3/uL MPV 9.9 (9.4-12.4) fL Immature Gran % (Auto) 0.4 (0.0-0.4) % Neut % (Auto) 76.1 H (45-73) % Lymph % (Auto) 15.2 L (20-40) % [place] % (Auto) 7.4 (2-11) % Eos % (Auto) 0.4 (0-4) % Baso % (Auto) 0.5 (0-2) % Lymph # (Auto) 1.2 (1.2-4.9) X10*3/uL [place] # (Auto) 0.6 (0.1-1.2) X10*3/uL Eos # (Auto) 0.0 (0.0-0.4) X10*3/uL Baso # (Auto) 0.0 (0.0-0.2) X10*3/uL Abs Immat Gran (auto) 0.03 (0.00-0.03) X10*3/uL Absolute Neuts (auto) 6.0 (2.0-8.3) x10*3/uL Absolute Nucleated RBC 0.000 (0.0-0.012) X10*3/uL Nucleated RBC % (auto) 0.0 (0.0-0.2) /100WBC Sodium 140 (135-145) mmol/L Potassium 3.6 (3.3-5.1) mmol/L Chloride 105 (96-108) mmol/L Carbon Dioxide 29 (22-29) mmol/L Anion Gap 10 L (12-20) BUN 18 H (9-16) mg/dL Creatinine 1.06 (0.5-1.4) mg/dL Estim Creat Clear Calc 99.1 Estimated GFR > 60 Random Glucose 105 (60-115) mg/dL Lactic Acid 0.7 (0.5-2.0) mmol/L Calcium 9.1 (8.4-10.2) mg/dL Total Bilirubin 0.9 (0.0-1.0) mg/dL AST 42 H (5-37) U/L ALT 30 (0-40) U/L Alkaline Phosphatase 57 (39-117) U/L Total Protein 7.7 (6.5-8.0) g/dL Albumin 4.2 (3.5-5.0) g/dL Urine Color Dark Yellow Urine Appearance Cloudy Urine pH 6.0 (5.0-9.0) Ur Specific [place] 1.020 (1.005-1.025) Urine Protein 30 (1+) H (Neg-Trace) mg/dL Urine Glucose (UA) Negative (Negative) mg/dL Urine Ketones Negative (Negative) mg/dL Urine Blood Large (3+) H (Negative) Urine Nitrite Positive H (Negative) Ur Leukocyte Esterase Trace H (Negative) Urine RBC >20 H (0-2) /HPF Urine WBC 6-10 H (0-5) /HPF Ur Squamous Epith Cells 0-2 (0-2) /HPF Calcium Oxalate Crystal Present Urine Bacteria None Seen (None Seen) Hyaline Casts 0-2 (0-2) /LPF Independent Interpretation I performed an independent interpretation of an: CT Scan Radiology Impression Discussion of test interpretation with radiology: I have reviewed the radiologist's reading. Independent Historian Clinical information obtained from an independent historian. History obtained from or confirmed by: Other Critical Care Time Critical Care Time Critical Care Time: Yes Total Critical Care Time: 60 Attestation: Positive for multifocal pneumonia, positive for right UVJ of the ureter with positive UTI and inflammation possible pyelonephritis. IV antibiotics ordered. Case discussed with urologist, hospitalist, and business affairs manager Discharge Plan Discharge Clinical Impression: Kidney stone Patient Disposition: Admitted As Inpatient Interventions: Admission Assessment Last Done: 06/30/25 15:05
[2025-06-30 10:09] LABS: MANUAL DIFF FLAG NO
[2025-06-30 10:11] LABS: Hematocrit 38.0 % (42.0-52.0); Hemoglobin 13.7 g/dl (14.0-18.0); Imm Gran Abs Auto 0.03 X10*3/uL (0.00-0.03); Imm Gran Pct Auto 0.4 % (0.0-0.4); Lymphocytes Absolute Auto 1.2 X10*3/uL (1.2-4.9); Mean Corpuscular HGB Conc 36.1 g/dl (31.0-36.0); Mean Corpuscular Hemoglobin 31.2 pg (27.0-33.0); Mean Corpuscular Volume 86.6 fL (80.0-98.0); NRBC Abs Auto 0.000 X10*3/uL (0.0-0.012); NRBC Pct Auto 0.0 /100WBC (0.0-0.2); Platelet Count 141 X10*3/uL (160-400); Red Blood Count 4.39 X10*6/uL (4.60-5.80); White Blood Count 7.9 X10*3/uL (4.8-10.8)
[2025-06-30 10:27] LABS: Alanine Aminotransferase 30 U/L (0-40); Albumin Level 4.2 g/dL (3.5-5.0); Alkaline Phosphatase 57 U/L (39-117); Anion Gap 10 (12-20); Aspartate Amino Transferase 42 U/L (5-37); Blood Urea Nitrogen 18 mg/dL (9-16); Calcium 9.1 mg/dL (8.4-10.2); Carbon Dioxide 29 mmol/L (22-29); Chloride 105 mmol/L (96-108); Creatinine Clr Calc Pharmacy 99.1; Estimated Glomerular Filt Rate > 60; Potassium 3.6 mmol/L (3.3-5.1); Sodium 140 mmol/L (135-145); Total Protein 7.7 g/dL (6.5-8.0)
[2025-06-30 10:44] LABS: Appearance Urine Cloudy; Glucose Urine UA Negative (Negative); PH 6.0 (5.0-9.0); Specific Gravity - Urine 1.020 (1.005-1.025); UMIC TRIGGER UACC YES
--- OUTSIDE RECORDS SUMMARY | 2025-06-30 10:49 | XMS_ITS | Patient Health Record ---
[facility] Address [address] [place] [address] Care Team Providers Care Glucose And Syrup Weigher Name Role Phone Waleska COOPER, [facility] Primary Care Provi garret Vinayak Vital Unavailable [phone] Allergies Allergen (clinical drug ingredient) Drug/Non Drug [...] Problem Acquired hammer toe of left foot (3928097107896049 ) Hammertoe of left foot (M20.42) Active confirmed Problem Acquired hammer toe of right foot ([id number] ) Hammertoe of right foot (M20.41) Active confirmed Problem Mitochondrial disease (463976622) 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 Problem 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 Plan Of Treatment Pending Test Test Name Order Date X ray : Foot, left 2V 02/26/2022 X ray : Foot, right 2V 02/26/2022 [id number] OF HEMATOMA/FLUID 022 Insurance Providers Payer Name Payer Address Payer Phone Subscriber Number Group Number Insured Name Patient Relationship to Insured Coverage Start Date Coverage End Date [facility] [address] [place] [address] [id number] Ace Casas Self - patient is the insured Medical (General) History Medical History History ICD Code asthma Numbness Poor circulation Psychiatric disorder Reflux Autoimmune disorder-Small Fo guillermina Neuropathy/Dysantonomia Involving Sensory System and Autonomic Dysfunction Surgical History Surgery Date(Month/Year)
[2025-06-30 10:55] LABS: UACC Culture Trigger YES
[2025-06-30] MEDS: iohexoL 350 MG/ML 100 ML INFUS..BTL IV (11:10)
--- NOTE | 2025-06-30 14:19 | PM.UROCN ---
History of Present Illness Consult details Consult date: 06/30/25 Narrative: CC: Right ureteric stones 34-year-old male Known to Urology Underwent right ESWL yesterday for right renal stone Presents with persistent nausea and vomiting of the right-sided flank pain Creatinine 1.1 Elevated BP with pain Imaging - CT - There is a cluster of 2.5 mm calculi in the proximal right ureter resulting in mild hydronephrosis. There is a right-sided perinephric edema without fluid collection. Diagnosis of [place] Recommend cystoscopy, right retrograde, ureteroscopy with laser lithotripsy and stone removal Background Does have autonomic dysfunction proven with [place]-Kalpesh assessment On fludrocortisone, midodrine, pyridostigmine Review of Systems Constitutional: Constitutional: Reports as per HPI and Reports no additional constitutional complaints Cardiovascular: Cardiovascular: Reports as per HPI and Reports no additional cardiovascular complaints Respiratory: Respiratory: Reports as per HPI and Reports no additional respiratory complaints Gastrointestinal: Gastrointestinal: Reports as per HPI and Reports no additional gastrointestinal complaints Genitourinary: Genitourinary: Reports as per HPI Musculoskeletal: Musculoskeletal: Reports no additional musculoskeletal complaints and Reports as per HPI Neurologic: Reports system reviewed and no additional complaints, except as documented and Reports as per HPI PMFSH Past Medical History Medical History URI (upper respiratory infection) Urinary retention Other inflammatory polyneuropathies Gastritis Pleuritis Pneumonia Bilateral calf pain Pleural effusion MARYANN (obstructive sleep apnea) Has daytime drowsiness Vitamin D deficiency Viry's disease Hypoglycemia Dizziness GERD (gastroesophageal reflux disease) Small fiber neuropathy Mccallum disease PTSD (post-traumatic stress disorder) Nocturnal hypoxemia Tachycardia Autonomic dysfunction Asthma Family History Family History Mother Asthma Celiac disease/sprue Father Psoriasis Surgical History Surgical History Hx of colonoscopy (~2017) History of wisdom tooth extraction (~2007) Social History Social History Are you a primary critical care unit manager to a significant other at home: No Do you presently have visiting nurse or other home services: No Alcohol intake: never Patient Tobacco Use Status: Former Tobacco user Tobacco use type: Cigarette Years Smoked: 1 year Smoked in Last 30 Days: No Use of substances other than those prescribed or required for medical reasons: No Substance Use Type: Marijuana Advance Directives: Yes Advance Directives on File: Yes Advance Directives Date on File: 09/16/18 Do you have a plan to hurt others: No Plan Meds Allergies Allergy/AdvReac Type Severity Reaction Status Date / Time buspirone (From BuSpar) Allergy Severe Dizziness Verified 06/30/25 09:13 and Leg Weakness sertraline (From ZOLOFT) AdvReac Intermediate NAUSEA & Verified 06/30/25 09:13 VOMITING methylprednisolone (From AdvReac Mild Agitated Verified 06/30/25 09:13 Solu-Medrol) trazodone (TRAZODONE) AdvReac Unknown VOMITING Verified 06/30/25 09:13 Active Medications: Current Medications Azithromycin 500 mg/ Sodium (Chloride) 250 mls @ 125 mls/hr IV ONCE ONE Stop: 06/30/25 14:20 Last Admin: 06/30/25 12:47 Dose: 125 mls/hr Home Medications ?Medication ?Instructions ?Recorded ?Confirmed ?Last Taken ?Type fludrocortisone 0.1 mg tablet 0.2 mg PO DAILY 08/16/23 06/23/25 06/29/25 08:50 History midodrine 5 mg tablet 5 mg PO TID 08/16/23 06/23/25 06/29/25 08:50 History pregabalin 50 mg capsule 50 mg PO TID 08/16/23 06/23/25 06/29/25 08:50 History pyridostigmine bromide 60 mg tablet 60 mg PO TID 08/16/23 06/23/25 06/29/25 08:50 History albuterol sulfate 90 mcg/actuation inhalation Q4-6H PRN Shortness Of 01/09/24 01/25/25 Unknown History aerosol inhaler Breath Or Wheezing naltrexone 6 mg PO DAILY 06/23/25 06/23/25 Unknown History Physical Exam Vital Signs: Vital Signs: Last Vital Signs Temp 97.8 F 06/30/25 09:11 Pulse 95 06/30/25 12:23 Resp 18 06/30/25 12:23 BP 147/99 H 06/30/25 12:23 Pulse Ox 99 06/30/25 12:23 O2 Del Method Room Air 06/30/25 12:23 BMI result Body Mass Index 23.0 Const: General: cooperative, healthy appearing, comfortable and no acute distress Orientation/consciousness: patient oriented x3 HEENT: Face and sinus: Yes normal facial exam Mouth: moist mucous membranes Neck: Neck: Yes normal visual inspection, Yes full ROM and Yes trachea midline Chest: Chest palpation & inspection: normal inspection of the chest Resp: Effort & Inspection: normal respiratory effort, able to speak in complete sentences and no respiratory distress GI: Inspection: Yes normal to inspection Back/Spine/Pelvis: Cervical Spine: normal cervical lordosis Thoracic/Lumbar Spine: thoracic and lumbar spine normal to inspection Skin: General skin exam: no rashes or lesions noted Neuro: General: patient oriented x3, tone normal and moves all extremities Extrem: General: Yes normal to inspection and Yes capillary refill normal Results Labs 06/30/25 10:02 06/30/25 10:02 Labs: Abnormal lab results 06/30/25 06/30/25 Range/Units 10:02 10:27 RBC 4.39 L (4.60-5.80) X10*6/uL Hgb 13.7 L (14.0-18.0) g/dl Hct 38.0 L (42.0-52.0) % MCHC 36.1 H (31.0-36.0) g/dl Plt Count 141 L (160-400) X10*3/uL Neut % (Auto) 76.1 H (45-73) % Lymph % (Auto) 15.2 L (20-40) % Anion Gap 10 L (12-20) BUN 18 H (9-16) mg/dL AST 42 H (5-37) U/L Urine Protein 30 (1+) H (Neg-Trace) mg/dL Urine Blood Large (3+) H (Negative) Urine Nitrite Positive H (Negative) Ur Leukocyte Esterase Trace H (Negative) Urine RBC >20 H (0-2) /HPF Urine WBC 6-10 H (0-5) /HPF Short CBC 06/30/25 Range/Units 10:02 WBC 7.9 (4.8-10.8) X10*3/uL Hgb 13.7 L (14.0-18.0) g/dl Hct 38.0 L (42.0-52.0) % Plt Count 141 L (160-400) X10*3/uL BMP 06/30/25 10:02 Sodium 140 Potassium 3.6 Chloride 105 Carbon Dioxide 29 BUN 18 H Creatinine 1.06 Calcium 9.1 Liver Function 06/30/25 Range/Units 10:02 Total Bilirubin 0.9 (0.0-1.0) mg/dL AST 42 H (5-37) U/L ALT 30 (0-40) U/L Alkaline Phosphatase 57 (39-117) U/L Albumin 4.2 (3.5-5.0) g/dL Urine 06/30/25 Range/Units 10:27 Urine Color Dark Yellow Urine Appearance Cloudy Urine pH 6.0 (5.0-9.0) Ur Specific [place] 1.020 (1.005-1.025) Urine Protein 30 (1+) H (Neg-Trace) mg/dL Urine Glucose (UA) Negative (Negative) mg/dL All other labs normal. Assessment and Plan (1) [place]: Status: Acute Plan Ureteroscopy We discussed the nature of the decision and reasonable alternatives for performing ureteroscopy. Options such as medical therapy were discussed. Interventions include chemical dissolution, ESWL, ureteroscopy with laser lithotripsy and stent placement, PCNL. The relative uncertainties and benefits related to each alternate procedure were adequately discussed. General surgical risks including, but not limited to - pain, bleeding, infection, myocardial infarction, pulmonary embolus, deep vein thrombosis and cerebrovascular accident which may result in further hospitalization were discussed. Full disclosure of the procedure as well as all major risks, benefits and complications were discussed including but not limited to damage to the urethra, bladder and kidney infection, damage to the ureter, stent migration or malposition, scarring to the renal pelvis, remnant stone fragments, subsequent stone passage with need for secondary procedures. The overall secondary procedure rate is approximately 10-15%. The overall clearance rate is approximately 90-95%. Success of the procedure in the short-term does not necessarily guarantee that long-term success will be maintained. Suitable follow up will need to be maintained. The patient showed understanding of discussion and wishes to proceed with - cystoscopy, retrograde, ureteroscopy, possible lithotripsy/stone basketing and stent on the right side Procedures Date of Service Date of Service: 06/30/25
--- NOTE | 2025-06-30 15:03 | PC.NURSE ---
Phone report gv to Cele RN in PACU; pt to go to OR per Dr Villatoro; pt aware; all belongings placed in bag with pt; pt to OR with attendant in stable condition
--- NOTE | 2025-06-30 15:05 | HO.ANESPROP2 ---
[facility] Active Problems Active Problems: All Active Problems (Updated 06/30/25 @ 14:23 by Aaron Sweeney MD) Steinstrasse (Acute) Bilateral nephrolithiasis (Acute) COVID-19 (Acute) Dyspnea (Acute) Chest pain (Acute) LEEANNA positive (Acute) SOB (shortness of breath) (Acute) Polyarthralgia (Acute) URI (upper respiratory infection) (Acute) Urinary retention (Acute) Other inflammatory polyneuropathies (Acute) Hypoglycemia (Acute) Gastritis (Acute) Pleuritis (Acute) Pneumonia (Acute) Bilateral calf pain (Acute) Pleural effusion (Acute) MARYANN (obstructive sleep apnea) (Acute) Has daytime drowsiness (Acute) Nocturnal hypoxemia (Acute) Tachycardia (Acute) Autonomic dysfunction (Acute) Asthma (Acute) Past Medical History Medical History URI (upper respiratory infection) Urinary retention Other inflammatory polyneuropathies Gastritis Pleuritis Pneumonia Bilateral calf pain Pleural effusion MARYANN (obstructive sleep apnea) Has daytime drowsiness Vitamin D deficiency Viry's disease Hypoglycemia Dizziness GERD (gastroesophageal reflux disease) Small fiber neuropathy Mccallum disease PTSD (post-traumatic stress disorder) Nocturnal hypoxemia Tachycardia Autonomic dysfunction Asthma Functional capacity: independent ambulation Family History Family History Mother Asthma Celiac disease/sprue Father Psoriasis Family history of problems with anesthesia: No (Unsure if mom had adverse reaction. Will obtain info before DOS) Surgical History Surgical History Hx of colonoscopy (~2017) History of wisdom tooth extraction (~2007) History of Problems with Anesthesia: No Social History Social History Are you a primary progressive care nurse to a significant other at home: No Do you presently have visiting nurse or other home services: No Alcohol intake: never Patient Tobacco Use Status: Former Tobacco user Tobacco use type: Cigarette Years Smoked: 1 year Smoked in Last 30 Days: No Use of substances other than those prescribed or required for medical reasons: No Substance Use Type: Marijuana Advance Directives: Yes Advance Directives on File: Yes Advance Directives Date on File: 09/16/18 Do you have a plan to hurt others: No Plan Meds Allergies Allergy/AdvReac Type Severity Reaction Status Date / Time buspirone (From BuSpar) Allergy Severe Dizziness Verified 06/30/25 09:13 and Leg Weakness sertraline (From ZOLOFT) AdvReac Intermediate NAUSEA & Verified 06/30/25 09:13 VOMITING methylprednisolone (From AdvReac Mild Agitated Verified 06/30/25 09:13 Solu-Medrol) trazodone (TRAZODONE) AdvReac Unknown VOMITING Verified 06/30/25 09:13 Home Medications ?Medication ?Instructions ?Recorded ?Confirmed ?Last Taken ?Type fludrocortisone 0.1 mg tablet 0.2 mg PO DAILY 08/16/23 06/23/25 06/29/25 08:50 History midodrine 5 mg tablet 5 mg PO TID 08/16/23 06/23/25 06/29/25 08:50 History pregabalin 50 mg capsule 50 mg PO TID 08/16/23 06/23/25 06/29/25 08:50 History pyridostigmine bromide 60 mg tablet 60 mg PO TID 08/16/23 06/23/25 06/29/25 08:50 History albuterol sulfate 90 mcg/actuation inhalation Q4-6H PRN Shortness Of 01/09/24 01/25/25 Unknown History aerosol inhaler Breath Or Wheezing naltrexone 6 mg PO DAILY 06/23/25 06/23/25 Unknown History Exam Height,Weight and Vital Signs: Height 5 ft 9 in Weight 70.8 kg Last Vital Signs Temp 97.8 F 06/30/25 09:11 Pulse 95 06/30/25 12:23 Resp 18 06/30/25 12:23 BP 147/99 H 06/30/25 12:23 Pulse Ox 99 06/30/25 12:23 O2 Del Method Room Air 06/30/25 12:23 Pertinent Lab Results Pertinent Lab Results: Laboratory Tests 06/30/25 06/30/25 06/30/25 10:02 10:27 12:01 WBC 7.9 RBC 4.39 L Hgb 13.7 L Hct 38.0 L MCV 86.6 MCH 31.2 MCHC 36.1 H RDW 12.3 Plt Count 141 L MPV 9.9 Immature Gran % (Auto) 0.4 Neut % (Auto) 76.1 H Lymph % (Auto) 15.2 L [place] % (Auto) 7.4 Eos % (Auto) 0.4 Baso % (Auto) 0.5 Lymph # (Auto) 1.2 [place] # (Auto) 0.6 Eos # (Auto) 0.0 Baso # (Auto) 0.0 Abs Immat Gran (auto) 0.03 Absolute Neuts (auto) 6.0 Absolute Nucleated RBC 0.000 Nucleated RBC % (auto) 0.0 Sodium 140 Potassium 3.6 Chloride 105 Carbon Dioxide 29 Anion Gap 10 L BUN 18 H Creatinine 1.06 Estim Creat Clear Calc 99.1 Estimated GFR > 60 Random Glucose 105 Lactic Acid 0.7 Calcium 9.1 Total Bilirubin 0.9 AST 42 H ALT 30 Alkaline Phosphatase 57 Total Protein 7.7 Albumin 4.2 Urine Color Dark Yellow Urine Appearance Cloudy Urine pH 6.0 Ur Specific [place] 1.020 Urine Protein 30 (1+) H Urine Glucose (UA) Negative Urine Ketones Negative Urine Blood Large (3+) H Urine Nitrite Positive H Ur Leukocyte Esterase Trace H Urine RBC >20 H Urine WBC 6-10 H Ur Squamous Epith Cells 0-2 Calcium Oxalate Crystal Present Urine Bacteria None Seen Hyaline Casts 0-2 Airway Mallampati Class: II TM Dist: >3cm Neck ROM: Full Heart: RRR Assessment and Plan Final Anesthetic Review Family History of Problems with Anesthesia: No (Unsure if mom had adverse reaction. Will obtain info before DOS) History of Problems with Anesthesia: No
--- NOTE | 2025-06-30 15:20 | PM.CNPUL ---
History of Present Illness History of Present Illness Consult date: 06/30/25 Chief complaint: kidney stone pain Narrative: This is a pulmonary consultation. The patient is a 34-year-old gentleman with known autonomic dysautonomia on IVIG therapy, asthma who apparently was diagnosed with a right-sided kidney stone. Requiring treat lithotripsy. The patient did tolerate anesthesia well and did have his procedure without any complications. Afterwards complain of significant right-sided flank pain. Nausea vomiting. He was brought back to the ER on postop day 1. CT scan of the abdomen was revealing for a mild hydronephrosis with some stranding as well as partially obstructing kidney still. His CT scan of the abdomen also demonstrated some changes to the lungs. He had a formal CT scan of the chest personally by me demonstrating what appears to be multiple areas of right sided airspace disease suggesting the likelihood of aspiration pneumonia/pneumonitis. The patient clinically is doing well denies any coughing denies any fevers or chills her shortness of breath. He does have some pleuritic discomfort when taking a deep breath in but does likely from the flank pain from the inflammation of the right kidney. Overall the patient is doing good he was started on azithromycin and Zithromax. Seems to be tolerating the antibiotics well. Respiratory exam is fairly normal. Because of the hydronephrosis the concern is that there is a obstruction that needs to be intervene done. Therefore it is likely the patient will require cystoscopy with laser lithotripsy. As far as precautions to avoid further aspiration pneumonia or worsening the patient should continue the antibiotics as prescribed. The patient should also keep the head of bed elevated to avoid micro aspirations and also chlorhexidine mouthwash will help decrease the risk of infections. Review of Systems Constitutional: Constitutional: Reports as per HPI Cardiovascular: Cardiovascular: Reports as per HPI and Reports no additional cardiovascular complaints Respiratory: Respiratory: Reports no additional respiratory complaints Gastrointestinal: Gastrointestinal: Reports as per HPI and Reports no additional gastrointestinal complaints Genitourinary: Genitourinary: Reports as per HPI Musculoskeletal: Musculoskeletal: Reports no additional musculoskeletal complaints and Reports as per HPI Neurologic: Reports system reviewed and no additional complaints, except as documented and Reports as per HPI PMF Past Medical History Medical History (Updated 06/30/25 @ 15:27 by Calvin Jean MD) Kidney stone URI (upper respiratory infection) Urinary retention Other inflammatory polyneuropathies Gastritis Pleuritis Pneumonia Bilateral calf pain Pleural effusion MARYANN (obstructive sleep apnea) Has daytime drowsiness Vitamin D deficiency Viry's disease Hypoglycemia Dizziness GERD (gastroesophageal reflux disease) Small fiber neuropathy Mccallum disease PTSD (post-traumatic stress disorder) Nocturnal hypoxemia Tachycardia Autonomic dysfunction Asthma Family History Family History Mother Asthma Celiac disease/sprue Father Psoriasis Surgical History Surgical History Hx of colonoscopy (~2016) History of wisdom tooth extraction (~2007) Social History Social History Are you a primary caretaker grounds to a significant other at home: No Do you presently have visiting nurse or other home services: No Alcohol intake: never Patient Tobacco Use Status: Former Tobacco user Tobacco use type: Cigarette Years Smoked: 1 year Smoked in Last 30 Days: No Use of substances other than those prescribed or required for medical reasons: No Substance Use Type: Marijuana Advance Directives: Yes Advance Directives on File: Yes Advance Directives Date on File: 09/16/18 Do you have a plan to hurt others: No Plan Meds Allergies Allergy/AdvReac Type Severity Reaction Status Date / Time buspirone (From BuSpar) Allergy Severe Dizziness Verified 06/30/25 09:13 and Leg Weakness sertraline (From ZOLOFT) AdvReac Intermediate NAUSEA & Verified 06/30/25 09:13 VOMITING methylprednisolone (From AdvReac Mild Agitated Verified 06/30/25 09:13 Solu-Medrol) trazodone (TRAZODONE) AdvReac Unknown VOMITING Verified 06/30/25 09:13 Home Medications ?Medication ?Instructions ?Recorded ?Confirmed ?Last Taken ?Type fludrocortisone 0.1 mg tablet 0.2 mg PO DAILY 08/16/23 06/23/25 06/29/25 08:50 History midodrine 5 mg tablet 5 mg PO TID 08/16/23 06/23/25 06/29/25 08:50 History pregabalin 50 mg capsule 50 mg PO TID 08/16/23 06/23/25 06/29/25 08:50 History pyridostigmine bromide 60 mg tablet 60 mg PO TID 08/16/23 06/23/25 06/29/25 08:50 History albuterol sulfate 90 mcg/actuation inhalation Q4-6H PRN Shortness Of 01/09/24 01/25/25 Unknown History aerosol inhaler Breath Or Wheezing naltrexone 6 mg PO DAILY 06/23/25 06/23/25 Unknown History Physical Exam Vital Signs: Vital Signs: Last Vital Signs Temp 97.8 F 06/30/25 15:02 Pulse 81 06/30/25 15:02 Resp 15 06/30/25 15:02 BP 134/86 06/30/25 15:02 Pulse Ox 99 06/30/25 15:02 O2 Del Method Room Air 06/30/25 15:02 BMI result Body Mass Index 23.0 Const: General: cooperative, healthy appearing, comfortable and no acute distress Orientation/consciousness: patient oriented x3 HEENT: Face and sinus: Yes normal facial exam Mouth: moist mucous membranes Neck: Neck: Yes normal visual inspection, Yes full ROM and Yes trachea midline Chest: Chest palpation & inspection: normal inspection of the chest Resp: Effort & Inspection: normal respiratory effort, able to speak in complete sentences and no respiratory distress Auscultation: clear to auscultation bilaterally GI: Inspection: Yes normal to inspection Back/Spine/Pelvis: Cervical Spine: normal cervical lordosis Thoracic/Lumbar Spine: thoracic and lumbar spine normal to inspection Skin: General skin exam: no rashes or lesions noted Neuro: General: patient oriented x3, tone normal and moves all extremities Extrem: General: Yes normal to inspection and Yes capillary refill normal Results Laboratory Findings 06/30/25 10:02 06/30/25 10:02 Abnormal lab findings: Abnormal Labs 06/30/25 06/30/25 10:02 10:27 RBC 4.39 L Hgb 13.7 L Hct 38.0 L MCHC 36.1 H Plt Count 141 L Neut % (Auto) 76.1 H Lymph % (Auto) 15.2 L Anion Gap 10 L BUN 18 H AST 42 H Urine Protein 30 (1+) H Urine Blood Large (3+) H Urine Nitrite Positive H Ur Leukocyte Esterase Trace H Urine RBC >20 H Urine WBC 6-10 H Assessment and Plan (1) Pre-op chest exam: Status: Acute (2) Asthma: Qualifiers: Asthma severity: moderate Asthma persistence: persistent Asthma complication type: with acute exacerbation Qualified Code(s): J45.41 - Moderate persistent asthma with (acute) exacerbation Status: Acute (3) Pneumonia: Qualifiers: Pneumonia type: due to unspecified organism Laterality: right Lung location: lower lobe of lung Qualified Code(s): J18.9 - Pneumonia, unspecified organism Status: Acute (4) Other inflammatory polyneuropathies: Status: Acute (5) Kidney stone: Status: Acute Plan continue CTX/ZTX-->change to Augmentin/ZTX upon d/c chlorhexadine MW Keep HOB elevated to minimize aspirations IDANIA as needed The patient needs to undergo a cystoscopy to remove the obstruction. Please protect the airway, and keep HOB elevated. Will follow Procedures Date of Service Date of Service: 06/30/25
[2025-06-30] MEDS: Chlorhexidine Gluc Oral Rinse 15 ML MOUTHWASH BUCCAL (15:57)
--- NOTE | 2025-06-30 16:15 | PHA.MEDREC ---
Addendum entered by Cristal Mares RPh 06/30/25 16:28: Reviewed by [facility] Original Note: Pharmacy Consult ? Medication Reconciliation Pharmacy has completed the medication reconciliation. Spoke with pt father over the phone and he was able to confirm pt medications. Father confirmed pt takes Albuterol 2 puffs as needed, Advair 2 puffs BID, Naltrexone 6mg QD and Pyridostigmine 1 TID and confirmed he filled them at [facility] in [place]; I spoke with [facility] and they confirmed; Albuterol LF 12/2022, Advair LF 05/09 for 30 days, Pyridostigime LF 02/06 for 90 days and they have no claims for Naltrexone being filled at any [facility] facility in over 2 years.
--- NOTE | 2025-06-30 16:36 | MHC.SHP ---
Pre-Procedural Eval Section A - 24 Hr Update-Section A only Date of Service: 06/30/25 The patient is an INPATIENT: Yes Changes since office visit: No Cold of Flu in the past 2 weeks, No New Medical Problems, No Changes in Medication and No Patient answered all questions The patient has been examined within 24 hours of the surgical procedure. The History & Physical has been completed within 30 days and I have reviewed it.: Yes Section B - Complete if H&P > 30 days Chief Complaint: kidney stone pain Details of Present Illness: Obstructing right proximal ureteric stones Allergies: Allergies Allergy/AdvReac Type Severity Reaction Status Date / Time buspirone (From BuSpar) Allergy Severe Dizziness Verified 06/30/25 09:13 and Leg Weakness sertraline (From ZOLOFT) AdvReac Intermediate NAUSEA & Verified 06/30/25 09:13 VOMITING methylprednisolone (From AdvReac Mild Agitated Verified 06/30/25 09:13 Solu-Medrol) trazodone (TRAZODONE) AdvReac Unknown VOMITING Verified 06/30/25 09:13 Plan Diagnosis/Plan: Unchanged (Cystoscopy, right retrograde, right ureteroscopy with laser lithotripsy stent placement) I have reviewed the history and physical and performed a pertinent physical examination on my patient. No changes have occurred unless specified. Time Spent With Patient Time: Total time managing care of this patient today ____ minutes.
--- NOTE | 2025-06-30 16:56 | HO.ANESPROP2 ---
[facility] Active Problems Active Problems: All Active Problems (Updated 06/30/25 @ 15:27 by Calvin Jean MD) Kidney stone (Acute) Pre-op chest exam (Acute) Steinstrasse (Acute) Bilateral nephrolithiasis (Acute) COVID-19 (Acute) Dyspnea (Acute) Chest pain (Acute) LEEANNA positive (Acute) SOB (shortness of breath) (Acute) Polyarthralgia (Acute) URI (upper respiratory infection) (Acute) Urinary retention (Acute) Other inflammatory polyneuropathies (Acute) Hypoglycemia (Acute) Gastritis (Acute) Pleuritis (Acute) Pneumonia (Acute) Bilateral calf pain (Acute) Pleural effusion (Acute) MARYANN (obstructive sleep apnea) (Acute) Has daytime drowsiness (Acute) Nocturnal hypoxemia (Acute) Tachycardia (Acute) Autonomic dysfunction (Acute) Asthma (Acute) Past Medical History Medical History Kidney stone URI (upper respiratory infection) Urinary retention Other inflammatory polyneuropathies Gastritis Pleuritis Pneumonia Bilateral calf pain Pleural effusion MARYANN (obstructive sleep apnea) Has daytime drowsiness Vitamin D deficiency Viry's disease Hypoglycemia Dizziness GERD (gastroesophageal reflux disease) Small fiber neuropathy Mccallum disease PTSD (post-traumatic stress disorder) Nocturnal hypoxemia Tachycardia Autonomic dysfunction Asthma Functional capacity: independent ambulation Family History Family History Mother Asthma Celiac disease/sprue Father Psoriasis Family history of problems with anesthesia: No (Unsure if mom had adverse reaction. Will obtain info before DOS) Surgical History Surgical History Hx of colonoscopy (~2017) History of wisdom tooth extraction (~2007) History of Problems with Anesthesia: No Social History Social History Are you a primary child care cook to a significant other at home: No Do you presently have visiting nurse or other home services: No Alcohol intake: never Patient Tobacco Use Status: Former Tobacco user Tobacco use type: Cigarette Years Smoked: 1 year Smoked in Last 30 Days: No Use of substances other than those prescribed or required for medical reasons: No Substance Use Type: Marijuana Advance Directives: Yes Advance Directives on File: Yes Advance Directives Date on File: 09/16/18 Do you have a plan to hurt others: No Plan Meds Allergies Allergy/AdvReac Type Severity Reaction Status Date / Time buspirone (From BuSpar) Allergy Severe Dizziness Verified 06/30/25 09:13 and Leg Weakness sertraline (From ZOLOFT) AdvReac Intermediate NAUSEA & Verified 06/30/25 09:13 VOMITING methylprednisolone (From AdvReac Mild Agitated Verified 06/30/25 09:13 Solu-Medrol) trazodone (TRAZODONE) AdvReac Unknown VOMITING Verified 06/30/25 09:13 Home Medications ?Medication ?Instructions ?Recorded ?Confirmed ?Last Taken ?Type fludrocortisone 0.1 mg tablet 0.2 mg PO DAILY 08/16/23 06/30/25 06/30/25 History midodrine 5 mg tablet 5 mg PO TID 08/16/23 06/30/25 06/30/25 History pregabalin 50 mg capsule 50 mg PO TID 08/16/23 06/30/25 06/30/25 History pyridostigmine bromide 60 mg tablet 60 mg PO TID 08/16/23 06/30/25 06/30/25 History albuterol sulfate 90 mcg/actuation 2 inh inhalation Q4-6H PRN 01/09/24 06/30/25 Unknown History aerosol inhaler Shortness Of Breath Or Wheezing naltrexone 6 mg PO DAILY 06/23/25 06/30/25 06/30/25 History acetaminophen 500 mg tablet 1,000 mg PO Q6H PRN Pain 06/30/25 06/30/25 Unknown History Exam Height,Weight and Vital Signs: Height 5 ft 9 in Weight 70.8 kg Last Vital Signs Temp 97.8 F 06/30/25 15:02 Pulse 81 06/30/25 15:02 Resp 15 06/30/25 15:02 BP 134/86 06/30/25 15:02 Pulse Ox 99 06/30/25 15:02 O2 Del Method Room Air 06/30/25 15:02 Pertinent Lab Results Pertinent Lab Results: Laboratory Tests 06/30/25 06/30/25 06/30/25 10:02 10:27 12:01 WBC 7.9 RBC 4.39 L Hgb 13.7 L Hct 38.0 L MCV 86.6 MCH 31.2 MCHC 36.1 H RDW 12.3 Plt Count 141 L MPV 9.9 Immature Gran % (Auto) 0.4 Neut % (Auto) 76.1 H Lymph % (Auto) 15.2 L [place] % (Auto) 7.4 Eos % (Auto) 0.4 Baso % (Auto) 0.5 Lymph # (Auto) 1.2 [place] # (Auto) 0.6 Eos # (Auto) 0.0 Baso # (Auto) 0.0 Abs Immat Gran (auto) 0.03 Absolute Neuts (auto) 6.0 Absolute Nucleated RBC 0.000 Nucleated RBC % (auto) 0.0 Sodium 140 Potassium 3.6 Chloride 105 Carbon Dioxide 29 Anion Gap 10 L BUN 18 H Creatinine 1.06 Estim Creat Clear Calc 99.1 Estimated GFR > 60 Random Glucose 105 Lactic Acid 0.7 Calcium 9.1 Total Bilirubin 0.9 AST 42 H ALT 30 Alkaline Phosphatase 57 Total Protein 7.7 Albumin 4.2 Urine Color Dark Yellow Urine Appearance Cloudy Urine pH 6.0 Ur Specific [place] 1.020 Urine Protein 30 (1+) H Urine Glucose (UA) Negative Urine Ketones Negative Urine Blood Large (3+) H Urine Nitrite Positive H Ur Leukocyte Esterase Trace H Urine RBC >20 H Urine WBC 6-10 H Ur Squamous Epith Cells 0-2 Calcium Oxalate Crystal Present Urine Bacteria None Seen Hyaline Casts 0-2 Airway Mallampati Class: II TM Dist: >3cm Neck ROM: Full Heart: RRR Lungs: CTA Assessment and Plan Assessment Anesthesia Assessment: Anesthesia Plan Discussed and Chart Reviewed Final Anesthetic Review Family History of Problems with Anesthesia: No (Unsure if mom had adverse reaction. Will obtain info before DOS) History of Problems with Anesthesia: No NPO: Yes ASA Class: III and Emergency Final Preanesthetic Review: Meds/Allgs Chart Reviewed, Consent Obtained/Reviewed and Anes Risks/Benef Reviewed Patient Risk: Intermediate Procedure Risk: Intermediate Anesthetic Plan Anesthetic Plan: GA Disposition: Standard PACU
--- NOTE | 2025-06-30 17:48 | P.HPHOSP_ITS ---
History of Present Illness Date of Service: 06/30/25 Attending physician on admission: Doyle Toscano Chief Complaint: nausea and vomiting This is a 34-year-old male with history of kidney stones, acquired autonomic dysfunction who underwent lithotripsy yesterday. He presented to the emergency department today with nausea vomiting and right flank pain. He denied any fever chills or shortness of breath. He had CT scan of the abdomen and pelvis which showed persistent obstructing cluster of calculi in the proximal right ureter slightly progressed since June 16 with progression/worsening of mild hydronephrosis and likely superimposed inflammatory versus infectious process in the right kidney. A CTA was done which showed multifocal pneumonia involving the right lower lobe greater than right upper lobe with bilateral parapneumonic effusions. He was taken to the OR with urology and underwent ureteroscopy.He was seen in the PACU following his procedure and was still recovering from anesthesia. He was awake and alert, but disoriented, history obtained from family at bedside who states that he had not been experiencing any respiratory sympmtoms prior to admission. He will be admitted overnight for observation. Review of Systems 2 Review of Systems: Yes all other systems are reviewed and are negative Gastrointestinal: Gastrointestinal: Reports nausea PMFSH Medical History Kidney stone URI (upper respiratory infection) Urinary retention Other inflammatory polyneuropathies Gastritis Pleuritis Pneumonia Bilateral calf pain Pleural effusion MARYANN (obstructive sleep apnea) Has daytime drowsiness Vitamin D deficiency Viry's disease Hypoglycemia Dizziness GERD (gastroesophageal reflux disease) Small fiber neuropathy Mccallum disease PTSD (post-traumatic stress disorder) Nocturnal hypoxemia Tachycardia Autonomic dysfunction Asthma Functional capacity: independent ambulation Family History Mother Asthma Celiac disease/sprue Father Psoriasis Surgical History Hx of colonoscopy (~2016) History of wisdom tooth extraction (~2007) Social History Household Members: Family Housing: House Are you a primary personal care worker to a significant other at home: No Do you presently have visiting nurse or other home services: No Alcohol intake: never Patient Tobacco Use Status: Former Tobacco user Tobacco use type: Cigarette Years Smoked: 1 year Smoked in Last 30 Days: No Use of substances other than those prescribed or required for medical reasons: No Substance Use Type: Marijuana Currently Displaying Signs/Symptoms of Drug Intoxication Withdrawal: No Have you been hit, kicked, punched, or otherwise hurt by someone within the past year? If so, by whom?: No Do you feel safe in your current relationship?: No Current Relationship Is there a partner from a previous relationship who is making you feel unsafe now?: No Are you made to feel afraid or neglected: No Advance Directives: Yes Advance Directives on File: Yes Advance Directives Date on File: 09/16/18 Do you have a plan to hurt others: No Plan Recently lost weight without trying: No How much weight loss: Not applicable Eating poorly because of decreased appetite: No Nutrition screen score: 0 Nutrition Risks: No Nutritional Risk Poor oral hygiene: No Meds Allergies Allergy/AdvReac Type Severity Reaction Status Date / Time buspirone (From BuSpar) Allergy Severe Dizziness Verified 06/30/25 09:13 and Leg Weakness sertraline (From ZOLOFT) AdvReac Intermediate NAUSEA & Verified 06/30/25 09:13 VOMITING methylprednisolone (From AdvReac Mild Agitated Verified 06/30/25 09:13 Solu-Medrol) trazodone (TRAZODONE) AdvReac Unknown VOMITING Verified 06/30/25 09:13 Active Medications: Current Medications Acetaminophen (Acetaminophen 325 Mg Tablet) 650 mg PO Q6H PRN PRN Reason: Pain, Mild 1-3,fever,headache Albuterol Sulfate (Albuterol Sulfate 90 Mcg 8 Gm Inhaler) 2 puff INHALE Q4-6H PRN PRN Reason: Shortness Of Breath Or Wheezing Azithromycin (Azithromycin 500 Mg Tablet) 500 mg PO Q24H DEBBY Calcium Carbonate (Calcium Carbonate 750 Mg Tab.Chew) 750 mg PO Q4H PRN PRN Reason: Heartburn Ceftriaxone Sodium (Ceftriaxone Sodium 1 Gm Vial) 1 gm IVPUSH Q24H DEBBY Fentanyl (Fentanyl Citrate/Pf 100 Mcg/2 Ml Vial) 25 mcg IVPUSH Q5M PRN PRN Reason: Pain, Moderate to Severe (Pain Scale 4-10) Stop: 06/30/25 22:57 Last Admin: 06/30/25 17:41 Dose: 25 mcg Fludrocortisone Acetate (Fludrocortisone Acetate 0.1 Mg Tablet) 0.2 mg PO DAILY [facility] Hydromorphone HCl (Hydromorphone Hcl 0.5 Mg/0.5 Ml Syringe) 0.25 mg IVPUSH Q5M PRN PRN Reason: Pain, Moderate to Severe (Pain Scale 4-10) Stop: 06/30/25 22:57 Ketorolac Tromethamine (Ketorolac Tromethamine 30 Mg/Ml Vial) 30 mg IVPUSH Q6H PRN PRN Reason: Pain, Moderate(Pain Scale 4-6) Last Admin: 06/30/25 17:46 Dose: 30 mg Magnesium Hydroxide (Milk Of Magnesia 30 Ml Oral.Susp) 30 ml PO DAILY PRN PRN Reason: Constipation Metoprolol Succinate (Metoprolol Succinate Er 25 Mg Tab.Er.24h) 25 mg PO DAILY [facility]; Protocol Midodrine (Midodrine Hcl 5 Mg Tablet) 5 mg PO TID [facility] Naloxone HCl (Naloxone Hcl 0.4 Mg/Ml Vial) 0.04 mg IVPUSH Q5M PRN PRN Reason: Excessive sedation or RR < 8 Non-Formulary Medication (Fluticasone Propion-Salmeterol [Advair Hfa]) 2 puff INHALE Q12H [facility] Ondansetron HCl (Ondansetron Hcl 4 Mg/2 Ml Vial) 4 mg IVPUSH Q8H PRN PRN Reason: Nausea and Vomiting Oxycodone HCl (Oxycodone Hcl Immed Release 5 Mg Tablet) 5 mg PO Q4H PRN PRN Reason: Pain, Mild (Pain Scale 1-3) Pregabalin (Pregabalin 50 Mg Capsule) 50 mg PO TID [facility] Pyridostigmine [place] (Pyridostigmine [place] 60 Mg Tablet) 60 mg PO TID [facility] Sodium Chloride (0.9 % Sodium Chloride Flush 3 Ml Syringe) 3 ml IVFLUSH QSHIFT [facility] Tamsulosin HCl (Tamsulosin Hcl 0.4 Mg Capsule) 0.4 mg PO BEDTIME [facility] Home Medications ?Medication ?Instructions ?Recorded ?Confirmed ?Last Taken ?Type fludrocortisone 0.1 mg tablet 0.2 mg PO DAILY 08/16/23 06/30/25 06/30/25 History midodrine 5 mg tablet 5 mg PO TID 08/16/23 5 06/30/25 History pregabalin 50 mg capsule 50 mg PO TID 08/16/2306/30/25 History pyridostigmine bromide 60 mg tablet 60 mg PO TID 08/1606/30/25 06/30/25 History albuterol sulfate 90 mcg/actuation 2 inh inhalation Q4 -6H PRN 01/09/24 06/30/25 Unknown History aerosol inhaler Shortness Of Breath Or Wheez ing naltrexone 6 mg PO DAILY 06/23/2506/3006/30/25 History acetaminophen 500 mg tablet 1,000 mg PO Q6H PRN Pain 0 06/30/25 06/30/25 Unknown History Physical Exam 2 Vital Signs and Narrative: Vital Signs: Last Vital Signs Temp 97.6 F 06/30/25 17:29 Pulse 94 06/30/25 17:29 Resp 20 06/30/25 17:41 BP 147/93 H 06/30/25 17:29 Pulse Ox 98 06/30/25 17:29 O2 Del Method Room Air 06/30/25 17:29 BMI result Body Mass Index 23.0 Const: General: alert and awake Nutritional Appearance: average body habitus Resp: Effort & Inspection: normal respiratory effort, able to speak in complete sentences, no respiratory distress and no use of accessory muscles Cardio: Rate: regular rate Neuro: General: moves all extremities Results Labs 07/01/25 06:31 07/01/25 06:31 Labs: Laboratory Results - last 24 hr 06/30/25 06/30/25 06/30/25 10:02 10:27 12:01 MCV 86.6 MCH 31.2 MCHC 36.1 H RDW 12.3 Plt Count 141 L MPV 9.9 Immature Gran % (Auto) 0.4 Neut % (Auto) 76.1 H Lymph % (Auto) 15.2 L [place] % (Auto) 7.4 Eos % (Auto) 0.4 Baso % (Auto) 0.5 Lymph # (Auto) 1.2 [place] # (Auto) 0.6 Eos # (Auto) 0.0 Baso # (Auto) 0.0 Abs Immat Gran (auto) 0.03 Absolute Neuts (auto) 6.0 Absolute Nucleated RBC 0.000 Nucleated RBC % (auto) 0.0 Anion Gap 10 L Estim Creat Clear Calc 99.1 Estimated GFR > 60 Random Glucose 105 Lactic Acid 0.7 Calcium 9.1 Total Bilirubin 0.9 AST 42 H ALT 30 Alkaline Phosphatase 57 Total Protein 7.7 Albumin 4.2 Urine Color Dark Yellow Urine Appearance Cloudy Urine pH 6.0 Ur Specific [place] 1.020 Urine Protein 30 (1+) H Urine Glucose (UA) Negative Urine Ketones Negative Urine Blood Large (3+) H Urine Nitrite Positive H Ur Leukocyte Esterase Trace H Urine RBC >20 H Urine WBC 6-10 H Ur Squamous Epith Cells 0-2 Calcium Oxalate Crystal Present Urine Bacteria None Seen Hyaline Casts 0-2 Imaging Radiologist's Impressions: Impressions Chest CTA 06/30/25 10:02 IMPRESSION: Multifocal pneumonia involving right lower lobe greater than right upper lobe. Bilateral parapneumonic effusions. No evidence of pulmonary embolus. Splenomegaly. Fleischner guidelines were followed. Electronically signed by: Yusef Veloz MD 06/30/2025 11:46 AM EDT RP Abdomen/Pelvis CT 06/30/25 11:02 IMPRESSION: Acute airspace disease, pneumonia right lower lung lobe. Persistent obstructing cluster of calculi in the proximal right ureter slightly progressed since June 16, 2025 with the progression/worsening mild hydronephrosis and likely superimposed inflammatory versus infectious process in the right kidney. Bilateral nephrolithiasis. Probable regional ileus. 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 Fleischner guidelines were followed. Electronically signed by: Lb Mak MD 06/30/2025 11:54 AM EDT RP Assessment and Plan (1) Autonomic dysfunction: Status: Acute (2) Pneumonia: Qualifiers: Laterality: right Lung location: lower lobe of lung Pneumonia type: d ue to unspecified organism Qualified Code(s): J18.9 - Pneumonia, unspecified organism Status: Acute (3) Pleural effusion: Status: Acute Plan This is a 34-year-old male with history of kidney stones, asthma, acquired autonomic dysfunction who presented to the emergency department with nausea vomiting and right flank pain after undergoing lithotripsy 06/29 found to have concern of obstructive right-sided stones status post ureteroscopy and also found to have multifocal pneumonia Multifocal pneumonia CTA showing multifocal pneumonia with bilateral parapneumonic effusions likely aspiration No sepsis. No hypoxia. will treat with IV ceftriaxone, azithromycin Pulmonary consult monitor respiratory status closely Blood cultures pending acquired autonomic dysfunction/autonomic inflammatory small fiber polyneuropathy Receives IVIG infusions Continue baseline fludrocortisone, midodrine, Mestinon, metoprolol Obstructing right renal calculi Status post ureteroscopy Urine culture pending On antibiotics for pneumonia Urology following dvt ppx - mechanical devices, early ambulation Quality Stroke Does the patient have a stroke diagnosis?: No VTE Prior VTE?: No VTE Risk Level:: Medical - moderate - high VTE Device Contraindication: N/A - Device Ordered VTE Drug Contraindication: Treatment Not Indicated
[2025-06-30] MEDS: oxyCODONE HCl Immed Release 5 MG TABLET PO (19:20)
--- NOTE | 2025-06-30 21:42 | HO.SKINPHOTO ---
Location: left lower leg Category: rash - poison arabella Stage: Length: Width: Depth: cm Location: Category: Stage: Length: Width: Depth: cm Location: Category: Stage: Length: Width: Depth: cm Location: Category: Stage: Length: Width: Depth: cm Location: Category: Stage: Length: Width: Depth: cm Location: Category: Stage: Length: Width: Depth: cm
[2025-06-30] MEDS: Hydrocortisone 1 % Ointment 28.35 GM TUBE 1 APPL TOPICAL (22:38)
[2025-07-01] MEDS: 0.9 % Sodium Chloride Flush 3 ML SYRINGE IVFLUSH ×3 (00:25→15:21)
[2025-07-01 03:24] VITALS: BP 117/60; PULSE 86; RESP 18; TEMP 36.2; O2SAT 97
[2025-07-01 06:41] LABS: MANUAL DIFF FLAG NO
[2025-07-01 06:59] LABS: Hematocrit 34.5 % (42.0-52.0); Hemoglobin 12.2 g/dl (14.0-18.0); Imm Gran Abs Auto 0.02 X10*3/uL (0.00-0.03); Imm Gran Pct Auto 0.3 % (0.0-0.4); Lymphocytes Absolute Auto 0.6 X10*3/uL (1.2-4.9); Mean Corpuscular HGB Conc 35.4 g/dl (31.0-36.0); Mean Corpuscular Hemoglobin 30.6 pg (27.0-33.0); Mean Corpuscular Volume 86.5 fL (80.0-98.0); NRBC Abs Auto 0.000 X10*3/uL (0.0-0.012); NRBC Pct Auto 0.0 /100WBC (0.0-0.2); Platelet Count 150 X10*3/uL (160-400); Red Blood Count 3.99 X10*6/uL (4.60-5.80); White Blood Count 6.5 X10*3/uL (4.8-10.8)
[2025-07-01 07:00] LABS: Anion Gap 11 (12-20); Blood Urea Nitrogen 14 mg/dL (9-16); Calcium 8.7 mg/dL (8.4-10.2); Carbon Dioxide 24 mmol/L (22-29); Chloride 109 mmol/L (96-108); Creatinine Clr Calc Pharmacy 97.2; Estimated Glomerular Filt Rate > 60; Potassium 4.3 mmol/L (3.3-5.1); Sodium 140 mmol/L (135-145)
[2025-07-01 07:28] VITALS: BP 116/61; PULSE 75; RESP 16; TEMP 36; O2SAT 96
--- NOTE | 2025-07-01 08:22 | HO.POSTANES ---
Post Anesthesia Evaluation Post Anesthesia Evaluation Date of Service: 07/01/25 Vital Signs: Vital Signs Temp Pulse Resp BP Pulse Ox O2 Del Method 07/01/25 07:28 96.8 F 75 16 116/61 96 Room Air 07/01/25 03:24 97.2 F 86 18 117/60 97 Room Air 06/30/25 23:10 97.0 F 79 18 125/74 97 Room Air Anesthesia: General Mental Status: Awake Pain Control: Satisfactory Nausea/Vomiting: None Hydration: Adequate Anesthesia-Related Issues: No Anes. Related Issues
[2025-07-01 09:06] VITALS: BP 116/61; PULSE 75
[2025-07-01] MEDS: Metoprolol Succinate ER 25 MG TAB.ER.24H PO (09:06)
[2025-07-01] MEDS: Hydrocortisone 1 % Ointment 28.35 GM TUBE 1 APPL TOPICAL (09:07)
--- NOTE | 2025-07-01 09:19 | P.PNPL_ITS ---
Subjective Subjective Date of Service: 07/01/25 Interval history: The patient was seen on exam. He is status post the cystoscopy without any complications. It was successful. He is being discharged from a urological standpoint. From a pulmonary standpoint the patient is also doing well. Vital signs are stable and he is asymptomatic. He will be switched to oral antibiotics to complete a 7-8 day course. He will follow-up as an outpatient will pulmonary and will have additional imaging studies scheduled. Objective Data Labs 07/01/25 06:31 07/01/25 06:31 Labs: Laboratory Results - last 24 hr 06/30/25 06/30/25 06/30/25 10:02 10:27 12:01 WBC 7.9 RBC 4.39 L Hgb 13.7 L Hct 38.0 L MCV 86.6 MCH 31.2 MCHC 36.1 H RDW 12.3 Plt Count 141 L MPV 9.9 Immature Gran % (Auto) 0.4 Neut % (Auto) 76.1 H Lymph % (Auto) 15.2 L [place] % (Auto) 7.4 Eos % (Auto) 0.4 Baso % (Auto) 0.5 Lymph # (Auto) 1.2 [place] # (Auto) 0.6 Eos # (Auto) 0.0 Baso # (Auto) 0.0 Abs Immat Gran (auto) 0.03 Absolute Neuts (auto) 6.0 Absolute Nucleated RBC 0.000 Nucleated RBC % (auto) 0.0 Sodium 140 Potassium 3.6 Chloride 105 Carbon Dioxide 29 Anion Gap 10 L BUN 18 H Creatinine 1.06 Estim Creat Clear Calc 99.1 Estimated GFR > 60 Random Glucose 105 Lactic Acid 0.7 Calcium 9.1 Total Bilirubin 0.9 AST 42 H ALT 30 Alkaline Phosphatase 57 Total Protein 7.7 Albumin 4.2 Urine Color Dark Yellow Urine Appearance Cloudy Urine pH 6.0 Ur Specific [place] 1.020 Urine Protein 30 (1+) H Urine Glucose (UA) Negative Urine Ketones Negative Urine Blood Large (3+) H Urine Nitrite Positive H Ur Leukocyte Esterase Trace H Urine RBC >20 H Urine WBC 6-10 H Ur Squamous Epith Cells 0-2 Calcium Oxalate Crystal Present Urine Bacteria None Seen Hyaline Casts 0-2 07/01/25 06:31 WBC 6.5 RBC 3.99 L Hgb 12.2 L Hct 34.5 L MCV 86.5 MCH 30.6 MCHC 35.4 RDW 12.1 Plt Count 150 L MPV 10.2 Immature Gran % (Auto) 0.3 Neut % (Auto) 85.6 H Lymph % (Auto) 9.9 L [place] % (Auto) 4.0 Eos % (Auto) 0.0 Baso % (Auto) 0.2 Lymph # (Auto) 0.6 L [place] # (Auto) 0.3 Eos # (Auto) 0.0 Baso # (Auto) 0.0 Abs Immat Gran (auto) 0.02 Absolute Neuts (auto) 5.5 Absolute Nucleated RBC 0.000 Nucleated RBC % (auto) 0.0 Sodium 140 Potassium 4.3 Chloride 109 H Carbon Dioxide 24 Anion Gap 11 L BUN 14 Creatinine 1.08 Estim Creat Clear Calc 97.2 Estimated GFR > 60 Random Glucose 130 H Lactic Acid Calcium 8.7 Total Bilirubin AST ALT Alkaline Phosphatase Total Protein Albumin Urine Color Urine Appearance Urine pH Ur Specific [place] Urine Protein Urine Glucose (UA) Urine Ketones Urine Blood Urine Nitrite Ur Leukocyte Esterase Urine RBC Urine WBC Ur Squamous Epith Cells Calcium Oxalate Crystal Urine Bacteria Hyaline Casts Review of Systems Constitutional: Reports as per HPI Cardiovascular: Reports as per HPI and Reports no additional cardiovascular complaints Respiratory: Reports no additional respiratory complaints Gastrointestinal: Reports as per HPI and Reports no additional gastrointestinal complaints Genitourinary: Reports as per HPI Musculoskeletal: Reports no additional musculoskeletal complaints and Reports as per HPI Reports system reviewed and no additional complaints, except as documented and Reports as per HPI Physical Exam 2 Vital Signs: Vital Signs: Last Vital Signs Temp 96.8 F 07/01/25 07:28 Pulse 75 07/01/25 09:06 Resp 16 07/01/25 07:28 BP 116/61 07/01/25 09:06 Pulse Ox 96 07/01/25 07:28 O2 Del Method Room Air 07/01/25 07:28 BMI result Body Mass Index 23.2 Const: General: cooperative, healthy appearing, comfortable and no acute distress Orientation/consciousness: patient oriented x3 HEENT: Face and sinus: Yes normal facial exam Mouth: moist mucous membranes Neck: Neck: Yes normal visual inspection, Yes full ROM and Yes trachea midline Chest: Chest palpation & inspection: normal inspection of the chest Resp: Effort & Inspection: normal respiratory effort, able to speak in complete sentences and no respiratory distress Auscultation: clear to auscultation bilaterally GI: Inspection: Yes normal to inspection Back/Spine/Pelvis: Cervical Spine: normal cervical lordosis Thoracic/Lumbar Spine: thoracic and lumbar spine normal to inspection Skin: General skin exam: no rashes or lesions noted Neuro: General: patient oriented x3, tone normal and moves all extremities Extrem: General: Yes normal to inspection and Yes capillary refill normal Procedures Date of Service Date of Service: 07/01/25 Assessment and Plan Assessment and plan (1) Pneumonia: Problem details: aspiration versus hematogenous Status: Acute (2) Asthma: Status: Acute (3) Pleural effusion: Status: Acute Plan Change to p.o. antibiotics, Augmentin and azithromycin to complete an 8 day course Incentive spirometer Continue respiratory therapy The patient will follow-up with Pulmonary as an outpatient Time Spent With Patient Time: Total time managing care of this patient today ____ minutes. Progress Note: Quality Stroke Does the patient have a stroke diagnosis?: No
--- NOTE | 2025-07-01 09:48 | MHC.CM.PN ---
SUGAR 07/01/25 Male 34yrs DX PNA, UTI s/p R Renal stone removal 06/30 He lives with family. He is independent with all functional mobility. NO DME no services HCP on file verified PCP Brittney DE SOUZA home self care oral ABX and pulmonary F/U. Patient will arrange for a ride home.
[2025-07-01 11:44] VITALS: BP 136/86; PULSE 71; RESP 16; TEMP 36.7; O2SAT 100
[2025-07-01 12:21] VITALS: BP 136/86
[2025-07-01] MEDS: oxyCODONE HCl Immed Release 5 MG TABLET PO (13:25)
[2025-07-01 15:05] VITALS: BP 131/73; PULSE 93; RESP 20; TEMP 36.6; O2SAT 97
--- NOTE | 2025-07-01 16:16 | P.DS_ITS ---
DS: Providers Provider Date of Service: 07/01/25 Date of admission: 07/01/25 08:29 Date of discharge: 07/01/25 Primary care physician: Brittney Dumas MD Consults: 06/30/25 13:07 Consult to Pulmonology Stat Consulting Provider: Calvin Jean Reason for consultation: Post op multifocal pneumonia? Has provider been notified: Yes 06/30/25 13:08 Consult to Urology Stat Consulting Provider: Aaron Sweeney Reason for consultation: RIght UVJ Stone with hydronephrosis and inflammations/infection s/p lithotr Has provider been notified: Yes 06/30/25 17:53 Consult to Pulmonology Routine Consulting Provider[place] [facility] Reason for consultation: multifocal pna with b/l parapneumonic effusions Has provider been notified: No DS: Diagnosis Discharge Diagnosis (1) Autonomic dysfunction: Status: Acute (2) Pneumonia: Status: Acute (3) Pleural effusion: Status: Acute (4) Kidney stone: Status: Acute DS: Summary Hospital Course Hospital Course: From the history and physical by the admitting hospitalist, TIFFANIE Vega, 06/30/25: This is a 34-year-old male with history of kidney stones, acquired autonomic dysfunction who underwent lithotripsy yesterday. He presented to the emergency department today with nausea vomiting and right flank pain. He denied any fever chills or shortness of breath. He had CT scan of the abdomen and pelvis which showed persistent obstructing cluster of calculi in the proximal right ureter slightly progressed since June 16 with progression/worsening of mild hydronephrosis and likely superimposed inflammatory versus infectious process in the right kidney. A CTA was done which showed multifocal pneumonia involving the right lower lobe greater than right upper lobe with bilateral parapneumonic effusions. He was taken to the OR with urology and underwent urete roscopy.He was seen in the PACU following his procedure and was still recovering from anesthesia. He was awake and alert, but disoriented, history obtained from family at bedside who states that he had not been experiencing any respiratory sympmtoms prior to admission. He will be admitted overnight for observation. He was admitted to the hospitalist service with Pulmonology consultation. He was neither septic nor hypoxic. He was thought to have aspiration pneumonia from anesthesia from the urologic procedure. He was treated with ceftriaxone and azithromycin for 2 doses then discharged on amoxicillin-clavulanate plus azithromycin for 5 more doses. For pain control from renal colic and bladder spasms, he was prescribed phenazopyridine, naproxen, and oxycodone. He should follow up with [facility] [place] 2 weeks. Time Attestation Discharge Coordination Time (in mins): 35 Quality: Safe Use of Opioids Does Pt have an Active Cancer Diagnosis on the Problem List?: No Quality: Stroke Does the patient have a stroke diagnosis?: No Physical Exam Vital Signs: Vital Signs: Last Vital Signs Temp 97.8 F 07/01/25 15:05 Pulse 93 07/01/25 15:05 Resp 20 07/01/25 15:05 BP 131/73 07/01/25 15:05 Pulse Ox 97 07/01/25 15:05 O2 Del Method Room Air 07/01/25 15:05 BMI result Body Mass Index 23.2 Gen: in no acute distress HEENT: sclera anicteric, moist mucus membranes Neck: supple Lungs: clear bilaterally Heart: regular rate and rhythm, no murmurs Abd: soft, non-tender, non-distended Ext: no edema Skin: warm/well-perfused Neuro: alert and oriented x3, no focal findings Psych: appropriate affect DS: Data Data Completed and Pending Completed studies during hospitalization [Text1]: Laboratory Results WBC 6.5 X10*3/uL (4.8-10.8) 07/01/25 06:31 RBC 3.99 X10*6/uL (4.60-5.80) L 07/01/25 06:31 Hgb 12.2 g/dl (14.0-18.0) L 07/01/25 06:31 Hct 34.5 % (42.0-52.0) L 07/01/25 06:31 MCV 86.5 fL (80.0-98.0) 07/01/25 06:31 MCH 30.6 pg (27.0-33.0) 07/01/25 06:31 MCHC 35.4 g/dl (31.0-36.0) 07/01/25 06:31 RDW 12.1 % (11.0-16.0) 07/01/25 06:31 Plt Count 150 X10*3/uL (160-400) L 07/01/25 06:31 MPV 10.2 fL (9.4-12.4) 07/01/25 06:31 Immature Gran % (Auto) 0.3 % (0.0-0.4) 07/01/25 06:31 Neut % (Auto) 85.6 % (45-73) H 07/01/25 06:31 Lymph % (Auto) 9.9 % (20-40) L 07/01/25 06:31 [place] % (Auto) 4.0 % (2-11) 07/01/25 06:31 Eos % (Auto) 0.0 % (0-4) 07/01/25 06:31 Baso % (Auto) 0.2 % (0-2) 07/01/25 06:31 Lymph # (Auto) 0.6 X10*3/uL (1.2-4.9) L 07/01/25 06:31 [place] # (Auto) 0.3 X10*3/uL (0.1-1.2) 07/01/25 06:31 Eos # (Auto) 0.0 X10*3/uL (0.0-0.4) 07/01/25 06:31 Baso # (Auto) 0.0 X10*3/uL (0.0-0.2) 07/01/25 06:31 Abs Immat Gran (auto) 0.02 X10*3/uL (0.00-0.03) 07/01/25 06:31 Absolute Neuts (auto) 5.5 x10*3/uL (2.0-8.3) 07/01/25 06:31 Absolute Nucleated RBC 0.000 X10*3/uL (0.0-0.012) 07/01/25 06:31 Nucleated RBC % (auto) 0.0 /100WBC (0.0-0.2) 07/01/25 06:31 Sodium 140 mmol/L (135-145) 07/01/25 06:31 Potassium 4.3 mmol/L (3.3-5.1) 07/01/25 06:31 Chloride 109 mmol/L (96-108) H 07/01/25 06:31 Carbon Dioxide 24 mmol/L (22-29) 07/01/25 06:31 Anion Gap 11 (12-20) L 07/01/25 06:31 BUN 14 mg/dL (9-16) 07/01/25 06:31 Creatinine 1.08 mg/dL (0.5-1.4) 07/01/25 06:31 Estim Creat Clear Calc 97.2 07/01/25 06:31 Estimated GFR > 60 07/01/25 06:31 Random Glucose 130 mg/dL (60-115) H 07/01/25 06:31 Lactic Acid 0.7 mmol/L (0.5-2.0) 06/30/25 12:01 Calcium 8.7 mg/dL (8.4-10.2) 07/01/25 06:31 Total Bilirubin 0.9 mg/dL (0.0-1.0) 06/30/25 10:02 AST 42 U/L (5-37) H 06/30/25 10:02 ALT 30 U/L (0-40) 06/30/25 10:02 Alkaline Phosphatase 57 U/L (39-117) 06/30/25 10:02 Total Protein 7.7 g/dL (6.5-8.0) 06/30/25 10:02 Albumin 4.2 g/dL (3.5-5.0) 06/30/25 10:02 Urine Color Dark Yellow 06/30/25 10:27 Urine Appearance Cloudy 06/30/25 10:27 Urine pH 6.0 (5.0-9.0) 06/30/25 10:27 Ur Specific [place] 1.020 (1.005-1.025) 06/30/25 10:27 Urine Protein 30 (1+) mg/dL (Neg-Trace) H 06/30/25 10:27 Urine Glucose (UA) Negative mg/dL (Negative) 06/30/25 10:27 Urine Ketones Negative mg/dL (Negative) 06/30/25 10:27 Urine Blood Large (3+) (Negative) H 06/30/25 10:27 Urine Nitrite Positive (Negative) H 06/30/25 10:27 Ur Leukocyte Esterase Trace (Negative) H 06/30/25 10:27 Urine RBC >20 /HPF (0-2) H 06/30/25 10:27 Urine WBC 6-10 /HPF (0-5) H 06/30/25 10:27 Ur Squamous Epith Cells 0-2 /HPF (0-2) 06/30/25 10:27 Calcium Oxalate Crystal Present 06/30/25 10:27 Urine Bacteria None Seen (None Seen) 06/30/25 10:27 Hyaline Casts 0-2 /LPF (0-2) 06/30/25 10:27 Impressions Chest CTA 06/30/25 10:02 IMPRESSION: Multifocal pneumonia involving right lower lobe greater than right upper lobe. Bilateral parapneumonic effusions. No evidence of pulmonary embolus. Splenomegaly. Fleischner guidelines were followed. Electronically signed by: Yusef Veloz MD 06/30/2025 11:46 AM EDT RP Abdomen/Pelvis CT 06/30/25 11:02 IMPRESSION: Acute airspace disease, pneumonia right lower lung lobe. Persistent obstructing cluster of calculi in the proximal right ureter slightly progressed since June 16, 2025 with the progression/worsening mild hydronephrosis and likely superimposed inflammatory versus infectious process in the right kidney. Bilateral nephrolithiasis. Probable regional ileus. 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 Fleischner guidelines were followed. Electronically signed by: Lb Mak MD 06/30/2025 11:54 AM EDT RP Guidance Fluoroscopy 06/30/25 16:45 IMPRESSION: Fluoroscopic guidance. Electronically signed by: Alberto Ruiz MD 07/01/2025 11:40 AM EDT RP Pending studies at discharge: Pending at discharge 06/30/25 17:09 Surgical [PTH] Routine Discharge Plan Discharge Anticipated Discharge Date/Time: 07/01/25 15:58 Patient Disposition: Home, Self-Care Discharge Diagnosis: ureteral stones aspiration pneumonia Referrals: Aaron Sweeney MD [Physician, Urology] - 2 Weeks Brittney Dumas MD [Primary Care Provider, Internal Medicine] - 1 Week Discharge Medications: New oxycodone 5 mg Tablet 5 mg PO Q6H PRN (Reason: pain, severe) Qty: 12 0RF Rx Instructions: Partial Fill upon patient request. phenazopyridine 200 mg Tablet 200 mg PO TIDWM Qty: 6 0RF amoxicillin-pot clavulanate 875-125 mg tablet 1 tab PO BID Qty: 10 0RF azithromycin 500 mg tablet 500 mg PO DAILY 5 Days Qty: 5 0RF Continued metoprolol succinate 25 mg tablet extended release 24 hr 25 mg PO DAILY Qty: 90 3RF fluticasone propion-salmeterol [Advair HFA] 115-21 mcg/actuation HFA aerosol inhaler 2 puff inhalation Q12H 30 Days Qty: 12 11RF midodrine 5 mg tablet 5 mg PO TID pyridostigmine bromide 60 mg tablet 60 mg PO TID fludrocortisone 0.1 mg tablet 0.2 mg PO DAILY pregabalin 50 mg capsule 50 mg PO TID naltrexone 6 mg PO DAILY tamsulosin 0.4 mg capsule 0.4 mg PO BEDTIME 14 Days Qty: 14 0RF acetaminophen 500 mg Tablet 1,000 mg PO Q6H PRN (Reason: Pain) naproxen 500 mg tablet 500 mg PO BID PRN (Reason: pain, mild-moderate) 7 Days Qty: 14 0RF albuterol sulfate 90 mcg/actuation HFA aerosol inhaler 2 inh inhalation Q4-6H PRN (Reason: Shortness Of Breath Or Wheezing) Diet: Advance to usual diet Activity on Discharge: As tolerated Stand Alone Forms: Patient Portal Discharge page Print Language: Bahraini Care Plan Goals: recovery from hospitalization Health Concerns: ureteral stones aspiration pneumonia Plan of Treatment: drink plenty of fluids follow up with Dr Sween[place] [facility] [place] 2 [place] take phenazopyridine for urinary pain take naproxen or acetaminophen for mild-moderate pain, oxycodone for severe pain antibiotics for 5 days: azithromycin 500 mg daily PLUS amoxicillin-clavulanate twice daily Please follow up with your primary care doctor within 1 week. Return to the hospital if you experience recurrent or worsening symptoms. Assessment: See Discharge Summary.
== END 2025-07-01 17:21 | disposition home or self-care (01) | DRG 178 ==
LOC: HO.ED 14:24 → HO.SSS 14:53 → HO.EDOVER 17:51 → HO.S3 17:59
PROVIDERS: Physician Assistant; Urology; Admitting Provider Physician Assistant Medical; Emergency Provider Emergency Medicine; PCP Internal Medicine; Visit Provider Family Medicine
DX: J69.0 Pneumonitis due to inhalation of food and vomit (principal); J45.41 Moderate persistent asthma with (acute) exacerbation; J91.8 Pleural effusion in other conditions classified elsewhere; N13.2 Hydronephrosis with renal and ureteral calculous obstruction; Z79.60 Long term (current) use of unspecified immunomodulators and immunosuppressants; Z79.899 Other long term (current) drug therapy
CPT/HCPCS: 36415; 71275; 74177; 80048; 80053; 81001; 82365; 83605; 85025; 87040; 87086; 88300; 99221; 99285; C1758; C1769; C1894; C2617; J0131; J0456; J0696; J1100; J1171; J1885; J2003; J2250; J2270; J2405; J2704; J3010; Q9967

== ENCOUNTER → 2025-06-30 09:29 | Outpatient (BNV) | payer MEDICARE, MEDICAID, SELFPAY | PROVIDERS: Emergency Provider Emergency Medicine; PCP Internal Medicine; Visit Provider Radiology Diagnostic Radiology | DX: N20.0 Calculus of kidney (principal); J18.1 Lobar pneumonia, unspecified organism; J84.89 Other specified interstitial pulmonary diseases | CPT/HCPCS: 74177 ==

== ENCOUNTER → 2025-06-30 09:33 | Outpatient (BNV) | payer MEDICARE, MEDICAID, SELFPAY | PROVIDERS: Emergency Provider Emergency Medicine; PCP Internal Medicine; Visit Provider Urology | DX: N20.1 Calculus of ureter (principal); Y84.8 Other medical procedures as the cause of abnormal reaction of the patient, or of later complication, without mention of misadventure at the time of the procedure | CPT/HCPCS: 99024 ==

== ENCOUNTER → 2025-06-30 14:53 | Outpatient (BNV) | payer MEDICARE, MEDICAID, SELFPAY | PROVIDERS: Emergency Provider Emergency Medicine; PCP Internal Medicine; Visit Provider Hospitalist | DX: J18.9 Pneumonia, unspecified organism (principal); J45.41 Moderate persistent asthma with (acute) exacerbation; J90 Pleural effusion, not elsewhere classified | CPT/HCPCS: 99233 ==

== ENCOUNTER 2025-07-06 14:52 | Outpatient (AMB) | payer MEDICARE, MEDICAID, SELFPAY ==
--- OUTSIDE RECORDS SUMMARY | 2025-07-03 20:25 | XMS_ITS ---
Author Organization [facility] Address [address] [place] [id number] Care Team Providers Care Sand Carrier Name Role Phone ALJEANIEYOSELIN MCCARTHY Primary Care Provide r Unavailable CasasJerome Unavailable [phone] Problems Problem Type SNOMED Code ICD Code Onset Dates Problem Status W/U Status Risk Notes Problem Diarrhea (87696268) Diarrhea (R19.7) Active confirmed Encounters Encounter Location Date Provider Diagnosis [facility] [address] [place] [id number] 07/04/2025 Jerome Yessenia Diarrhea R19.7 Assessments Encounter Date Diagnosis (ICD Code) Assessment Notes Treatment Notes Treatment Clinical Notes Section Notes 07/04/2025 Diarrhea (ICD-10 - R19.7) Plan Of Treatment Pending Test Test Name Order Date CHEM 7 PROFILE 07/04/2025 CBC w DIFF 07/04/2025 Calcium 07/04/2025 CDiff with Reflex to PCR 07/04/2025 GI PANEL 07/04/2025 Progress Notes * SARI CASASDOB:1990 (34 yo M)Acc No.[id number]:07/04/2025 Patient: Samantha SRAI CELESTIN :1990 A ge:34 Y S ex:Male Address:[address] [place] [address], [id number] Subjective: * Chief Complaints: * * Medical History: * Surgical History: * Hospitalization/Major Diagno stic Procedure: * Medications: Objective: * Vitals: * Physical Examination: Assessment: * Assessment: 1. D iarrhea - R19.7 (Primary) Plan: * Treatment: * Procedure Codes: * true * Date: Generated for Printi ng/Faxing/eTransmitting on: 0 07/06/2025 04:15 PM EDT
--- NOTE | 2025-07-06 15:10 | MHC.OFFVIS ---
Intake Visit Reasons: Cysto/stent removal approved by Estela Intake Note: Patient is present for cysto stent removal Urology Rx:none Blood Thinners:none Imaging completed: none Customer Engagement Analyst Required: No Accompanied by: Self / Same As Patient Allergies buspirone (From BuSpar) Allergy (Severe, Verified 07/06/25 15:11) Dizziness and Leg Weakness sertraline (From ZOLOFT) Adverse Reaction (Intermediate, Verified 07/06/25 15:11) NAUSEA & VOMITING methylprednisolone (From Solu-Medrol) Adverse Reaction (Mild, Verified 07/06/25 15:11) Agitated trazodone (TRAZODONE) Adverse Reaction (Unknown, Verified 07/06/25 15:11) VOMITING HPI Comments Details: Ace is pleasant male. He is a patient of Dr. Yousif. He is seen for the following urologic conditions - nephrolithiasis After right-sided ESWL had Steinstrasse Underwent ureteroscopy with laser lithotripsy Here for stent removal Will need follow-up three-month Litholink with renal ultrasound Stone analysis pending Does have autonomic dysfunction proven with [place]-Kalpesh assessment On fludrocortisone, midodrine, pyridostigmine Nephrolithiasis Ace presents for - initial evaluation for nephrolithiasis, Initial presentation through emergency room Presenting symptoms included flank pain progressive right side Imaging - 07/04 CT Calculus measuring 8 mm at the right ureteropelvic junction. Mild right hydronephrosis. Nonobstructing bilateral renal calculi. Laboratory investigations - creatinine 0.84, calcium 8.9 Stone composition - unknown 24 hour urine evaluation - none on file Interventions - - 07/04 - right ESWL, right ureteroscopy with laser lithotripsy Current therapeutic plan - Litholink [facility] Medical History Kidney stone URI (upper respiratory infection) Urinary retention Other inflammatory polyneuropathies Gastritis Pleuritis Pneumonia Bilateral calf pain Pleural effusion MARYANN (obstructive sleep apnea) Has daytime drowsiness Vitamin D deficiency Viry's disease Hypoglycemia Dizziness GERD (gastroesophageal reflux disease) Small fiber neuropathy Mccallum disease PTSD (post-traumatic stress disorder) Nocturnal hypoxemia Tachycardia Autonomic dysfunction Asthma Surgical History Hx of colonoscopy (~2017) History of wisdom tooth extraction (~2007) Family History Mother Asthma Celiac disease/sprue Father Psoriasis Social History Household Members: Family Housing: House Are you a primary home health aide caregiver to a significant other at home: No Do you presently have visiting nurse or other home services: No Alcohol intake: never Patient Tobacco Use Status: Former Tobacco user Tobacco use type: Cigarette Years Smoked: 1 year Substance Use Type: Marijuana Advance Directives Date on File: 09/16/18 service: No Review of Systems Const Denies chills and Denies fever(s) Card Reports no additional complaints and Denies syncope Resp Denies cough GI Denies abdominal pain and Denies heartburn Reports as per HPI and Denies change in libido Neuro Denies syncope Psych Denies change in libido Endo Denies change in libido Physical Exam Const General: cooperative, healthy appearing, comfortable and no acute distress Orientation/consciousness: patient oriented x3 HEENT Face and sinus: Yes normal facial exam Mouth: moist mucous membranes Neck Neck: Yes normal visual inspection, Yes full ROM and Yes trachea midline Chest Chest palpation & inspection: normal inspection of the chest Resp Effort & Inspection: normal respiratory effort, able to speak in complete sentences and no respiratory distress GI Inspection: Yes normal to inspection Back/Spine/Pelvis Cervical Spine: normal cervical lordosis Thoracic/Lumbar Spine: thoracic and lumbar spine normal to inspection Skin General skin exam: no rashes or lesions noted Neuro General: patient oriented x3, gait normal, tone normal and moves all extremities Extrem General: Yes normal to inspection and Yes capillary refill normal Office Procedures Cystoscopy Consent Discussed risk and benefit or proposed procedure with the patient. Information consent for procedure given to the patient. Discussed technical aspects, risks, benefits and alternatives in full. Addressed all of the patient's questions and concerns regarding the procedure. The patient demonstrated knowledge and understanding. They wish to proceed with this procedure. Preparation The patient was prepped in the usual manner. A respiratory therapy manager was present and in the room. Genitalia was prepped with betadine solution in a sterile manner. Lidocaine Jelly 2% was placed into the urethra and 16Fr flexible Olympus cystoscope was inserted into the meatus after adequate lubrication. Procedure A well lubricated 16 Kiswahili cystoscope was placed No abnormality noted of urethra during placement Indwelling stent seen within bladder emerging from right ureteric orifices The stent was grasped with a 3 prong grasper and removed without difficulty The patient tolerated the procedure well [id number] with stent removal DISPOSABLE SCOPE URO-G FLEXIBLE SCOPE Procedure code (CPT) selection complete Office Meds lidocaine HCl 2 % mucosal jelly in applicator Performing Provider: Aaron Sweeney MD Performing Location: [facility] Administered by: Kristy Lee RN on 07/06/25 15:21 Dose Route Admin Location Dispensed Lot Number Expiration Date NDC Tool Room Attendant 10 mL intra-urethral 10 mL nitrofurantoin monohydrate/macrocrystals 100 mg capsule Performing Provider: Aaron Sweeney MD Performing Location: [facility] Administered by: Kristy Lee RN on 07/06/25 15:21 Dose Route Admin Location Dispensed Lot Number Expiration Date NDC Tool Room Attendant 100 mg PO 1 cap Assessment & Plan Assessment & Plan (1) Kidney stone: Code(s): N20.0 - Calculus of kidney Category: Medical (2) Steinstrasse: Code(s): N20.1 - Calculus of ureter; Y84.8 - Other medical procedures as the cause of abnormal reaction of the patient, or of later complication, without mention of misadventure at the time of the procedure Category: Medical Plan Litholink Imaging Orders: Orders AMB Cystoscopy Today N20.0 - Calculus of kidney URORISK Today N20.0 - Calculus of kidney US renal BI 3 Months N20.0 - Calculus of kidney Patient Instructions: This note is constructed using voice recognition software. While every effort has been made to ensure accuracy team cdl driver errors may have been included. Imaging studies, laboratory and physical exam results were discussed and reviewed in detail. No major barriers to patient understanding were identified. An opportunity to ask questions regarding the treatment plan was provided. All questions were answered. The patient expressed understanding and agreement with the above treatment plan. The patient is aware they should contact our office by phone for worsening of their current condition or the appearance of new urologic symptoms. Compliance is encouraged with any medications and followup testing that is ordered. It is a privilege to participate in the urologic care of your patient. If you have any questions or concerns regarding treatment for the above conditions, or other urologic issues, please do not hesitate to contact me. The office telephone contact is [phone]. Sincerely, Dr Aaron Sweeney MD, [facility] - Urology Compassionate Specialist Care for the Genitourinary System Coding Level of Care Code Est Pt Level 3 (18334) Diagnoses Kidney stone N20.0 [address] N20.1; Y84.8 CPT Codes Cystoscopy - CPT: 69553-[id number] with stent removal ([id number])
--- OUTSIDE RECORDS SUMMARY | 2025-07-06 16:15 | XMS_ITS | Encounter Summary ---
Author Organization [facility] Address [address] [place] [address] Care Team Providers Care Roller Print Tender Name Role Phone Errol Dumas MD Primary Care Provider [phone] Reason for Visit * Reason Onset Date Comments Appointment-Internal Referral 04/20/2018 EN DOCRINOLOGY Encounter Details Date Type Department Care Team Description 04/20/2018 Telephone Adult Medicine - [place] [address], [place] [id number] Errol Dumas MD [address] [place] [address] Appointment-Internal Referral (ENDOCRINOLOGY) Social History Tobacco Use Types Packs/Day Years Used Date Smoking Tobacco: Former Smokeless Tobacco: Never Alcohol Use Standard Drinks/Week Comments Yes 0 (1 standard drink = 0.6 oz pur e alcohol) occ Sex Assigned at Date Recorded Not on file documented as of this encounter Miscellaneous Notes * Telephone Encounter - Yudelka Horn - 04/20/2018 10:48 AM EDT Patient was referred to ENDOCRINOLOGY two phone calls were made and a letter was sent but patient has not responded. No further action will be taken with this referral. documented in this encounter Plan of Treatment Not on file documented as of this encounter Visit Diagnoses Not on filedocumented in this encounter Care Teams Roller Print Tender Relationship Specialty Start Date End Date Errol Dumas MD [address] [place] [address] PCP - General Internal Medicine 12/16/12 documented as of this encounter
--- OUTSIDE RECORDS SUMMARY | 2025-07-06 16:15 | XMS_ITS | Encounter Summary ---
Author Organization [facility] Address [address] [place] [address] Care Team Providers Care Medical Education Specialist Name Role Phone Errol Dumas MD Primary Care Provider [phone] Encounter Details Date Type Department Care Team Description 01/11/2020 Certified Surgical Technologist Report Medical Records [address] [place] [id number] Calvin Jean MD Social History Tobacco Use Types Packs/Day Years Used Date Smoking Tobacco: Former Smokeless Tobacco: Never Alcohol Use Standard Drinks/Week Comments Yes 0 (1 standard drink = 0.6 oz pur e alcohol) occ Sex Assigned at Date Recorded Not on file documented as of this encounter Plan of Treatment Not on file documented as of this encounter Visit Diagnoses Not on filedocumented in this encounter Care Teams Medical Education Specialist Relationship Specialty Start Date End Date Errol Dumas MD [address] [place] [address] PCP - General Internal Medicine 12/16/12 documented as of this encounter
--- OUTSIDE RECORDS SUMMARY | 2025-07-06 16:15 | XMS_ITS | Encounter Summary ---
Author Organization [facility] Address [address] [place] [address] Care Team Providers Care Certified Health Education Specialist Name Role Phone Errol Dumas MD Primary Care Provider +1 -[phone] Reason for Referral * EXTERNAL (Urgent) - Authorized/Booked Specialty Diagnoses / Procedures Referred By Tu sanchez Referred To Contact Physical Therapy Procedures REFERRAL TO PHYSICAL THERAPY Errol Dumas MD [address] [place], [place] External Phys Thrpy Referral ID Status Reason Start Date Expiration Date V isits Requested Visits Authorized SEE REVIEW 04/26/19 Authorized/ Booked 04/26/2019 07/27/2019 1 1 Reason for Visit * Reason Onset Date Comments Coffee Blender Feedback 04/26/2019 physical therpay - attain Encounter Details Date Type Department Care Team Description 04/26/2019 Telephone Adult Medicine - [place] [address] [place] [address] Errol Dumas MD [address] [place], [place] Coffee Blender Feedback (physical therpay- attain) Social History Tobacco Use Types Packs/Day Years Used Date Smoking Tobacco: Former Smokeless Tobacco: Never Alcohol Use Standard Drinks/Week Comments Yes 0 (1 standard drink = 0.6 oz pur e alcohol) occ Sex Assigned at Date Recorded Not on file documented as of this encounter Miscellaneous Notes * Telephone Encounter - Errol Dumas MD - 04/26/2019 12:03 PM EDT Thanks order placed * Telephone Encounter - Kate Parsons - 04/26/2019 9:53 AM EDT Patient is self pay, no referral needed, per ati only an order is needed Please review this patients new referral request. The referral has been pended. Please complete thefollowing: If approved> sign order If denied>please give instructions and route to your practice nursing pool. Practice nurse should inform referrals and the patient if denied. * Telephone Encounter - Mireya Sánchez - 04/26/2019 9:36 AM EDT What insurance does the patient have today? No billing information found for this encounter. Effective 08/10/09: [employer] will not retro referral requests over 90 days. If request is for this please instruct patient to call the 800# on their insurance card to appeal. Do not submit a request. Referrals cannot be processed if the insurance is not accurate. If the insurance listed above in red is NO BILLING INFORMATION FOUND FOR THIS ENCOUTNER The patients correct insurance must be obtained and registered in [facility] or their referral can not be processed. Is this a retro request? YES. If yes for what date of service do you need the retro referral? 04/21/19-04/26/19 Who is calling to request this referral? mom If the caller is not the patient, what is their name? ailyn Ask the patient WHO referred them to this specialty: Patient self referred FIRST and LAST NAME of SPECIALIST PATIENT is seeing: attain physical therpay What specialty is this? 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 YES Is this visit:Follow Up Address of Specialist:[address] [place] [address] Phone # of Specialist:[phone] Fax #: (if applicable): Does patient have an appointment scheduled?: YES Date of appointment- (including a retro-request): 04/21/19 04/26/19 Is this appointment related to: Not MVA, WC or Surgery related documented in this encounter Plan of Treatment Not on file documented as of this encounter Visit Diagnoses Not on filedocumented in this encounter Care Teams Certified Health Education Specialist Relationship Specialty Start Date End Date Errol Dumas MD [address] [place] [address] PCP - General Internal Medicine 12/16/12 documented as of this encounter
--- OUTSIDE RECORDS SUMMARY | 2025-07-06 16:15 | XMS_ITS | Encounter Summary ---
Author Organization [facility] Address [address] [place] [address] Care Team Providers Care Printed Circuit Board Designer Name Role Phone Errol Dumas MD Primary Care Provider +1 -[phone] Reason for Visit * Reason Onset Date Comments other 04/14/2018 Encounter Details Date Type Department Care Team Description 04/14/2018 Telephone Pulmonology - [place] [address] [facility] [address] [place] [address] Calvin Jean MD other Social History Tobacco Use Types Packs/Day Years Used Date Smoking Tobacco: Former Smokeless Tobacco: Never Alcohol Use Standard Drinks/Week Comments Yes 0 (1 standard drink = 0.6 oz pur e alcohol) occ Sex Assigned at Date Recorded Not on file documented as of this encounter Miscellaneous Notes * Telephone Encounter - Calvin Jean MD - 04/15/2018 8:38 AM EDT Called. I need to get him a cardiology appointment. I need to talk to Helen Hale about rehab. Looking for Data Communications Analyst. * Telephone Encounter - Allegra Post M.A. - 04/14/2018 11:37 AM EDT Forward to . * Telephone Encounter - Bobbi Caraballo - 04/14/2018 11:29 AM EDT Pt mother Ailyn is calling her son was [facility] to [facility] 2 days after he was seen by you and wants a call back Ailyn [phone] She wants to know where we go from here for his care pt mother is very upset she dont know what to next documented in this encounter Plan of Treatment Not on file documented as of this encounter Visit Diagnoses Not on filedocumented in this encounter Care Teams Printed Circuit Board Designer Relationship Specialty Start Date End Date Errol Dumas MD [address] [place] [address] PCP - General Internal Medicine 12/16/12 documented as of this encounter
--- OUTSIDE RECORDS SUMMARY | 2025-07-06 16:15 | XMS_ITS | Encounter Summary ---
Author Organization [facility] Address [address] [place] [address] Care Team Providers Care Auto Clutch Specialist Name Role Phone Errol Dumas MD Primary Care Provider +1 -[phone] Reason for Visit * Reason Onset Date Comments Bottom Turning Lathe Tender Feedback 04/14/2018 Home Healthcare Encounter Details Date Type Department Care Team Description 04/14/2018 Telephone Adult Medicine - [place] [address] [place], [place] [id number] Errol Dumas, [address] [place] [address] Bottom Turning Lathe Tender Feedback (Home Healthcare) Social History Tobacco Use Types Packs/Day Years Used Date Smoking Tobacco: Former Smokeless Tobacco: Never Alcohol Use Standard Drinks/Week Comments Yes 0 (1 standard drink = 0.6 oz pur e alcohol) occ Sex Assigned at Date Recorded Not on file documented as of this encounter Miscellaneous Notes * Telephone Encounter - Juan Garza LPN - 04/14/2018 10:29 AM EDT [facility] Home care * Telephone Encounter - Christine Cruz - 04/14/2018 10:26 AM EDT [facility] is checking the status of Home Health Care order. This order will print to the same printer this workstation prints all other orders. The clinical staff in the department will contact the patientto schedule the appointment. Please notify the referrals department once services have been set up and who they have been set up with.. Thank you, Christine Randall Referrals Department documented in this encounter Plan of Treatment Not on file documented as of this encounter Visit Diagnoses Not on filedocumented in this encounter Care Teams Auto Clutch Specialist Relationship Specialty Start Date End Date Errol Dumas MD [address] [place] [address] PCP - General Internal Medicine 12/16/12 documented as of this encounter
--- OUTSIDE RECORDS SUMMARY | 2025-07-06 16:15 | XMS_ITS | Encounter Summary ---
Author Organization [facility] Address [address] [place] [address] Care Team Providers Care Relay Engineer Name Role Phone Errol Dumas MD Primary Care Provider +1 -[phone] Encounter Details Date Type Department Care Team Description 02/24/2020 Wharf Tally Clerk Report Medical Records [address] [place] [address] Familia Sanchez MD Social History Tobacco Use Types Packs/Day [...] on filedocumented in this encounter Care Teams Relay Engineer Relationship Specialty Start Date End Date Errol Dumas, [address] [place] [address] PCP - General Internal Medicine 12/16/12 documented as of this encounter
--- OUTSIDE RECORDS SUMMARY | 2025-07-06 16:15 | XMS_ITS | Encounter Summary ---
Author Organization [facility] Address [address] [place] [address] Care Team Providers Care Meterman Name Role Phone Errol Dumas MD Primary Care Provider +1 -[phone] Encounter Details Date Type Department Care Team Description 10/25/2018 Hospital Medical Records [address] [place], [place] [id number] [place] [address] Social History Tobacco Use Types Packs/Day Years [...] on filedocumented in this encounter Care Teams Meterman Relationship Specialty Start Date End Date Errol Dumas MD [address] [place] [address] PCP - General Internal Medicine 12/16/12 documented as of this encounter
--- OUTSIDE RECORDS SUMMARY | 2025-07-06 16:15 | XMS_ITS | Encounter Summary ---
Author Organization [facility] Address [address] [place] [address] Care Team Providers Care Punch Hand Name Role Phone Errol Dumas MD Primary Care Provider +1 -[phone] Encounter Details Date Type Department Care Team Description 10/04/2018 Hospital Medical Records [address] [place] [address] Bruno Mueller Social History Tobacco Use Types Packs/Day Years [...] on filedocumented in this encounter Care Teams Punch Hand Relationship Specialty Start Date End Date Errol Dumas MD [address] [place] [address] PCP - General Internal Medicine 12/16/12 documented as of this encounter
--- OUTSIDE RECORDS SUMMARY | 2025-07-06 16:15 | XMS_ITS | Encounter Summary ---
Author Organization [facility] Address [address] [place] [address] Care Team Providers Care Pack Room Operator Name Role Phone Errol Dumas MD Primary Care Provider +1 -[phone] Encounter Details Date Type Department Care Team Description 05/25/2018 Sweatband Maker Report Medical Records [address] [place] [address] Abstract, Provider Social History Tobacco Use Types Packs/Day Years [...] on filedocumented in this encounter Care Teams Pack Room Operator Relationship Specialty Start Date End Date Errol Dumas MD [address] [place] [address] PCP - General Internal Medicine 12/16/12 documented as of this encounter
--- OUTSIDE RECORDS SUMMARY | 2025-07-06 16:15 | XMS_ITS | Encounter Summary ---
Author Organization [facility] Address [address] [place] [address] Care Team Providers Care Receiver Bulk System Name Role Phone Errol Dumas MD Primary Care Provider +1 -[phone] Encounter Details Date Type Department Care Team Description 04/22/2018 Boiler House Operator Report Medical Records [address] [place] [address] Saúl vAilez MD Social History Tobacco Use Types Packs/Day [...] on filedocumented in this encounter Care Teams Receiver Bulk System Relationship Specialty Start Date End Date Errol Dumas MD [address] [place] [address] PCP - General Internal Medicine 12/16/12 documented as of this encounter
--- OUTSIDE RECORDS SUMMARY | 2025-07-06 16:15 | XMS_ITS | Encounter Summary ---
Author Organization [facility] Address [address] [place] [address] Care Team Providers Care Office Supervisor Name Role Phone Errol Dumas MD Primary Care Provider +1 -[phone] Encounter Details Date Type Department Care Team Description 11/16/2018 Hospital Medical Records [address] [place] [address] [facility] Social History Tobacco Use Types Packs/Day Years [...] on filedocumented in this encounter Care Teams Office Supervisor Relationship Specialty Start Date End Date Errol Dumas MD [address] [place] [address] PCP - General Internal Medicine 12/16/12 documented as of this encounter
--- OUTSIDE RECORDS SUMMARY | 2025-07-06 16:15 | XMS_ITS | Encounter Summary ---
Author Organization [facility] Address [address] [place] [address] Care Team Providers Care Linderman Operator Name Role Phone Errol Dumas MD Primary Care Provider +1 -[phone] Encounter Details Date Type Department Care Team Description 07/07/2020 Director Payment Report Medical Records [address] [place] [address] Calvin Jean MD Social History Tobacco Use [...] on filedocumented in this encounter Care Teams Linderman Operator Relationship Specialty Start Date End Date Errol Dumas MD [address] [place] [address] PCP - General Internal Medicine 12/16/12 documented as of this encounter
--- OUTSIDE RECORDS SUMMARY | 2025-07-06 16:15 | XMS_ITS | Encounter Summary ---
Author Organization [facility] Address [address] [place] [address] Care Team Providers Care Construction Project Mgr Name Role Phone Errol Dumas MD Primary Care Provider +1 -[phone] Encounter Details Date Type Department Care Team Description 05/21/2018 Home Health Certification Medical Records [address] [place] [address] Abstract, Provider Social History Tobacco Use Types [...] on filedocumented in this encounter Care Teams Construction Project Mgr Relationship Specialty Start Date End Date Errol Dumas MD [address] [place] [address] PCP - General Internal Medicine 12/16/12 documented as of this encounter
--- OUTSIDE RECORDS SUMMARY | 2025-07-06 16:15 | XMS_ITS | Encounter Summary ---
Author Organization [facility] Address [address] [place] [address] Care Team Providers Care Aqua Ammonia Operator Name Role Phone Errol Dumas MD Primary Care Provider +1 -[phone] Encounter Details Date Type Department Care Team Description 12/28/2018 Orders Only Medical Records [address] [place] [address] Abstract, Provider Social History Tobacco Use Types Packs/Day Years Used Date Smoking Tobacco: Former Smokeless Tobacco: Never Alcohol Use Standard Drinks/Week Comments Yes 0 (1 standard drink = 0.6 oz pur e alcohol) occ Sex Assigned at Date Recorded Not on file documented as of this encounter Plan of Treatment Not on file documented as of this encounter Procedures Procedure Name Priority Date/Time Associated Diagnosis Comments OUTSIDE LAB Routine 11/21/2018 documented in this encounter Results * OUTSIDE LAB (11/21/2018) Provider Abstract LAB documented in this encounter Visit Diagnoses Not on filedocumented in this encounter Care Teams Aqua Ammonia Operator Relationship Specialty Start Date End Date Errol Dumas MD [address] [place] [address] PCP - General Internal Medicine 12/16/12 documented as of this encounter
--- OUTSIDE RECORDS SUMMARY | 2025-07-06 16:15 | XMS_ITS | Encounter Summary ---
Author Organization [facility] Address [address] [place] [address] Care Team Providers Care Cloud Engineer Name Role Phone Errol Dumas MD Primary Care Provider [phone] -[phone] Reason for Visit * Reason Onset Date Comments refill request 07/26/2018 Encounter Details Date Type Department Care Team Description 07/26/2018 Refill Adult Urgent Care - [address] [address] Errol Dumas, [address] [place] [address] refill request Social History Tobacco Use Types Packs/Day Years Used Date Smoking Tobacco: Former Smokeless Tobacco: Never Alcohol Use Standard Drinks/Week Comments Yes 0 (1 standard drink = 0.6 oz pur e alcohol) occ Sex Assigned at Date Recorded Not on file documented as of this encounter Miscellaneous Notes * Telephone Encounter - Flakita Gandhi MD - 07/26/2018 2:04 PM EDT Will defer to PCP for tomorrow. * Telephone Encounter - Jonathan Lau - 07/26/2018 10:21 AM EDT Asking that script only be for today and tomorrow morning. Patient would like script to be: E-PRESCRIBED/FAXED TO PHARMACY WHEN WAS THE PATIENT'S LAST APPOINTMENT IN ADULT MEDICINE? 05-22-18 WHEN WAS THE LAST TIME THE PATIENT SAW THEIR PCP? Same as above Does patient have an upcoming appointment? no (THE MEDICATION REQUESTED IS ON THE MED LIST ABOVE) All of the medications requested were on the CURRENT MEDS list Did you check the Pharmacy information above?: YES Patient wants: 30 -day supply Is this a mail order prescription request ? NO If the refill is from a FAXED refill request what is the RX # listed on the fax? N/A Patients current insurance carrier is: Payor: ANA M/Row Sham Bow FFS / Plan: [place] HOST $25 / Product Type: Row Sham Bow [id number] documented in this encounter Plan of Treatment Not on file documented as of this encounter Visit Diagnoses Not on filedocumented in this encounter Care Teams Cloud Engineer Relationship Specialty Start Date End Date Errol Dumas MD [address] [place] [address] PCP - General Internal Medicine 12/16/12 documented as of this encounter
--- OUTSIDE RECORDS SUMMARY | 2025-07-06 16:15 | XMS_ITS | Encounter Summary ---
Author Organization [facility] Address [address] [place] [address] Care Team Providers Care Test Eng Name Role Phone Errol Dumas MD Primary Care Provider +1 -[phone] Encounter Details Date Type Department Care Team Description 07/27/2018 Telephone Adult Medicine - [place] [address] [place], [place] [phone] Errol Dumas MD [address] [place] [address] Social History Tobacco Use Types Packs/Day Years Used Date Smoking Tobacco: Former Smokeless Tobacco: Never Alcohol Use Standard Drinks/Week Comments Yes 0 (1 standard drink = 0.6 oz pur e alcohol) occ Sex Assigned at Date Recorded Not on file documented as of this encounter Miscellaneous Notes * Telephone Encounter - Errol Dumas MD - 07/27/2018 4:29 PM EDT I have no idea * Telephone Encounter - Juan Garza LPN - 07/27/2018 3:34 PM EDT ? * Telephone Encounter - Ryan Adkins - 07/27/2018 3:23 PM EDT Jerome - would like to speak with [facility] about pt overall health documented in this encounter Plan of Treatment Not on file documented as of this encounter Visit Diagnoses Not on filedocumented in this encounter Care Teams Test Eng Relationship Specialty Start Date End Date Errol Dumas MD [address] [place] [address] [place] [address] PCP - General Internal Medicine 12/16/12 documented as of this encounter
--- OUTSIDE RECORDS SUMMARY | 2025-07-06 16:15 | XMS_ITS | Encounter Summary ---
Author Organization [facility] Address [address] [place] [address] Care Team Providers Care Solid Tire Finisher Name Role Phone Errol Dumas MD Primary Care Provider +1 -[phone] Encounter Details Date Type Department Care Team Description 01/13/2020 Transfer Records Medical Records [address] [place] [address] Abstract, Provider Social History Tobacco Use Types [...] on filedocumented in this encounter Care Teams Solid Tire Finisher Relationship Specialty Start Date End Date Errol Dumas MD [address] [place] [address] PCP - General Internal Medicine 12/16/12 documented as of this encounter
--- OUTSIDE RECORDS SUMMARY | 2025-07-06 16:15 | XMS_ITS | Encounter Summary ---
Author Organization [facility] Address [address] [place] [address] Care Team Providers Care Miniature Train Driver Name Role Phone Errol Dumas MD Primary Care Provider +1 -[phone] Encounter Details Date Type Department Care Team Description 08/11/2019 Old Medical Records Medical Records [address] [place] [address] Abstract, Provider Social History Tobacco Use Types [...] on filedocumented in this encounter Care Teams Miniature Train Driver Relationship Specialty Start Date End Date Errol Dumas MD [address] [place] [address] PCP - General Internal Medicine 12/16/12 documented as of this encounter
--- OUTSIDE RECORDS SUMMARY | 2025-07-06 16:15 | XMS_ITS | Encounter Summary ---
Author Organization [facility] Address [address] [place] [address] Care Team Providers Care Grease Packer Name Role Phone Errol Dumas MD Primary Care Provider +1 -[phone] Encounter Details Date Type Department Care Team Description 05/04/2018 Wire Mill Operator Report Medical Records [address] [place] [address] Fadi Jain MD Social History Tobacco Use Types Packs/Day [...] on filedocumented in this encounter Care Teams Grease Packer Relationship Specialty Start Date End Date Errol Dumas MD [address] [place] [address] PCP - General Internal Medicine 12/16/12 documented as of this encounter
--- OUTSIDE RECORDS SUMMARY | 2025-07-06 16:15 | XMS_ITS | Encounter Summary ---
Author Organization [facility] Address [address] [place] [address] Care Team Providers Care Banbury Operator Name Role Phone Errol Dumas MD Primary Care Provider +1 -[phone] Encounter Details Date Type Department Care Team Description 07/19/2020 Graphic Pre Press Trades Worker Report Medical Records [address] [place] [address] Calvin Jean MD Social History Tobacco Use [...] on filedocumented in this encounter Care Teams Banbury Operator Relationship Specialty Start Date End Date Errol Dumas MD [address] [place] [address] PCP - General Internal Medicine 12/16/12 documented as of this encounter
--- OUTSIDE RECORDS SUMMARY | 2025-07-06 16:15 | XMS_ITS | Encounter Summary ---
Author Organization [facility] Address [address] [place] [address] Care Team Providers Care Distributed Generation Project Manager Name Role Phone Errol Dumas MD Primary Care Provider +1 -[phone] Encounter Details Date Type Department Care Team Description 07/13/2020 Veneer Drier Feeder Report Medical Records [address] [place] [address] Calvin Jean MD Social History Tobacco Use [...] on filedocumented in this encounter Care Teams Distributed Generation Project Manager Relationship Specialty Start Date End Date Errol Dumas MD [address] [place] [address] PCP - General Internal Medicine 12/16/12 documented as of this encounter
--- OUTSIDE RECORDS SUMMARY | 2025-07-06 16:15 | XMS_ITS | Encounter Summary ---
Author Organization [facility] Address [address] [place] [address] Care Team Providers Care Mammography Tech Name Role Phone Errol Dumas MD Primary Care Provider +1 -[phone] Encounter Details Date Type Department Care Team Description 03/14/2020 Sprinkler Repair Technician Report Medical Records [address] [place] [address] Calvin Jean MD Social History Tobacco Use [...] on filedocumented in this encounter Care Teams Mammography Tech Relationship Specialty Start Date End Date Errol Dumas MD [address] [place] [address] PCP - General Internal Medicine 12/16/12 documented as of this encounter
--- OUTSIDE RECORDS SUMMARY | 2025-07-06 16:16 | XMS_ITS | Encounter Summary ---
Author Organization [facility] Address [address] [place] [address] Care Team Providers Care Lime Kiln Worker Name Role Phone Errol Dumas MD Primary Care Provider +1 -[phone] Reason for Referral * EXTERNAL (Routine) - Authorized/Booked Specialty Diagnoses / Procedures Referred By Tu sanchez Referred To Contact Mental Health Procedures REFERRAL TO BEHAVIORAL HEALTH Errol Dumas MD [address] [place], [place] External B/Health Referral ID Status Reason Start Date Expiration Date V isits Requested Visits Authorized SEE NOTE Authorized/B ooked 11/11/2019 1 1 Reason for Visit * Reason Onset Date Comments Clerical Grader Feedback 11/08/2019 behavioral healt h Encounter Details Date Type Department Care Team Description 11/08/2019 Telephone Adult Medicine - [place] [address] [place], [place] [phone] Errol Dumas MD [address] [place], [place] Clerical Grader Feedback (behavioral health) Social History Tobacco Use Types Packs/Day Years Used Date Smoking Tobacco: Former Smokeless Tobacco: Never Alcohol Use Standard Drinks/Week Comments Yes 0 (1 standard drink = 0.6 oz pur e alcohol) occ Sex Assigned at Date Recorded Not on file documented as of this encounter Miscellaneous Notes * Telephone Encounter - Errol Dumas MD - 11/11/2019 1:59 PM EST Order signed * Telephone Encounter - Juan Diego Ryley - 11/11/2019 9:58 AM EST Please review this patients new referral request. The referral has been pended. Please complete thefollowing: If approved> sign order If denied>please give instructions and route to your practice nursing pool. Practice nurse should inform referrals and the patient if denied. * Telephone Encounter - Trudi Urbano - 11/11/2019 9:44 AM EST Pts ins active and in chart. Please process ref. * Telephone Encounter - Mireya Sánchez - 11/08/2019 4:08 PM EST What insurance does the patient have today? [facility] hmo 11/10/19 Effective 08/10/09: [facility] will not retro referral requests over 90 [...] insurance must be obtained and registered in [facility] or their referral can not be processed. Is this a retro request? NO. If yes for what date of service do you need the retro referral? N/A Who is calling to request this referral? dad If the caller is not the patient, what is their name? maranda Ask the patient WHO referred them to this specialty: Patient self referred FIRST and LAST NAME of SPECIALIST PATIENT is seeing: jeanie zhao What specialty is this? Behavioral health DIAGNOSIS Patient is being seen for (Not a body part or a procedure): anxiety and ptsd Have you seen this SPECIALIST for this PROBLEM/DX before?NO If YES, when: Have you checked REVIEW or the APPT DESK to see if this referral has already been done or has visits left? YES Is this visit:Initial Visit Address of Specialist:[address] [place] [address] Phone # of Specialist:[phone] Fax #: (if applicable): Does patient have an appointment scheduled?: YES Date of appointment- (including a retro-request): 11/17/19 Is this appointment related to: Not MVA, WC or Surgery related documented in this encounter Plan of Treatment Not on file documented as of this encounter Visit Diagnoses Not on filedocumented in this encounter Care Teams Lime Kiln Worker Relationship Specialty Start Date End Date Errol Dumas MD [address] [place] [id number] PCP - General Internal Medicine 12/16/12 documented as of this encounter
--- OUTSIDE RECORDS SUMMARY | 2025-07-06 16:16 | XMS_ITS | Encounter Summary ---
Author Organization [facility] Address [address] [place] [address] Care Team Providers Care Public Health Teacher Name Role Phone Errol Dumas MD Primary Care Provider +1 -[phone] Encounter Details Date Type Department Care Team Description 09/07/2018 Hospital Medical Records [address] [place] [address] Errol Dumas, [address] [place] [address] Social History Tobacco Use Types Packs/Day Years [...] on filedocumented in this encounter Care Teams Public Health Teacher Relationship Specialty Start Date End Date Errol Dumas MD [address] [place] [address] PCP - General Internal Medicine 12/16/12 documented as of this encounter
--- OUTSIDE RECORDS SUMMARY | 2025-07-06 16:16 | XMS_ITS | Encounter Summary ---
Author Organization [facility] Address [address] [place] [address] Care Team Providers Care Lead Mason Tender Name Role Phone Errol Dumas MD Primary Care Provider +1 -[phone] Reason for Visit * Reason Onset Date Comments Prior Authorization 03/26/2018 Encounter Details Date Type Department Care Team Description 03/26/2018 Telephone Radiology - [address] [address] Errol Dumas, [address] [place] [address] Prior Authorization Social History Tobacco Use Types Packs/Day Years Used Date Smoking Tobacco: Former Smokeless Tobacco: Never Alcohol Use Standard Drinks/Week Comments Yes 0 (1 standard drink = 0.6 oz pur e alcohol) occ Sex Assigned at Date Recorded Not on file documented as of this encounter Miscellaneous Notes * Telephone Encounter - Tristan Blake - 04/01/2018 12:31 PM EDT BCBS No auth Req [id number] @ [place] * Telephone Encounter - Keerthi Arvizu - 04/01/2018 12:17 PM EDT Requesting prior authorization for an echocardiogram. Thank you documented in this encounter Plan of Treatment Not on file documented as of this encounter Visit Diagnoses Not on filedocumented in this encounter Care Teams Lead Mason Tender Relationship Specialty Start Date End Date Errol Dumas, [address] [facility] [address] PCP - General Internal Medicine 12/16/12 documented as of this encounter
--- OUTSIDE RECORDS SUMMARY | 2025-07-06 16:16 | XMS_ITS | Encounter Summary ---
Author Organization [facility] Address [address] [place] [address] Care Team Providers Care Hand Packer Name Role Phone Errol Dumas MD Primary Care Provider +1 -[phone] Encounter Details Date Type Department Care Team Description 05/01/2023 Parking Lot Chauffeur Report Medical Records [address] [place] [id number] [place] [address], [facility] Social History Tobacco Use Types Packs/Day Years [...] on filedocumented in this encounter Care Teams Hand Packer Relationship Specialty Start Date End Date Errol Dumas, [address] [place] [address] PCP - General Internal Medicine 12/16/12 documented as of this encounter
--- OUTSIDE RECORDS SUMMARY | 2025-07-06 16:16 | XMS_ITS | Encounter Summary ---
Author Organization [facility] Address [address] [place] [address] Care Team Providers Care Client Technical Support Associate Name Role Phone Errol Dumas MD Primary Care Provider +1 -[phone] Reason for Referral * EXTERNAL (Routine) - Authorized/Booked Specialty Diagnoses / Procedures Referred By Tu sanchez Referred To Contact Pulmonology Procedures REFERRAL TO PULMONOLOGY Errol Dumas MD [address] [place], [place] Jatinder Trejo MD [address] [address] Referral ID Status Reason Start Date Expiration Date V isits Requested Visits Authorized SEE NOTE Authorized/B ooked 11/11/2019 02/10/2020 1 1 Reason for Visit * Reason Onset Date Comments Computer Systems Design Analyst Feedback 11/08/2019 pulminology- [facility] on [facility] Encounter Details Date Type Department Care Team Description 11/08/2019 Telephone Adult Medicine - [place] [address] [place], [place] [phone] Errol Dumas MD [address] [place], [place] Computer Systems Design Analyst Feedback (pulminology- gualberto julita) Social History Tobacco Use Types Packs/Day Years Used Date Smoking Tobacco: Former Smokeless Tobacco: Never Alcohol Use Standard Drinks/Week Comments Yes 0 (1 standard drink = 0.6 oz pur e alcohol) occ Sex Assigned at Date Recorded Not on file documented as of this encounter Miscellaneous Notes * Telephone Encounter - Errol Dumas MD - 11/11/2019 1:52 PM EST Order signed * Telephone Encounter - Juan Diego Hedrick - 11/11/2019 10:04 AM EST Please review this patients new referral request. The referral has been pended. Please complete thefollowing: If approved> sign order If denied>please give instructions and route to your practice nursing pool. Practice nurse should inform referrals and the patient if denied. * Telephone Encounter - Trudi Urbano - 11/11/2019 9:49 AM EST Pts ins active and in chart. Please process ref. * Telephone Encounter - Susy Simpson - 11/08/2019 4:03 PM EST We have no insurance on file for this patient Please add Susy Referrals Dept [facility] * Telephone Encounter - Mireya Sánchez - 11/08/2019 3:58 PM EST What [facility] the patient have today[facility] Effective 08/10/09: BCBS will not retro referral [...] insurance must be obtained and registered in [facility] or their referral can not be processed. Is this a retro request? NO. If yes for what date of service do you need the retro referral? N/A Who is calling to request this referral? dad If the caller is not the patient, what is their name? Yoan pimentel Ask the patient WHO referred them to this specialty: Patient self referred FIRST and LAST NAME of SPECIALIST PATIENT is seeing: gualberto cm What specialty is this? pulminology DIAGNOSIS Patient is being seen for (Not a body part or a procedure): shortness of breath Have you seen this SPECIALIST for this PROBLEM/DX before?NO If YES, when: Have you checked REVIEW or the APPT DESK to see if this referral has already been done or has visits left? YES Is this visit:Initial Visit Address of Specialist:[address] [place] [address] Phone # of Specialist:[phone] Fax #: (if applicable): Does patient have an appointment scheduled?: NO Date of appointment- (including a retro-request): Is this appointment related to: Not MVA, WC or Surgery related documented in this encounter Plan of Treatment Not on file documented as of this encounter Visit Diagnoses Not on filedocumented in this encounter Care Teams Client Technical Support Associate Relationship Specialty Start Date End Date Errol Dumas MD [address] [place] [address] PCP - General Internal Medicine 12/16/12 documented as of this encounter
--- OUTSIDE RECORDS SUMMARY | 2025-07-06 16:16 | XMS_ITS | Encounter Summary ---
Author Organization [facility] Address [address] [place] [address] Care Team Providers Care Hospice Massage Therapist Name Role Phone Errol Dumas MD Primary Care Provider [phone] -[phone] Encounter Details Date Type Department Care Team Description 08/03/2021 Concession Supervisor Report Medical Records [address] [place] [address] Shahzad Vanegas Social History Tobacco Use Types Packs/Day Years [...] on filedocumented in this encounter Care Teams Hospice Massage Therapist Relationship Specialty Start Date End Date Errol Dumas, [address] [place] [address] PCP - General Internal Medicine 12/16/12 documented as of this encounter
--- OUTSIDE RECORDS SUMMARY | 2025-07-06 16:16 | XMS_ITS | Encounter Summary ---
Author Organization [facility] Address [address] [place] [address] Care Team Providers Care Pharmacy Manager Name Role Phone Errol Dumas MD Primary Care Provider +1 -[phone] Reason for Visit * Reason Onset Date Comments Provider Call Back 04/01/2018 Encounter Details Date Type Department Care Team Description 04/01/2018 Telephone Pulmonology - [place] [address] [facility] [address] [place] [address] Calvin Jean MD Provider Call Back Social History Tobacco Use Types Packs/Day Years Used Date Smoking Tobacco: Former Smokeless Tobacco: Never Alcohol Use Standard Drinks/Week Comments Yes 0 (1 standard drink = 0.6 oz pur e alcohol) occ Sex Assigned at Date Recorded Not on file documented as of this encounter Miscellaneous Notes * Telephone Encounter - Amrita Miranda - 04/01/2018 3:58 PM EDT Per Allegra, called pt's mother back and scheduled an appt for tomorrow 04/02 @ 3:[address] Jean. * Telephone Encounter - Amrita Miranda - 04/01/2018 3:36 PM EDT Pts mother is calling stating that [facility] will be faxing pts test results today or tomorrow that he had about 11 days ago . She states since his recent testing @ [facility] he has done a downhill spiral . He is more SOB she states he is only able to walk a short distance and he is very weak. He spent yesterday on his hands and knees trying to catch his breath. She states his eyes are puffy and he looks so sick. She is requesting him to be admiitted somewhere to have more of a work up, as she feels something is being missed. 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 Sh states he is currently living back @ home with them so she can care for him as he is unable to do much for himself. She is inquiirng on another appt with Dr Jean or a call back @ [phone] [facility]. Thanks. documented in this encounter Plan of Treatment Not on file documented as of this encounter Visit Diagnoses Not on filedocumented in this encounter Care Teams Pharmacy Manager Relationship Specialty Start Date End Date Errol Dumas MD [facility] [place] [address] PCP - General Internal Medicine 12/16/12 documented as of this encounter
--- OUTSIDE RECORDS SUMMARY | 2025-07-06 16:16 | XMS_ITS | Encounter Summary ---
Author Organization [facility] Address [address] [place] [address] Care Team Providers Care Salesperson Burial Plots Name Role Phone Errol Dumas MD Primary Care Provider +1 -[phone] Encounter Details Date Type Department Care Team Description 12/14/2019 Cryogenic Transport Driver Report Medical Records [address] [place], [place] [id number] [place] [address] Social History Tobacco Use Types Packs/Day Years [...] on filedocumented in this encounter Care Teams Salesperson Burial Plots Relationship Specialty Start Date End Date Errol Dumas, [address] [place] [address] PCP - General Internal Medicine 12/16/12 documented as of this encounter
--- OUTSIDE RECORDS SUMMARY | 2025-07-06 16:16 | XMS_ITS | Encounter Summary ---
Author Organization [facility] Address [address] [place] [address] Care Team Providers Care Dealer Analyst Name Role Phone Errol Dumas MD Primary Care Provider +1 -[phone] Encounter Details Date Type Department Care Team Description 04/06/2018 Hospital Medical Records [address] [place] [address] Oli Bishop MD Social History Tobacco Use Types Packs/Day [...] on filedocumented in this encounter Care Teams Dealer Analyst Relationship Specialty Start Date End Date Errol Dumas MD [address] [place] [address] PCP - General Internal Medicine 12/16/12 documented as of this encounter
--- OUTSIDE RECORDS SUMMARY | 2025-07-06 16:16 | XMS_ITS | Encounter Summary ---
Author Organization [facility] Address [address] [place] [address] Care Team Providers Care Beauty Sales Advisor Name Role Phone Errol Dumas MD Primary Care Provider +1 -[phone] Reason for Visit * Reason Onset Date Comments Administration Dean Feedback 11/08/2021 NATALIE RIZVIA Encounter Details Date Type Department Care Team Description 11/08/2021 Telephone Adult Medicine - [place] [address] [place], [place] [id number] Errol Dumas MD [address] [place] [address] Administration Dean Feedback (NATALIE DEGROOT) Social History Tobacco Use Types Packs/Day Years Used Date Smoking Tobacco: Former Smokeless Tobacco: Never Alcohol Use Standard Drinks/Week Comments Yes 0 (1 standard drink = 0.6 oz pur e alcohol) occ Sex Assigned at Date Recorded Not on file documented as of this encounter Miscellaneous Notes * Telephone Encounter - Xiomy Jha - 11/08/2021 11:49 AM EST [facility] Specialty Referral Status[ Save Response to Batch ] Request: [id number] [facility] Healthcare Trace #: [id number] Subscriber: SARI COTTON Submitter : SUSAN MCMULLEN Submitter Type: Provider Referral (#[id number]) Specialty Care Review Type: Initial Certification Status : Certified in total Service Type : Medical Care Place Of Service : Office Visits : 6 Service Date : 11/08/2021-11/08/2022 Service Providers Provider Name ID Provider Type Specialty MD NATALIE DEGROOT NPI : [id number] Performing Specialist documented in this encounter Plan of Treatment Not on file documented as of this encounter Visit Diagnoses Not on filedocumented in this encounter Care Teams Beauty Sales Advisor Relationship Specialty Start Date End Date Errol Dumas MD [address] [place] [address] PCP - General Internal Medicine 12/16/12 documented as of this encounter
--- OUTSIDE RECORDS SUMMARY | 2025-07-06 16:16 | XMS_ITS | Encounter Summary ---
Author Organization [facility] Address [address] [place] [address] Care Team Providers Care Production Bow Maker Name Role Phone Errol Dumas MD Primary Care Provider +1 -[phone] Encounter Details Date Type Department Care Team Description 12/27/2021 Hot Dimpling Machine Operator Report Medical Records [address] [place] [id number] [place] [address], [facility] General Social History Tobacco Use Types Packs/Day Years [...] on filedocumented in this encounter Care Teams Production Bow Maker Relationship Specialty Start Date End Date Errol Dumas MD [address] [place] [address] PCP - General Internal Medicine 12/16/12 documented as of this encounter
--- OUTSIDE RECORDS SUMMARY | 2025-07-06 16:16 | XMS_ITS | Encounter Summary ---
Author Organization [facility] Address [address] [place] [address] Care Team Providers Care Duck Farmer Name Role Phone Errol Dumas MD Primary Care Provider +1 -[phone] Reason for Referral * EXTERNAL (Priority) - Closed Specialty Diagnoses / Procedures Referred By Contac t Referred To Contact Infectious Disease Diagnoses Failure to thrive (0-17) Procedures REFERRAL TO INFECTIOUS DISEASE Errol Dumas MD [address] [place] [address] External Infectious Referral ID Status Reason Start Date Expiration Date V isits Requested Visits Authorized SEE REVIEW 04/14/2018 Closed 04/13/2018 1 1 * EXTERNAL (Routine) - Authorized/Booked Specialty Diagnoses / Procedures Referred By Contac t Referred To Contact Home Health Care / Home care Diagnoses Failure to thrive (0-17) Procedures REFERRAL TO HOME CARE Errol Dumas MD [address] [place] [address] [facility] Referral ID Status Reason Start Date Expiration Date V isits Requested Visits Authorized SEE REVIEW 04/14/2018 Authorized/ Booked 04/13/2018 07/15/2018 1 1 Reason for Visit * Reason Onset Date Comments hospital follow up 04/13/2018 [facility] Encounter Details Date Type Department Care Team Description 04/13/2018 Telephone Adult Medicine - [place] [address] [place] [address] Errol Dumas MD [address] [place] [address] hospital follow up ([facility]) Social History Tobacco Use Types Packs/Day Years Used Date Smoking Tobacco: Former Smokeless Tobacco: Never Alcohol Use Standard Drinks/Week Comments Yes 0 (1 standard drink = 0.6 oz pur e alcohol) occ Sex Assigned at Date Recorded Not on file documented as of this encounter Miscellaneous Notes * Telephone Encounter - Errol Dumas MD - 04/13/2018 9:41 AM EDT Will do home health referral and an id referral * Telephone Encounter - Juan Garza LPN - 04/13/2018 9:16 AM EDT Pt's mother called she states that pt cant eat because he is so fatigued , pt states that his body is shutting down , pt is eating a 1/4 of what he normally eats , pt could not even finish a smoothie, pt's mother states that she had spoke with pcp and is asking about a referral to ID and testing for mold toxin , pt's mother is also asking for a home care order for nursing,nutrition ,PT,OT and possibly nursing, pt's mother also asking if testing for thu's disease might be worth doing, home care order pended if appropriate * Telephone Encounter - Sruthi Jean - 04/13/2018 8:53 AM EDT Hospital follow up appointment needed Hospital patient was treated at: [facility] Was this only an ER visit or was the patient admitted to the hospital? Admitted [facility] 04/03-04/06 and [facility] 04/06-04/09 and back to [facility] 04/10 Date of visit if ER visit only: If patient was admitted what was the date of discharge? 04/10 Reason/diagnosis for visit or stay: cardiac arithma, fainting When was the patient told to follow up? callie Was visit or stay related to an injury? NO If yes, what was the date of injury (DOI)? N?A If yes, was the injury due to N/A Please call documented in this encounter Plan of Treatment Not on file documented as of this encounter Visit Diagnoses Diagnosis Failure to thrive (0-17)- Primary Failure to thrive documented in this encounter Care Teams Duck Farmer Relationship Specialty Start Date End Date Errol Dumas MD [address] [place] [address] PCP - General Internal Medicine 12/16/12 documented as of this encounter
--- OUTSIDE RECORDS SUMMARY | 2025-07-06 16:16 | XMS_ITS | Encounter Summary ---
Author Organization [facility] Address [address] [place] [address] Care Team Providers Care Ramp Agent Name Role Phone Errol Dumas MD Primary Care Provider +1 -[phone] Encounter Details Date Type Department Care Team Description 12/11/2021 Contract Driver Report Medical Records [address] [place] [address] Calvin Jean MD Social History Tobacco Use [...] on filedocumented in this encounter Care Teams Ramp Agent Relationship Specialty Start Date End Date Errol Dumas MD [address] [place] [address] PCP - General Internal Medicine 12/16/12 documented as of this encounter
--- OUTSIDE RECORDS SUMMARY | 2025-07-06 16:16 | XMS_ITS | Encounter Summary ---
Author Organization [facility] Address [address] [place] [address] Care Team Providers Care Oil Separator Name Role Phone Errol Dumas MD Primary Care Provider +1 -[phone] Encounter Details Date Type Department Care Team Description 05/26/2022 Bead Trimmer Report Medical Records [address] [place] [address] Abstract, Provider Social History Tobacco Use Types [...] on filedocumented in this encounter Care Teams Oil Separator Relationship Specialty Start Date End Date Errol Dumas MD [address] [place] [address] PCP - General Internal Medicine 12/16/12 documented as of this encounter
--- OUTSIDE RECORDS SUMMARY | 2025-07-06 16:16 | XMS_ITS | Encounter Summary ---
Author Organization [facility] Address [address] [place] [address] Care Team Providers Care Correctional Maintenance Technician Name Role Phone Errol Dumas MD Primary Care Provider +1 -[phone] Encounter Details Date Type Department Care Team Description 03/20/2018 Transfer Records Medical Records [address] [place] [address] Abstract, Provider Social History Tobacco Use Types [...] on filedocumented in this encounter Care Teams Correctional Maintenance Technician Relationship Specialty Start Date End Date Errol Dumas MD [address] [place] [address] PCP - General Internal Medicine 12/16/12 documented as of this encounter
--- OUTSIDE RECORDS SUMMARY | 2025-07-06 16:16 | XMS_ITS | Encounter Summary ---
Author Organization [facility] Address [address] [place] [address] Care Team Providers Care Dielectric Testing Machine Operator Name Role Phone Errol Dumas MD Primary Care Provider +1 -[phone] Encounter Details Date Type Department Care Team Description 03/14/2023 Bin Operator Report Medical Records [address] [place] [address] Abstract, Provider Social History Tobacco Use Types [...] on filedocumented in this encounter Care Teams Dielectric Testing Machine Operator Relationship Specialty Start Date End Date Errol Dumas MD [address] [place] [address] PCP - General Internal Medicine 12/16/12 documented as of this encounter
--- OUTSIDE RECORDS SUMMARY | 2025-07-06 16:16 | XMS_ITS | Encounter Summary ---
Author Organization [facility] Address [address] [place] [address] Care Team Providers Care Drawing Kiln Supervisor Name Role Phone Errol Dumas MD Primary Care Provider +1 [phone] Reason for Visit * Reason Onset Date Comments Letter 01/02/2022 Encounter Details Date Type Department Care Team Description 01/02/2022 Telephone Adult Medicine - [place] [address] [place], [place] [id number] Errol Dumas MD [address] [place] [address] Letter Social History Tobacco Use Types Packs/Day Years Used Date Smoking Tobacco: Former Smokeless Tobacco: Never Alcohol Use Standard Drinks/Week Comments Yes 0 (1 standard drink = 0.6 oz pur e alcohol) occ Sex Assigned at Date Recorded Not on file documented as of this encounter Miscellaneous Notes * Telephone Encounter - Cristine Nguyen M.A. - 01/03/2022 8:56 AM EST Letter mailed to pt's home * Telephone Encounter - Errol Dumas MD - 01/03/2022 7:55 AM EST Letter signed * Telephone Encounter - Tri Solano - 01/02/2022 12:09 PM EST Sorry about that, I called the patient. Ez number [id number] * Telephone Encounter - Tri Russ - 01/02/2022 11:03 AM EST Letter requested for: To be excused from Jury Duty Reason for letter: To be excused from Jury Duty Specific notations needed in body of letter: Excuse from Jury Duty to due to medical condition Dysautonomia Date needed for completion: 01/11/22 When completed: Mailed to their home at: [address] [facility] [facility] [address] documented in this encounter Plan of Treatment Not on file documented as of this encounter Visit Diagnoses Not on filedocumented in this encounter Care Teams Drawing Kiln Supervisor Relationship Specialty Start Date End Date Errol Dumas MD [address] [place] [address] PCP - General Internal Medicine 12/16/12 documented as of this encounter
--- OUTSIDE RECORDS SUMMARY | 2025-07-06 16:16 | XMS_ITS | Encounter Summary ---
Author Organization [facility] Address [address] [facility] [place] [address] Care Team Providers Care Tar Heater Name Role Phone Errol Dumas MD Primary Care Provider +1 [phone] Reason for Visit * Reason Onset Date Comments Celery Cutter Feedback 03/18/2018 Cardiology Encounter Details Date Type Department Care Team Description 03/18/2018 Telephone Adult Medicine - [place] [address] [place] [address] Errol Dumas, [address] [place] [address] Celery Cutter Feedback (Cardiology) Social History Tobacco Use Types Packs/Day Years Used Date Smoking Tobacco: Former Smokeless Tobacco: Never Alcohol Use Standard Drinks/Week Comments Yes 0 (1 standard drink = 0.6 oz pur e alcohol) occ Sex Assigned at Date Recorded Not on file documented as of this encounter Miscellaneous Notes * Telephone Encounter - Christine Cruz - 03/19/2018 11:23 AM EDT Order was already pended. * Telephone Encounter - Ryan Adkins - 03/19/2018 11:04 AM EDT Lvm for pt to call us back to provide first and last name * Telephone Encounter - Nina Castrejon - 03/18/2018 3:09 PM EDT I need to know the First and Last name of the doctor. * Telephone Encounter - Ryan Adkins - 03/18/2018 2:43 PM EDT What insurance does the patient have today? [place]or[place] F[place] / Plan: [place] $25 / Product Type: HMO [id number] Effective 08/10/09: BC will not retro referral requests over 90 [...] insurance must be obtained and registered in [place] or their referral can not be processed. Is this a retro request? YES. If yes for what date of service do you need the retro referral? N/A Who is calling to request this referral? The pt mother ( on verbal ) If the caller is not the patient, what is their name? N/A Ask the patient WHO referred them to this specialty: Patient self referred FIRST and LAST NAME of SPECIALIST PATIENT is seeing: Dr Laurel Delacruz [facility] What specialty is this? Cardiology DIAGNOSIS Patient is being seen for (Not a body part or a procedure): diffifuctly breathing Have you seen this SPECIALIST for this PROBLEM/DX before?NO If YES, when: Have you checked REVIEW or the APPT DESK to see if this referral has already been done or has visits left? YES Is this visit:Initial Visit Address of Specialist: [place] [address] [facility] [address] Phone # of Specialist:[phone] Fax #: (if applicable): Does patient have an appointment scheduled?: NO Date of appointment- (including a retro-request): Is this appointment related to: Not MVA, WC or Surgery related documented in this encounter Plan of Treatment Not on file documented as of this encounter Visit Diagnoses Not on filedocumented in this encounter Care Teams Tar Heater Relationship Specialty Start Date End Date Errol Dumas MD [address] [place] [address] PCP - General Internal Medicine 12/16/12 documented as of this encounter
--- OUTSIDE RECORDS SUMMARY | 2025-07-06 16:16 | XMS_ITS | Patient Health Record ---
Author Organization [facility] Address [address] [facility] [place] [address] Care Team Providers Care Photolith Operator Name Role Phone Waleska COOPER, [facility] Primary Care Provi garret Vinayak Vital Unavailable [phone] Allergies Allergen (clinical drug ingredient) Drug/Non Drug [...] Problem Acquired hammer toe of left foot (5370896687363681 ) Hammertoe of left foot (M20.42) Active confirmed Problem Acquired hammer toe of right foot (6523427357456112 ) Hammertoe of right foot (M20.41) Active confirmed Problem Mitochondrial disease (400945014) 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 Problem 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 Plan Of Treatment Pending Test Test Name Order Date X ray : Foot, left 2V 02/26/2022 X ray : Foot, right 2V 02/26/2022 [id number] OF HEMATOMA/FLUID 022 Insurance Providers Payer Name Payer Address Payer Phone Subscriber Number Group Number Insured Name Patient Relationship to Insured Coverage Start Date Coverage End Date [facility] [address] [place] [address] [id number] Ace Casas Self - patient is the insured Medical (General) History Medical History History ICD Code asthma Numbness Poor circulation Psychiatric disorder Reflux Autoimmune disorder-Small Fo guillermina Neuropathy/Dysantonomia Involving Sensory System and Autonomic Dysfunction Surgical History Surgery Date(Month/Year)
--- OUTSIDE RECORDS SUMMARY | 2025-07-06 16:16 | XMS_ITS | Encounter Summary ---
Author Organization [facility] Address [address] [place] [address] Care Team Providers Care Tobacco Sweeper Name Role Phone Errol Dumas MD Primary Care Provider [phone] [phone] Reason for Referral * EXTERNAL (Routine) - Authorized/Booked Specialty Diagnoses / Procedures Referred By Tu sanchez Referred To Contact Cardiology Procedures REFERRAL TO CARDIOLOGY Errol Dumas MD [address] [place] [address] Saúl Amaya MD [address] [place] [address] Referral ID Status Reason Start Date Expiration Date V isits Requested Visits Authorized SEE REVIEW 11/11/2019 Authorized/ Booked 11/11/2019 11/10/2020 1 1 Reason for Visit * Reason Onset Date Comments Skoog Operator Feedback 11/08/2019 Dr. Amaya Encounter Details Date Type Department Care Team Description 11/08/2019 Telephone Adult Medicine - [place] [address] [place] [address] Errol Dumas MD [address] [place] [address] Skoog Operator Feedback (Dr. Amaya) Social History Tobacco Use Types Packs/Day Years Used Date Smoking Tobacco: Former Smokeless Tobacco: Never Alcohol Use Standard Drinks/Week Comments Yes 0 (1 standard drink = 0.6 oz pur e alcohol) occ Sex Assigned at Date Recorded Not on file documented as of this encounter Miscellaneous Notes * Telephone Encounter - Errol Dumas MD - 11/11/2019 1:53 PM EST Order signed * Telephone Encounter - Juan Diego Hedrick - 11/11/2019 10:02 AM EST [facility] Specialty Referral Status [ Save Response to Batch ] Request: [id number] =1990 [id number] [facility] Trace #: [id number] Subscriber: SARI PIMENTEL Submitter : YOSELIN MCMULLEN Submitter Type: Provider : 1990 Referral (#[id number]) Specialty Care Review Type: Initial Certification Status : Certified in total Service Type : Medical Care Place Of Service : Office Visits : 6 Service Date : 11/11/2019-11/10/2020 Service Providers Provider Name ID Provider Type Specialty MD SAÚL AMAYA NPI : [id number] Performing Specialist Please review this patients new referral request. The referral has been pended. Please complete thefollowing: If approved> sign order If denied>please give instructions and route to your practice nursing pool. Practice nurse should inform referrals and the patient if denied. * Telephone Encounter - Trudi Urbano - 11/11/2019 9:48 AM EST Pts ins active and in chart. Please process ref. * Telephone Encounter - Susy Simpson - 11/08/2019 4:12 PM EST We cannot process referrals if the insurance is not active. Send this back after insurance becomes active Susy Referrals Dept [facility] * Telephone Encounter - Mireya Sánchez - 11/08/2019 4:07 PM EST This was already added... Blue cross o effectived 11/10/19 * Telephone Encounter - Susy Tatiana - 11/08/2019 4:06 PM EST There is no insurance on file for this patient Please add Susy Referrals Dept [facility] * Telephone Encounter - Mireya Sánchez - 11/08/2019 4:01 PM EST What insurance does the patient have today? Blue cross o 11/10/19 Effective 08/10/09: BCBS will not retro [...] insurance must be obtained and registered in [facility] or their referral can not [...] LAST NAME of SPECIALIST PATIENT is seeing: dr. amaya What specialty is this? cardiology DIAGNOSIS Patient is being seen for (Not a body part or a procedure): tachycardia Have you seen this SPECIALIST for this PROBLEM/DX before?NO If YES, when: Have you checked REVIEW or the APPT DESK to see if this referral has already been done or has visits left? YES Is this visit:Initial Visit Address of Specialist:[address] [place] [address] Phone # of Specialist:[phone] Fax #: (if applicable): Does patient have an appointment scheduled?: YES Date of appointment- (including a retro-request): 11/18/19 Is this appointment related to: Not MVA, WC or Surgery related documented in this encounter Plan of Treatment Not on file documented as of this encounter Visit Diagnoses Not on filedocumented in this encounter Care Teams Tobacco Sweeper Relationship Specialty Start Date End Date Errol Dumas MD [address] [place] [address] PCP - General Internal Medicine 12/16/12 documented as of this encounter
--- OUTSIDE RECORDS SUMMARY | 2025-07-06 16:16 | XMS_ITS | Encounter Summary ---
Author Organization [facility] Address [address] [place] [address] Care Team Providers Care Sfdc Technical Architect Name Role Phone Errol Dumas MD Primary Care Provider [phone] [phone] Reason for Visit * Reason Onset Date Comments Ophthalmology Technician Feedback 07/10/2023 Dr. Jean In surance Referral Encounter Details Date Type Department Care Team Description 07/10/2023 Telephone Adult Medicine - [place] [address] [place] [address] Errol Dumas MD [address] [place] [address] Ophthalmology Technician Feedback (Dr. Jean Insurance Referral) Social History Tobacco Use Types Packs/Day Years Used Date Smoking Tobacco: Former Smokeless Tobacco: Never Alcohol Use Standard Drinks/Week Comments Yes 0 (1 standard drink = 0.6 oz pur e alcohol) occ Sex Assigned at Date Recorded Not on file documented as of this encounter Miscellaneous Notes * Telephone Encounter - Zenaida Bolton - 07/10/2023 10:43 AM EDT Authorization/Referral - [id number] Certification Status: A1 - Certified in Total Review Information Review Type: Referral - Initial Review #: [id number] Tracking #: Review Decision Reason: Service Type: Consultation Place of Service: 11 Type: Visits Quantity: 8 Event Date: 07/11/2023 - 07/10/2024 documented in this encounter Plan of Treatment Not on file documented as of this encounter Visit Diagnoses Not on filedocumented in this encounter Care Teams Sfdc Technical Architect Relationship Specialty Start Date End Date Errol Dumas MD [facility] [place] [place] [address] PCP - General Internal Medicine 12/16/12 documented as of this encounter
--- OUTSIDE RECORDS SUMMARY | 2025-07-06 16:17 | XMS_ITS | Encounter Summary ---
Author Organization [facility] Address [address] [place] [address] Care Team Providers Care Commercial Food Instructor Name Role Phone Errol Dumas MD Primary Care Provider [phone] [phone] Reason for Referral * EXTERNAL (Urgent) - Authorized/Booked Specialty Diagnoses / Procedures Referred By Tu sanchez Referred To Contact Pulmonology Procedures REFERRAL TO PULMONOLOGY Errol Dumas MD [address] [place], [place] Cristine Borges [address] [place] [address] [address] [place] [address] Referral ID Status Reason Start Date Expiration Date V isits Requested Visits Authorized SEE NOTE Authorized/B ooked 02/23/2018 05/26/2018 1 1 Reason for Visit * Reason Onset Date Comments Soap Boiler Feedback 02/23/2018 Cristine Borges/ [facility] Pulmonology 02/26/18 Encounter Details Date Type Department Care Team Description 02/23/2018 Telephone Adult Medicine - [place] [address] [place] [address] Errol Dumas MD [address] [place] [address] Soap Boiler Feedback (Cristine Borges/ [facility] Pulmonology 02/26/18) Social History Tobacco Use Types Packs/Day Years Used Date Smoking Tobacco: Former Smokeless Tobacco: Never Alcohol Use Standard Drinks/Week Comments Yes 0 (1 standard drink = 0.6 oz pur e alcohol) occ Sex Assigned at Date Recorded Not on file documented as of this encounter Miscellaneous Notes * Telephone Encounter - Errol Dumas MD - 02/23/2018 5:14 PM EDT Order signed * Telephone Encounter - Claudia Lazaro - 02/23/2018 3:54 PM EDT Please review this patients new referral request. The referral has been pended. Please complete thefollowing: If approved> sign order If denied>please give instructions and route to your practice nursing pool. Practice nurse should inform referrals and the patient if denied. * Telephone Encounter - Claudia Lazaro - 02/23/2018 3:53 PM EDT Per [facility] Process under [place] for Cristine Elvin Borges [facility] Specialty Referral Status [ Save Response to Batch ] Request: [id number] =1990 [id number] [facility] Trace #: [id number] Subscriber: SARI COTTON Submitter : YOSELIN MCMULLEN Submitter Type: Provider : 1990 Referral (#[id number]) Specialty Care Review Type: Initial Certification Status : Certified in total Service Type : Medical Care Place Of Service : Office Visits : 6 Service Date : 02/23/2018-02/23/2019 Service Providers Provider Name ID Provider Type Specialty MD DELIO MAZA NPI : [id number] Performing Specialist * Telephone Encounter - Vanesa Vora - 02/23/2018 3:34 PM EDT What insurance does the patient have today? Payor: [place]/H[place] FFS / Plan: [place] $25 / Product Type: HMO [id number] Effective 08/10/09: BCBS will not retro referral [...] insurance must be obtained and registered in [facility] or their referral can not be processed. Is this a retro request? NO. If yes for what date of service do you need the retro referral? N/A Who is calling to request this referral? Patient If the caller is not the patient, what is their name? N/A Ask the patient WHO referred them to this specialty: Patient self referred FIRST and LAST NAME of SPECIALIST PATIENT is seeing: Cristine Borges What specialty is this? Pulmonology DIAGNOSIS Patient is being seen for (Not a body part or a procedure): Cardiopulmonary exercise test Have you seen this SPECIALIST for this PROBLEM/DX before?NO If YES, when: Have you checked REVIEW or the APPT DESK to see if this referral has already been done or has visits left? YES Is this visit:Initial Visit Address of Specialist: [address] [place], [place] Phone # of Specialist: [phone] Fax #: (if applicable): Does patient have an appointment scheduled?: YES Date of appointment- (including a retro-request): 02/26/18 Is this appointment related to: Not MVA, WC or Surgery related documented in this encounter Plan of Treatment Not on file documented as of this encounter Visit Diagnoses Not on filedocumented in this encounter Care Teams Commercial Food Instructor Relationship Specialty Start Date End Date Errol Dumas MD [address] [place] [address] PCP - General Internal Medicine 12/16/12 documented as of this encounter
--- OUTSIDE RECORDS SUMMARY | 2025-07-06 16:17 | XMS_ITS | Encounter Summary ---
Author Organization [facility] Address [address] [place] [address] Care Team Providers Care Medical Donation Professional Name Role Phone Errol Dumas MD Primary Care Provider [phone] [phone] Encounter Details Date Type Department Care Team Description 02/19/2018 Hospital Medical Records [address] [place] [address] Oli Bishop MD Social History Tobacco Use [...] filedocumented in this encounter Care Teams Medical Donation Professional Relationship Specialty Start Date End Date Errol Dumas MD [address] [place] [address] PCP - General Internal Medicine 12/16/12 documented as of this encounter
--- OUTSIDE RECORDS SUMMARY | 2025-07-06 16:17 | XMS_ITS | Encounter Summary ---
Author Organization [facility] Address [address] [place] [address] Care Team Providers Care Drill Operator Automatic Name Role Phone Errol Dumas MD Primary Care Provider [phone] [phone] Reason for Visit * Reason Onset Date Comments Stave Bolt Equalizer Feedback 08/19/2018 [facility] Encounter Details Date Type Department Care Team Description 08/19/2018 Telephone Adult Medicine - [place] [address] [place], [place] [id number] Errol Dumas MD [address] [place] [address] Stave Bolt Equalizer Feedback ([facility]) Social History Tobacco Use Types Packs/Day Years Used Date Smoking Tobacco: Former Smokeless Tobacco: Never Alcohol Use Standard Drinks/Week Comments Yes 0 (1 standard drink = 0.6 oz pur e alcohol) occ Sex Assigned at Date Recorded Not on file documented as of this encounter Miscellaneous Notes * Telephone Encounter - Claudia Lazaro - 08/20/2018 12:02 PM EDT My apologies Dr. Dumas this message was originally routed to the BSR whom took the message, this was not ment for you. * Telephone Encounter - Errol Dumas MD - 08/20/2018 9:26 AM EDT I do not know what smart text to do? I was under the impression that they already had an appointment * Telephone Encounter - Claudia Lazaro - 08/20/2018 7:41 AM EDT Per previous message Im asumming you are referring to to [facility], please complete the proper smart text as I can not process or place a referral for just the [facility], * Telephone Encounter - Ryan Adkins - 08/19/2018 4:24 PM EDT Pt father states hes discussed need for refferal for male clinic and wondering when the referral will be placed documented in this encounter Plan of Treatment Not on file documented as of this encounter Visit Diagnoses Not on filedocumented in this encounter Care Teams Drill Operator Automatic Relationship Specialty Start Date End Date Errol Dumas, [facility] [place] [address] PCP - General Internal Medicine 12/16/12 documented as of this encounter
--- OUTSIDE RECORDS SUMMARY | 2025-07-06 16:17 | XMS_ITS | Encounter Summary ---
Author Organization [facility] Address [address] [place] [address] Care Team Providers Care Rock Room Worker Name Role Phone Errol Dumas MD Primary Care Provider +1 [phone] Encounter Details Date Type Department Care Team Description 02/12/2018 Career Technical Education Instructor Report Medical Records [address] [place] [address] [address] Social History Tobacco Use Types Packs/Day Years [...] on filedocumented in this encounter Care Teams Rock Room Worker Relationship Specialty Start Date End Date Errol Dumas MD [address] [place] [address] PCP - General Internal Medicine 12/16/12 documented as of this encounter
--- OUTSIDE RECORDS SUMMARY | 2025-07-06 16:17 | XMS_ITS | Patient Health Record ---
Author Organization [facility] Address [address] [place] [phone] Care Team Providers Care Steam Fitter Supervisor Name Role Phone ALJEANIEYOSELIN MCCARTHY Primary Care Provide r Unavailable Jerome Casas Unavailable [phone] Reason For Referral No Information Medications Medication SIG (Take, Route, Frequency, Duration) Notes Start Date End Date Status Symbicort 160-4.5 MCG/ACT 2 puffs Inhalation Twice a day for 30 Active Albuterol Sulfate HFA 108 (90 Base) MCG/ACT 2 puffs Inhalation every 4 hrs as needed for wheezing for 30 days Patient filled a Rx for this on 12/05 at [facility] but has already went through it due to COVID and asthma. He needs a refill tonight. Thanks very much 12/14/2023 Active Ventolin HFA 108 (90 Base) MCG/ACT 2 puffs Inhalation prn wheezing every 3 to 4 hrs for 30 days 11/04/2024 Active Spacer/Aero-Holding Chambers - as directed for the inhaler Inhale as directed for inhaler for 30 days 04/15/2023 Active Omeprazole 20 MG TAKE 1 CAPSULE BY MOUTH TWICE A DAY for 30 Active Ventolin HFA 108 (90 Base) MCG/ACT 1 or 2 puffs Inhalation every 4 hrs prn wheezing/shortness of breath for 30 days 04/15/2023 Active Problems Problem Type SNOMED Code ICD Code Onset Dates Problem Status W/U Status Risk Notes Problem Diarrhea (R19.7) Active confirmed Problem 41797022 Other secondary hypertension (I15.8) Active confirmed Problem 286544077 Shortness of breath (R06.02) Active confirmed Problem 224589187 Hypoxemia (R09.02) Active confirmed Problem 84568282 Weakness (R53.1) Active confirmed Problem 04255695 Other fatigue (R53.83) Active confirmed Problem 899634173 Elevated liver enzymes (R74.8) Active confirmed Problem 95287397 Chronic fatigue (R53.82) Active confirmed Problem 12945903 Diarrhea, unspecified type (R19.7) Active confirmed Problem 64442581 Fatigue, unspecified type (R53.83) Active confirmed Problem 317091241 Light-headed feeling (R42) Active confirmed Problem 5871841 Tachycardia (R00.0) Active confirmed Problem 103197563 Dizziness (R42) Active confirmed Problem 42809469 Vitamin D deficiency (E55.9) Active confirmed Problem 98605485 Lactic acid acidosis (E87.2) Active confirmed Problem Hypophosphatemia (6740071) Hypophosphatemia (E83.39) Active confirmed Problem 07805723 Autonomic dysfunction (G90.9) Active confirmed Problem 94433382 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) Active confirmed Problem 867402495 Elevated CPK (R74.8) Active confirmed Problem 11634186 Autoimmune disorder (D89.89) Active confirmed Encounters Encounter Location Date Provider Diagnosis [facility] [address] [place] [phone] 11/04/2024 Jerome Casas [facility] [address] [place] [phone] 05/09/2025 Jerome Casas [facility] [address] [place] [phone] 07/04/2025 Jerome Casas Diarrhea R19.7 Assessments Encounter Date Diagnosis (ICD Code) Assessment Notes Treatment Notes Treatment Clinical Notes Section Notes 07/04/2025 Diarrhea (ICD-10 - R19.7) Plan Of Treatment Pending Test Test Name Order Date ECG RECORDING 03/18/2018 CHEM 7 PROFILE 12/19/2017 CHEM 7 PROFILE 07/04/2025 CHEM 7 PROFILE 06/16/2020 CHEM 7 PROFILE 02/05/2018 HEMOGLOBIN A1C (GLYCOHEMOGLOBIN) 019 LIVER PROFILE 02/05/2018 LIVER PROFILE 12/19/2017 LIVER PROFILE 03/24/2019 LIVER PROFILE 05/17/2018 CALCIUM 05/17/2018 PHOSPHORUS 05/17/2018 PHOSPHORUS 03/24/2019 T4 (THYROXINE) 05/16/2018 T4 (THYROXINE) 02/05/2018 T4 (THYROXINE) 05/17/2018 T4 (THYROXINE) 12/19/2017 TSH (THYROID STIMULATING HORMONE) 2017 TSH (THYROID STIMULATING HORMONE) 2017 TSH (THYROID STIMULATING HORMONE) 2017 TSH (THYROID STIMULATING HORMONE) 2017 IRON + IBC (FE) 03/24/2019 IRON + IBC (FE) 05/16/2018 IRON + IBC (FE) 05/17/2018 FERRITIN 05/17/2018 FERRITIN 03/24/2019 FERRITIN 05/16/2018 CPK 05/17/2018 CPK 05/16/2018 CRP 12/19/2017 CRP 02/05/2018 CRP 06/30/2021 VITAMIN B12 AND FOLATE 05/16/2018 VITAMIN B12 AND FOLATE 05/17/2018 VITAMIN B12 AND FOLATE 03/24/2019 CBC w DIFF 06/30/2021 CBC w DIFF 03/24/2019 CBC w DIFF 07/04/2025 CBC with MANUAL DIFFERENTIAL 12/19/2017 CBC with MANUAL DIFFERENTIAL 05/16/2018 CBC with MANUAL DIFFERENTIAL 05/17/2018 CBC with MANUAL DIFFERENTIAL 02/05/2018 SED RATE (ESR) 02/05/2018 SED RATE (ESR) 06/30/2021 SED RATE (ESR) 12/19/2017 MONO TEST (HETEROPHILE AB) 12/19/2017 ADRENOCORTICOTROPHIC HORMONE (ACTH) 07/0 05/2018 ADRENOCORTICOTROPHIC HORMONE (ACTH) 07/0 06/2018 ALDOSTERONE, SERUM 05/17/2018 ALDOSTERONE, SERUM 05/16/2018 CATECHOLAMINES, FRAC., PLASMA 12/25/2017 CERULOPLASMIN 03/24/2019 CORTISOL 05/16/2018 CORTISOL 05/17/2018 DHEA-SULFATE 05/16/2018 DHEA-SULFATE 05/17/2018 DHEA, UNCONJUGATED 05/16/2018 DHEA, UNCONJUGATED 05/17/2018 DNA,DOUBLE STRANDED AB (KLETSEL DEHE WINTUN) 03/24/20 19 DNA,DOUBLE STRANDED AB (KLETSEL DEHE WINTUN) 06/30/20 21 CELIAC PANEL #10 12/19/2017 CELIAC PANEL #10 03/24/2019 METANEPHRINES,PLASMA 12/25/2017 RENIN 05/17/2018 VITAMIN A 03/24/2019 VITAMIN B1, PYROPHOSPHATE 03/24/2019 VITAMIN B6 03/24/2019 SJOGRENS ANTIBODY (SSA SSB) 06/30/2021 VANILLYMANDELIC ACID,RANDOM UR (VMA) FLUOR. ANTINUCLEAR AB SCREEN ([place]) 06/11 FLUOR. ANTINUCLEAR AB SCREEN (BR[place]) 03/10 VITAMIN D 25-OH TOTAL 03/24/2019 PARATHYROID HORMONE INTACT 05/17/2018 LYME IGM & IGG RFLX WB 12/19/2017 LYME IGM & IGG RFLX WB 02/05/2018 Calcium 07/04/2025 CDiff with Reflex to PCR 07/04/2025 Ova and Parasite 01/02/2023 GI PANEL 07/04/2025 GI PANEL 01/02/2023
== END 2025-07-06 16:36 | disposition home or self-care (01) ==
LOC: HO.HUSH 14:53
PROVIDERS: PCP Internal Medicine; Visit Provider Urology
DX: N20.0 Calculus of kidney (principal); N20.1 Calculus of ureter; Y84.8 Other medical procedures as the cause of abnormal reaction of the patient, or of later complication, without mention of misadventure at the time of the procedure; Z13.9 Encounter for screening, unspecified; Z96.0 Presence of urogenital implants
CPT/HCPCS: 52310; 99024

== ENCOUNTER → 2025-07-06 14:52 | Outpatient (BNVA) | payer MEDICARE, MEDICAID, SELFPAY | PROVIDERS: PCP Internal Medicine; Visit Provider Urology | DX: N20.1 Calculus of ureter (principal); N20.0 Calculus of kidney; Z46.6 Encounter for fitting and adjustment of urinary device; Z93.50 Unspecified cystostomy status; Y84.8 Other medical procedures as the cause of abnormal reaction of the patient, or of later complication, without mention of misadventure at the time of the procedure | CPT/HCPCS: 52310; 81003; 99212 ==

== ENCOUNTER 2025-08-03 15:27 | Outpatient (REF) | payer MEDICARE, MEDICAID, SELFPAY ==
--- NOTE | ~2025-08-03 | US_ITS ---
EXAMINATION: US RETROPERITONEAL LIMITED (RENAL ONLY) CLINICAL INFORMATION: Calculus of kidney. COMPARISON: CT abdomen and pelvis IV contrast 06/30/2025 TECHNIQUE: Routine retroperitoneal ultrasound imaging with attention the kidneys was performed. FINDINGS: RIGHT KIDNEY: 9.9 x 6.0 x 5.7 cm (SAG x AP x TRV). The kidney is normal in size, contour, and echogenicity. Renal cortical thickness is normal. There are multiple echogenic stones. The largest measured in the upper pole is 0.5 x 0.2 x 0.4 cm, midpole 0.3 x 0.3 x 0.5 cm and lower pole 0.4 x 0.3 x 0.3 cm. Hypoechoic heterogeneous area seen lateral side of right kidney likely perinephric fluid previously mentioned on CT of 06/30/2025. LEFT KIDNEY: 9.0 x 5.5 x 5.3 cm (SAG x AP x TRV). The kidney is normal in size, contour, and echogenicity. Renal cortical thickness is normal. There is anechoic cyst laterally measuring 0.4 x 0.4 x 0.6 cm. There are multiple echogenic stones largest measuring 0.5 x 0.3 x 0.5 cm upper pole, 0.5 x 0.2 x 0.3 midpole and 0.8 x 0.5 x 0.6 lower pole. No caliectasis or hydronephrosis seen. US/US renal BI IMPRESSION: Bilateral echogenic renal calculi without hydronephrosis. Small cyst left kidney. Mild right perinephric edema. Electronically signed by: Roberto Zazueta MD 08/04/2025 07:10 AM EDT
--- OUTSIDE RECORDS SUMMARY | 2025-08-03 17:50 | XMS_ITS | Patient Health Record ---
[facility] Address [address] [place] [address] Care Team Providers Care Batch And Furnace Manager Name Role Phone Waleska COOPER, [facility] Primary Care Provi garret Vinayak Vital Unavailable [phone] Allergies Allergen (clinical drug ingredient) Drug/Non Drug [...] Problem Acquired hammer toe of left foot (7694806172678533 ) Hammertoe of left foot (M20.42) Active confirmed Problem Acquired hammer toe of right foot (8179997101130371 ) Hammertoe of right foot (M20.41) Active confirmed Problem Mitochondrial disease (643491097) 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 Problem 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 Plan Of Treatment Pending Test Test Name Order Date X ray : Foot, left 2V 02/26/2022 X ray : Foot, right 2V 02/26/2022 [id number] OF HEMATOMA/FLUID 022 Insurance Providers Payer Name Payer Address Payer Phone Subscriber Number Group Number Insured Name Patient Relationship to Insured Coverage Start Date Coverage End Date [facility] [address] [place] [address] [id number] Ace Casas Self - patient is the insured Medical (General) History Medical History History ICD Code asthma Numbness Poor circulation Psychiatric disorder Reflux Autoimmune disorder-Small Fo guillermina Neuropathy/Dysantonomia Involving Sensory System and Autonomic Dysfunction Surgical History Surgery Date(Month/Year)
--- OUTSIDE RECORDS SUMMARY | 2025-08-03 17:50 | XMS_ITS | Patient Health Record ---
Author Organization [facility] Address [address] [place] [phone] Care Team Providers Care Barrel Waterer Name Role Phone YOSELIN LUCAS Primary Care Provide r Unavailable Jerome Casas Unavailable [phone] Reason For Referral No Information Medications Medication SIG (Take, Route, Frequency, Duration) Notes Start Date End Date Status Symbicort 160-4.5 MCG/ACT 2 puffs Inhalation Twice a day for 30 Active Albuterol Sulfate HFA 108 (90 Base) MCG/ACT 2 puffs Inhalation every 4 hrs as needed for wheezing for 30 days Patient filled a Rx for this on 12/[address] [facility] but has already went through it due [...] Status W/U Status Risk Notes Problem Diarrhea (04994052) Diarrhea (R19.7) Active con firmed Problem 93920948 Other secondary hypertension (I15.8) Active confirmed Problem 847667019 Shortness of breath (R06.02) Active confirmed Problem 598951271 Hypoxemia (R09.02) Active confirmed Problem 59644149 Weakness (R53.1) Active confirmed Problem 72321729 Other fatigue (R53.83) Active confirmed Problem 355650963 Elevated liver enzymes (R74.8) Active confirmed Problem 71591301 Chronic fatigue (R53.82) Active confirmed Problem 88960667 Diarrhea, unspecified type (R19.7) Active confirmed Problem 36145747 Fatigue, unspecified type (R53.83) Active confirmed Problem 386780393 Light-headed feeling (R42) Active confirmed Problem 2363215 Tachycardia (R00.0) Active confirmed Problem 963141130 Dizziness (R42) Active confirmed Problem 40649008 Vitamin D deficiency (E55.9) Active confirmed Problem 73996892 Lactic acid acidosis (E87.2) Active confirmed Problem Hypophosphatemia (9001866) Hypophosphatemia (E83.39) Active confirmed Problem 56354732 Autonomic dysfunction (G90.9) Active confirmed Problem 68420311 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) Active confirmed Problem 518785876 Elevated CPK (R74.8) Active confirmed Problem 52724803 Autoimmune disorder (D89.89) Active confirmed Encounters Encounter Location Date Provider Diagnosis [facility] [address] [place] [phone] 11/04/2024 Jerome Casas [facility] [address] [place] [phone] 05/09/2025 Jerome Casas [facility] [address] [place] [phone] 07/04/2025 Jerome Casas Diarrhea R19.7 Assessments Encounter [...] HORMONE (ACTH) 07/0 05/2018 ADRENOCORTICOTROPHIC HORMONE (ACTH) 070 06/2018 ALDOSTERONE, SERUM 05/17/2018 ALDOSTERONE, SERUM 05/16/2018 CATECHOLAMINES, FRAC., PLASMA 12/25/2017 CERULOPLASMIN 03/24/2019 CORTISOL 05/16/2018 CORTISOL 05/17/2018 DHEA-SULFATE 05/16/2018 DHEA-SULFATE 05/17/2018 DHEA, UNCONJUGATED 05/16/2018 DHEA, UNCONJUGATED 05/17/2018 DNA,DOUBLE STRANDED AB (LAC VIEUX) 03/24/20 19 DNA,DOUBLE STRANDED AB (LAC VIEUX) 06/30/20 21 CELIAC PANEL #10 12/19/2017 CELIAC [...]
== END 2025-08-03 15:28 | disposition home or self-care (01) ==
LOC: HO.US 15:27
PROVIDERS: PCP Internal Medicine; Visit Provider Urology
DX: N20.0 Calculus of kidney (principal)
CPT/HCPCS: 76775

== ENCOUNTER → 2025-08-03 15:28 | Outpatient (BNV) | payer MEDICARE, MEDICAID, SELFPAY | PROVIDERS: PCP Internal Medicine; Visit Provider Radiology Diagnostic Radiology | DX: N20.0 Calculus of kidney (principal); N28.1 Cyst of kidney, acquired | CPT/HCPCS: 76775 ==

== ENCOUNTER 2025-09-01 10:32 | Outpatient (AMB) | payer MEDICARE, MEDICAID, SELFPAY ==
--- NOTE | 2025-09-01 10:36 | A.OFFVIS_ITS ---
Vital Signs 09/01/25 10:40 Height 5 ft 9 in Weight 158 lb 11.725 oz BMI 23.4 BP 130/80 Blood Pressure Location Lt brachial Position Sitting Pulse 78 Pulse Source Pulse Oximeter Pulse Oximetry (%) 99 Oxygen Delivery Method Room Air Intake Visit Reasons: Asthma Quality Assurance Tech Required: No Accompanied by: Self / Same As Patient Allergies buspirone (From BuSpar) Allergy (Severe, Verified 09/01/25 10:41) Dizziness and Leg Weakness sertraline (From ZOLOFT) Adverse Reaction (Intermediate, Verified 09/01/25 10:41) NAUSEA & VOMITING methylprednisolone (From Solu-Medrol) Adverse Reaction (Mild, Verified 09/01/25 10:41) Agitated trazodone (TRAZODONE) Adverse Reaction (Unknown, Verified 09/01/25 10:41) VOMITING HPI Comments Details: The patient is a 35-year-old gentleman known history of asthma in addition to a 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 The patient was having significant symptoms with significant shortness of breath and dyspnea and failure to thrive for many months prior to the diagnosis. He had an abnormal cardiopulmonary stress test and [place] [facility] [place] he then went to [facility] has been followed closely there. 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 He was started on high doses of IVIG abdominal was hospital he was pretreated with fluids in addition to steroids in addition to Benadryl to minimize side effects. But he was not tolerating it due to adverse side effects from the medication. Therefore he was switched over to subcutaneous infusions with Hizentra. He has been doing this himself with the help [facility] initially since September 2019. He has been tolerating it well but more recently he started developing worsening reactions after the infusions. Do is last reaction he started developing significant diaphoresis and dizziness and shortness of breath. He did have EMS called his blood sugar was 45. He did go to the ER and was able to then be transferred home safely. In the meantime he did follow-up with Endocrinology. . He was also worsening shortness of breath. evaluated in the ED for this. He did go to the ER because of his worsening constitutional symptoms and shortness of breath. In the ER he did have a brief walking oximetry in his desaturated down to 87% but then had a repeat 1 that demonstrated normal pulse ox. In the office here we did attempt a 6 minutes walk test and again he desaturated to 87% but quickly improved. He is reluctant to use any oxygen at this time. Will retest his overnight oximetry to see if he does need oxygen at nighttime. We also talked about his asthma symptoms. 01/16/2021 the patient is here for pulmonary follow-up visit. Overall he is feeling better. The pleuritic pain is improved. He still has a cough is still feels tired. Denies any fevers or chills. He is completing a course of Augmentin. His chest x-ray repeat demonstrated no worsening of the pleural effusion. He still had the nodular base opacity in the right hemithorax. Again, we looked at the CT scan of the chest that he had back in January 08 demonstrating a airspace disease within the pro based on the superior segment of the right lower lobe appears to have a area of necrosis. Also associated with a small pleural effusion. Appears to be parapneumonic. He did have blood work ruling out vasculitis and will ruling out connective tissue diseases. However, sedimentation rate was significantly had 83. Since the patient is feeling better will finished a course of Augmentin and then repeat a sedimentation rate. I am hopeful that the sedimentation rate will drop. If the sedimentation continues high additional testing and imaging studies will be warranted. The patient and the family is aware that it could take up to 6-8 weeks to clear the infectious process. As far as etiologies aspiration pneumonia is in differential since is affecting the superior segment of the right lower lobe in addition to hematogenous spread. In addition, he was evaluated by Neurology at [facility] confirming the autonomic dysatomia and inflammatory polyneuropathy and recommended changing the Gammagard to 30mg qweek. I will go ahead and make the change. I am concerned for the need for his IV access.. But will go ahead and try it rotating the sites. 12/11/2021 the patient Has a telehealth visit. Overall the patient has been doing better. He continues to try to increase his exercise capacity. He has been able to walk about 2 miles a day. His asthma appears to be stable. He continues to use the Spiriva daily. He has not required any Xopenex which is reassuring. In the meantime he still follows closely with [facility] and also [facility] regarding his acquired autonomic dysatonia. he was switched over to the IVIG 30 g every week which appears to have been helping him. Although, having to get peripheral IV lines on a weekly basis has become a challenge. He does mention that at the infusion center did been having difficulties getting iv access lately on his left arm. Therefore, I will talk to them regarding that issue. At this time will try continue with weekly infusions. However, if he has any worsening IV access issues we will discuss the possibility of changing it back to every 2 weeks. his cardiac status has been is stable. He does continue to tolerate the metoprolol which is reassuring otherwise the patient is without any other complaints will continue monitoring his iv access issues. 07/11/2023 the patient is here for a pulmonary follow-up visit. The patient continues to do well on his current therapy. He has been following closely [place] [facility] [place] for his known diagnosis of autonomic dysfunction and autoimmune inflammatory small fiber polyneuropathy. The patient has had a long journey, but, appears to be on at good regimen at this time demonstrating improvements of his overall health. Since he has been on the weekly IVIG infusions he has not been hospitalized and his oberall health has improved. The therapy has been effective and beneficial.. He has been very compliant with the therapy. Although recently we had to hold the therapy based on the fact that the patient had to get insurance approval. He had recently changed insurances and this required additional documentation and follow-up. Although, there is no question that the therapy has been very effective for him. His family became very upset that his therapy was going to be delayed. He was recently evaluated by his doctors in [place] and had a repeat level 1 cardiopulmonary exercise study and actually demonstrated a significant improvement when compared to his previous which is very reassuring. Weight perkins he has also gained weight. As far as the autonomic dysfunction seems to be stable where he has not required any hospitalizations.. Although, he is describing some degree of urinary retention and frequency. His neurologist felt that it may be related to the autonomics dysfunction. Will be unreasonable for him to follow-up with Urology for this. He is also going to follow-up with primary care doctor. She also continues on Mestinon for the neuropathy,in addition to Milrinone own and Florinef for the autonomic dysfunction. He continues to work with physical therapy and has been able to walk 2 miles a day. His asthma has been in good control with current therapy with Spiriva daily. He has not required his short- acting beta agonist. 01/09/2024 the patient is here for a pulmonary follow-up visit. The patient has been doing better. He did have COVID-19 about a month ago. Init ially he did well. He did take Paxlovid. Ultimately then started having asthma symptoms. The patient also was complaining significant pharyngitis. He was treated with doxycycline. He was evaluated at the ER in his strep cultures were negative. Ultimately he is feeling better. He still feeling tired. He is back at the gym though. He does continue to use his respiratory therapy. When he wa s sick he was using his Xopenex more often. But right now he is back to his baseline. The only issue that has been persistent he has been noticing some increased ectopy and palpitations. In regards of his autonomic dysfunction inflammatory small fiber polyneuropathy continues to receive the IVIG therapy as per the recommendations of his specialists in [place]. The patient does have a very rare condition. He does respond very well to the IVIG to the point that his quality of life is significantly better. The therapy has been very affecting beneficial. IV access still not an issue. Will still monitor closely. He will follow-up with [place] soon and we should receive their recommendations in order to continue to being want cord. The patient was offered a flu shot today. He did rejected. I did explain to him the risk. Specially since he still recovering from COVID. Since we decided not to get the flu shot I did give him a mask and did recommend that he mask up specially in [facility] places and hospitals and the like. 07/16/2024 the patient is here for a pulmonary follow-up visit. Since we last spoke the patient is started developing URI like symptoms with the for th roat headache fatigue and nasal congestion. He has also had a cough. Intermittent. He feels like he has been getting sick. Positive sick contacts in the home. His dad was sick but he tested for COVID he has been negative. I did swab him in the office in indeed was positive. I did call him with the results. In the meantime the patient continues on the IVIG therapy. Although he sometimes misses a dose. He has not gone the last couple weeks. He is supposed to get infusions on a weekly basis. The patient will be seen a specialist in [place] regarding the possibility of mitochondrial disease. Still being treated for the autonomic dysfunction inflammatory small fiber polyneuropathy. He understands he needs to continue the infusions for now. Will request blood work in addition to checking his IgG levels at this time. The patient was start Paxlovid and take it for 5 days. The patient has any worsening symptoms he needs to call the office or go to the ER. 03/08/2025 the patient is here for a pulmonary follow-up visit. Overall he is doing well. He continues to receive the IVIG once a week. He did follow- up in [place] with his specialists regarding the acquired autonomic dysfunction and is felt that the treatment is reasonable at this time. At some point may be during the next visit they can talk about potentially decreasing the frequency of the treatment whenever safe to do so to see if we can deescalate some of the care. He continues uses respiratory therapy with good effect. The patient has been exercising on a regular basis. He is going to start building up some strength training as well. He has not had blood work in some time therefore will request blood work to assess his kidney function CBC and also to assess his IgG levels. The patient has been noticing some increased blood pressure which may be a good sign if indeed the autonomic dysfunction is settling. He has not required the midodrine and he has not required any benzodiazepines which I part of the treatment which is reassuring. The patient will undergo blood work he will continue with treatment as is. After he follows up in [place] will figure out if we are going to be changing any of the frequencies of treatment. In the meantime he has the top the Spiriva because it was not covered anymore. He has been tolerating the Symbicort but his case him to be a little shaky. Therefore will decrease the dose to 1 puff b.i.d.. 09/01/2025 the patient is here for pulmonary follow-up visit. Overall he is doing well. He did have an issue in the hospital with significant flank pain was found to have a kidney stone requiring lithotripsy. Postoperatively the patient developed significant pain further in the area consistent with a obstruction along with what appeared to be a right-sided pneumonia from aspiration during the postoperative. The patient was given antibiotics. He did require cystoscopy we will of stone and stent placement. He has now recovered. He continues on the IVIG when weekly basis. He also continues on the midodrine and Florinef which appeared to be affecting beneficial. Although he has noticed that his blood pressure is going pretty high during his infusions of IV IG. Therefore, we did talk about considering having or decreasing the dose altogether the midodrine prior to the infusions and he should follow-up with his neurologist closely about that. Ideally though adjusting the midodrine dose may be helpful specially with the hypotensive episodes. Regarding the frequency of the medication does up to his neurologist in [place]. For now he will continue with the weekly dose. He will get blood work and follow-up in 6 months. From an asthma standpoint the patient is doing well will continue to use his respiratory therapy as prescribed. We switched him over to Advair HFA and seems to be tolerating that well and the patient should get a flu shot although he is reluctant at this time. He will follow-up in 6 months if he has any issues prior to this she can always call for an earlier assessment. [facility] Medical History (Updated 09/01/25 @ 21:32 by Calvin Jean MD) Hypertension Pre-op chest exam Kidney stone URI (upper respiratory infection) Urinary retention Other inflammatory polyneuropathies Gastritis Pleuritis Pneumonia Bilateral calf pain Pleural effusion MARYANN (obstructive sleep apnea) Has daytime drowsiness Vitamin D deficiency Viry's disease Hypoglycemia Dizziness GERD (gastroesophageal reflux disease) Small fiber neuropathy Mccallum disease PTSD (post-traumatic stress disorder) Nocturnal hypoxemia Tachycardia Autonomic dysfunction Asthma Surgical History Hx of colonoscopy (~2016) History of wisdom tooth extraction (~2007) Family History Mother Asthma Celiac disease/sprue Father Psoriasis Social History Household Members: Family Housing: House Are you a primary home care consultant to a significant other at home: No Do you presently have visiting nurse or other home services: No Alcohol intake: never Patient Tobacco Use Status: Former Tobacco user Tobacco use type: Cigarette Years Smoked: 1 year Substance Use Type: Marijuana Advance Directives Date on File: 09/16/18 service: No Review of Systems Const Denies daytime sleepiness, Denies headache(s), Denies lethargy, Denies night sweats and Reports weight gain ENT Denies change in voice, Denies headache(s), Denies lip swelling, Denies mouth pain and Denies tongue swelling Card Denies chest pain, Denies dyspnea and Denies dyspnea on exertion Resp Reports cough, Denies dyspnea and Denies dyspnea on exertion GI Denies abdominal pain Reports difficulty urinating and Reports dysuria Musc Reports no additional complaints Skin/Breast Denies rash Neuro Denies Neuro-related abnormal movements and Denies headache(s) Psych Reports anxiety [place]/Lymph Denies easy bleeding and Denies lymphadenopathy Aller/Immun Denies lip swelling and Denies tongue swelling Physical Exam Vital Signs: Last Vital Signs Pulse 78 09/01/25 10:40 BP 130/80 09/01/25 10:40 Pulse Ox 99 09/01/25 10:40 Oxygen Delivery Method Room Air 09/01/25 10:40 BMI result Body Mass Index 23.4 Last Vital Signs Temp 96.8 F 07/01/25 07:28 Pulse 75 07/01/25 09:06 Resp 16 07/01/25 07:28 BP 116/61 07/01/25 09:06 Pulse Ox 96 07/01/25 07:28 O2 Del Method Room Air 07/01/25 07:28 BMI result Body Mass Index 23.2 Const General: cooperative, healthy appearing, comfortable and no acute distress Orientation/consciousness: patient oriented x3 HEENT Face and sinus: Yes normal facial exam Mouth: moist mucous membranes Neck Neck: Yes normal visual inspection, Yes full ROM and Yes trachea midline Chest Chest palpation & inspection: normal inspection of the chest Resp Effort & Inspection: normal respiratory effort, able to speak in complete sentences and no respiratory distress Auscultation: clear to auscultation bilaterally GI Inspection: Yes normal to inspection Back/Spine/Pelvis Cervical Spine: normal cervical lordosis Thoracic/Lumbar Spine: thoracic and lumbar spine normal to inspection Skin General skin exam: no rashes or lesions noted Neuro General: patient oriented x3, tone normal and moves all extremities Extrem General: Yes normal to inspection and Yes capillary refill normal Assessment & Plan Assessment & Plan (1) Autonomic dysfunction: Code(s): G90.9 - Disorder of the autonomic nervous system, unspecified Category: Medical (2) Other inflammatory polyneuropathies: Code(s): G61.89 - Other inflammatory polyneuropathies Category: Medical (3) Asthma: Code(s): J45.909 - Unspecified asthma, uncomplicated Category: Medical Qualifiers: Asthma complication type: with acute exacerbation Asthma persistence: persistent Asthma severity: moderate Qualified Code(s): J45.41 - Moderate persistent asthma with (acute) exacerbation (4) Palpitations: Code(s): R00.2 - Palpitations Category: Medical (5) Hypertension: Comment: Due to IVIG Code(s): I10 - Essential (primary) hypertension Category: Medical Qualifiers: Hypertension type: other secondary hypertension Qualified Code(s): I15.8 - Other secondary hypertension (6) Pneumonia: Comment: aspiration versus hematogenous Code(s): J18.9 - Pneumonia, unspecified organism Category: Medical Qualifiers: Pneumonia type: due to unspecified organism Laterality: right Lung location: lower lobe of lung Qualified Code(s): J18.9 - Pneumonia, unspecified organism Plan Continue Gammagard to 30mg every week as per the recommendations of his [facility] [place] and specialist. His condition is advance, yet has been respon ding to his current therapy. Benzonates as needed for cough continue Advair Xopenex as needed Consider holding or half midodrine in the am prior to the infusions CT chest to f/u pneumonia F/U 6 months Orders: Orders CT chest wo IV con Today J18.9 - Pneumonia, unspecified organism Coding Level of Care Code Est Pt Level 4 (87034) Complex EM visit Add On G2211 Diagnoses Autonomic dysfunction G90.9 Other inflammatory polyneuropathies G61.89 Moderate persistent asthma with acute exacerbation J45.41 Asthma complication type: with acute exacerbation Asthma persistence: persistent Asthma severity: moderate Palpitations R00.2 Other secondary hypertension I15.8 Hypertension type: other secondary hypertension Pneumonia of right lower lobe due to infectious organism J18.9 Pneumonia type: due to unspecified organism Laterality: right Lung location: lower lobe of lung Time Spent (min) 18
[2025-09-01 10:40] VITALS: BP 130/80; PULSE 78; O2SAT 99; BMI 23.4
== END 2025-09-01 11:12 | disposition home or self-care (01) ==
LOC: HO.HPS 10:33
PROVIDERS: PCP Internal Medicine; Visit Provider Hospitalist
DX: G90.9 Disorder of the autonomic nervous system, unspecified (principal); G61.89 Other inflammatory polyneuropathies; J45.41 Moderate persistent asthma with (acute) exacerbation; R00.2 Palpitations; I15.8 Other secondary hypertension; J18.9 Pneumonia, unspecified organism
CPT/HCPCS: 99214; G2211

== ENCOUNTER → 2025-09-01 10:32 | Outpatient (BNVA) | payer MEDICARE, MEDICAID, SELFPAY | PROVIDERS: PCP Internal Medicine; Visit Provider Hospitalist | DX: G61.89 Other inflammatory polyneuropathies (principal); G90.9 Disorder of the autonomic nervous system, unspecified; J45.41 Moderate persistent asthma with (acute) exacerbation; I15.8 Other secondary hypertension | CPT/HCPCS: 99212 ==